=== PATIENT | female | born 1995 | race Caucasian/White ===

== ENCOUNTER 2019-08-10 15:00 | Outpatient (RCR) | payer MEDICAID, SELFPAY | END 2019-08-15 23:59 | LOC: NS 15:00 | PROVIDERS: Family Provider Family Medicine; PCP Family Medicine; Visit Provider Obstetrics & Gynecology | DX: O24.419 Gestational diabetes mellitus in pregnancy, unspecified control (principal) | CPT/HCPCS: 97802; G0108 ==

== ENCOUNTER 2019-09-07 14:00 | Outpatient (RCR) | payer MEDICAID, SELFPAY ==
[2017-06-16 17:13] VITALS: BMI 24.0
== END 2019-09-15 23:59 ==
LOC: DC 14:00
PROVIDERS: Family Provider Family Medicine; PCP Family Medicine; Visit Provider Obstetrics & Gynecology
DX: Z71.3 Dietary counseling and surveillance (principal); O24.419 Gestational diabetes mellitus in pregnancy, unspecified control

== ENCOUNTER 2019-10-17 20:20 | Emergency (ER) | payer MEDICAID, SELFPAY ==
[2019-10-17 20:21] VITALS: BP 129/68; PULSE 119; RESP 18; TEMP 36.8; O2SAT 99; BMI 35.6
--- NOTE | 2019-10-17 20:35 | RAD_ITS ---
STUDY: X-RAY CHEST REASON FOR EXAM: Female, 24 years old. COLD SX SINCE YESTERDAY. 39 WEEKS TECHNIQUE: PA and lateral views of the chest. COMPARISON: Previous study of 11/24/2014 FINDINGS: The lungs are clear and expanded. There is no demonstrated pleural abnormality. Normal size heart. Normal mediastinum and roger. Normal visualized pulmonary arteries. Normal visualized aortic arch and descending thoracic aorta. Normal visualized thoracic spine. Normal visualized ribs, clavicles, and shoulders. There is no demonstrated abnormality of the visualized soft tissue structures of the upper abdomen. RAD/Chest PA and Lateral IMPRESSION: Normal x-ray examination of the chest. Electronically Signed: Trevor Hatch MD at 21:10 EST , Service support ,
--- NOTE | 2019-10-17 20:42 | ED.VIS.GEN ---
History of Present Illness Chief Complaint: Cold Sx Informant: Patient Onset: Weeks Maximum Severity: Mild Narrative: Patient indicates she is 39 weeks , G2, P1 uncomplicated no abdominal pain vaginal bleeding or vaginal discharge, she complains of runny nose and coughing for 3 weeks her [employer] physicians are aware of the above there is no specific remedy they prescribed for her and she presents for evaluation of the coughing and the runny nose, she is eating and drinking well bowel and bladder habits are unremarkable Past Medical History - Allergies and Home Meds Allergies/Adverse Reactions: Allergies No Known Allergies Allergy (Verified 10/17/19 20:32) Primary Care Physician: Cameron Ambriz DO [Primary Care Provider] - Past Medical History: - - Indicates no chronic health conditions no history of HI PE DVT pneumonia or asthma and again is uncomplicated Smoking Status: Current every day smoker Review of Systems General: Denies: Chills, Fever, Sweats Eyes: Denies: Visual changes - bilaterally, Diplopia ENT: Reports: Rhinorrhea. Denies: Sore throat Cardiovascular: Denies: Chest pain, Palpitations Respiratory: Reports: Cough. Denies: Dyspnea, Dyspnea on exertion Gastrointestinal: Denies: Abdominal pain, Nausea, Vomiting, Diarrhea, Melena, Hematochezia Genitourinary: Denies: Dysuria, Hematuria, Frequency Musculoskeletal: Denies: Back pain, Extremity Pain Skin: Denies: Rash, Wounds Neurological: Denies: Headache, Weakness, Numbness Physical Exam Vital Signs/Narrative: Vital Signs Temp Pulse Resp BP Pulse Ox 10/17/19 20:21 98.2 F 119 H 18 129/68 H 99 General: Well nourished, Well developed, No Acute Distress Head: Normocephalic, Atraumatic Eyes: Perrl, EOMI ENT: Moist mucous membranes, No rhinorrhea Neck: Supple, Nontender Cardiovascular: Regular rate, Regular rhythm, No murmurs Respiratory: No distress, CTA bilaterally, Chest nontender Abdomen: Soft, Nontender, Nondistended, Normal bowel sounds, - - Is obviously abdomen soft and nontender Back: Nontender, Normal Inspection Extremities: Nontender, No edema Skin: Normal color, No rash Neurological: Alert, Oriented x3, Cranial nerves II-XII grossly intact, Normal Strength, Normal Sensation Psychological: Normal affect, Normal Mood Diagnostic/Tx/Re-eval - Medical Decision Making In no distress she does have some mild rhinorrhea her lungs are clear the next unremarkable labs unremarkable clinically she looks well she appears well-hydrated well-nourished given all the above chest x-rays obtained DuoNeb inhaler, the chest x-ray is unremarkable explained to her that given the above she will be discharged on Flonase Proventil inhaler and she will follow-up with her outpatient providers Saturday and return for change in symptoms she is comfortable this plan Home stable Final impression harsh cough with rhinorrhea, 39 weeks ED Disposition - Plan for ED Patient: Diagnosis: URI with cough Instructions: BRONCHITIS, No Antibiotic (Adult) Prescriptions: Fluticasone 0.05% [Flonase Nasal [place]] 1 spray NASAL BID #1 bottle Prescription Printed Albuterol Inhaler [Ventolin Hfa] 1 - 2 puff INHALATION Q4H PRN PRN #1 inhaler PRN Reason: Wheezing Prescription Printed Referrals: Cameron Ambriz DO [Primary Care Provider] -
--- NOTE | 2019-10-17 20:46 | DCINST.ED_ITS ---
ED Disposition - Plan for ED Patient: Diagnosis: URI with cough Instructions: BRONCHITIS, No Antibiotic (Adult) Prescriptions: Fluticasone 0.05% [Flonase Nasal [place]] 1 spray NASAL BID #1 bottle Prescription Printed Albuterol Inhaler [Ventolin Hfa] 1 - 2 puff INHALATION Q4H PRN PRN #1 inhaler PRN Reason: Wheezing Prescription Printed Referrals: Cameron Ambriz DO [Primary Care Provider] -
[2019-10-17 20:56] VITALS: PULSE 118; RESP 18
[2019-10-17] MEDS: Ipratropium/Albuterol Sulfate 3 ML AMPUL.NEB INHALATION (20:56)
== END 2019-10-17 21:36 | disposition home or self-care (01) ==
LOC: ED 20:51
PROVIDERS: Emergency Provider Emergency Medicine; PCP Family Medicine
DX: O99.513 Diseases of the respiratory system complicating pregnancy, third trimester (principal); J06.9 Acute upper respiratory infection, unspecified; O99.333 Smoking (tobacco) complicating pregnancy, third trimester; F17.200 Nicotine dependence, unspecified, uncomplicated; Z3A.39 39 weeks gestation of pregnancy
CPT/HCPCS: 71046; 94640; 99282

== ENCOUNTER 2019-10-23 07:08 | Inpatient (IN) | payer MEDICAID, SELFPAY ==
[2019-10-23 07:24] VITALS: BMI 34.9
[2019-10-23] MEDS: Lactated Ringers 1,000 ML 50 ML IV (07:50)
[2019-10-23 08:05] LABS: Bedside Glucose 134 mg/dL (70-110)
[2019-10-23 08:11] LABS: Absolute Lymphocyte Count 1.43 X10^3/uL (0.83-4.51); Absolute Neutrophil Count 6.7 X10^3/uL (2.0-7.7); Basophil# 0.03 X10^3/uL; Basophil% 0.3 % (0-1); Eosinophil# 0.14 X10^3/uL; Eosinophils% 1.5 % (0-5); Hematocrit 38.8 % (37-47); Hemoglobin 12.9 g/dL (12.0-15.0); Lymphocyte # 1.43 X10^3/ul (4.0); Lymphocyte % 15.7 % (19-41); Mean Corp Hgb Conc 33.2 g/dL (32-36); Mean Corpuscular Hgb 30.1 pg (27.0-32.0); Mean Corpuscular Volume 90.4 fL (81-99); Mean Platelet Vol. 10.9 fl (6.2-12.0); Monocyte# 0.71 X10^3/uL; Monocyte% 7.8 % (0-10); NRBC Flagged by Analyzer 0 % (0-5); Neutrophil # 6.73 X10^3/uL (2.7-7.7); Platelet Count 175 K/mm3 (150-450); RBC Distribution Width CV 13.2 % (11.6-14.6); RBC Distribution Width SD 43.8 fl (35.1-43.9); Red Blood Count 4.29 M/mm3 (4.2-5.4); White Blood Count 9.1 K/mm3 (4.4-11.0)
[2019-10-23] MEDS: 0.9% Normal Saline Single 100 ML IV.SOLN. IY (08:33)
[2019-10-23] MEDS: miSOPROStol 25 MCG TABLET VAGINAL (08:34)
[2019-10-23 09:36] LABS: Bedside Glucose 89 mg/dL (70-110)
[2019-10-23 10:21] LABS: Bedside Glucose 71 mg/dL (70-110)
[2019-10-23] MEDS: Oxytocin 30 units/NS 500 ml 30 UNITS/500 ML IV.SOLN IV (13:13)
--- NOTE | 2019-10-23 13:24 | HP.PCM_ITS ---
History Date of Admission: 10/23/19 Final JESS: 10/22/19 Final JESS Source: US <20 weeks Gestational age: 40 Weeks and 1 Days History of this : This is a 24 year-old, 2 para 1 at 40-1/7 weeks gestation presents for induction of labor due to gestational diabetes, diet controlled. Patient reports blood sugars have been well controlled. She denies any gross vaginal bleeding or leaking of fluid. She is had good movement. Allergies No Known Allergies Allergy (Verified 10/23/19 07:24) Home Medications: Home Medications Albuterol Inhaler [Ventolin Hfa] 1 - 2 puff INHALATION Q4H PRN PRN #1 inhaler 10/17/19 Pnv No.95/Ferrous Fum/Folic AC [ Formula] 1 ea PO DAILY 10/17/19 Fluticasone 0.05% [Flonase Nasal [place]] 1 spray NASAL BID 10/23/19 Smoking Status: Light Smoker (<10/day) Alcohol: None Number of Fetus(es): 1 NST - FHR Rate Baby A Baseline: normal Variability:: Moderate Accelerations:: 15 x 15 Decelerations:: None NST Reactive:: Yes FHR Category:: Category I History Past Pregnancies: Past Pregnancies Delivery Date Name GA/ Weeks Outcome Route Wt Infant Sex Labor Length Anesthesia Delivery Location Provider FOB Expected Infant Delivery Method: Spontaneous Vaginal Review of Systems Constitutional: Denies: Anorexia, Chills Eyes: Denies: Blurred vision Cardiovascular: Denies: Chest Pain Respiratory: Denies: Cough, Shortness of Breath Genitourinary: Denies: Dysuria Skin: Denies: Rash Neurological: Denies: Double vision, Slurred speech Physical Exam General: Alert, Cooperative, No apparent distress Cardiovascular: Regular rate Lungs: Normal air movement Abdomen: Soft, Non Tender, Non-Distended, Gravid Extremities:: Other - edema 1+ 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 Last ultrasound showed estimated weight at approximately 8-1/2 pounds. Risk benefits and alternatives to induction been discussed with patient, her questions were answered to her satisfaction she desires to proceed. Consent had been signed in the office. Pelvis is clinically adequate to expect vaginal delivery. Patient had history of chlamydia during the , repeat test was negative. Patient may have an epidural, nitrous oxide or IV pain medicines as needed for pain control.
[2019-10-23 14:05] LABS: Bedside Glucose 76 mg/dL (70-110)
[2019-10-23] MEDS: Lactated Ringers 500 ML 999 ML IV (17:35)
[2019-10-23] MEDS: fentaNYL-bupivacaine (epidural) 100 ML BAG EPIDURAL ×2 (18:27→22:33)
[2019-10-23 18:36] LABS: Bedside Glucose 82 mg/dL (70-110)
[2019-10-23 18:36] LABS: Bedside Glucose 68 mg/dL (70-110)
[2019-10-23 18:36] LABS: Bedside Glucose 84 mg/dL (70-110)
[2019-10-23] MEDS: Lactated Ringers 1,000 ML 200 ML IV (20:41)
[2019-10-23] MEDS: Ondansetron 4 MG/2 ML Vial IV (21:06)
[2019-10-23 22:31] LABS: Bedside Glucose 73 mg/dL (70-110)
[2019-10-24 00:55] LABS: Bedside Glucose 77 mg/dL (70-110)
[2019-10-24] MEDS: Lactated Ringers 1,000 ML 200 ML IV (02:27)
[2019-10-24] MEDS: Oxytocin 30 units/NS 500 ml 30 UNITS/500 ML IV.SOLN 334 UNITS IV (03:15)
--- NOTE | 2019-10-24 03:24 | OP.PCM_ITS ---
Vaginal Delivery Maternal Presentation: Medically Indicated Induction Method of Induction: Pitocin, Guy Bulb, Amniotomy Medical Reason for Induction: - - GDM A1 Amniotic Membrane Rupture Type: Artificial Amniotic Fluid Description: Clear Final JESS: 10/22/19 Final JESS Source: US <20 weeks Gestational age: 40 Weeks and 2 Days Date of Procedure: 10/24/19 Pre-Operative Diagnosis: labor, maternal exhaustion Post-Operative Diagnosis: same Surgery/ Procedure Performed: Vacuum Assisted Vaginal Delivery Type of Anesthesia: Epidural Description of Procedure: Patient was complete for over 3 hours, pushing for 2-1/2. She was exhausted. Position was SADE. Bladder was drained. Pelvis was clinically adequate. Estimated weight was less than 4500 g ultrasound. I discussed with the patient option of trial of outlet vacuum-assisted vaginal delivery. station was at plus 3 out of 5 station. Patient consented. Vacuum was placed and vacuum created to 550 mmHg. I pulled with 1 push with no pop offs to standing rock bony. The vacuum was removed. The patient then delivered on the next push. A vigorous female was delivered SADE over an intact perineum. The remainder the was delivered with maternal pushing and gentle traction only in less than 15 seconds. The Pitocin infusion was initiated for active management of the third stage. The cord was clamped and cut after 1 minute. The infant was attended to by the waiting nursing staff. The placenta was delivered spontaneously and intact. The cervix and vagina were intact. The small vaginal lacerations that were each 1 cm and first-degree were oversewn with 3-0 Vicryl repeat suture. They were hemostatic. Sponge and needle counts were correct. A vaginal sweep was completed by me. Presentation: SADE Placental Delivery Description: Spontaneous Placenta Disposition: [facility] Cord Vessel Description: 3 Vessels Cord Entanglement: None Drain: Guy to straight drain Estimated Blood Loss: 200 Infant A gender: Female (1 minute): 8 (5 minute): 9 Episiotomy Description: None Laceration: 1st degree - vaginal Medications given after delivery: IV Pitocin Complications: None
[2019-10-24 04:06] LABS: Bedside Glucose 74 mg/dL (70-110)
[2019-10-24 04:06] LABS: Bedside Glucose 75 mg/dL (70-110)
[2019-10-24 04:31] LABS: Bedside Glucose 82 mg/dL (70-110)
[2019-10-24 10:00] VITALS: BP 109/57; PULSE 81; RESP 16; TEMP 36.5
[2019-10-24 14:00] VITALS: BP 107/65; PULSE 91; RESP 16; TEMP 36.8
[2019-10-24] MEDS: Naproxen 250 MG Tablet 500 MG PO (14:07)
[2019-10-24 18:00] VITALS: BP 126/58; PULSE 82; RESP 16; TEMP 36.3
[2019-10-24 20:00] VITALS: BP 114/73; PULSE 83; RESP 16; TEMP 36.6
[2019-10-25] VITALS: BP 117/73; PULSE 84; RESP 18; TEMP 36.1
[2019-10-25 04:10] VITALS: BP 123/73; PULSE 76; RESP 18; TEMP 36.1
[2019-10-25 06:16] LABS: Bedside Glucose 121 mg/dL (70-110)
[2019-10-25] MEDS: Naproxen 250 MG Tablet 500 MG PO (07:29)
[2019-10-25 07:30] VITALS: BP 106/67; PULSE 84; RESP 14; TEMP 36.4; O2SAT 96
--- NOTE | 2019-10-25 08:54 | PCM.PN.OB ---
Subjective: Complaining some aching in her back. Average lochia. - Physical Exam Vitals/I&O's: Vital Signs Temp Pulse Resp BP Pulse Ox 97.5 F L 84 14 106/67 96 10/25/19 07:30 10/25/19 07:30 10/25/19 07:30 10/25/19 07:30 10/25/19 07:30 Oxygen Delivery Method Room Air Weight: 92.4 kg Body Mass Index (BMI) 34.9 Intake and Output for Last 24 Hours 10/23/19 10/24/19 10/25/19 23:59 23:59 23:59 Intake Total 2512.97 / 2512.97 1692.93 / 1692.93 Output Total 1600 / 1600 2600 / 2600 Balance 912.97 / 912.97 -907.07 / -907.07 General: Alert, Cooperative, No apparent distress Laboratory Results 10/25/19 06:08: POC Glucose 121 H Current Medications Acetaminophen (Tylenol) 1,000 mg PO Q8H PRN PRN PRN Reason: Pain Score 1-3/10 Bisacodyl (Dulcolax) 10 mg RECTAL UD PRN PRN Reason: If no BM Dibucaine (Dibucaine) 1 applic TOPICAL TID PRN PRN; Protocol PRN Reason: Discomfort Glucagon () 1 mg IM .X1 PRN PRN Reason: Hypoglycemia Hydrocortisone (Hytone) 1 applic TOPICAL TID PRN PRN; Protocol PRN Reason: Discomfort Dextrose (Dextrose 10%-Water) 250 mls @ 999 mls/hr IV X1 PRN; Protocol PRN Reason: HYPOGLYCEMIA Methylergonovine Maleate (Methergine) 0.2 mg IM X1 PRN PRN Reason: Excess bleeding/uterine atony Naproxen (Naprosyn) 500 mg PO Q8H PRN PRN PRN Reason: Pain Score 1-3/10 Last Admin: 10/25/19 07:29 Dose: 500 mg Documented by: Ondansetron HCl (Zofran) 4 mg IV Q4H PRN PRN PRN Reason: Nausea Senna/Docusate Sodium (Senokot-S, Clau-Colace) 1 - 2 tablet PO DAILY PRN PRN PRN Reason: Constipation Simethicone (Mylicon) 80 mg PO PCHS PRN PRN Reason: Indigestion/Stomach pain Sodium Chloride () 5 - 15 ml IV UD PRN PRN Reason: SALINE FLUSH Medical Necessity - Tobacco Use Smoking Status: Light Smoker (<10/day) Assessment/Plan day #1 status post vaginal delivery. is breast-feeding and doing well. Routine discharge instructions and prescriptions.
--- NOTE | 2019-10-25 08:57 | DCINST_ITS ---
Discharge Diet: No Restrictions Discharge Activity: Return to Normal Activity, May not drive while taking narcotic pain medications., May Shower May shower in (days): 0 May resume sexual activity in: 4-6 weeks Additional Activity Instructions:: Nothing in the vagina for 4-6 weeks. You may return to work/school in 6 weeks. Call your doctor if your incision/area has: Continuous Slow Oozing, Sudden Increased Bleeding, Increased Pain/ Swelling, Increased Redness, Foul Smelling Discharge Additional Instructions: If you experience any of the following, contact your healthcare provider. * Bleeding that soaks a pad every hour for 2 hours * Fever 100.4 or higher * Unrelieved incision or abdominal pain * Swelling, redness, discharge or bleeding from your incision or episiotomy site * Your incision begins to separate * Problems urinating (including inability to urinate or burning while urinating). * Visual changes * Severe headache * Flu-like symptoms * Pain or redness in one of both of your breasts * Pain, warmth, tenderness or swelling in your legs, especially the calf area * Frequent nausea and vomiting * Symptoms of depression or anxiety If you experience any of the following, call 911 or go to the nearest Emergency Room. * Chest pain * Problems breathing * Seizure activity * Partial or complete paralysis of a body part, slurred speech, weakness or drooping of the face, or a sudden inability to walk or hold your balance Allergies/Adverse Reactions: Allergies No Known Allergies Allergy (Verified 10/23/19 07:24) Medications to take at Discharge Albuterol Inhaler [Ventolin Hfa] 1 - 2 puff INHALATION Q4H PRN PRN #1 inhaler 10/17/19 Pnv No.95/Ferrous Fum/Folic AC [ Formula Tablet] 1 ea PO DAILY 10/17/19 Fluticasone 0.05% [Flonase Nasal [place]] 1 spray NASAL BID 10/23/19 Acetaminophen [Tylenol Extra Strength] 500 mg PO Q8 PRN #30 tab 10/25/19 Ibuprofen [Motrin] 800 mg PO TID PRN PRN #60 tab 10/25/19 The following prescriptions were given: Ibuprofen [Motrin] 800 mg PO TID PRN PRN #60 tab PRN Reason: Pain Transmission Status: Pending to [facility] Acetaminophen [Tylenol Extra Strength] 500 mg PO Q8 PRN #30 tab PRN Reason: Pain Or Fever Transmission Status: Pending to [facility]30 Please Follow Up With: Silvia Haley MD - [phone] When: Call to make an appointment in our office in 1-2 and 6 weeks or as needed Primary Care Physician: Cameron Ambriz DO [Primary Care Provider] - Test Results: Test results from this visit will be discussed in further detail at your follow- up appointment, if applicable.
[2019-10-25] MEDS: Senna/Docusate Sodium 1 Tablet PO (10:09)
[2019-10-25 12:33] VITALS: BP 118/62; PULSE 88; RESP 16; TEMP 36.6
== END 2019-10-25 13:07 | disposition home or self-care (01) | DRG 560 ==
PROVIDERS: Admitting Provider Obstetrics & Gynecology; PCP Family Medicine; Referring Provider Obstetrics & Gynecology; Visit Provider Obstetrics & Gynecology
DX: O24.420 Gestational diabetes mellitus in childbirth, diet controlled (principal); O75.81 Maternal exhaustion complicating labor and delivery; O71.4 Obstetric high vaginal laceration alone; O99.334 Smoking (tobacco) complicating childbirth; F17.200 Nicotine dependence, unspecified, uncomplicated; Z3A.40 40 weeks gestation of pregnancy; Z37.0 Single live birth
CPT/HCPCS: 59025; 59050; 82962; 85025; 86850; 86900; 86901; 99218; J7120; G0378; J2405

== ENCOUNTER 2021-02-11 00:52 | Emergency (ER) | payer MEDICAID, SELFPAY ==
[2021-02-11 00:53] VITALS: BP 150/84; PULSE 165; RESP 18; TEMP 36.1; O2SAT 98; BMI 34.2
[2021-02-11] MEDS: Adenosine 6 MG/2 ML Syringe IV (00:58)
[2021-02-11] MEDS: Adenosine 6 MG/2 ML Syringe 12 MG IV (01:00)
[2021-02-11 01:07] VITALS: BP 131/81; PULSE 140
--- NOTE | 2021-02-11 01:38 | EKG12_ITS ---
Test Reason : HR Blood Pressure : / mmHG Vent. Rate : 165 BPM Atrial Rate : 165 BPM P-R Int : 100 ms QRS Dur : 084 ms QT Int : 246 ms P-R-T Axes : 052 -59 059 degrees QTc Int : 407 ms Sinus tachycardia with short FL Left anterior fascicular block Abnormal ECG Confirmed by SAMAN CALVIN, ANNEL ([id number]), story editor TALYA MCADAMS ([id number]) on 02/14/2021 1:42:18 PM Referred By: GINETTE Confirmed By:ANNEL DAVISON MD
--- NOTE | 2021-02-11 01:39 | RAD_ITS ---
STUDY: X-RAY CHEST REASON FOR EXAM: Female, 25 years old. sob TECHNIQUE: Single AP portable view of the chest. COMPARISON: 10/17/2019 FINDINGS: The lungs are clear and expanded. There is no demonstrated pleural abnormality. Normal size heart. Normal mediastinum and roger. Normal visualized pulmonary arteries. Normal visualized aortic arch and descending thoracic aorta. Normal visualized thoracic spine. Normal visualized ribs, clavicles, and shoulders. There is no demonstrated abnormality of the visualized soft tissue structures of the upper abdomen. RAD/Chest 1 View (Portable) IMPRESSION: Normal x-ray examination of the chest. Electronically Signed: Jacob Diego DO at 2:04 EDT Tel , Service support ,
[2021-02-11 01:46] LABS: Absolute Lymphocyte Count 2.17 X10^3/uL (0.83-4.51); Absolute Neutrophil Count 6.5 X10^3/uL (2.0-7.7); Basophil# 0.05 X10^3/uL; Basophil% 0.5 % (0-1); Eosinophil# 0.34 X10^3/uL; Eosinophils% 3.3 % (0-5); Hematocrit 41.7 % (37-47); Lymphocyte # 2.17 X10^3/ul (0.83-4.51); Lymphocyte % 21.2 % (19-41); Mean Corp Hgb Conc 33.6 g/dL (32-36); Mean Corpuscular Hgb 30.6 pg (27.0-32.0); Mean Platelet Vol. 11.7 fl (6.2-12.0); Monocyte# 1.19 X10^3/uL; Monocyte% 11.6 % (0-10); NRBC Flagged by Analyzer 0 % (0-5); Neutrophil # 6.49 X10^3/uL (2.7-7.7); Neutrophil % 63.2 % (47-70); Platelet Count 232 K/mm3 (150-450); RBC Distribution Width CV 12.4 % (11.6-14.6); RBC Distribution Width SD 41.1 fl (35.1-43.9); Red Blood Count 4.58 M/mm3 (4.2-5.4); White Blood Count 10.3 K/mm3 (4.4-11.0)
[2021-02-11 01:52] LABS: Internal QC Validated? YES +Cl - CLEAR BKGD; Pregnancy, Serum, hCG Quali. NEGATIVE Negative
[2021-02-11 01:57] LABS: D-Dimer Quantitative (DVT/PE) 0.61 FEU/ug/m (0.27-0.49)
--- NOTE | 2021-02-11 02:02 | EX.ED.DYSGE1 ---
HPI History of Present Illness Chief Complaint: Palpitations Informant: patient Onset/Context/Timing Onset: Yesterday Context: Gradual Onset Timing: Waxes and wanes Current Severity: Moderate Maximum Severity: Moderate Narrative Narrative: Patient presents with what she believes to be an anxiety attack. She states tonight she does cannot relax and feels her heart is racing. She does note multiple stressors recently. She admits to a history of anxiety but never really felt as bad enough to see anyone or take any medication for it. [facility] Medical History (Updated 02/11/21 @ 03:[address] Jossie Oro MD) Anxiety Home Medications PNV cmb#95-ferrous fumarate-FA 1 ea PO DAILY 10/17/19 [History Last Taken 10/23/19 06:00 1 TAB] albuterol sulfate 1 - 2 puff INHALATION Q4H PRN PRN #1 inhaler 10/17/19 [Rx Last Taken 10/23/19 06:00 2 PUFFS] fluticasone propionate 1 spray NASAL BID 10/23/19 [History Last Taken 10/23/19 06:00 1 SPRAY] acetaminophen 500 mg PO Q8 PRN #30 tab 10/25/19 [Rx Last Taken Unknown] ibuprofen 800 mg PO TID PRN PRN #60 tab 10/25/19 [Rx Last Taken Unknown] lorazepam [Ativan] 0.5 mg PO TID PRN #14 tab 02/11/21 [Rx Last Taken Unknown] potassium chloride 40 meq PO DAILY #6 tab 02/11/21 [Rx Last Taken Unknown] Allergy/AdvReac Type Severity Reaction Status Date / Time No Known Allergies Allergy Verified 02/11/21 01:01 Social History Smoking Status: Light Smoker (<10/day) ROS [facility] ED Constitutional Constitutional ED: Denies chills or fever(s) Eyes Eyes: Denies change in vision ENT ENT ED: Reports rhinorrhea and other Details: Head congestion ; Denies sore throat Cardiovascular Cardiovascular: Reports palpitations and racing heartbeat; Denies chest pain Respiratory/Chest Respiratory/Chest: Reports dyspnea; Denies cough Gastrointestinal Gastrointestinal: Denies abdominal pain, diarrhea, nausea or vomiting Genitourinary Genitourinary ED: Denies dysuria Musculoskeletal Musculoskeletal: Denies back pain Integumentary Denies rash Neurologic Neurologic: Denies headache(s) or weakness Psychiatric Psychiatric: Denies anxiety or depression Endocrine Endocrinology: Denies polydipsia or polyuria Allergic/Immunologic Allergic/Immunologic ED: Denies urticaria EXAM Physical Exam Const Vital Signs: 02/11/21 00:53 02/11/21 01:01 02/11/21 01:07 Temperature 97 F L Temperature Source Oral Pulse Rate 165 H 140 H Respiratory Rate 18 Respiratory Effort Normal Non-Labored Blood Pressure 150/84 H 131/81 H Blood Pressure Mean 106 97 Pulse Ox 98 Oxygen Delivery Method Room Air 02/11/21 02:20 Temperature Temperature Source Pulse Rate 117 H Respiratory Rate 16 Respiratory Effort Blood Pressure 128/89 H Blood Pressure Mean 102 Pulse Ox 97 Oxygen Delivery Method Room Air Positive well nourished and well developed General Appearance ED: well developed Eyes PERRL and EOMs intact bilaterally Neck supple Chest Wall inspection of chest normal and palpation of chest normal Resp normal respiratory effort and clear to auscultation bilaterally Cardio Rate: tachycardic GI normal to inspection, nondistended, normoactive bowel sounds Extremity normal to inspection General Extremety ED: Negative for tenderness Neuro oriented x3 and no sensory deficits noted Sensorium / Orientation: alert Motor Exam: strength 5/5 throughout Psych Mood & Affect: anxious Skin no rashes or lesions noted MDM MDM MDM Narrative Medical decision making narrative: Patient had EKG obtained. Lab work sent. Initial EKG was sinus tach at 165. Due to concern for SVT 1 my partners was able to see the patient immediately and did give her 6 and 12 mg of adenosine. There was no change in her rhythm and no pause. When I was able to get into see the patient her heart rate was in the 140s. Lab Data Attestation: I reviewed the patient's lab results. Labs: Laboratory Results - last 24 hr 02/11/21 02/11/21 02/11/21 01:00 01:00 01:00 WBC 10.3 RBC 4.58 Hgb 14.0 Hct 41.7 MCV 91.0 MCH 30.6 MCHC 33.6 RDW Std Deviation 41.1 RDW Coeff of Otf 12.4 Plt Count 232 MPV 11.7 Immature Gran % (Auto) 0.200 Neut % (Auto) 63.2 Lymph % (Auto) 21.2 [place] % (Auto) 11.6 H Eos % (Auto) 3.3 Baso % (Auto) 0.5 Absolute Neuts (auto) 6.5 Absolute Lymphs (auto) 2.17 Nucleated RBC % 0 D-Dimer Quant (PE/DVT) 0.61 H* Sodium 137 Potassium 2.9 L Chloride 105 Carbon Dioxide 23.0 Anion Gap 9 BUN 8 Creatinine 1.09 H Estim Creat Clear Calc 67.54 Est GFR (MDRD) Af Amer 78 Est GFR (MDRD) Non-Af 64 BUN/Creatinine Ratio 7.3 L Glucose 157 H Calcium 9.1 TSH 3.33 Serum , Qual 02/11/21 01:00 WBC RBC Hgb Hct MCV MCH MCHC RDW Std Deviation RDW Coeff of Otf Plt Count MPV Immature Gran % (Auto) Neut % (Auto) Lymph % (Auto) [place] % (Auto) Eos % (Auto) Baso % (Auto) Absolute Neuts (auto) Absolute Lymphs (auto) Nucleated RBC % D-Dimer Quant (PE/DVT) Sodium Potassium Chloride Carbon Dioxide Anion Gap BUN Creatinine Estim Creat Clear Calc Est GFR (MDRD) Af Amer Est GFR (MDRD) Non-Af BUN/Creatinine Ratio Glucose Calcium TSH Serum , Qual NEGATIVE Radiography Chest X-Ray - ED: 1 View, Read by ED Physician, Normal, Heart, Lungs and Mediastinum Diagnostic Testing: Radiology Impression Chest X-Ray 02/11/21 01:39 IMPRESSION: Normal x-ray examination of the chest. Electronically Signed: Jacob Diego DO at 2:04 EDT Tel , Service support , Chest CTA 02/11/21 03:07 IMPRESSION: Normal CTA chest examination, without a demonstrated pulmonary embolism or arterial dissection. Electronically Signed: Jacob Diego DO at 3:32 EDT Tel , Service support , EKG Initial EKG: Attestation: I personally reviewed and interpreted this EKG as follows: Interpretation: Sinus Tachycardia (Sinus tach at 165. No obvious ST change. Narrow complex.) Treatment and Re-Evaluation Comments:: Patient was given IV fluids. She is driving so therefore was not given any anxiety medicine in the emergency room. Blood work is reviewed with her. Her potassium is low at 2.9 and she is given 40 mEq p.o. D-dimer is elevated and she is sent for CTA of the chest which is unremarkable. On final repeat exam patient's heart rate is in the 90s. She does feel improved. She does voice multiple stressors and anxiety recently. She will be given a tab of Ativan to take when she gets home tonight and a prescription will be sent to the pharmacy for her. Discharge Plan Triage Chief Complaint: Palpitations ED Provider: Jossie Oro Dx/Rx/DC Orders Clinical Impression: Anxiety Instructions: ED Anxiety Reaction, ED Palpitations Prescriptions: New lorazepam [Ativan] 0.5 mg tablet 0.5 mg PO TID PRN (Reason: anxiety) Qty: 14 RF: 0 potassium chloride 20 mEq tablet extended release 40 meq PO DAILY Qty: 6 RF: 0 No Action PNV cmb#95-ferrous fumarate-FA 1 EACH tablet 1 ea PO DAILY RF: 0 albuterol sulfate 1 INHALER inhaler 1 - 2 puff inhalation Q4H PRN PRN (Reason: Wheezing) Qty: 1 RF: 0 fluticasone propionate 1 SPRAY spray,suspension 1 spray NASAL BID RF: 0 ibuprofen 800 MG tablet 800 mg PO TID PRN PRN (Reason: Pain) Qty: 60 RF: 1 acetaminophen 500 MG tablet 500 mg PO Q8 PRN (Reason: Pain Or Fever) Qty: 30 RF: 0 Primary Care Provider: Care Physician,No Primary Referrals: Del Self III, MD [STAFF PHYSICIAN] - As soon as possible Care Physician,No Primary [Primary Care Provider] - Disposition Disposition: Home, self care
[2021-02-11] MEDS: 0.9% Normal Saline 1,000 ML 1000 ML IV (02:08)
[2021-02-11 02:18] LABS: Anion Gap 9 (5-15); BUN 8 mg/dL (7-18); BUN/Creat Ratio 7.3 RATIO (10-20); Calcium,Total 9.1 mg/dL (8.5-10.1); Chloride 105 mmol/L (98-107); Creatinine, Serum 1.09 mg/dL (0.55-1.02); EST Glomerular Filtration Rate 64 mL/min (>60); Est Glom Filt Rate - Afr Amer 78 mL/min (>60); Estimated Creatinine Clearance 67.54 ml/min; Glucose 157 mg/dL (74-106); Potassium 2.9 mmol/L (3.5-5.1); Sodium Level 137 mmol/L (136-145); Thyroid Stim Hormone (TSH) 3.33 uIU/mL (0.358-3.74)
[2021-02-11 02:20] VITALS: BP 128/89; PULSE 117; RESP 16; O2SAT 97
--- NOTE | 2021-02-11 03:07 | CT_ITS ---
STUDY: CTA CHEST REASON FOR EXAM: Female, 25 years old. sob, tachycardia RADIATION DOSAGE (If Supplied By Facility): CTDIvol = ( 10.85 ) mGy, DLP = ( 477.62 ) mGycm TECHNIQUE: The examination was performed with the intravenous administration of IV 100mL Isovue-370. Post-processing of the angiographic images was performed, with multiplanar reformation and 3D reconstruction. Individualized dose optimization techniques were used for this CT. COMPARISON: None. FINDINGS: Normal enhancement of the main pulmonary artery and right and left pulmonary arteries. Normal enhancement of the bilateral peripheral pulmonary arteries. There is no demonstrated pulmonary embolism. Normal thoracic aorta and visualized great vessels. There is no demonstrated aortic dissection. Normal heart and pericardium. Normal mediastinum. Normal hilar regions. Calcified mediastinal lymph node Normal visualized trachea and bronchi. The lungs are well expanded. Normal pulmonary parenchyma. Normal pleura. Normal chest wall structures. Normal osseous structures. Normal visualized upper abdomen. CT/CTA Chest W/WO Contrast IMPRESSION: Normal CTA chest examination, without a demonstrated pulmonary embolism or arterial dissection. Electronically Signed: Jacob Diego DO at 3:32 EDT Tel , Service support ,
[2021-02-11] MEDS: Potassium Chloride Oral Tablet 20 MEQ 40 MEQ PO (03:34)
[2021-02-11 03:55] VITALS: BP 124/78; PULSE 64; RESP 14; RESP 16; TEMP 36.3; O2SAT 98
[2021-02-11] MEDS: LORazepam 0.5 MG Tablet PO (03:57)
== END 2021-02-11 04:03 | disposition home or self-care (01) ==
PROVIDERS: Emergency Provider Emergency Medicine
DX: F41.9 Anxiety disorder, unspecified (principal); E87.6 Hypokalemia
CPT/HCPCS: 71045; 71275; 80048; 84443; 84703; 85025; 85379; 93005; 96361; 96374; 96376; 99285; J7030; Q9967; A4216; J0153

== ENCOUNTER 2021-05-09 17:13 | Emergency (ER) | payer MEDICAID, SELFPAY ==
[2021-05-09 17:14] VITALS: BP 125/106; PULSE 116; RESP 18; TEMP 36; O2SAT 98; BMI 30.7
[2021-05-09 18:42] VITALS: BP 138/85; PULSE 86; RESP 16; O2SAT 97
[2021-05-09] MEDS: Mag Hydrox/Al Hydrox/Simeth 30 ML UDC PO (18:48)
--- NOTE | 2021-05-09 19:49 | EX.ED.DYSGE1 ---
HPI History of Present Illness Chief Complaint: Chest Pain Informant: patient Onset/Context/Timing Onset: Weeks Context: Sudden Onset Timing: Intermittent Quality: Pain burning sensation Location: Epigastrium mid chest Current Severity: Mild Maximum Severity: Moderate Worsened by: Nothing specific Relieved by: Nothing specific Associated Symptoms Associated Symptoms: No associated symptoms or radiation Narrative Narrative: Patient is a 26-year-old female who presents with epigastric/anterior midsternal discomfort described as a tight burning sensation. There is no complaint of solid rotation. She denies black or maroon-colored stool. She denies nausea or vomiting. She denies shortness of breath, radiation of the pain. She denies diaphoresis. She denies history of coronary disease. She does have history anxiety. She has not taken her anxiety medicine today. She denies history of VTE. She denies leg pain, swelling discoloration. She denies recent surgery, long distance trip. She has no respiratory symptoms. She has no HEENT symptoms. Prior similar symptoms: No (Patient states this is slightly different than her anxiety chest discomfort) Recent Illness/Hospitalization: No [facility] Medical History Anxiety Home Medications PNV cmb#95-ferrous fumarate-FA 1 ea PO DAILY 10/17/19 [History Last Taken 10/23/19 06:00 1 TAB] albuterol sulfate 1 - 2 puff INHALATION Q4H PRN PRN #1 inhaler 10/17/19 [Rx Last Taken 10/23/19 06:00 2 PUFFS] fluticasone propionate 1 spray NASAL BID 10/23/19 [History Last Taken 10/23/19 06:00 1 SPRAY] acetaminophen 500 mg PO Q8 PRN #30 tab 10/25/19 [Rx Last Taken Unknown] ibuprofen 800 mg PO TID PRN PRN #60 tab 10/25/19 [Rx Last Taken Unknown] lorazepam [Ativan] 0.5 mg PO TID PRN #14 tab 02/11/21 [Rx Last Taken Unknown] potassium chloride 40 meq PO DAILY #6 tab 02/11/21 [Rx Last Taken Unknown] omeprazole 20 mg PO DAILY #15 capsule 05/09/21 [Rx Last Taken Unknown] Allergy/AdvReac Type Severity Reaction Status Date / Time No Known Allergies Allergy Verified 05/09/21 17:14 Social History (Updated 05/09/21 @ 19:[address] Seferino Coker MD) household members: children Smoking Status: Light Smoker (<10/day) alcohol intake: current alcohol intake frequency: other substance use type: does not use ROS ROS ED Constitutional Constitutional ED: Denies chills, fever(s), subjective or sweats Eyes Eyes: Denies blurry vision, change in vision or diplopia ENT ENT ED: Denies ear pain, rhinorrhea or sore throat Cardiovascular Cardiovascular: Reports chest pain; Denies orthopnea, palpitations or racing heartbeat Respiratory/Chest Respiratory/Chest: Denies cough, dyspnea, dyspnea on exertion, orthopnea or sputum Gastrointestinal Gastrointestinal: Denies abdominal pain, constipation, diarrhea, nausea or vomiting Genitourinary Genitourinary ED: Denies dysuria, hematuria or urinary frequency Musculoskeletal Musculoskeletal: Denies arthralgias, myalgias or neck pain Integumentary Denies rash Neurologic Neurologic: Denies paresthesias or weakness Psychiatric Psychiatric: Reports anxiety EXAM Physical Exam Const Vital Signs: 05/09/21 17:14 05/09/21 18:42 Temperature 96.8 F L Temperature Source Temporal Pulse Rate 116 H 86 Respiratory Rate 18 16 Respiratory Effort Normal Respiratory Pattern Normal Blood Pressure 125/106 H 138/85 H Blood Pressure Mean 112 102 Pulse Ox 98 97 Oxygen Delivery Method Room Air Room Air Positive well nourished, well developed and obese General Appearance ED: well developed and NAD Nutritional Appearance: obese HEENT Reports moist mucous membranes HEENT Narrative: Head is atraumatic normocephalic. Ears normal. Nares patent. Posterior pharynx unremarkable. Eyes PERRL and EOMs intact bilaterally General Eye ED: Negative for pale conjunctiva or scleral icterus Neck no lymphadenopathy, supple and no JVD Chest Wall inspection of chest normal and palpation of chest normal Resp normal respiratory effort and clear to auscultation bilaterally Cardio regular rate, regular rhythm, S1 normal heart sound, S2 normal heart sound and no murmurs GI normal to inspection, nondistended, normoactive bowel sounds and non-distended Palpation: soft and tender epigastric Back/Spine no CVA tenderness Extremity normal to inspection General Extremety ED: Negative for edema or tenderness General Extremity: Negative for edema Neuro oriented x3, CN's II-XII intact bilaterally and no sensory deficits noted Sensorium / Orientation: alert Motor Exam: strength 5/5 throughout Psych mental status grossly normal Skin no rashes or lesions noted, no wounds and skin turgor normal MDM MDM MDM Narrative Medical decision making narrative: Patient has reproducible chest pain. She is PERC negative. Patient was treated with GI cocktail. Her epigastric pain has essentially resolved. She has slight mid chest pain. Plan is discharged with prescription for omeprazole and follow-up with her primary care physician. Discharge Plan Triage Chief Complaint: Chest Pain ED Provider: Seferino Coker Dx/Rx/DC Orders Clinical Impression: Acute epigastric pain, Non-cardiac chest pain Instructions: ED Chest Pain, Noncardiac, ED Gastritis (Adult) Prescriptions: New omeprazole [omeprazole] 20 MG capsule 20 mg PO DAILY Qty: 15 RF: 0 No Action PNV cmb#95-ferrous fumarate-FA 1 EACH tablet 1 ea PO DAILY RF: 0 albuterol sulfate 1 INHALER inhaler 1 - 2 puff inhalation Q4H PRN PRN (Reason: Wheezing) Qty: 1 RF: 0 fluticasone propionate 1 SPRAY spray,suspension 1 spray NASAL BID RF: 0 ibuprofen 800 MG tablet 800 mg PO TID PRN PRN (Reason: Pain) Qty: 60 RF: 1 acetaminophen 500 MG tablet 500 mg PO Q8 PRN (Reason: Pain Or Fever) Qty: 30 RF: 0 lorazepam [Ativan] 0.5 mg tablet 0.5 mg PO TID PRN (Reason: anxiety) Qty: 14 RF: 0 potassium chloride 20 mEq tablet extended release 40 meq PO DAILY Qty: 6 RF: 0 Primary Care Provider: Nhan Castellanos NP Referrals: Nhan Castellanos NP, [employer] [Primary Care Provider] - 1 Week if not improving Disposition Disposition: Home, Self Care
[2021-05-09 20:08] VITALS: BP 109/66; PULSE 68; RESP 18; O2SAT 99
== END 2021-05-09 20:08 | disposition home or self-care (01) ==
PROVIDERS: Emergency Provider Emergency Medicine; PCP Nurse Practitioner Family
DX: R07.89 Other chest pain (principal); R10.13 Epigastric pain; E66.9 Obesity, unspecified; F41.9 Anxiety disorder, unspecified; F17.200 Nicotine dependence, unspecified, uncomplicated; Z68.30 Body mass index [BMI] 30.0-30.9, adult; Z79.899 Other long term (current) drug therapy
CPT/HCPCS: 99284

== ENCOUNTER → 2021-05-17 15:55 | Outpatient (CLI) | payer MEDICAID, SELFPAY | PROVIDERS: PCP Nurse Practitioner Family; Visit Provider Physician Assistant | DX: U07.1 COVID-19 (principal) | CPT/HCPCS: 87635; U0005; U0003 ==

== ENCOUNTER → 2021-05-27 | Outpatient (CLI) | payer MEDICAID, SELFPAY | END | disposition home or self-care (01) | PROVIDERS: PCP Nurse Practitioner Family; Referring Provider Nurse Practitioner Family; Visit Provider Nurse Practitioner Family | DX: Z20.822 Contact with and (suspected) exposure to COVID-19 (principal) | CPT/HCPCS: 87635; U0005; U0003 ==

== ENCOUNTER 2024-06-30 19:40 | Emergency (ER) | payer MEDICAID, SELFPAY ==
[2024-06-30 19:41] VITALS: BP 130/108; PULSE 149; RESP 18; TEMP 36.2; O2SAT 96; BMI 37.8
--- NOTE | 2024-06-30 20:11 | ED.RN ---
Addendum entered by Radha Park 06/30/24 20:15: Previous note closed prematurely. Pt. reports it feels like my heart is racing and it feels tight in my lungs, just like I am sick. Original Note: Pt. feels anxious but denies chest pain. Pt. reports it feels like her heart is racing and it
[2024-06-30 20:41] VITALS: BP 107/74; PULSE 129; RESP 18; O2SAT 96
--- NOTE | 2024-06-30 20:50 | RAD_ITS ---
INDICATION: cough EXAMINATION/TECHNIQUE: X-RAY - XR Chest 1 View COMPARISON: 02/11/2021 chest radiograph. Findings: Single frontal view of the chest. LUNG PARENCHYMA: Streaky left lung base airspace disease. PLEURA: No pleural effusion. No pneumothorax. HEART/GREAT VESSELS: Cardiomediastinal silhouette is unremarkable. BONES: Osseous structures are unremarkable for age. RAD/Chest 1 View (Portable) IMPRESSION: Streaky left lung base atelectasis versus other airspace disease, to include developing pneumonia. Recommend follow-up to resolution. Electronically Signed: Enoc Kent MD at 21:18 EDT ,
--- NOTE | 2024-06-30 20:51 | EDS_ITS ---
HPI History of Present Illness Chief Complaint: Palpitations Detail of Chief Complaint: Palpitations and not feeling well Informant: patient Narrative Narrative: Patient presents to the emergency department stating that she started feeling sick yesterday with some bodyaches and some chest. She went to urgent care and they checked her temperature and it was 102. Patient had been chilled all day. They checked her heart rate and it was 160 but she states she was feeling very anxious and she has history of anxiety. They referred her to the emergency department. Patient normally takes BuSpar for her anxiety but has not taken her evening dose. Patient states that she feels like when she had the flu last time. She denies recent travel or surgery. Currently she feels less anxious [facility] Medical History (Updated 06/30/24 @ 23:[address] Tahmina Benz, ) History of cannabis abuse Current every day vapor product user History of methamphetamine use Encounter for screening for COVID-19 URI (upper respiratory infection) Anxiety Home Medications ?Medication ?Instructions ?Recorded ?Last Taken ?Type acetaminophen 500 mg tablet 500 mg PO Q8 PRN Pain Or Fever #30 10/25/19 Unknown Rx tabs ibuprofen 800 mg tablet 800 mg PO TID PRN PRN Pain #60 tabs 10/25/19 Unknown Rx omeprazole 20 mg capsule,delayed 20 mg PO DAILY #15 CAPSULES 05/09/21 Unknown Rx release buspirone 10 mg tablet 10 mg PO TID 06/30/24 Unknown History desogestrel 0.15 mg-ethinyl 1 tab PO DAILY 06/30/24 Unknown History estradiol 0.03 mg tablet (Enskyce) levofloxacin 750 mg tablet 750 mg PO DAILY #6 tabs 06/30/24 Unknown Rx Allergy/AdvReac Type Severity Reaction Status Date / Time No Known Allergies Allergy Verified 06/30/24 19:43 Social History household members: children Smoking Status: Current every day smoker tobacco type: e-cigarettes alcohol intake: current alcohol intake frequency: other substance use type: does not use ROS ROS ED Review of Systems ROS Unobtainable: other Constitutional Constitutional ED: Reports lethargy; Denies chills, fever(s), sweats or weight loss Eyes Eyes: Denies blurry vision, change in vision or diplopia ENT ENT ED: Denies rhinorrhea or sore throat Cardiovascular Cardiovascular: Reports racing heartbeat; Denies chest pain or orthopnea Respiratory/Chest Respiratory/Chest: Reports cough; Denies dyspnea, dyspnea on exertion, orthopnea or sputum Gastrointestinal Gastrointestinal: Denies abdominal pain, diarrhea, nausea or vomiting Genitourinary Genitourinary ED: Denies dysuria, hematuria or urinary frequency Musculoskeletal Musculoskeletal: Reports myalgias; Denies arthralgias, back pain or neck pain Integumentary Denies abscess, Abrasions or rash Neurologic Neurologic: Denies headache(s) or weakness Psychiatric Psychiatric: Denies anxiety, depression or suicidal thoughts Endocrine Endocrinology: Denies polydipsia, polyphagia or polyuria Hematologic/Lymphatic Hematologic/Lymphatic: Denies easy bleeding, easy bruising or lymphadenopathy Allergic/Immunologic Allergic/Immunologic ED: Denies mouth swelling, tongue swelling or urticaria EXAM Physical Exam Const Vital Signs: 06/30/24 19:41 06/30/24 20:08 06/30/24 20:41 Temperature 97.1 F L Temperature Source Temporal Pulse Rate 149 H 129 H Respiratory Rate 18 18 Respiratory Effort Normal Non-Labored Respiratory Pattern Normal Blood Pressure 130/108 H 107/74 Blood Pressure Mean 115 85 Pulse Ox 96 96 Oxygen Delivery Method Room Air Room Air 06/30/24 21:00 06/30/24 22:00 06/30/24 23:00 Temperature Temperature Source Pulse Rate 121 H 118 H 119 H Respiratory Rate 13 16 20 H Respiratory Effort Respiratory Pattern Blood Pressure 120/105 H 97/56 L 122/74 H Blood Pressure Mean 110 69 90 Pulse Ox 96 95 95 Oxygen Delivery Method Room Air Room Air Positive well nourished and well developed General Appearance ED: well developed and NAD HEENT Reports TM's clear and moist mucous membranes normocephalic and atraumatic; Negative for trauma or tenderness Tympanic Membrane ED: Yes TM's clear Eyes PERRL and EOMs intact bilaterally General Eye ED: Negative for pale conjunctiva or scleral icterus Neck no lymphadenopathy, supple and no JVD General: Negative for tenderness Chest Wall inspection of chest normal and palpation of chest normal Chest: Negative for tenderness Resp normal respiratory effort and clear to auscultation bilaterally Effort and Inspection: Negative for respiratory distress or pain with movement Auscultation: Negative for rhonchi, wheezes or diminished lung sounds Cardio regular rhythm, S1 normal heart sound, S2 normal heart sound and no murmurs Rate: tachycardic Peripheral Pulses: pulses 2+ throughout GI normal to inspection, nondistended, normoactive bowel sounds, soft to palpation, non-tender, non-distended and no masses Back/Spine no CVA tenderness and no thoracic nor lumbar tenderness Extremity normal to inspection General Extremety ED: Negative for edema General Extremity: Negative for edema Neuro oriented x3, CN's II-XII intact bilaterally, no sensory deficits noted and gait normal Sensorium / Orientation: awake, alert, oriented to person, oriented to place and oriented to time Motor Exam: strength 5/5 throughout and strength abnormal Psych mental status grossly normal Skin no rashes or lesions noted and no wounds MDM MDM MDM Narrative Medical decision making narrative: Patient presents with racing heart and chills and burning chest. She has had a cough that started yesterday. Seen at urgent care and was feeling anxious and heart rate was in the 160s so referred to the ER for evaluation. Patient has history of anxiety. She denies recent travel or surgery. Patient had heart rate improved into the 130s with as I was interviewing her in the room. On the monitor. Patient had COVID flu and RSV testing that was negative. I did give her a milligram of Ativan. 1 view chest x-ray obtained interpreted by myself as no acute disease process however radiology felt there might be some streaking in the left lung base which could be atelectasis versus airspace disease to include developing pneumonia. We also obtain a D-dimer given the persistent tachycardia and this was elevated and obtain a CTA of the chest to rule out PE. CT was negative for PE or have left lower lobe pneumonia/consolidation. Patient did receive IV Levaquin here. I did order labs as well as blood cultures and lactate. I ambulated patient in department and her pulse ox stays around 95% however her heart rate jumped to 135. Temp now 99 9. I did give her Toradol. Case turned over to evening physician awaiting lab results and if she may benefit from a admission and IV antibiotics. Lab Data Attestation: I reviewed the patient's lab results. Labs: Laboratory Results - last 24 hr 06/30/24 22:34 D-Dimer Quant (PE/DVT) 0.54 H* Radiography Diagnostic Testing: Clinical Impression(s) from Imaging Studies Chest X-Ray 06/30/24 20:50 IMPRESSION: Streaky left lung base atelectasis versus other airspace disease, to include developing pneumonia. Recommend follow-up to resolution. Electronically Signed: Enoc Kent MD at 21:18 EDT , Chest CTA 06/30/24 23:15 IMPRESSION: Dense streaky patchy left lower lobe airspace disease, to include pneumonia. Likely associated mediastinal adenopathy. Recommend follow-up to resolution. Distal pulmonary artery branch vessel evaluation is suboptimal secondary to timing of contrast bolus as well as respiratory motion, however, there is no obvious proximal pulmonary embolus. No acute thoracic aortic abnormality. Electronically Signed: Enoc Kent MD at 23:57 EDT , 1 view chest x-ray obtained interpreted by myself as increased markings left lower lobe concern for pneumonia. Radiology in agreement EKG Initial EKG: Attestation: I personally reviewed and interpreted this EKG as follows: Comments: Sinus tachycardia with ventricular rate of 148 bpm with no acute ST segment changes. Discharge Plan Triage Chief Complaint: Palpitations ED Provider: Tahmina Benz Dx/Rx/DC Orders Clinical Impression: Pneumonia, Anxiety Instructions: ED Anxiety Reaction, ED Pneumonia (Adult) Prescriptions: New levofloxacin 750 mg tablet 750 mg PO DAILY Qty: 6 0RF No Action ibuprofen 800 MG tablet 800 mg PO TID PRN PRN (Reason: Pain) Qty: 60 1RF acetaminophen 500 MG tablet 500 mg PO Q8 PRN (Reason: Pain Or Fever) Qty: 30 0RF omeprazole [omeprazole] 20 MG capsule 20 mg PO DAILY Qty: 15 0RF desogestrel-ethinyl estradiol [Enskyce] 0.15-0.03 mg tablet 1 tab PO DAILY buspirone 10 mg tablet 10 mg PO TID Primary Care Provider: Skylar Denise Referrals: Nhan Castellanos SALES OUTFITTER, [employer] [Non-Staff] - 3-5 Days Print Language: [place] Disposition Disposition: Home, Self Care
[2024-06-30] MEDS: LORazepam 1 MG Tablet PO (20:58)
[2024-06-30 21:00] VITALS: BP 120/105; PULSE 121; RESP 13; O2SAT 96
[2024-06-30 22:00] VITALS: BP 97/56; PULSE 118; RESP 16; O2SAT 95
[2024-06-30] MEDS: levoFLOXacin IV 750 MG/150 ML BAG 100 MG IV (22:28)
[2024-06-30 23:00] VITALS: BP 122/74; PULSE 119; RESP 20; O2SAT 95
[2024-06-30 23:05] LABS: D-Dimer Quantitative (DVT/PE) 0.54 FEU/ug/m (0.27-0.49)
--- NOTE | 2024-06-30 23:15 | CT_ITS ---
INDICATION: dyspnea, elevated d-dimer EXAMINATION: - CTA Chest WO/W Contrast Injection A radiation dose optimization technique was used for this scan. RADIATION DOSAGE (If Supplied By Facility): CTDIvol/DLP = ( 21.62 ) / ( 492.0 ) mGy/mGycm COMPARISON: Chest radiograph same day. Chest CT 02/11/2021. FINDINGS: Contrast enhanced serial CTA axial images through the chest with coronal and sagittal reformatted series. Additional dedicated coronal and sagittal MIP reformatted series provided as well. IV Contrast dosage and agent: 90 cc [id number] IV. MEDIASTINUM: No acute thoracic aortic abnormality. Mediastinal adenopathy measuring up to 18 mm in the short axis in the subcarinal region. Distal pulmonary artery branch vessel evaluation is suboptimal secondary to timing of contrast bolus as well as respiratory motion, however, there are no obvious proximal pulmonary artery filling defects. LUNG PARENCHYMA: Dense streaky patchy left lower lobe airspace disease. PLEURA: No pleural effusion. No pneumothorax. BONES: Osseous structures are unremarkable for age. UPPER ABDOMEN: Unremarkable. CT/CTA Chest W/WO Contrast IMPRESSION: Dense streaky patchy left lower lobe airspace disease, to include pneumonia. Likely associated mediastinal adenopathy. Recommend follow-up to resolution. Distal pulmonary artery branch vessel evaluation is suboptimal secondary to timing of contrast bolus as well as respiratory motion, however, there is no obvious proximal pulmonary embolus. No acute thoracic aortic abnormality. Electronically Signed: Enoc Kent MD at 23:57 EDT ,
[2024-07-01] VITALS: BP 122/75; PULSE 123; RESP 18; O2SAT 97
[2024-07-01 00:21] LABS: Absolute Lymphocyte Count 0.98 X10^3/uL (0.83-4.51); Absolute Neutrophil Count 6.5 X10^3/uL (2.0-7.7); Basophil# 0.05 X10^3/uL; Basophil% 0.6 % (0-1); Eosinophil# 0.07 X10^3/uL; Eosinophils% 0.9 % (0-5); Hematocrit 38.8 % (37-47); Lymphocyte # 0.98 X10^3/ul (0.83-4.51); Mean Corp Hgb Conc 33.5 g/dL (32-36); Mean Corpuscular Hgb 29.6 pg (27.0-32.0); Mean Corpuscular Volume 88.4 fL (81-99); Mean Platelet Vol. 11.2 fl (6.2-12.0); Monocyte# 0.53 X10^3/uL; Monocyte% 6.5 % (0-10); NRBC Flagged by Analyzer 0 % (0-5); Neutrophil # 6.54 X10^3/uL (2.7-7.7); Neutrophil % 79.6 % (47-70); Platelet Count 186 K/mm3 (150-450); RBC Distribution Width CV 12.6 % (11.6-14.6); RBC Distribution Width SD 41.2 fl (35.1-43.9); Red Blood Count 4.39 M/mm3 (4.2-5.4); White Blood Count 8.2 K/mm3 (4.4-11.0)
--- NOTE | 2024-07-01 00:21 | ED.RN ---
Blood cultures were drawn after antibiotics were started due to orders for blood cultures given after the orders for antibiotics were initiated. notified.
[2024-07-01 00:30] LABS: Anion Gap 7 (5-15); BUN 11 mg/dL (7-18); BUN/Creat Ratio 11.7 RATIO (10-20); Calcium,Total 9.3 mg/dL (8.5-10.1); Chloride 105 mmol/L (98-107); Creatinine, Serum 0.94 mg/dL (0.55-1.02); EST Glomerular Filtration Rate 74 mL/min (>60); Est Glom Filt Rate - Afr Amer 89 mL/min (>60); Estimated Creatinine Clearance 100.48 ml/min; Glucose 108 mg/dL (74-106); Potassium 3.6 mmol/L (3.5-5.1); Sodium Level 136 mmol/L (136-145)
[2024-07-01] MEDS: Ketorolac 30 MG/ML Syringe IV (00:32)
[2024-07-01] MEDS: 0.9% Normal Saline (1000mL) 1,000 ML 999 ML IV (00:44)
--- NOTE | 2024-07-01 00:47 | EKG12_ITS ---
Test Reason : ANXIETY/TACHYCARDIA Blood Pressure : / mmHG Vent. Rate : 148 BPM Atrial Rate : 148 BPM P-R Int : 116 ms QRS Dur : 074 ms QT Int : 268 ms P-R-T Axes : 043 -42 018 degrees QTc Int : 420 ms Critical Test Result: High HR Sinus tachycardia Left axis deviation Nonspecific ST abnormality Abnormal ECG Confirmed by Sunday Pichardo ([id number]), newspaper managing editor DEZ BILLINGSLEY ([id number]) on 07/02/2024 6:34:26 AM Referred By: DEVI Confirmed By:Sunday Pichardo
[2024-07-01 01:00] VITALS: BP 128/61; PULSE 115; RESP 18; O2SAT 96
[2024-07-01 01:03] LABS: Lactic Acid 0.9 mmol/L (0.4-1.9)
[2024-07-01 02:00] VITALS: BP 103/67; PULSE 105; RESP 18; O2SAT 98
[2024-07-01 02:14] VITALS: O2SAT 99
[2024-07-01 02:31] VITALS: BP 104/87; PULSE 112; RESP 18; TEMP 37.1; O2SAT 98
== END 2024-07-01 02:32 | disposition home or self-care (01) ==
PROVIDERS: Emergency Provider Emergency Medicine; PCP Nurse Practitioner Family; Visit Provider Emergency Medicine
DX: J18.9 Pneumonia, unspecified organism (principal); F41.9 Anxiety disorder, unspecified; F17.290 Nicotine dependence, other tobacco product, uncomplicated
CPT/HCPCS: 71045; 71275; 80048; 83605; 85025; 85379; 87040; 87631; 93005; 96361; 96365; 96366; 96375; 99283; J7030; Q9967; A4216

== ENCOUNTER 2025-09-05 12:30 | Emergency (ER) | payer MEDICAID, SELFPAY ==
[2025-09-05 12:31] VITALS: BP 134/81; PULSE 95; RESP 16; TEMP 36.7; O2SAT 100
--- NOTE | 2025-09-05 12:45 | EDS_ITS ---
HPI HPI - Female History of Present Illness Chief Complaint: Vag Bld, Preg Narrative Narrative: Patient is a 30-year-old female G4, P3 presenting to the emergency department 5 to 6 weeks with vaginal spotting that started about an hour ago. She states she did not have spotting with her first 3 pregnancies and this is why she was concerned. States since she found out she was she has had some lower abdominal cramping that is still present today. Not worsened. She denies any fever or chills. Denies any nausea or vomiting. Denies any dysuria or hematuria. She has not seen her [employer] yet for this . She has seen [facility] with her first 2 pregnancies and [facility] with her third. Denies any lightheaded or dizziness. She states she is not wearing a pad or tampon given how late the spotting is. She did have sexual intercourse last night and this morning. [facility] Medical History History of cannabis abuse Current every day vapor product user History of methamphetamine use Encounter for screening for COVID-19 URI (upper respiratory infection) Anxiety Home Medications ?Medication ?Instructions ?Recorded ?Last Taken ?Type acetaminophen 500 mg tablet 500 mg PO Q8 PRN Pain Or F ever #30 10/25/19 Unknown Rx tabs ibuprofen 800 mg tablet 800 mg PO TID PRN PRN Pain # 60 tabs 10/25/19 Unknown Rx omeprazole 20 mg capsule,delayed 20 mg PO DAILY #15 CA PSULES 05/09/21 Unknown Rx release buspirone 10 mg tablet 10 mg PO TID 06/30/24 Unknow n History desogestrel 0.15 mg-ethinyl 1 tab PO DAILY 06/30/24 Un known History estradiol 0.03 mg tablet (Enskyce) azithromycin 250 mg tablet See Rx Instructions PO .COM PLEX #6 07/01/24 Unknown Rx (Zithromax Z-Conrado) tabs doxycycline hyclate 100 mg capsule 100 mg PO BID 7 day s #14 caps 07/01/24 Unknown Rx hydrocodone-homatropine 5 mg-1.5 5 ml PO 4X/DAY PRN co ugh 7 days 07/01/24 Unknown Rx mg/5 mL (5 mL) oral solution #140 mL (Hycodan) Allergy/AdvReac Type Severity Reaction Status Date / Time No Known Allergies Allergy Verified 09/05/25 12:31 Social History household members: children Smoking Status: Current every day smoker tobacco type: cigarettes alcohol intake: current alcohol intake frequency: other substance use type: does not use ROS ROS ED ROS Narrative see HPI EXAM Physical Exam Narrative Exam Narrative: Vital signs: Reviewed General: Alert and oriented x 3. No acute distress. Well-appearing, nontoxic. HEENT: Head is normocephalic and atraumatic, sinuses nontender, pupils equal round and reactive. Nares are patent. Oropharynx and throat exams normal. Neck: Supple without lymphadenopathy nontender Cardiovascular: Regular rate and rhythm, no murmurs. No rubs or gallops. Normal S1 and S2 Respiratory: Clear to auscultation bilaterally. No wheezes, rales, rhonchi Abdominal: Soft and nontender to palpation. Normal bowel sounds. No guarding or rebound. Nonsurgical abdomen : Done with admission nurse coordinator RN at bedside. Cervix is closed. There is scant amount of blood in the vaginal vault. There are no clots. There is no lacerations or foreign bodies in the vagina. External genitalia exam is normal. Extremities: No tenderness. No bruising. Normal range of motion. Normal sensation. The rest of the physical exam is unremarkable Const Vital Signs: 09/05/25 12:31 12 12:53 09/05/25 14:22 Temperature 98.0 F 98 F Temperature Source Oral Pulse Rate 95 86 86 Respiratory Rate 16 14 14 Blood Pressure 134/81 H 129/77 H 129/77 H Blood Pressure Mean 98 94 94 Pulse Ox 100 100 100 Oxygen Delivery Method Room Air Room Air MDM MDM MDM Narrative Medical decision making narrative: Patient is a 30-year-old female presenting to the emergency department for vaginal bleeding at 5 to 6 weeks . Patient was seen and examined. Vitals are stable. Patient resting bed comfortably no acute distress. CBC with no leukocytosis and a normal hemoglobin. CMP with no significant abnormalities. Urinalysis with occult blood and RBCs, no evidence of infection. Initially ordered a transvaginal ultrasound, however HCG serum came back negative at less than 1. Not consistent with the patient having a miscarriage starting today. Patient updated on the negative hCG and this is not consistent with her having a miscarriage today or recently over the past few days. She states she has had no vaginal bleeding otherwise. May have had a false positive test. Abdominal reevaluation is unchanged. This is likely the patient's menstrual cycle which was discussed with her. Instructed to follow-up with her microbiology supervisor with any changes. Instructed to take Motrin for pain control. Patient discharged from the Emergency Department. I do not feel that the patient's evaluation reveals any acute reason for admission at this time. I instructed them to either follow-up with their primary care physician or promptly return to the Emergency Department for reevaluation should symptoms worsen or new symptoms develop. I explained what symptoms would indicate the need to return to the emergency department. Shared decision making was used. The patient voiced understanding of the treatment plan and is agreeable with it. Clinical impression Vaginal bleeding History & Record Review Discussion w/independent historian: Patient Lab Data Attestation: I reviewed the patient's lab results. Labs: Laboratory Results - last 24 hr 09/05/25 09/05/25 12:58 13:03 WBC 7.6 RBC 4.41 Hgb 13.5 Hct 41.3 MCV 93.7 MCH 30.6 MCHC 32.7 RDW Std Deviation 47.7 H RDW Coeff of Otf 13.7 Plt Count 253 MPV 10.3 Immature Gran % (Auto) 0.400 Neut % (Auto) 66.9 Lymph % (Auto) 23.3 [place] % (Auto) 5.7 Eos % (Auto) 2.9 Baso % (Auto) 0.8 Absolute Neuts (auto) 5.1 Absolute Lymphs (auto) 1.76 Nucleated RBC % 0 Sodium 139 Potassium 3.7 Chloride 104 Carbon Dioxide 22.4 Anion Gap 12 BUN 10 Creatinine 0.75 Estim Creat Clear Calc 122.88 Est GFR (MDRD) Non-Af 109 BUN/Creatinine Ratio 13.4 Glucose 143 H Calcium 9.5 Total Bilirubin 0.20 AST 15 ALT 15 Alkaline Phosphatase 69 Total Protein 7.0 Albumin 4.4 Globulin 2.6 Albumin/Globulin Ratio 1.7 HCG, Quant < 1 Urine Color Yellow Urine Clarity Clear Urine pH 6.5 Ur Specific Richardson 1.010 Urine Protein 15 H Urine Glucose (UA) Normal Urine Ketones Negative Urine Occult Blood 150 H Urine Nitrite Negative Urine Bilirubin Negative Urine Urobilinogen Normal Ur Leukocyte Esterase Negative Urine RBC 5-10 SEEN Urine WBC 0-5 SEEN Ur Squamous Epith Cells 0 SEEN Urine Bacteria 0 SEEN Urine Mucus 0 SEEN Blood Type O POSITIVE Discharge Plan Triage Chief Complaint: Vag Bld, Preg ED Provider: Alida Posadas Dx/Rx/DC Orders Clinical Impression: Vaginal bleeding Prescriptions: No Action ibuprofen 800 MG tablet 800 mg PO TID PRN PRN (Reason: Pain) Qty: 60 1RF acetaminophen 500 MG tablet 500 mg PO Q8 PRN (Reason: Pain Or Fever) Qty: 30 0RF omeprazole [omeprazole] 20 MG capsule 20 mg PO DAILY Qty: 15 0RF desogestrel-ethinyl estradiol [Enskyce] 0.15-0.03 mg tablet 1 tab PO DAILY buspirone 10 mg tablet 10 mg PO TID azithromycin [Zithromax Z-Conrado] 250 mg tablet See Rx Instructions .ROUTE .COMPLEX Qty: 6 0RF Rx Instructions: For 250 mg dose pack: take 500 mg today (day 1), then 250 mg for 4 days (days 2-5) doxycycline hyclate 100 mg capsule 100 mg PO BID 7 Days Qty: 14 0RF hydrocodone-homatropine [Hycodan] 5-1.5 mg/5 mL (5 mL) syrup 5 ml PO 4X/DAY PRN (Reason: cough) 7 Days Qty: 140 0RF Primary Care Provider: [facility] Physician,Birgit Primary Referrals: Skylar Denise, [facility] [Non-Staff, Family Practice] - As soon as possible Activity Restrictions/Additional Instructions: Your test was negative here. Follow up with your microbiology supervisor as soon as possible. Your evaluation in the Emergency Department did not reveal any acute reason for admission. However, I want to emphasize that you may be early in the course of a disease process or illness even if it is not present. For this reason you should follow-up within 24 hours for reevaluation with either your primary care physician or if necessary back here in the Emergency Department. You should return to the Emergency Department immediately if your symptoms worsen or new symptoms develop. Print Language: Irish Disposition Disposition: Home, Self Care Discharge Date/Time: 09/05/25 14:32
[2025-09-05 12:52] VITALS: BMI 36.7
[2025-09-05 12:53] VITALS: BP 129/77; PULSE 86; RESP 14; O2SAT 100
--- OUTSIDE RECORDS SUMMARY | 2025-09-05 13:02 | XMS RPT_ITS | CCD ---
Author Organization [facility] Care Team Providers Care Music Producer Name Role Phone Marcial Velazquez MD Primary Care Provider KUSHAL REYNOLDS DO Primary Care Physician Marcial Velazquez MD Primary Care Provider SANDEE GEORGE, JESSICA Primary Care Physician YOLANDE PEREZ-NALLELY, EDUAR Cary Attending KUSHAL Vicente DO Primary Care Unavailable AMALIA COMMUNICATIONS PROFESSIONAL-NALLELY, DARION Cary Attending Berenice vaKUSHAL Nazario DO Primary Care Unavailable YOLANDE COMMUNICATIONS PROFESSIONAL-CNShirin, EDUAR Cary Attending KUSHAL Vicente DO Primary Care Unavailable JESSICA SIMONS Primary Care Unavailrobel DEL ANGEL COMMUNICATIONS PROFESSIONAL-CNShirin, EDUAR Cary Admitting Dudley ROJAS MD., DR. ETIENNE ORONA Attending Unavailable AMALIA COMMUNICATIONS PROFESSIONAL-CNM, DARION Cary Attending Berenice vailable YOLANDE BEARDENN-CNShirin, EDUAR Cary Attending KUSHAL Vicente DO Primary Care Unavailable MARCIAL VELAZQUEZ Primary Care Unavailable PROVIDER, UNKNOWN Referring Unavailable Marcial Velazquez MD Primary Care Provider Tahmina Benz Attending Unavailable Skyalr Denise Primary Care Unavailable Skylar Denise APRN.CNP Unavailable MARCIAL VELAZQUEZ Primary Care Unavailable PING BYRD Referring Unavailable MARCIAL VELAZQUEZ Primary Care Unavailable PING BYRD Referring Unavailable Amrit COMMUNICATIONS PROFESSIONALJuan A MIGUEL Unavailable [place]hof COMMUNICATIONS PROFESSIONAL.WINEMAKER, Skylar Unavailable Unavail able [place] COMMUNICATIONS PROFESSIONAL.WINEMAKER, Skylar Anne Unavailable MARCIAL VELAZQUEZ Primary Care Unavailable REFERRED, SELF Referring Unavailable MARIAN HWANG Attending Unavailable KELSEY, JOCELYN Attending Unavailable PRAROSIBEL-COLEEN, JOCELYN Referring Unavailable HAAGEN, PING Attending Unavailable ELDERBROCK, MARCIAL Delgado Primary Care Unavailable HAAGEN, PING Referring Unavailable ELDERBROCK, MARCIAL Danny Primary Care Unavailable ELDERBROCK, MARCIAL Delgado Attending Unavailable ELDERBROCK, MARCIAL Danny Primary Care Unavailable TANNHOF, SKYLAR ANNE Referring Unavailabl e ELDERBROCK, MARCIAL D Primary Care Unavailable NORMAN, SHEILA Attending Unavailable TANNHOF, SKYLAR ANNE Referring Unavailabl e ELDERBROCK, MARCIAL D Primary Care Unavailable HAAGEN, PING Attending Unavailable TANNHOF, SKYLAR ANNE Referring Unavailabl e ELDERBROCK, MARCIAL Danny Primary Care Unavailable ELDERBROCK, MARCIAL Delgado Attending Unavailable SELF Referring Unavailable ELDERBROCK, MARCIAL Danny Primary Care Unavailable NORMAN, SHEILA Attending Unavailable SELF Referring Unavailable ELDERBROCK, MARCIAL Danny Primary Care Unavailable ELDERBROCK, MARCIAL Delgado Attending Unavailable ELDERBROCK, MARCIAL Delgado Primary Care Unavailable AMY SANDS Attending Unavailable ELDERBROCK, MARCIAL Delgado Primary Care Unavailable WICHO Referring Unavailable ELDERBROCK, MARCIAL Delgado Primary Care Unavailable ELDERBROCK, MARCIAL Delgado Primary Care Unavailable CELINE DAVENPORT Attending Unavailable Medications Current Medications Medication Drug Class(es) Dates Sig (Normalized) Sig (Original) acetaminophen 500 mg oral tablet (1 source) Start: 12-10-2022 End: 01-07-2023 Tylenol Extra Strength 500 mg oral tablet Dose : 500 mg = 1 tab(s), Oral, q4h, X 14 day(s), # 30 tab(s), 1 Refill(s), 01/07/23 17:09:00 EDT, Pharmacy: [facility] #[id number], 162.6, cm, 12/07/22 5:52:00 EDT, Height Start Date: 12/10/22 Stop Date: 01/07/23 Status: Ordered amoxicillin 875 mg oral tablet (3 sources) Penicillin-class Antibacterial Start: 05-09-2025 End: 05-16-2025 take 1 tablet by mouth twice daily amoxicillin (AMOXIL) 875 mg tablet Take 1 tablet by mouth two times a day for 7 days. 14 tablet 05/09/2025 05/16/2025 Active Start: 04-06-2024 End: 04-13-2024 take 1 tablet by mouth twice daily amoxicillin (AMOXIL) 875 mg tablet Take 1 tablet by mouth two times a day for 7 days. 14 tablet 0 04/06/2024 04/13/2024 Active Start: 04-04-2022 End: 04-11-2022 take 1 tablet by mouth twice daily amoxicillin (AMOXIL) 875 mg tablet Indications: Other acute nonsuppurative otitis media of right ear, recurrence not specified Take 1 tablet by mouth twice daily for 7 days. 14 tablet 0 04/04/2022 04/11/2022 Active Comment on above: Take 1 tablet by ariane th twice daily for 7 days. betamethasone 0.5 mg/ml / clotrimazole 10 mg/ml topical cream (1 source) Azole Antifungal, Corticosteroid Start: 02-20-20 End: 02-27-20 clotrimazole-betame thasone (LOTRISONE) cream Apply 1 application to affected area two times a day for 7 days. 15 g 02/19/2025 02/26/2025 Active busPIRone hydrochloride 15 mg oral tablet (20 sources) Start: 07-06-20 End: 01-03-20 take 1 tablet by mouth three times daily busPIRone (BUSPAR) 15 mg tablet Indications: Anxiety with depression Take 1 tablet by mouth three times a day. 90 tablet 5 07/06/2024 01/02/2025 Active Start: 11-18-2023 End: 10-31-2024 take 1 tablet by mouth three times daily busPIRone (BUSPAR) 10 mg tablet Indications: Anxiety with depression , Palpitations Take 1 tablet by mouth three times a day. 90 tablet 5 05/04/2024 07/06/2024 Discontinued Start: 10-14-2023 End: 11-18-2023 take 1 tablet by mouth three times daily busPIRone (BUSPAR) 5 mg tablet Indications: Anxiety with depression Take 1 tablet by mouth three times a day. 90 tablet 5 10/14/2023 11/18/2023 Discontinued Comment on above: Take 1 tablet by ariane th three times a day. drospirenone, contraceptive, (SLYND) 4 mg (28) tabet (3 sources) Start: 025 End: 026 drospirenone, contraceptive, (SLYND) 4 mg (28) tabet Indications: Encounter for repeat prescription of oral contraceptives Take 1 tablet by mouth once daily. Take active pills for 24 days and inactive pills for 4 days. 90 tablet 3 03/16/2025 02/15/2026 Active enteric contrast (will be provided with radiology test) (3 sources) Start: End: enteric contrast (will be provided with radiology test) Indications: Left lower quadrant abdominal pain For CT ABD/PEL W IVCON Routine order Administer, As Directed One Time Only, via Oral, Rectal, both Oral and Rectal, Enteric Tube, Stoma or Indwelling Catheter, Enteric Contrast as designated per enteric contrast guidelines 1 Each 08/28/2024 08/29/2024 Active ibuprofen 800 mg oral tablet (1 source) Nonsteroidal Anti-inflammatory Drug Start: 023 End: ibuprofen 800 mg oral tablet Dose : 800 mg = 1 tab(s), Oral, q8h, X 14 day(s), # 42 tab(s), 0 Refill(s), 12/24/22 17:09:00 EDT, Pharmacy: [facility] #[id number], 162.6, cm, 12/07/22 5:52:00 EDT, Height Start Date: 12/10/22 Stop Date: 12/24/22 Status: Ordered iv contrast (will be provided with radiology test) (3 sources) Start: End: iv contrast (will be provided with radiology test) Indications: Left lower quadrant abdominal pain CT ABD/PEL -Inject, intravenously, once for 1 dose.No IV access, insert saline lock prior to the beginning of sedation, infusion, injection of imaging exam. Discontinue saline lock post exam. If Pt. has a central line or IVAD, may access for administration according to line specific nursing protocol. Once exam is complete flush line and de-access according to line specific nursing protocol in the CT contrast administration guidelines link. 1 Each 08/28/2024 08/29/2024 Active oseltamivir 75 mg oral capsule (1 source) Neuraminidase Inhibitor Start: End: take 1 capsule by mouth twice daily oseltamivir (TAMIFLU) 75 mg capsule Take 1 capsule by mouth twice daily for 5 days. 10 capsule 0 08/31/2022 09/05/2022 Active Comment on above: Take 1 capsule by [facility] twice daily for 5 days. oxyCODONE hydrochloride 5 mg oral tablet (1 source) Opioid Agonist Start: End: Roxicodone 5 mg oral tablet ( IMMEDIATE release ) Dose : 5 mg = 1 tab(s), Oral, q6h, X 7 day(s), # 10 tab(s), 0 Refill(s), 12/17/22 17:09:00 EDT, [facility]: [facility][id number], Postoperative pain, 162.6, cm, 12/07/22 5:52:00 EDT, Height, 92 Start Date: 12/10/22 Stop Date: 12/17/22 Status: Ordered phentermine hydrochloride 37.5 mg oral tablet (6 sources) Sympathomimetic Amine Anorectic Start: 025 End: take 39-39.9 tablets by mouth once daily Phentermine HCl (ADIPEX-P) 37.5 mg tablet Indications: Class 2 obesity with body mass index (BMI) of 39.0 to 39.9 in adult, unspecified obesity type, unspecified whether serious comorbidity present Take 1 tablet by mouth once daily for 90 days. 30 tablet 2 01/28/2025 04/28/2025 Active Start: 11-12-2024 End: 12-12-2024 take 39-39.9 tablets by mouth once daily Phentermine HCl (ADIPEX-P) 37.5 mg tablet Indications: Class 2 obesity with body mass index (BMI) of 39.0 to 39.9 in adult, unspecified obesity type, unspecified whether serious comorbidity present Take 1 tablet by mouth once daily for 30 days. 30 tablet 11/12/2024 12/12/2024 Active AD oral tablet (1 source) Start: 12-07-2022 take 1 tablet by mouth once daily AD oral tablet Dose = 1 tab(s), Oral, qDay, # 30 tab(s), 0 Refill(s) Start Date: 12/07/22 Status: Ordered sertraline 50 mg oral tablet (20 sources) Serotonin Reuptake Inhibitor Start: 03-12-2025 End: 09-08-2025 take 1 tablet by mouth once daily sertraline (ZOLOFT) 50 mg tablet Indications: Anxiety with depression Take 1 tablet by mouth once daily. 30 tablet 5 03/12/2025 09/08/2025 Active Start: 07-06-2024 End: 07-03-2025 take 1 tablet by mouth once daily sertraline (ZOLOFT) 25 mg tablet Indications: Anxiety with depression Take 1 tablet by mouth once daily. 30 tablet 5 01/04/2025 03/12/2025 Discontinued Tri-Linyah (3 sources) Start: 01-19-2015 take 1 tablet by mouth once daily Tri-Linyah Dose = 1 tab(s), Oral, qDay, 0 Refill(s) Start Date: 01/19/15 Status: Ordered valACYclovir 1000 mg oral tablet (2 sources) Herpesvirus Nucleoside Analog DNA Polymerase Inhibitor, Herpes Simplex Virus Nucleoside Analog DNA Polymerase Inhibitor, Herpes Zoster Virus Nucleoside Analog DNA Polymerase Inhibitor Start: 03-16-2025 End: 03-21-2025 take 1 tablet by mouth once daily valACYclovir (VALTREX) 1 gram tablet Indications: Recurrent HSV (herpes simplex virus) Take 1 tablet by mouth once daily for 5 days. 5 tablet 2 03/16/2025 03/21/2025 Active Start: 04-01-2023 End: 04-08-2023 take 1 tablet by mouth once daily valACYclovir (VALTREX) 1 gram Indications: Labial lesion Take 1 tablet by mouth once daily for 7 days. 7 tablet 3 04/01/2023 04/08/2023 Active Comment on above: Take 1 tablet by ariane once daily for 7 days. Completed/Discontinued Medications Medication Drug Class(es) Dates Sig (Normalized) Sig (Original) clobetasol propionate 0.5 mg/ml topical cream (5 sources) Corticosteroid Start: 01-04-2025 End: 02-19-2025 clobetasol (TEMOVATE) 0.05 % cream Indications: Vulvar irritation Apply to affected area 2x/day for 2 weeks, then 1x/day for a week, than 2-3x/week for maintenance. 60 g 01/04/2025 02/19/2025 Discontinued (Other) Desogestrel / Ethinyl Estradiol (20 sources) Progestin, Estrogen Start: 05-04-2024 End: 11-12-2024 take 1 tablet by mouth once daily, then take 0.15 tablet by mouth once Desogestrel-Ethiny l Estradiol (APRI) 0.15-0.03 mg per tablet Indications: Breakthrough bleeding on control pills Take 1 tablet by mouth once daily. 84 tablet 1 05/04/2024 11/12/2024 Discontinued Start: 05-04-2024 take 1 tablet by ariane th once daily, then take 0.15 tablet by mouth once Desogestrel-Ethinyl Estradiol (APRI) 0.15-0.03 mg per tablet Indications: Breakthrough bleeding on control pills Take 1 tablet by mouth once daily. 84 tablet 1 05/04/2024 Active Start: 06-27-2023 End: 05-04-2024 take 1 tablet by mouth once daily, then take 0.15 tablet by mouth once Desogestrel-Ethinyl Estradiol (APRI) 0.15-0.03 mg per tablet Indications: Breakthrough bleeding on control pills Take 1 tablet by mouth once daily. 84 tablet 3 06/27/2023 05/04/2024 Discontinued Start: 06-27-2023 take 1 tablet by ariane th once daily, then take 0.15 tablet by mouth once Desogestrel-Ethinyl Estradiol (APRI) 0.15-0.03 mg per tablet Indications: Breakthrough bleeding on control pills Take 1 tablet by mouth once daily. 84 tablet 3 06/27/2023 Active Comment on above: Take 1 tablet by ariane th once daily. 12 hr dextromethorphan hydrobromide 30 mg / guaiFENesin 600 mg extended release oral tablet (5 sources) Uncompetitive O-vergdh-I-aspartate Receptor Antagonist, Sigma-1 Agonist Start: End: take 1 tablet by mouth twice daily dextromethorphan-gua iFENesin (MUCINEX DM) 30-600 mg per tablet Take 1 tablet by mouth two times a day. 20 tablet 0 08/30/2023 02/13/2024 Discontinued (Course of therapy completed) Comment on above: Take 1 tablet by ariane th two times a day. Ethinyl Estradiol / Ferrous fumarate / Norethindrone (18 sources) Estrogen Start: 022 End: 023 take 1 tablet by mouth once daily Norethin Dhiraj-Eth Estrad-FE 1 mg-20 mcg (21)/75 mg (7) per tablet Indications: Encounter for initial prescription of contraceptive pills take 1 tablet by mouth once daily 112 tablet 1 01/25/2022 06/27/2023 Discontinued Start: 01-25-2022 take 1 tablet by ariane th once daily Norethin Dhiraj-Eth Estrad-FE 1 mg-20 mcg (21)/75 mg (7) per tablet Indications: Encounter for initial prescription of contraceptive pills take 1 tablet by mouth once daily 112 tablet 1 01/25/2022 Active Start: 06-06-2021 End: 01-25-2022 take 1 tablet by mouth once daily Norethin Dhiraj-Eth Estrad-FE 1 mg-20 mcg (21)/75 mg (7) per tablet Indications: Encounter for initial prescription of contraceptive pills Take 1 tablet by mouth once daily. 28 tablet 3 06/06/2021 01/25/2022 Discontinued Start: 06-14-2020 End: 06-06-2021 take 1 tablet by mouth once daily, then take 0.05 tablet by mouth once Norethin Dhiraj-Eth Estrad-FE (LOESTRIN FE 1/20) 1 mg-20 mcg (21)/75 mg (7) per tablet Indications: Encounter for initial prescription of contraceptive pills Take 1 tablet by mouth once daily. 1 Package 11 06/14/2020 06/06/2021 Discontinued Comment on above: take 1 tablet by ariane th once daily Take 1 tablet by ariane th once daily. FLUoxetine 10 mg oral capsule (4 sources) Serotonin Reuptake Inhibitor Start: 10-14-19 End: 02-13-20 take 1 capsule by mouth once daily FLUoxetine (PROZAC) 10 mg capsule Indications: Anxiety with depression Take 1 capsule by mouth once daily. 30 capsule 2 10/14/2023 02/13/2024 Discontinued Comment on above: Take 1 capsule by mo ut once daily. fluticasone propionate 0.05 mg/actuat metered dose nasal spray (20 sources) Corticosteroid Start: 01-06-20 End: 11-12-19 take 1 spray(s) nasal route once daily fluticasone (FLONASE ALLERGY RELIEF) 50 mcg/actuation nasal spray Indications: URI, acute Use 1 [place] in each nostril once daily. 9.9 mL 01/06/2024 11/12/2024 Discontinued Start: 10-18-2019 End: 04-01-2023 fluticasone (FLONASE) 50 mcg /actuation nasal spray 10/18/2019 04/01/2023 Discontinued (Other) 12 hr guaiFENesin 600 mg extended release oral tablet (13 sources) Start: 08-08-2021 End: 04-01-2023 take 2 tablets by mouth twice daily guaiFENesin (MUCINEX) 600 mg 12 hr tablet Take 2 tablets by mouth twice daily. 30 tablet 08/08/2021 04/01/2023 Discontinued (Other) Comment on above: Take 2 tablets by [facility] twice daily. hydrOXYzine hydrochloride 25 mg oral tablet (20 sources) Antihistamine Start: 04-10-2021 End: 10-14-2023 take 25-50 mg by mouth every six hours as needed for anxiety and anxiety hydrOXYzine HCl (ATARAX) 25 mg tablet Indications: Acute anxiety Take 1-2 tablets by mouth every 6 hours as needed for anxiety. 45 tablet 2 04/27/2021 10/14/2023 Discontinued Comment on above: Take 1-2 tablets by mouth every 6 hours as needed for anxiety. metroNIDAZOLE 500 mg oral tablet (1 source) Nitroimidazole Antimicrobial Start: 01-05-2025 End: 01-12-2025 take 1 tablet by mouth twice daily metroNIDAZOLE (FLAGYL) 500 mg tablet Take 1 tablet by mouth two times a day for 7 days. 14 tablet 01/05/2025 01/12/2025 24 hr nicotine 0.292 mg/hr transdermal system (20 sources) Cholinergic Nicotinic Agonist Start: 09-22-2021 End: 04-01-2023 apply 1 dose transdermal route every twenty-four hours nicotine (NICODERM) 14 mg/24 hr Indications: Tobacco use disorder Apply 1 Patch as directed every 24 hours. Use for 2 weeks, then proceed to the 7mg patches. No smoking with patch. 14 Patch 09/22/2021 04/01/2023 Discontinued (Other) Start: 09-22-2021 End: 04-01-2023 apply 1 dose transdermal route every twenty-four hours nicotine (NICODERM) 21 mg/24 hr Indications: Tobacco use disorder Apply 1 Patch as directed every 24 hours. Use for 6 weeks, then proceed to the 14 mg patches. No smoking while on patches 42 Patch 09/22/2021 04/01/2023 Discontinued (Other) Start: 09-22-2021 End: 04-01-2023 nicotine (NICODERM) 7 mg/24 hr Indications: Tobacco use disorder Apply 1 Patch as directed every 24 hours. Use for 2 weeks, no smoking while on patches 14 Patch 09/22/2021 04/01/2023 Discontinued (Other) Comment on above: Apply 1 Patch as dir ected every 24 hours. Use for 2 weeks, no smoking while on patches Apply 1 Patch as dir ected every 24 hours. Use for 2 weeks, then proceed to the 7mg patches. No smoking with patch. Apply 1 Patch as dir ected every 24 hours. Use for 6 weeks, then proceed to the 14 mg patches. No smoking while on patches omeprazole 20 mg delayed release oral capsule (20 sources) Proton Pump Inhibitor Start: 02-26-20 End: 01-05-20 25 take 1 capsule by mouth once daily before breakfast omeprazole (PRILOSEC) 20 mg capsule Indications: Right upper quadrant abdominal pain , Gastroenteritis Take 1 capsule by mouth daily before breakfast. 1/2 hr before meal. 30 capsule 5 02/26/2024 01/04/2025 Discontinued Start: 09-22-2021 End: 04-01-2023 take 1 capsule by mouth once daily omeprazole (PRILOSEC) 40 mg capsule Indications: GERD without esophagitis Take 1 capsule by mouth once daily. 30 capsule 2 09/22/2021 04/01/2023 Discontinued (Other) Comment on above: Take 1 capsule by [facility] once daily. vit,melanie 74/iron/folic ( VITAMIN 1+1 ORAL) (11 sources) End: 04-01-2023 vit,melanie 74/iron/folic ( VITAMIN 1+1 ORAL) Take by mouth. 04/01/2023 Discontinued (Other) End: 04-01-2023 vit,melanie 74/iron/fol ic ( VITAMIN 1+1 ORAL) Take by mouth. 0 04/01/2023 Discontinued (Other) vit,melanie 74/iron/folic ( VITAMIN 1+1 ORAL) Take by mouth. 0 Active Comment on above: Take by mouth. Problems Active Problems Problem Classification Problem Date Documented Date Episodic/Chronic Alcohol-related disorders (1 source) Current drinker; Translations: [Alcohol use] 03-12-2025 Chronic Anxiety disorders (20 sources) Anxiety; Translations: [Anxiety disorder, unspecified] Onset: 09-22-2021 09-22-2021 Chronic Cardiac dysrhythmias (5 sources) Palpitations; Translations: [Palpitations] Onset: 07-23-2024 11-15-2023 Episodic distress and abnormal forces of labor (1 source) Secondary uterine inertia; Translations: [Secondary uterine inertia] Onset: 12-08-2022 Episodic Fetopelvic disproportion; obstruction (1 source) Obstructed labor due to malposition; Translations: [Obstructed labor due to incomplete rotation of head, not applicable or unspecified] Onset: 12-08-2022 Episodic Fracture of lower limb (5 sources) Closed fracture of phalanx of foot; Translations: [Other physeal fracture of phalanx of unspecified toe, initial encounter for closed fracture] Episodic Malaise and fatigue (1 source) Fatigue; Translations: [Other fatigue] Episodic Menstrual disorders (3 sources) Break-through bleeding; Translations: [Excessive and frequent menstruation with irregular cycle] Onset: 03-16-2025 06-27-2023 Chronic Noninfectious gastroenteritis (2 sources) Gastroenteritis; Translations: [Noninfective gastroenteritis and colitis, unspecified] 02-13-2024 Episodic Other connective tissue disease (1 source) Pain in left toe(s); Translations: [Pain in toe of left foot] Onset: 01-23-2023 Episodic Other connective tissue disease (1 source) Pain of toe of left foot; Translations: [Pain in left toe(s)] 01-23-2023 Episodic Other connective tissue disease (1 source) Pain in right finger(s); Translations: [Pain in finger of right hand] Onset: 07-20-2025 Episodic Other female genital disorders (1 source) Dyspareunia; Translations: [Other specified dyspareunia] 06-27-2023 Chronic Other female genital disorders (1 source) Pain in female genitalia on intercourse; Translations: [Unspecified dyspareunia] 07-19-2023 Chronic Other female genital disorders (1 source) Lesion of labia; Translations: [Other specified noninflammatory disorders of vulva and perineum] 04-01-2023 Episodic Other female genital disorders (2 sources) Vaginal irritation; Translations: [Other specified noninflammatory disorders of vagina] 06-27-2023 Episodic Other female genital disorders (1 source) Vaginal discharge; Translations: [Other specified noninflammatory disorders of vagina] 06-27-2023 Episodic Other female genital disorders (1 source) Vaginal odor; Translations: [Other specified noninflammatory disorders of vagina] 01-04-2025 Episodic Other female genital disorders (1 source) Vulval irritation; Translations: [Other specified noninflammatory disorders of vulva and perineum] 01-04-2025 Episodic Other injuries and conditions due to external causes (1 source) Injury of toe of left foot; Translations: [Unspecified injury of left foot, initial encounter] Episodic Other lower respiratory disease (2 sources) Chest pain; Translations: [Chest pain on breathing] 06-12-2024 Episodic Other nervous system disorders (1 source) Postoperative pain ; Translations: [Other acute postprocedural pain] Onset: 12-10-2022 Episodic Other nutritional; endocrine; and metabolic disorders (2 sources) Obesity; Translations: [Class 2 obesity with body mass index (BMI) of 39.0 to 39.9 in adult, unspecified obesity type, unspecified whether serious comorbidity present] 11-12-2024 Chronic Other nutritional; endocrine; and metabolic disorders (1 source) Body mass index (BMI) 39.0-39.9, adult; Translations: [Class 2 obesity with body mass index (BMI) of 39.0 to 39.9 in adult, unspecified obesity type, unspecified whether serious comorbidity present] Onset: 01-28-2025 Chronic Other and delivery including normal (1 source) 12-07-2022 Episodic Comment on above: System added from do cumentation. Status documented as Yes on Admission Other upper respiratory disease (1 source) Pain in throat; Translations: [Pain in throat] Episodic Other upper respiratory infections (5 sources) Upper respiratory infection; Translations: [Acute upper respiratory infection, unspecified] Onset: 05-09-2025 08-30-2023 Episodic Otitis media and related conditions (5 sources) Acute secretory otitis media; Translations: [Other acute nonsuppurative otitis media, right ear] Onset: 05-09-2025 Episodic Ovarian cyst (1 source) Cyst of right ovary; Translations: [Unspecified ovarian cyst, right side] 07-22-2023 Episodic Residual codes; unclassified (1 source) Gestation period, 39 weeks; Translations: [39 weeks gestation of ] Onset: 12-07-2022 Episodic Residual codes; unclassified (1 source) History of uterine scar from previous surgery; Translations: [History of uterine scar from previous surgery] Onset: 12-08-2022 Episodic Substance-related disorders (20 sources) History of drug abuse; Translations: [History of drug use] Onset: 03-17-2019 03-17-2019 Chronic Unclassified (1 source) Class 2 obesity with body mass index (BMI) of 39.0 to 39.9 in adult, unspecified obesity type, unspecified whether serious comorbidity present; Translations: [Class 2 obesity with body mass index (BMI) of 39.0 to 39.9 in adult, unspecified obesity type, unspecified whether serious comorbidity present] Onset: 01-28-2025 Past or Other Problems Problem Classification Problem Date Documented Date Episodic/Chronic Abdominal pain (12 sources) Pain in pelvis; Translations: [Pelvic and perineal pain] Onset: 08-28-2024 06-27-2023 Episodic Allergic reactions (2 sources) Inflammatory dermatosis; Translations: [Dermatitis, unspecified] Onset: 02-19-2025 02-19-2025 Episodic Bacterial infection; unspecified site (20 sources) Chlamydial infection; Translations: [Chlamydial infection, unspecified] Onset: 03-20-2019 10-12-2019 Episodic Contraceptive and procreative management (7 sources) Patient encounter status; Translations: [Encounter for initial prescription of contraceptive pills] Onset: 03-16-2025 Episodic Diabetes or abnormal glucose tolerance complicating ; childbirth; or the puerperium (20 sources) Gestational diabetes mellitus, class A>1<; Translations: [Gestational diabetes mellitus in , diet controlled] Onset: 07-30-2019 Resolved: 08-10-2019 08-10-2019 Episodic Immunizations and screening for infectious disease (3 sources) Contact with or exposure to other viral diseases; Translations: [Exposure to COVID-19 virus] Onset: 03-16-2025 Episodic Other complications of (7 sources) Nausea and vomiting; Translations: [Vomiting of , unspecified] Onset: 03-17-2019 Resolved: 08-10-2019 08-10-2019 Episodic Other complications of (20 sources) Vomiting of , unspecified; Translations: [Unspecified vomiting of , unspecified as to episode of care or not applicable] Onset: 03-17-2019 Resolved: 08-10-2019 08-10-2019 Episodic Other female genital disorders (2 sources) Other specified noninflammatory disorders of vagina; Translations: [Vaginal odor] Onset: 01-04-2025 Episodic Other female genital disorders (1 source) Other specified noninflammatory disorders of vulva and perineum; Translations: [Vulvar irritation] Onset: 01-04-2025 Episodic Other screening for suspected conditions (not mental disorders or infectious disease) (2 sources) Cancer cervix screening status; Translations: [Encounter for screening for malignant neoplasm of cervix] Onset: 03-16-2025 03-16-2025 Episodic Pneumonia (except that caused by tuberculosis or sexually transmitted disease) (3 sources) Bacterial pneumonia; Translations: [Unspecified bacterial pneumonia] Onset: 01-04-2025 07-06-2024 Episodic Residual codes; unclassified (2 sources) History of drug abuse; Translations: [Personal history of other specified conditions] Onset: 03-17-2019 03-17-2019 Episodic Residual codes; unclassified (20 sources) Finding of menstrual bleeding; Translations: [Other specified health status] Onset: 03-17-2019 Resolved: 08-10-2019 08-10-2019 Episodic Screening and history of mental health and substance abuse codes (20 sources) Tobacco use and exposure - finding; Translations: [Personal history of nicotine dependence] Onset: 03-17-2019 03-17-2019 Episodic Viral infection (4 sources) Viral disease; Translations: [Viral infection, unspecified] Onset: 03-16-2025 Episodic Results Test Name Value Interpretation Reference Range Howard Mayo 07-20-2025 CNOV Office Visit ([facility]OUCA) JULIA PISANO ([id number]) 1995 F Date Time Provider Department 07/20/25 3:30 PM JOCELYN BOOGIE WORHONDA During your visit today, we recorded the following information about you: Temperature Pulse Respiration Blood pressure 96.8 degrees 96/minute 16/minute 138/90 Weight 96.8 kg Jocelyn Boogie APRN.WINEMAKER 07/20/2025 5:07 PM Signed [facility] Subjective Julia Pisano is a 30 year old female. Patient presents with: Finger Pain: right ring finger, swollen and bruised x last night HPI The patient is a 30-year-old female presenting with right finger pain. Right Finger Pain: - Onset of pain noticed upon waking, with associated bruising. - Uncertain of specific injury or trauma. - Describes sensation as if the nail wants to pop off. - Pain exacerbated by pressure and use of the finger. - Took Tylenol for pain management. 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 Review of Systems Musculoskeletal: (+) finger pain (+) finger swelling Skin: (+) finger bruising, (+) fingernail discomfort Objective BP 138/90 Pulse 96 Temp 36 ?C (96.8 ?F) Resp 16 Wt 96.8 kg (213 lb 6.5 oz) LMP 12/24/2024 (Approximate) SpO2 98% BMI 35.51 kg/m? PAST MEDICAL HISTORY Diagnosis Date - Anxiety state - Chlamydia - Herpes, genital - History of drug use - Ovarian cyst PAST SURGICAL HISTORY Procedure Laterality Date - SECTION HX ALLERGIES Patient has no known allergies. MEDICATIONS - sertraline (ZOLOFT) 50 mg tablet Take 1 tablet by mouth once daily. - drospirenone, contraceptive, (SLYND) 4 mg (28) tabet Take 1 tablet by mouth once daily. Take active pills for 24 days and inactive pills for 4 days. (Patient not taking: Reported on 05/09/2025) FAMILY HISTORY Problem Relation Age of Onset - other (endometriosis) Mother had hysterectomy - other (polyps) Father - No Known Problems Sister - Macular Degen Maternal Grandmother - Kidney Disease Maternal Grandmother - other (celft palate) Maternal Grandfather - Breast Cancer Maternal Grandfather - Diabetes Paternal Grandmother - Parkinson?s Disease Paternal Grandfather - Depression Sister - No Known Problems Daughter SOCIAL HISTORY[1] Physical Exam Vitals and nursing note reviewed. Constitutional: General: She is not in acute distress. Appearance: Normal appearance. She is not ill-appearing. Musculoskeletal: General: Swelling, tenderness and signs of injury present. No deformity. Normal range of motion. Hands: Skin: Capillary Refill: Capillary refill takes less than 2 seconds. Findings: Bruising present. No erythema or rash. Neurological: Mental Status: She is alert. { 1. Pain in finger of right hand (M79.644) 2. Closed nondisplaced fracture of phalanx of right ring finger, unspecified phalanx, initial encounter (T95.945P) - X-ray demonstrated a hairline lucency at the base of the fourth digit distal phalanx; radiologist read result as a non-displaced fourth digit distal phalanx fracture versus artifact. - Applied padded aluminum frog finger splint to right ring finger. - Refer to orthopedics; follow-up in 7-10 days. - Patient was given 5 day supply of Tylenol #3 after discussing pain control options- she states she cannot take ibuprofen and tylenol has not helped. - Follow-up with your PCP in 3-5 days if symptoms have not improved or sooner if symptoms worsen - Discussed red flags and need for immediate medical evaluation if any occur. - Discussed supportive care treatment with fluids, rest and analgesia. 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 Patient/authorized apparel trimmings sales representative agreed to proceed Differential Diagnoses - finger fracture is more likely for the following reason(s): suggested by HANDP and consistent with imaging - finger contusion is less likely for the following reason(s): HANDP not suggestive - subungual hematoma is less likely for the following reason(s): HANDP not suggestive - paronychia is less likely for the following reason(s): HANDP not suggestive Management I performed an independent interpretation of the following:imaging Imaging: My interpretation is hairline fracture line distal phalanx right ring finger Disposition The patient was discharged. The following prescription medication(s) were considered but ultimately not given after discussion with patient/family: antibiotic Reasons for not prescribing include the following: HANDP/workup not suggestive of bacterial process. SPLINT APPLICATION Date/Time: 07/20/2025 5:06 PM Performed by: Jocelyn Boogie APRN.WINEMAKER Authori (more content not included)... Normal [facility] XR DIGIT 3V FRONTAL/LAT/OBL RTon 07-20-2025 XR DIGIT 3V FRONTAL/LAT/OBL RT * * *Final Report* * * DATE OF EXAM: Jul 20 2025 3:54PM WOX [id number] - XR DIGIT 3V FRONTAL/LAT/OBL RT / PROCEDURE REASON: Pain in finger of right hand * * * * Physician Interpretation * * * * EXAMINATION: XR DIGIT 3V FRONTAL/LAT/OBL RT CLINICAL HISTORY: Swelling and bruising. Technique: XR DIGIT 3V FRONTAL/LAT/OBL RT -- RIGHT FOURTH DIGIT with 3 views on 3 images Comparison: None. RESULT: Hairline lucency at the base of fourth digit distal phalanx. No extension into the articular surface. No dislocation. Joint spaces are maintained. Soft tissue swelling of the tip of fourth digit. IMPRESSION: Nondisplaced fourth digit distal phalanx fracture versus artifact. Consider CT correlation as warranted. Freezer Unloader: JOSSUE Transcribe Date/Time: Jul 20 2025 3:56P Dictated by : FRANCESCO HOUSTON DO This examination was interpreted and the report reviewed and electronically signed by: FRANCESCO HOUSTON DO on Jul 20 2025 4:01PM EST [id number] CN Normal [facility] CNOVon 05-09-2025 CNOV Office Visit (WOUCA) JULIA PISANO ([id number]) 1995 F Date Time Provider Department 05/09/25 3:15 PM CELINE DAVENPORT WORHONDA During your visit today, we recorded the following information about you: Temperature Pulse Respiration Blood pressure 98.1 degrees 106/minute 16/minute 120/82 Weight 96.4 kg Celine Davenport PA 05/09/2025 3:13 PM Signed [facility] Subjective Julia Pisano is a 30 year old female. Patient presents with: Ear Pain: right x this am HPI Right Otalgia: - Acute onset right ear pain began this morning. - Describes ear as poppy with associated weird sensation. - Denies left ear pain. URI Symptoms: - Nasal congestion and body aches x2-3 days. - Reports feeling hot and cold yesterday, with excessive sweating at work. - Taking Tylenol and Robitussin for symptom relief. PAST MEDICAL HISTORY Diagnosis Date Anxiety state Chlamydia Herpes, genital History of drug use Ovarian cyst PAST SURGICAL HISTORY Procedure Laterality Date SECTION HX ALLERGIES Patient has no known allergies. MEDICATIONS sertraline (ZOLOFT) 50 mg tablet Take 1 tablet by mouth once daily. amoxicillin (AMOXIL) 875 mg tablet Take 1 tablet by mouth two times a day for 7 days. drospirenone, contraceptive, (SLYND) 4 mg (28) tabet Take 1 tablet by mouth once daily. Take active pills for 24 days and inactive pills for 4 days. (Patient not taking: Reported on 05/09/2025) FAMILY HISTORY Problem Relation Age of Onset other (endometriosis) Mother had hysterectomy other (polyps) Father No Known Problems Sister Macular Degen Maternal Grandmother Kidney Disease Maternal Grandmother other (celft palate) Maternal Grandfather Breast Cancer Maternal Grandfather Diabetes Paternal Grandmother Parkinson?s Disease Paternal Grandfather Depression Sister No Known Problems Daughter SOCIAL HISTORY[1] Review of Systems Constitutional: (+) fever, (+) chills, (+) diaphoresis Ears/Nose/Mouth/Thro at: (+) right ear pain, (+) right ear fullness, (+) nasal congestion Musculoskeletal: (+) myalgia Objective BP 120/82 Pulse 106 Temp 36.7 ?C (98.1 ?F) Resp 16 Wt 96.4 kg (212 lb 8.4 oz) LMP 12/24/2024 (Approximate) SpO2 96% BMI 35.37 kg/m? Physical Exam Vitals and nursing note reviewed. Constitutional: General: She is not in acute distress. Appearance: Normal appearance. She is not toxic-appearing. HENT: Right Ear: Ear canal normal. A middle ear effusion is present. Tympanic membrane is erythematous and bulging. Left Ear: Tympanic membrane and ear canal normal. Nose: Congestion present. Mouth/Throat: Mouth: Mucous membranes are moist. Pharynx: No oropharyngeal exudate or posterior oropharyngeal erythema. Eyes: Conjunctiva/sclera: Conjunctivae normal. Cardiovascular: Rate and Rhythm: Normal rate and regular rhythm. Pulmonary: Effort: Pulmonary effort is normal. Breath sounds: Normal breath sounds. Neurological: Mental Status: She is alert. { 1. Acute otitis media, right (H66.91) 2. URI, acute (J06.9) - Acute right otitis media with erythematous and bulging tympanic membrane on exam; recent onset of ear pain, fever, and URI symptoms. - Start antibiotics- amoxicillin. 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 Procedures [1] Social History Tobacco Use Smoking status: Every Day Current packs/day: 0.50 Average packs/day: 0.5 packs/day for 10.0 years (5.0 ttl pk-yrs) Types: Cigarettes Smokeless tobacco: Never Tobacco comments: Quit 07/2024. Now vaping. Vaping Use Vaping status: Some Days Substances: Nicotine Devices: Disposable Substance Use Topics Alcohol use: Yes Comment: occasionally Drug use: Not Currently Types: Crystal Meth, Marijuana Comment: Last used meth Sep 2018 Allergies As of Date: 05/09/2025 (No Known Allergies) Date Reviewed: 05/09/2025 Reviewed by: Catina Mccain MA - Fully Assessed Reason for Visit: Ear Pain [817] Cmt: right x this am Primary Visit Diagnosis:Acute otitis media, right [H66.91] Other Visit Diagnosis:URI, acute [J06.9] Order(s):amoxicillin (AMOXIL) 875 mg tabletTake 1 tablet by mouth two times a day for 7 days.Disp: 14 tabletRfl: 0 Prescriptions as of 05/09/2025 - amoxicillin (AMOXIL) 875 mg tablet Take 1 tablet by mouth two times a day for 7 days. - drospirenone, contraceptive, (SLYND) 4 mg (28) tabet Take 1 tablet by mouth once daily. Take active pills for 24 days and (more content not included)... Normal [facility] B-HCG SerPl-aCncon 5 HCG.beta subunit Qn m[IU]/mL Normal <5.[address] [facility] Comment on above: Order Comment: Speci men Type: BLOOD SPECIMENOrdering Facility: [facility] Address: [address] [place] [address] Result Comment: Negally tishara Performed By: #### 6 30-4 #### [facility] CLIA [id number] [address] [place] [address] [place] C. trachomatis+N. gonorrhoea e DNA SHERRELL+probe Ql (Unsp spec)on 03-16-2025 C. trachomatis rRNA SHERRELL+probe Ql (Unsp spec) Not detected Normal Not detected [facility] Comment on above: Order Comment: Speci men Type: SWABOrdering Facility: [facility] Address: [address] [place] [address] Performed By: #### 6 30-4 #### [facility] CLIA [id number] [address] [place] [address] [place] N. gonorrhoeae rRNA SHERRELL+probe Ql (Unsp spec) Not detected Normal Not detected [facility] Comment on above: Order Comment: Speci men Type: SWABOrdering Facility: [facility] Address: [address] [place] [address] Performed By: #### 6 30-4 #### [facility] CLIA [id number] [address] [place] [address] [place] [address] [place] CNOVon 03-16-2025 CNOV Office Visit (OBGYWM) JULIA PISANO ([id number]) 1995 F Date Time Provider Department 03/16/25 9:30 AM AMY SANDS OBGYWM During your visit today, we recorded the following information about you: Pulse Blood pressure Weight Height 97/minute 118/88 98.4 kg 1.651 m Amy Sands APRN.WINEMAKER 03/16/2025 5:17 PM Signed Development Technician offered: Patient declines. Dumont is a 29 year old who presents for an annual gynecologic exam with complaints, irregular menses - discuss control options. - Reports irregular periods since starting phentermine (Adipex) for weight loss, prescribed by Dr. Velazquez. - Reports smoking and occasional vaping, using disposable, pre-filled nicotine products. - Prior to this, periods were regular, occurring every 30-40 days. Still get period: Yes LMP: 12/24/2024 Menses: Every 30-40 days lasting 2-7 days variable flow irregular - Has missed 2 menses Bleeding amount bothersome: No Bleeding between periods: No Period symptoms: Acne; Mood change control frequency: Never HPV vaccine: Yes; 1 in series documented - had side effects Last pap smear: 06/29/2021 normal HPV:NA History of abnormal pap: No, all prior PAP smears have been normal Sexually active: Yes Current sexual partner: 1 month Patient concern for STDs: new partner History of STDs: Chlamydia, genital HSV - no outbreaks for over one year - Had HPV infection at age 17-18, with no recurrences of genital warts since. Bothersome pelvic pain: No Last mammogram: never OB History Gravida3 Para3 Term3 Preterm0 AB0 Living3 SAB0 IAB0 Ectopic0 Multiple0 Live Births3 Hard Candy Spinner History LMP: 12/24/2024 (Approximate), Having periods Age at Menarche: 13 Age at First : Age at Menopause: Hard Candy Spinner History Comments: Sexual Activity: Yes; Male Contraception: Pill Menstrual Tracking History Flowsheet Row Appointment from 03/15/2025 in OB/Gynecology Period Cycle (Days) 5 Menstrual Flow Moderate PAST MEDICAL HISTORY Diagnosis Date Anxiety state Herpes, genital History of drug use PAST SURGICAL HISTORY Procedure Laterality Date NONE FAMILY HISTORY Problem Relation Age of Onset other (endometriosis) Mother had hysterectomy other (polyps) Father No Known Problems Sister Macular Degen Maternal Grandmother Kidney Disease Maternal Grandmother other (celft palate) Maternal Grandfather Diabetes Paternal Grandmother Parkinson?s Disease Paternal Grandfather Depression Sister No Known Problems Daughter SOCIAL HISTORY Social History Tobacco Use Smoking status: Former Current packs/day: 0.50 Average packs/day: 0.5 packs/day for 10.0 years (5.0 ttl pk-yrs) Types: Cigarettes Smokeless tobacco: Never Tobacco comments: Quit 07/2024. Now vaping. Vaping Use Vaping status: Some Days Substance Use Topics Alcohol use: Yes Comment: occasionally Drug use: Not Currently Types: Crystal Meth, Marijuana Comment: Last used meth Sep 2018 REVIEW OF SYSTEMS Abdomen: No abdominal pain, nausea, vomiting, diarrhea, or constipation. No bloating, early satiety, indigestion, or increased flatulence. Bladder: No dysuria, gross hematuria, urinary frequency, urinary urgency, or incontinence. Breast: No breast lumps, nipple d/c, overlying skin changes, redness or skin retraction. Allergies and current medication updated:Yes SENSITIVE EXAM: The sensitive examination was discussed with the Patient or Patient's Authorized Financial Administration Officer. As applicable, any other physician, advance practice provider, medical student, or other health professional student that will be observing or involved in the sensitive examination for educational or training purposes was discussed with the Patient or Authorized Financial Administration Officer. The Patient or Authorized Financial Administration Officer has agreed to proceed with the sensitive examination. (Sensitive examination includes inspection and/or palpation of the breasts, pelvis, prostate and anorectal regions). EXAM: BP 130/92 Ht 5' 5 (1.65m) Wt 217 lb (98.4kg) LMP 12/24/2024 BMI 36.11 kg/(m2). Repeat BP 118/88 GENERAL: pleasant, female in no apparent distress HEENT: Normocephalic, atraumatic, mucus membranes moist, and no lesions NECK: Supple, full range of motion, no adenopathy, and thyroid normal DERMATOLOGY: Normal, without lesions, non-icteric, and non-hirsute BREAST: soft, non-tender, symmetric, no dominant mass, normal nipple-areolar complex, no lymphadenopathy, and no nipple discharge CHEST: Normal inspiratory effort ABDOMEN: soft, non-tender, and no masses PELVIC: external genitalia normal, normal Bartholin's glands, urethra, St. Stephens's glands, no vulvar lesions, no cervical lesions, physiologic discharge present, normal appearing perineal body and perianal region BIMANUAL: uterus normal size, shape and consistency, no adnexal masses, and non-t (more content not included)... Normal [facility] HCG QUANTITATIVEon HCG.beta subunit Qn [facility] Comment on above: Negative HCG.beta subunit Qnon 2024 Interpretation and review of laboratory results Normal [facility] HIGH RISK HUMAN PAPILLOMA MITA (HPV), PCR FOR DETECTION AND GENOTYPINGon 03-16-2025 HPV 16 Ag Ql (Unsp spec) Not detected Normal Not detected [facility] Comment on above: Order Comment: Speci men Type: FLUID SPECIMENOrdering Facility: [facility] Address: [address] [place] [address] Performed By: #### 6 30-4 #### [facility] CLIA [id number] [address] [place] [address] [place] HPV 18 Ag Ql (Unsp spec) Not detected Normal Not detected [facility] Comment on above: Order Comment: Speci men Type: FLUID SPECIMENOrdering Facility: [facility] Address: [address] [place] [address] Performed By: #### 6 30-4 #### [facility] CLIA [id number] [address] [place] [address] [place] HPV 31+33+35+39+45+51+52+ 56+58+59+66+68 DNA SHERRELL+probe Ql (Cvx) Not detected Normal Not detected [facility] Comment on above: Order Comment: Speci men Type: FLUID SPECIMENOrdering Facility: [facility] Address: [address] [place] [address] Result Comment: High Risk HPV Other Type includes HPV types 31, 33, 35, 39, 45, 51, 52, 56, 58, 59, 66 and 68. Performed By: #### 6 30-4 #### [facility] CLIA [id number] [address] [place] [address] [place] PAP TESTon 03-16-2025 ADEQUACY Normal [facility] Comment on above: Order Comment: Speci men Type: FLUID SPECIMENOrdering Facility: [facility] Address: [address] [place] [address] Result Comment: Sati sfactory for interpretation. Transformation zone present Performed By: #### L [id number] ####[facility] [id number] [place] [address] [place] CASE REPORT Normal [facility] Comment on above: Order Comment: Speci men Type: FLUID SPECIMENOrdering Facility: [facility] Address: [address] [place] [address] Result Comment: Gyne cologic Cytology Report Case: [id number] Authorizing Provider: Amy Sands APRN.WINEMAKER Collected: 03/16/2025 10:28 AM Ordering Location: OB/Gynecology Received: 03/16/2025 01:07 PM First Screen: Zhorova, Bridget, CT, ASCP Specimen: Pap Test, ThinPrep, Cervix Performed By: #### L [id number] ####[facility] [id number] [place] [id number] [place] CLINICAL HISTORY, CYTOLOGY, SENIOR QA TESTER Routine Exam Normal [facility] Comment on above: Order Comment: Speci men Type: FLUID SPECIMENOrdering Facility: [facility] Address: [address] [place] [address] Performed By: #### L [id number] ####[facility] [id number] [address] [place] [address] [place] FINAL PERFORMING LAB Normal [facility] Comment on above: Order Comment: Speci men Type: FLUID SPECIMENOrdering Facility: [facility] Address: [address] [place] [address] Result Comment: Tech nical component, electrical controls engineer screening performed at: [facility], [address] [place] [address] [place] [address] CLIA: [id number] Diagnostic interpretation performed at: [facility], [address] [place] [address] [place] [address] CLIA# [id number] Physician Practice Manager: Arron Limon MD Performed By: #### L [id number] ####[facility] [id number] [address] [address] [place] INTERPRETATION, CYTOLOGY, SENIOR QA TESTER Normal [facility] Comment on above: Order Comment: Speci men Type: FLUID SPECIMENOrdering Facility: [facility] Address: [address] [place] [address] Result Comment: Nega tive for intraepithelial lesion or malignancy. at 1101 EDT Performed By: #### L [id number] ####[facility] [id number] [address] [place] [address] [place] LMP 12/24/2024 Normal [facility] Comment on above: Order Comment: Speci men Type: FLUID SPECIMENOrdering Facility: [facility] Address: [address] [place] [address] Performed By: #### L [id number] ####[facility] [id number] [address] [place] [address] [place] PAP DISCLAIMER COMMENT The Pap Smear is a screening test for cervical cancer. False negative results occur with all screening tests, emphasizing the need for rescreening at recommended intervals, and clinical correlation. Normal [facility] Comment on above: Order Comment: Speci men Type: FLUID SPECIMENOrdering Facility: [facility] Address: [address] [place] [address] Performed By: #### L [id number] ####[facility] LABIA [id number] [place] [id number] [place] PAP COMMERCIAL BAKING TEACHER COMMENT This specimen has been analyzed by the FDA-approved Carmudi System, which uses digital imaging and an enhanced artificial intelligence image analysis algorithm to identify juarez of interest on the microscopic slide, to assist the antiquer and pathologist in evaluating cells on ThinPrep Pap tests. Following analysis, juarez of interest on the microscopic slide selected by the algorithm are reviewed by a antiquer. If a sample requires hierarchical review, the pathologist will review the same juarez of interest selected by the algorithm prior to final interpretation. Normal [facility] Comment on above: Order Comment: Speci men Type: FLUID SPECIMENOrdering Facility: [facility] Address: [address] [place] [address] Performed By: #### L [id number] ####[facility] LABIA [id number] [place] [id number] [place] UA DIP,URINE HCG (POC)on Beta HCG ( test) Ql (U) Negative Negative [facility] Comment on above: Location:[facility], [address], [place], [address] Electric Sign Assembler (POCT) Internal QC OK [facility] Location:[facility], [address], [place], [address] [facility] POINT OF CARE [facility] CNOVon 02-19-2025 CNOV Office Visit (OBGYWM) JULIA PISANO ([id number]) 1995 F Date Time Provider Department 02/19/25 2:45 PM SHEILA AUSTIN OBGYWM During your visit today, we recorded the following information about you: Blood pressure Weight 122/78 99.3 kg Sheila Austin APRN.WINEMAKER 02/19/2025 3:30 PM Signed [facility] [place] SENIOR QA TESTER Visit Subjective Recording using Oonair software for draft documentation of the visit was discussed with the patient/authorized apparel trimmings sales representative; all questions welcomed and answered. Patient/authorized apparel trimmings sales representative agreed to proceed CHIEF COMPLAINT: The patient is a 29-year-old female presenting for evaluation of a persistent vulvar rash HPI: Vulvar Rash - Reports a persistent vulvar rash that has not improved with the use of clobetasol cream. - Describes the rash on her legs as consisting of lesions that initially appear similar to zits but develop into blisters with white heads; initially thought they were spider bites. - Lesions are painful, bruise easily, and cause discomfort when touched. - Has been using band-aids to prevent friction and reduce pain. - Denies any worsening of the vulvar rash, but notes that it has not improved significantly. - Reports that the rash has not been itchy for the past two days. - Denies any vaginal itching, burning, or discharge. - Has not noticed any dryness in the affected area. - Denies any known allergies that could be contributing to the rash on the legs. HISTORY: OB History Gravida3 Para3 Term3 Preterm0 AB0 Living3 SAB0 IAB0 Ectopic0 Multiple0 Live Births3 Hard Candy Spinner History LMP: 12/24/2024 (Approximate), Having periods Age at Menarche: Age at First : Age at Menopause: Hard Candy Spinner History Comments: Sexual Activity: Yes; Male Contraception: Pill PAST MEDICAL HISTORY Diagnosis Date Anxiety state Herpes, genital History of drug use PAST SURGICAL HISTORY Procedure Laterality Date NONE FAMILY HISTORY Problem Relation Age of Onset other (endometriosis) Mother had hysterectomy other (polyps) Father No Known Problems Sister Macular Degen Maternal Grandmother Kidney Disease Maternal Grandmother other (celft palate) Maternal Grandfather Diabetes Paternal Grandmother Parkinson?s Disease Paternal Grandfather Depression Sister No Known Problems Daughter Social History Tobacco Use Smoking status: Former Current packs/day: 0.50 Average packs/day: 0.5 packs/day for 10.0 years (5.0 ttl pk-yrs) Types: Cigarettes Smokeless tobacco: Never Tobacco comments: Quit 07/2024. Now vaping. Vaping Use Vaping status: Some Days Substance Use Topics Alcohol use: Yes Comment: occasionally Drug use: Not Currently Types: Crystal Meth, Marijuana Comment: Last used meth Sep 2018 Current Outpatient Medications Medication Sig Phentermine HCl (ADIPEX-P) 37.5 mg tablet Take 1 tablet by mouth once daily for 90 days. sertraline (ZOLOFT) 25 mg tablet Take 1 tablet by mouth once daily. clotrimazole-betamet hasone (LOTRISONE) cream Apply 1 application to affected area two times a day for 7 days. No current facility-administere d medications for this visit. ALLERGIES No Known Allergies REVIEW OF SYSTEMS: Genitourinary: (-) vaginal itching, (-) vaginal burning, (-) vaginal discharge Skin: (+) rash, (+) painful skin lesions, (+) pruritic skin lesions Objective SENSITIVE EXAM: The sensitive examination was discussed with the Patient or Patient's Authorized Financial Administration Officer. As applicable, any other physician, advance practice provider, medical student, or other health professional student that will be observing or involved in the sensitive examination for educational or training purposes was discussed with the Patient or Authorized Financial Administration Officer. The Patient or Authorized Financial Administration Officer has agreed to proceed with the sensitive examination. (Sensitive examination includes inspection and/or palpation of the breasts, pelvis, prostate and anorectal regions). PHYSICAL EXAM: BP 122/78 Wt 219 lb (99.3kg) LMP 12/24/2024 GENERAL: Pleasant; in no apparent distress PULMONARY: normal inspiratory effort : - PELVIC: external genitalia with whitish discoloration at the top of the clitoral monson, superficial crack previously noted is no longer present, multiple dark painful vesicular lesions on thigh, normal appearing perineal body and perianal region - Patient consent for exam received NEURO: alert and oriented x3 EXTREMITIES: normal Assessment AND Plan ASSESSMENT AND PLAN: ASSESSMENT/PLAN: 1. Dermatitis - ICD9: 692.9, ICD10: L30.9 - Apply the new prescription cream (contains a mild steroid and an antifungal) to the top of your clitoral monson twice daily for 7 days. - If the rash have not improved after 7 days, call this office to schedule a small biopsy of the area. - Over the weeke (more content not included)... Normal [facility] CNOVon 01-28-2025 CNOV Office Visit (FAMPWS) JULIA PISANO ([id number]) 1995 F Date Time Provider Department 01/28/25 4:40 PM [facility] During your visit today, we recorded the following information about you: Pulse Respiration Blood pressure Weight 92/minute 16/minute 110/84 100.9 kg Marcial Velazquez MD 01/28/2025 4:52 PM Signed Chief Complaint Patient presents with: F/U 3 Month HPI Julia Carpio Gadiel is a 29 year old female who presents here today for medication follow up. Here today for a follow up. Works at the [employer] in [place] [employer]. Obesity: Taking Adipex 37.5 mg daily, reports she's not been on medication for 1.5 months. States that medication does help with food cravings and decreases appetite. When she stopped the medication, she feels she binge eats. When she does eat it's been healthier food options. Weight last visit 228 lbs, today 222 lbs. Pt feels she's gained a few pounds back due to being off medication. Denies getting much exercise, other than work, taking care of kids, and being a busy single parent. Wants to get back into walking since the weather is nice. Would like to stay on medication since this did help her lose weight and decrease appetite. Anxiety - Stable with use of Zoloft 25 mg once daily. Denies this getting worse with using medication. Past medical history, appointments, medications, allergies reviewed. Previous Medical History PAST MEDICAL HISTORY Diagnosis Date Anxiety state Herpes, genital History of drug use Previous Surgical History PAST SURGICAL HISTORY Procedure Laterality Date NONE Family History FAMILY HISTORY Problem Relation Age of Onset other (endometriosis) Mother had hysterectomy other (polyps) Father No Known Problems Sister Macular Degen Maternal Grandmother Kidney Disease Maternal Grandmother other (celft palate) Maternal Grandfather Diabetes Paternal Grandmother Parkinson?s Disease Paternal Grandfather Depression Sister No Known Problems Daughter Patient Allergies ALLERGIES No Known Allergies Current Medications Current Outpatient Medications on File Prior to Visit Medication Sig metroNIDAZOLE (FLAGYL) 500 mg tablet Take 1 tablet by mouth two times a day for 7 days. clobetasol (TEMOVATE) 0.05 % cream Apply to affected area 2x/day for 2 weeks, then 1x/day for a week, than 2-3x/week for maintenance. sertraline (ZOLOFT) 25 mg tablet Take 1 tablet by mouth once daily. No current facility-administere d medications on file prior to visit. Social History Social History Tobacco Use Smoking status: Every Day Current packs/day: 0.50 Average packs/day: 0.5 packs/day for 10.0 years (5.0 ttl pk-yrs) Types: Cigarettes Smokeless tobacco: Never Vaping Use Vaping status: Never Used Substance Use Topics Alcohol use: Yes Comment: occasionally Drug use: Not Currently Types: Crystal Meth, Marijuana Comment: Last used meth Sep 2018 EXAM: BP 110/84 (BP Site: Left Arm, BP Position: Sitting, BP Cuff Size: Large Adult) Pulse 92 Resp 16 Wt 100.9 kg (222 lb 6.4 oz) LMP 12/24/2024 (Approximate) BMI 38.17 kg/m? General Appearance: Well appearing, alert, in no acute distress, well-hydrated, well nourished. and Obese. Lungs: Lungs clear to auscultation. No wheezing, rhonchi, rales.. Heart: RRR without murmur, gallop, or rubs. No ectopy. Health Maintenance List Hepatitis B Vaccine(1 of 3 - 19+ 3-dose series) Never done Cervical Cancer Screening due on 06/29/2024 Covid-19 Vaccine( - 2023- season) due on 11/12/2025 Pneumococcal Vaccine(1 of 2 - PCV) due on 11/12/2025 Depression Screening due on 06/12/2025 DTaP,Tdap,Td Vaccine(3 - Td or Tdap) due on 12/09/2032 Influenza Vaccine Completed Hepatitis C Screening Completed HIV Screening Completed Data reviewed Weight graph ASSESSMENT/PLAN: 1. Class 2 obesity with body mass index (BMI) of 39.0 to 39.9 in adult, unspecified obesity type, unspecified whether serious comorbidity present - ICD9: 278.00, V85.39, ICD10: E66.812, Z68.39 Weight decreasing - Continue with Adipex - Adipex Rx for 3 months for weight check - PHENTERMINE 37.5 MG TABLET 3 mo f/u I agree with the Chief Complaint, ROS, and Past Histories independently gathered by the clinical sales support coordinator and the remaining scribed note accurately describes my personal service to the patient. Medical Decision Making: Problems: Low: Stable chronic illness Risk: Moderate: Drug management Medical Decision Making Level: 3 - Low Marcial Velazquez MD The documentation for this note was completed by Mayelin Storey MA acting as scribe for Marcial Velazquez MD. January 28, 2025 4:40 PM. Mayelin Storey MA Referring Provider: SELF [[id number]] Allergies As of Date: 01/28/2025 (No Known Allergies) Date Reviewed: 01/28/2025 Reviewed by: Mayelin Storey MA - Fully Assessed Reason for Visit (more content not included)... Normal [facility] C. trachomatis+N. gonorrhoea e DNA SHERRELL+probe Ql (Unsp spec)on 01-05-2025 C. trachomatis rRNA SHERRELL+probe Ql (Unsp spec) Not detected Not detected [facility] Interpretation and review of laboratory results Normal [facility] N. gonorrhoeae rRNA SHERRELL+probe Ql (Unsp spec) Not detected Not detected [facility] This FDA-approved assay has been modified to accept rectal swabs self-collected in a healthcare setting. For self-collected rectal swabs, the test was developed and its performance characteristics determined by the [facility]'s [facility] [place] ([facility]). It has not been cleared or approved by the FDA. [facility] is regulated under CLIA as qualified to perform high-complexity testing. This test is used for clinical purposes. It should not be regarded as investigational or for research. [facility] BACTERIAL VAGINOSIS NAATon 0 01-04-2025 Interpretation and review of laboratory results Abnormal [facility] Lactobacillus crispatus+gasseri+martha senii + Gardnerella vaginalis + Atopobium vaginae rRNA SHERRELL+probe Ql (Vag fld) Detected Abnormal Not detected [facility] Lactobacillus crispatus+gasseri+martha senii + Gardnerella vaginalis + Atopobium vaginae rRNA SHERRELL+probe Ql (Vag fld) Detected Abnormal Not detected [facility] Comment on above: Order Comment: Speci men Type: SWABOrdering Facility: [facility] Address: [address] [place] [address] Performed By: #### 6 30-4 #### [facility] CLIA [id number] [address] [place] [address] [place] C. trachomatis+N. gonorrhoea e DNA SHERRELL+probe Ql (Unsp spec)on 01-04-2025 C. trachomatis rRNA SHERRELL+probe Ql (Unsp spec) Not detected Normal Not detected [facility] Comment on above: Order Comment: Speci men Type: SWABOrdering Facility: [facility] Address: [address] [place] [address] Performed By: #### 3 6902-5 ####[facility] LABCLIA [id number] [place] [address] [place] N. gonorrhoeae rRNA SHERRELL+probe Ql (Unsp spec) Not detected Normal Not detected [facility] Comment on above: Order Comment: Speci men Type: SWABOrdering Facility: [facility] Address: [address] [place] [address] Performed By: #### 3 6902-5 ####[facility] LABCLIA [id number] [place] [address] [place] FANG/TRICHOMONAS NAATon 0 01-04-2025 C. glabrata RNA SHERRELL+probe Ql (Vag fld) Not detected Not detected [facility] Fang sp DNA SHERRELL+probe Ql (Vag fld) Not detected Not detected [facility] Comment on above: The Fang species group target includes C. albicans, C. tropicalis, C. parapsilosis, and C. dubliniensis. Interpretation and review of laboratory results Normal [facility] T. vaginalis DNA SHERRELL+probe Ql (Unsp spec) Not detected Not detected [facility] C. glabrata RNA SHERRELL+probe Ql (Vag fld) Not detected Normal Not detected [facility] Comment on above: Order Comment: Speci men Type: SWABOrdering Facility: [facility] Address: [address] [place] [address] Performed By: #### 6 30-4 #### [facility] CLIA [id number] [address] [place] [address] [place] Fang sp DNA SHERRELL+probe Ql (Vag fld) Not detected Normal Not detected [facility] Comment on above: Order Comment: Speci men Type: SWABOrdering Facility: [facility] Address: [address] [place] [address] Result Comment: The Fang species group target includes C. albicans, C. tropicalis, C. parapsilosis, and C. dubliniensis. Performed By: #### 6 30-4 #### [facility] CLIA [id number] [address] [place] [address] [place] T. vaginalis DNA SHERRELL+probe Ql (Unsp spec) Not detected Normal Not detected [facility] Comment on above: Order Comment: Speci men Type: SWABOrdering Facility: [facility] Address: [address] [place] [address] Performed By: #### 6 30-4 #### [facility] CLIA [id number] [address] [place] [address] [place] CNOVon 01-04-2025 CNOV Office Visit (FAMPWS) JULIA PISANO ([id number]) 1995 F Date Time Provider Department 01/04/25 2:40 PM PING BYRD During your visit today, we recorded the following information about you: Pulse Respiration Blood pressure 92/minute 16/minute 132/98 Ping Byrd APRN.WINEMAKER 01/04/2025 2:50 PM Signed Continue taking your Sertraline Keep your scheduled appointment in January with Dr. Velazquez regarding your weight loss medication. Ping Byrd APRN.CNP 01/04/2025 2:58 PM Signed This is a 29 year old female who presents today with: Julia is a 29-year-old female with a history of anxiety, presenting for a refill of sertraline. HISTORY OF PRESENT ILLNESS: Anxiety: - History of anxiety, currently managed with sertraline. - Recently ran out of sertraline; has not taken it for a couple of days. - Reports increased anxiety today due to accompanying her sister to euthanize her dog. - Describes sertraline as beneficial, reducing irritability and mood swings. - Initial side effects included feeling different, similar to quitting smoking, lasting 2 days. - Denies current side effects, including sleep disturbances or appetite changes. - Denies suicidal or homicidal ideation. - Has experienced bad days while on sertraline, but less severe than without medication. Weight Management: - Engaged in weight management, including medication. - Appointment scheduled with Dr. Velazquez in January to discuss weight loss medication. - Reports binge eating due to stress and limited time for exercise as a single mother with young children. PAST MEDICAL HISTORY: PAST MEDICAL HISTORY Diagnosis Date Anxiety state Herpes, genital History of drug use PAST SURGICAL HISTORY Procedure Laterality Date NONE ALLERGIES Patient has no known allergies. MEDICATIONS Current Outpatient Medications Medication Sig clobetasol (TEMOVATE) 0.05 % cream Apply to affected area 2x/day for 2 weeks, then 1x/day for a week, than 2-3x/week for maintenance. sertraline (ZOLOFT) 25 mg tablet Take 1 tablet by mouth once daily. No current facility-administere d medications for this visit. FAMILY HISTORY Problem Relation Age of Onset other (endometriosis) Mother had hysterectomy other (polyps) Father No Known Problems Sister Macular Degen Maternal Grandmother Kidney Disease Maternal Grandmother other (celft palate) Maternal Grandfather Diabetes Paternal Grandmother Parkinson?s Disease Paternal Grandfather Depression Sister No Known Problems Daughter Social History Tobacco Use Smoking status: Every Day Current packs/day: 0.50 Average packs/day: 0.5 packs/day for 10.0 years (5.0 ttl pk-yrs) Types: Cigarettes Smokeless tobacco: Never Vaping Use Vaping status: Never Used Substance Use Topics Alcohol use: Yes Comment: occasionally Drug use: Not Currently Types: Crystal Meth, Marijuana Comment: Last used meth Sep 2018 REVIEW OF SYSTEMS Gastrointestinal: (+) binge eating Psychiatric: (+) anxiety, (-) suicidal ideation, (-) sleep disturbance EXAM: BP 132/98 Pulse 92 Resp 16 LMP 12/24/2024 (Approximate) SpO2 97% PHYSICAL EXAM: General Appearance: Well appearing, alert, in no acute distress, well-hydrated, well nourished.. Skin: Skin color, texture, turgor normal, no suspicious rashes or lesions. Head: Normocephalic, no masses, lesions, tenderness or abnormalities. Eyes: Anicteric sclera. Pupils are equally round and reactive to light. Extraocular movements are intact. . Lungs: Lungs clear to auscultation. No wheezing, rhonchi, rales.. Heart: RRR without murmur, gallop, or rubs. No ectopy. Extremities: No deformities, edema, skin discoloration, clubbing or cyanosis. Good capillary refill. . Neurologic: Gait normal. ASSESSMENT/PLAN 1. Anxiety with depression (F41.8) - Anxiety symptoms are well-managed with sertraline; no significant side effects reported. - Refilled sertraline prescription and sent to [facility]. - happy with current medication regimen. - Follow-up with Dr. Velazquez for weight loss management in January. Discussed treatment plan and patient voices understanding. Patient's questions answered appropriately. Medications and potential side effects were discussed and patient voices understanding. Return to the office as scheduled or as needed for worsening/no improvement. Ping Byrd APRN.WINEMAKER Recording using Oonair software for draft documentation of the visit was discussed with the patient/authorized apparel trimmings sales representative; all questions welcomed and answered. Patient/authorized apparel trimmings sales representative agreed to proceed Referring Provider: SKYLAR DENISE [[id number]] Allergies As of Date: 01/04/2025 (No Known Allergies) Date Reviewed: 01/04/2025 Reviewed by: Faby Breaux LPN - Fully Assessed Reason for Visit: Recheck [92] Cmt: Medic (more content not included)... 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 Juliaadriel Pisano is a 29 year old female who presents for problem visit vaginal rash, odor x6 months. HPI: the irritation has been on/off over the past 6 months. She has tried several OTC products, but nothing really helps. Denies any change in soaps. The area of irritation is above the clitoral monson. OB History Gravida3 Para3 Term3 Preterm0 AB0 Living3 SAB0 IAB0 Ectopic0 Multiple0 Live Births3 Hard Candy Spinner History LMP: 12/24/2024 (Approximate), Having periods Age at Menarche: Age at First : Age at Menopause: Hard Candy Spinner History Comments: Sexual Activity: Yes; Male Contraception: Pill PAST MEDICAL HISTORY Diagnosis Date Anxiety state Herpes, genital History of drug use PAST SURGICAL HISTORY Procedure Laterality Date NONE FAMILY HISTORY Problem Relation Age of Onset other (endometriosis) Mother had hysterectomy other (polyps) Father No Known Problems Sister Macular Degen Maternal Grandmother Kidney Disease Maternal Grandmother other (celft palate) Maternal Grandfather Diabetes Paternal Grandmother Parkinson?s Disease Paternal Grandfather Depression Sister No Known Problems Daughter Social History Tobacco Use Smoking status: Every Day Current packs/day: 0.50 Average packs/day: 0.5 packs/day for 10.0 years (5.0 ttl pk-yrs) Types: Cigarettes Smokeless tobacco: Never Vaping Use Vaping status: Never Used Substance Use Topics Alcohol use: Yes Comment: occasionally Drug use: Not Currently Types: Crystal Meth, Marijuana Comment: Last used meth Sep 2018 Current Outpatient Medications Medication Sig sertraline (ZOLOFT) 25 mg tablet Take 1 tablet by mouth once daily. clobetasol (TEMOVATE) 0.05 % cream Apply to affected area 2x/day for 2 weeks, then 1x/day for a week, than 2-3x/week for maintenance. No current facility-administere d medications for this visit. Allergies As of Date: 01/04/2025 (No Known Allergies) Fully Assessed 01/04/2025 REVIEW OF SYSTEMS Expanded ROS: N/A Allergies and current medication updated:Yes SENSITIVE EXAM: The sensitive examination was discussed with the Patient or Patient's Authorized Financial Administration Officer. As applicable, any other physician, advance practice provider, medical student, or other health professional student that will be observing or involved in the sensitive examination for educational or training purposes was discussed with the Patient or Authorized Financial Administration Officer. The Patient or Authorized Financial Administration Officer has agreed to proceed with the sensitive examination. (Sensitive examination includes inspection and/or palpation of the breasts, pelvis, prostate and anorectal regions). EXAM: BP 118/64 Wt 220 lb (99.8kg) LMP 12/24/2024 GENERAL: pleasant, female in no apparent distress HEENT: Normocephalic, atraumatic, mucus membranes moist, and no lesions CHEST: Normal inspiratory effort Physical Exam Genitourinary: Genitourinary Comments: Superficial fissure and the area surrounding is slightly white in color. ASSESSMENT AND PLAN: Assessment AND Plan Vaginal odor Orders: FANG/TRICHOMONAS NAAT BACTERIAL VAGINOSIS NAAT GONORRHEA/CHLAMYDIA NAAT Vaginal irritation Orders: FANG/TRICHOMONAS NAAT BACTERIAL VAGINOSIS NAAT GONORRHEA/CHLAMYDIA NAAT Vulvar irritation Orders: clobetasol (TEMOVATE) 0.05 % cream; Apply to affected area 2x/day for 2 weeks, then 1x/day for a week, than 2-3x/week for maintenance. Sheila Austin APRN.WINEMAKER Medical Decision Making: Problems: Low: Acute, uncomplicated illness or injury Data: Unique test(s) ordered: 2 Risk: Moderate: Drug management Medical Decision Making Level: 3 - Low Referring Provider: SKYLAR DENISE [[id number]] Allergies As of Date: 01/04/2025 (No Known Allergies) Date Reviewed: 01/04/2025 Reviewed by: Faby Breaux LPN - Fully Assessed Reason for Visit: Problem Visit [Other] Primary Visit Diagnosis:Vaginal odor [N89.8] Other Visit Diagnoses:Vaginal irritation [N89.8] Vulvar irritation [N90.89] Order(s):FANG/TRI CHOMONAS NAAT [SQCVTV] Order #: [id number]. #:[id number] BACTERIAL VAGINOSIS NAAT [SQBVAMP] Order #: [id number]. #:[id number] GONORRHEA/CHLAMYDIA NAAT [SQGCCT] Order #: [id number]. #:[id number] clobetasol (TEMOVATE) 0.05 % creamApply to affected area 2x/day for 2 weeks, then 1x/day for a week, than 2-3x/week for maintenance.Disp: 60 gRfl: 0 Prescriptions as of 01/04/2025 - clobetasol (TEMOVATE) 0.05 % cream Apply to affected area 2x/d (more content not included)... Normal [facility] XR CHEST 2V FRONTAL/LATon XR CHEST 2V FRONTAL/LAT * * *Final Report* * * DATE OF EXAM: Jan 04 2025 8:28AM WOX 5291 - XR CHEST 2V FRONTAL/LAT / PROCEDURE REASON: Bacterial pneumonia * * * * Physician Interpretation * * * * EXAMINATION: CHEST RADIOGRAPH (2 VIEW FRONTAL and LATERAL) CLINICAL HISTORY: Bacterial pneumonia MQ: XC2_6 EXAM DATE/TIME: 01/04/2025 8:28 AM COMPARISON: Chest x-ray on 06/12/2024 RESULT: Lines, tubes, and devices: None. Lungs and pleura: No consolidation. No lung mass. No pleural effusion. No pneumothorax. Cardiomediastinal silhouette: Normal cardiomediastinal silhouette. Bones and soft tissues: Unremarkable. IMPRESSION: No acute radiographic abnormality. Freezer Unloader: JOSSUE Transcribe Date/Time: Jan 04 2025 11:12A Dictated by : STEPHANIE SAM MD This examination was interpreted and the report reviewed and electronically signed by: STEPHANIE SAM MD on Jan 04 2025 11:13AM EST [id number] Normal [facility] XR Chest PA and Lateralon IMPRESSION: No acute radiographic abnormality. Freezer Unloader: JOSSUE Transcribe Date/Time: Jan 04 2025 11:12A Dictated by : STEPHANIE SAM MD This examination was interpreted and the report reviewed and electronically signed by: STEPHANIE SAM MD on Jan 04 2025 11:13AM EST DIVISION OF RADIOLOGY * * *Final Report* * * DATE OF EXAM: Jan 04 2025 8:28AM WOX 5291 - XR CHEST 2V FRONTAL/LAT / PROCEDURE REASON: Bacterial pneumonia * * * * Physician Interpretation * * * * EXAMINATION: CHEST RADIOGRAPH (2 VIEW FRONTAL & LATERAL) CLINICAL HISTORY: Bacterial pneumonia MQ: XC2_6 EXAM DATE/TIME: 01/04/2025 8:28 AM COMPARISON: Chest x-ray on 06/12/2024 RESULT: Lines, tubes, and devices: None. Lungs and pleura: No consolidation. No lung mass. No pleural effusion. No pneumothorax. Cardiomediastinal silhouette: Normal cardiomediastinal silhouette. Bones and soft tissues: Unremarkable. DIVISION OF RADIOLOGY Provider, [facility] - 01/04/2025 * * *Final Report* * * DATE OF EXAM: Jan 04 2025 8:28AM WOX 5291 - XR CHEST 2V FRONTAL/LAT / PROCEDURE REASON: Bacterial pneumonia * * * * Physician Interpretation * * * * EXAMINATION: CHEST RADIOGRAPH (2 VIEW FRONTAL & LATERAL) CLINICAL HISTORY: Bacterial pneumonia MQ: XC2_6 EXAM DATE/TIME: 01/04/2025 8:28 AM COMPARISON: Chest x-ray on 06/12/2024 RESULT: Lines, tubes, and devices: None. Lungs and pleura: No consolidation. No lung mass. No pleural effusion. No pneumothorax. Cardiomediastinal silhouette: Normal cardiomediastinal silhouette. Bones and soft tissues: Unremarkable. IMPRESSION IMPRESSION: No acute radiographic abnormality. Freezer Unloader: JOSSUE Transcribe Date/Time: Jan 04 2025 11:12A Dictated by : STEPHANIE SAM MD This examination was interpreted and the report reviewed and electronically signed by: STEPHANIE SAM MD on Jan 04 2025 11:13AM EST [facility] Radiology Study observation (narrative) [facility] XR Chest PA and LateralOrder ed By: [facility] Provider on 01-04-2025 [facility] CNCOon 12-09-2024 CNCO Letter Text Normal [facility] CNOVon 11-12-2024 CNOV Office Visit (FAMPWS) JULIA PISANO ([id number]) 1995 F Date Time Provider Department 11/12/24 4:20 PM MARCIAL VELAZQUEZ FAMPWS During your visit today, we recorded the following information about you: Pulse Respiration Blood pressure Weight 88/minute 16/minute 120/74 103.5 kg Marcial Velazquez MD 11/12/2024 4:48 PM Signed Chief Complaint Patient presents with: Weight Problem: Weight loss options HPI Julia Pisano is a 29 year old female who presents here today for discussion on weight. Pt would like to discuss weight loss options. Pt states that since she started generic Zoloft she has had a hard time losing weight. 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 Has not been watching diet lately, the Zoloft increased her appetite. She has been on the Zoloft x 6 months now. She knows how to control diet. Has been living with her parents so her lifestyle has been restricted; she is in the process of moving into her own place. She feels she is doing a lot of boredom eating. States that after she eats she will feel hungry again within a half hour. She is not sure that she would want to use Ozempic, states she has heard bad things about it. She feels very insecure about herself due to her weight. Past medical history, appointments, medications, allergies reviewed. Previous Medical History PAST MEDICAL HISTORY Diagnosis Date Anxiety state Herpes, genital History of drug use Previous Surgical History PAST SURGICAL HISTORY Procedure Laterality Date NONE Family History FAMILY HISTORY Problem Relation Age of Onset other (endometriosis) Mother had hysterectomy other (polyps) Father No Known Problems Sister Macular Degen Maternal Grandmother Kidney Disease Maternal Grandmother other (celft palate) Maternal Grandfather Diabetes Paternal Grandmother Parkinson?s Disease Paternal Grandfather Depression Sister No Known Problems Daughter Patient Allergies ALLERGIES No Known Allergies Current Medications Current Outpatient Medications on File Prior to Visit Medication Sig sertraline (ZOLOFT) 25 mg tablet Take 1 tablet by mouth once daily. busPIRone (BUSPAR) 15 mg tablet Take 1 tablet by mouth three times a day. Desogestrel-Ethinyl Estradiol (APRI) 0.15-0.03 mg per tablet Take 1 tablet by mouth once daily. omeprazole (PRILOSEC) 20 mg capsule Take 1 capsule by mouth daily before breakfast. 1/2 hr before meal. fluticasone (FLONASE ALLERGY RELIEF) 50 mcg/actuation nasal spray Use 1 Agra in each nostril once daily. (Patient not taking: Reported on 02/13/2024) No current facility-administere d medications on file prior to visit. Social History Social History Tobacco Use Smoking status: Every Day Current packs/day: 0.50 Average packs/day: 0.5 packs/day for 10.0 years (5.0 ttl pk-yrs) Types: Cigarettes Smokeless tobacco: Never Vaping Use Vaping status: Never Used Substance Use Topics Alcohol use: Yes Comment: occasionally Drug use: Not Currently Types: Crystal Meth, Marijuana Comment: Last used meth Sep 2018 EXAM: BP 120/74 Pulse 88 Resp 16 Wt 103.5 kg (228 lb 2.8 oz) LMP 05/11/2024 BMI 39.17 kg/m? General Appearance: Well appearing, alert, in no acute distress, well-hydrated, well nourished.. Lungs: Lungs clear to auscultation. No wheezing, rhonchi, rales.. Heart: RRR without murmur, gallop, or rubs. No ectopy. Health Maintenance List Hepatitis B Vaccine(1 of 3 - 19+ 3-dose series) Never done Cervical Cancer Screening due on 06/29/2024 Covid-19 Vaccine(1 - 2023- season) due on 11/12/2025 Pneumococcal Vaccine(1 of 2 - PCV) due on 11/12/2025 Depression Screening due on 06/12/2025 DTaP,Tdap,Td Vaccine(3 - Td or Tdap) due on 12/09/2032 Influenza Vaccine Completed Hepatitis C Screening Completed HIV Screening Completed Data reviewed Weight graph ASSESSMENT/PLAN: 1. Class 2 obesity with body mass index (BMI) of 39.0 to 39.9 in adult, unspecified obesity type, unspecified whether serious comorbidity present - ICD9: 278.00, V85.39, ICD10: E66.812, Z68.39 Weight increasing - Behavioral and pharmacological intervention and - Add Phentermine - PHENTERMINE 37.5 MG TABLET MOnitor fo any increaes in anxiety Follow up in 1 month I agree with the Chief Complaint, ROS, and Past Histories independently gathered by the clinical sales support coordinator and the remaining scribed note accurately describes my personal service to the patient. Medical Decision Making: Problems: Low: Stable chronic illness Risk: Moderate: Drug management Medical Decision Making Level: 3 - Low Marcial Velazquez MD The documentation for this note was completed by Jacqui Schneider MA acting as scribe for Rodney (more content not included)... Normal [facility] Enio 08-31-2024 CNPN Telephone (FAMPWS) JULIA PISANO ([id number]) 1995 F Date Time Provider Department 08/31/24 MARCIAL VELAZQUEZ During your visit today, we recorded the following information about you: Marian Jerez RN 08/31/2024 11:41 AM Signed Pt called in asking about urine culture. I let her know, No further workup. Mixed microbiota can be due to urine contamination with skin bacteria at time of collection. I told her she may not have wiped well enough when she did the culture. Pt states she used all three of the wipes. 10,000 -<50,000 CFU/ml Mixed microbiota Abnormal Pt states she isn't having any pain, but her WBCs were 13.65, so Ping Byrd RING SEWER though she had an infection somewhere. Pt states when she has to urinate she has to go then and she can't stop it. She states sometimes she isn't able to hold it until she gets to the bathroom and will have an accident. Pt denies urine smelling or being dark. She states she had a CT and it showed 2 ovarian cysts. Please call and advise. Marcial Velazquez MD 09/01/2024 5:03 PM Signed Since her pain has improved I would recommend just monitoring for now. She may have had some inflammation in her colon that caused the pain and elevated WBC, and has now resolved itself. Her urine test looks OK; does not look like an infection. MD Jaylon Al Rilee, MA 09/01/2024 5:09 PM Signed Call to pt and notified her of Providers message below. Pt understood this and verbalized understanding. Appreciated PCP reviewing and office reaching out. Mayelin Storey MA Allergies As of Date: 08/31/2024 (No Known Allergies) Date Reviewed: 08/28/2024 Reviewed by: Nate Chang LPN - Fully Assessed Reason for Visit: Results [95] Patient Update [1234] Prescriptions as of 09/01/2024 - sertraline (ZOLOFT) 25 mg tablet Take 1 tablet by mouth once daily. - busPIRone (BUSPAR) 15 mg tablet Take 1 tablet by mouth three times a day. - Desogestrel-Ethinyl Estradiol (APRI) 0.15-0.03 mg per tablet Take 1 tablet by mouth once daily. - omeprazole (PRILOSEC) 20 mg capsule Take 1 capsule by mouth daily before breakfast. 1/2 hr before meal. - fluticasone (FLONASE ALLERGY RELIEF) 50 mcg/actuation nasal spray Use 1 Agra in each nostril once daily. Problem List As Of Date 08/31/2024 Noted Resolved History of drug use [F19.91] 03/17/2019 History of tobacco use [Z87.891] 03/17/2019 Date of last menstrual period (LMP) unknown [Z7*03/17/2019 08/10/2019 Nausea/vomiting in [O21.9] 03/17/2019 08/10/2019 Chlamydial infection [A74.9] 03/20/2019 Abnormal glucose complicating [O99.81*07/30/2019 08/10/2019 Gestational diabetes mellitus, class A1 [O24.41*08/10/2019 Acute anxiety [F41.9] 09/22/2021 Encounter Status:Closed by MAYELIN STOREY on 09/01/24 Normal [facility] Bacteria Ur Culton 4 Bacteria identified Cx Nom (U) ORGANISM ID: 1 10,000 -<50,000 CFU/ml Mixed microbiota No further workup. Mixed microbiota can be due to???urine???contami nation with skin bacteria at time of collection or presence of a long-term urinary catheter. If a new culture is needed, please consider re-education of the patient on proper midstream collection technique or straight catheterization for???urine???collec tion. Normal [facility] Comment on above: Performed By: #### 6 30-4 #### [facility] CLIA [id number] [address] [place] [address] [place] C. trachomatis+N. gonorrhoea e DNA SHERRELL+probe Ql (Unsp spec)on 08-28-2024 C. trachomatis rRNA SHERRELL+probe Ql (Unsp spec) Not detected Normal Not detected [facility] Comment on above: Order Comment: Speci men Type: URINE SPECIMENOrdering Facility: [facility] Address: [address] [place] [address] Performed By: #### 6 30-4 #### [facility] CLIA [id number] [address] [place] [address] [place] N. gonorrhoeae rRNA SHERRELL+probe Ql (Unsp spec) Not detected Normal Not detected [facility] Comment on above: Order Comment: Speci men Type: URINE SPECIMENOrdering Facility: [facility] Address: [address] [place] [address] Performed By: #### 6 30-4 #### [facility] CLIA [id number] [address] [place] [address] [id number] [address] [place] CBC W Auto Differential pane l (Bld)on 08-28-2024 Basophils (Bld) [#/Vol] 0.06 10*3/uL [facility] Basophils/100 WBC (Bld) 0.4 % [facility] Differential cell count method Nom (Bld) Auto [facility] Eosinophils (Bld) [#/Vol] 0.24 10*3/uL [facility] Eosinophils/100 WBC (Bld) 1.8 % [facility] Erythrocyte distribution width (RBC) [Ratio] 14.6 % 11.5 - 15.0 % [facility] Hematocrit (Bld) [Volume fraction] 41.6 % 36.0 - 46.0 % [facility] Hemoglobin (Bld) [Mass/Vol] 13.9 g/dL 11.5 - 15.5 g/dL [facility] Immature granulocytes (Bld) [#/Vol] 0.05 10*3/uL [facility] Immature granulocytes/100 WBC (Bld) 0.4 % [facility] Interpretation and review of laboratory results Abnormal [facility] Lymphocytes (Bld) [#/Vol] 1.61 10*3/uL [facility] Lymphocytes/100 WBC (Bld) 11.8 % [facility] MCH (RBC) [Entitic mass] 29.6 pg 26.0 - 34.0 pg [facility] MCHC (RBC) [Mass/Vol] 33.4 g/dL 30.5 - 36.0 g/dL [facility] MCV (RBC) [Entitic vol] 88.5 fL 80.0 - 100.0 fL [facility] Monocytes (Bld) [#/Vol] 0.66 10*3/uL [facility] Monocytes/100 WBC (Bld) 4.8 % [facility] Neutrophils (Bld) [#/Vol] 11.03 10*3/uL High [facility] Neutrophils/100 WBC (Bld) 80.8 % [facility] Nucleated RBC (Bld) [#/Vol] NINF [facility] Nucleated RBC/100 WBC (Bld) [Ratio] 0.0 % /100 WBC [facility] Platelet mean volume (Bld) [Entitic vol] 10.5 fL 9.0 - 12.7 fL [facility] Platelets (Bld) [#/Vol] 255 10*3/uL [facility] RBC (Bld) [#/Vol] 4.70 10*6/uL 3.90 - 5.2 0 m/uL [facility] WBC (Bld) [#/Vol] 13.65 10*3/uL High [facility] Basophils (Bld) [#/Vol] 0.06 10*3/uL Normal <0.11 [facility] Comment on above: Order Comment: Speci men Type: BLOOD SPECIMENOrdering Facility: [facility] Address: [address] [place] [address] Performed By: #### 6 30-4 #### [facility] CLIA [id number] [address] [place] [address] [place] Basophils/100 WBC (Bld) 0.4 % Normal [facility] Comment on above: Order Comment: Speci men Type: BLOOD SPECIMENOrdering Facility: [facility] Address: [address] [place] [address] Performed By: #### 6 30-4 #### [facility] CLIA [id number] [address] [place] [address] [place] Differential cell count method Nom (Bld) Auto Normal [facility] Comment on above: Order Comment: Speci men Type: BLOOD SPECIMENOrdering Facility: [facility] Address: [address] [place] [address] Performed By: #### 6 30-4 #### [facility] CLIA [id number] [address] [place] [address] [place] Eosinophils (Bld) [#/Vol] 0.24 10*3/uL Normal <0.46 [facility] Comment on above: Order Comment: Speci men Type: BLOOD SPECIMENOrdering Facility: [facility] Address: [address] [place] [address] Performed By: #### 6 30-4 #### [facility] CLIA [id number] [address] [place] [address] [place] Eosinophils/100 WBC (Bld) 1.8 % Normal [facility] Comment on above: Order Comment: Speci men Type: BLOOD SPECIMENOrdering Facility: [facility] Address: [address] [place] [address] Performed By: #### 6 30-4 #### [facility] CLIA [id number] [address] [place] [address] [place] Erythrocyte distribution width (RBC) [Ratio] 14.6 % Normal 11.5-15.0 [facility] Comment on above: Order Comment: Speci men Type: BLOOD SPECIMENOrdering Facility: [facility] Address: [address] [place] [address] Performed By: #### 6 30-4 #### [facility] CLIA [id number] [address] [place] [address] [place] Hematocrit (Bld) [Volume fraction] 41.6 % Normal 36.0-46.0 [facility] Comment on above: Order Comment: Speci men Type: BLOOD SPECIMENOrdering Facility: [facility] Address: [address] [place] [address] Performed By: #### 6 30-4 #### [facility] CLIA [id number] [address] [place] [address] [place] Hemoglobin (Bld) [Mass/Vol] 13.9 g/dL Normal 11.5-15.5 [facility] Comment on above: Order Comment: Speci men Type: BLOOD SPECIMENOrdering Facility: [facility] Address: [address] [place] [address] Performed By: #### 6 30-4 #### [facility] CLIA [id number] [address] [place] [address] [place] Immature granulocytes (Bld) [#/Vol] 0.05 10*3/uL Normal <0.10 [facility] Comment on above: Order Comment: Speci men Type: BLOOD SPECIMENOrdering Facility: [facility] Address: [address] [place] [address] Performed By: #### 6 30-4 #### [facility] CLIA [id number] [address] [place] [address] [place] Immature granulocytes/100 WBC (Bld) 0.4 % Normal [facility] Comment on above: Order Comment: Speci men Type: BLOOD SPECIMENOrdering Facility: [facility] Address: [address] [place] [address] Performed By: #### 6 30-4 #### [facility] CLIA [id number] [address] [place] [address] [place] Lymphocytes (Bld) [#/Vol] 1.61 10*3/uL Normal 1.00-4.00 [facility] Comment on above: Order Comment: Speci men Type: BLOOD SPECIMENOrdering Facility: [facility] Address: [address] [place] [address] Performed By: #### 6 30-4 #### [facility] CLIA [id number] [address] [place] [address] [place] Lymphocytes/100 WBC (Bld) 11.8 % Normal [facility] Comment on above: Order Comment: Speci men Type: BLOOD SPECIMENOrdering Facility: [facility] Address: [address] [place] [address] Performed By: #### 6 30-4 #### [facility] CLIA [id number] [address] [place] [address] [place] MCH (RBC) [Entitic mass] 29.6 pg Normal 26.0-34.0 [facility] Comment on above: Order Comment: Speci men Type: BLOOD SPECIMENOrdering Facility: [facility] Address: [address] [place] [address] Performed By: #### 6 30-4 #### [facility] CLIA [id number] [address] [place] [address] [place] MCHC (RBC) [Mass/Vol] 33.4 g/dL Normal 30.5-36.0 [facility] Comment on above: Order Comment: Speci men Type: BLOOD SPECIMENOrdering Facility: [facility] Address: [address] [place] [address] Performed By: #### 6 30-4 #### [facility] CLIA [id number] [address] [place] [address] [place] MCV (RBC) [Entitic vol] 88.5 fL Normal 80.0-100.0 [facility] Comment on above: Order Comment: Speci men Type: BLOOD SPECIMENOrdering Facility: [facility] Address: [address] [place] [address] Performed By: #### 6 30-4 #### [facility] CLIA [id number] [address] [place] [address] [place] Monocytes (Bld) [#/Vol] 0.66 10*3/uL Normal <0.87 [facility] Comment on above: Order Comment: Speci men Type: BLOOD SPECIMENOrdering Facility: [facility] Address: [address] [place] [address] Performed By: #### 6 30-4 #### [facility] CLIA [id number] [address] [place] [address] [place] Monocytes/100 WBC (Bld) 4.8 % Normal [facility] Comment on above: Order Comment: Speci men Type: BLOOD SPECIMENOrdering Facility: [facility] Address: [address] [place] [address] Performed By: #### 6 30-4 #### [facility] CLIA [id number] [address] [place] [address] [place] Neutrophils (Bld) [#/Vol] 11.03 10*3/uL High 1.45-7.50 [facility] Comment on above: Order Comment: Speci men Type: BLOOD SPECIMENOrdering Facility: [facility] Address: [address] [place] [address] Performed By: #### 6 30-4 #### [facility] CLIA [id number] [address] [place] [address] [place] Neutrophils/100 WBC (Bld) 80.8 % Normal [facility] Comment on above: Order Comment: Speci men Type: BLOOD SPECIMENOrdering Facility: [facility] Address: [address] [place] [address] Performed By: #### 6 30-4 #### [facility] CLIA [id number] [address] [place] [address] [place] Nucleated RBC (Bld) [#/Vol] 10*3/uL Normal <0.01 [facility] Comment on above: Order Comment: Speci men Type: BLOOD SPECIMENOrdering Facility: [facility] Address: [address] [place] [address] Performed By: #### 6 30-4 #### [facility] CLIA [id number] [address] [place] [address] [place] Nucleated RBC/100 WBC (Bld) [Ratio] 0.0 /100 WBC Normal [facility] Comment on above: Order Comment: Speci men Type: BLOOD SPECIMENOrdering Facility: [facility] Address: [address] [place] [address] Performed By: #### 6 30-4 #### [facility] CLIA [id number] [address] [place] [address] [place] Platelet mean volume (Bld) [Entitic vol] 10.5 fL Normal 9.0-12.7 [facility] Comment on above: Order Comment: Speci men Type: BLOOD SPECIMENOrdering Facility: [facility] Address: [address] [place] [address] Performed By: #### 6 30-4 #### [facility] CLIA [id number] [address] [place] [address] [place] Platelets (Bld) [#/Vol] 255 10*3/uL Normal 150-400 [facility] Comment on above: Order Comment: Speci men Type: BLOOD SPECIMENOrdering Facility: [facility] Address: [address] [place] [address] Performed By: #### 6 30-4 #### [facility] CLIA [id number] [address] [place] [address] [place] RBC (Bld) [#/Vol] 4.70 10*6/uL Normal 3.90-5.[address] [facility] Comment on above: Order Comment: Speci men Type: BLOOD SPECIMENOrdering Facility: [facility] Address: [address] [place] [address] Performed By: #### 6 30-4 #### [facility] CLIA [id number] [address] [place] [address] [place] WBC (Bld) [#/Vol] 13.65 10*3/uL High 3.70-11.[address] [facility] Comment on above: Order Comment: Speci men Type: BLOOD SPECIMENOrdering Facility: [facility] Address: [address] [place] [address] Performed By: #### 6 30-4 #### [facility] CLIA [id number] [address] [place] [address] [place] CNOVon 08-28-2024 [facility] JULIA PISANO ([id number]) 1995 F Date Time Provider Department 08/28/24 8:40 AM PING BYRD During your visit today, we recorded the following information about you: Pulse Respiration Blood pressure 97/minute 16/minute 114/88 Ping Byrd APRN.[facility] 08/28/2024 9:46 AM Signed This is a 29 year old female who presents today with: Patient presents with: Acute Visit: Abdominal pain that started yesterday in L lower quad HISTORY OF PRESENT ILLNESS: Julia Pisano is a 29 year old female. Patient presents with: Acute Visit: Abdominal pain that started yesterday in L lower quad Pt presents today with complaint of lower abdomen pain left sided. Started w/ left abdominal pain yesterday. Cramping. Got worse last night. Rolled around in bed. Couldn't get comfortable. Refers that stools have been softer. Usually goes daily. Moved bowels several times yesterday. Refers stooling didn't affect the pain as much, except a little better except the pressure is better. Urinating also helps a little bit by relieving some pressure. No hematochezia/melena. No hematuria. No vaginal symptoms. Doesn't think any concerns of STD's -- exclusive relationship. Not opposed to testing. Hx of ovarian cysts. No fever/chills. No n/v. Not taking anything for pain. PAST MEDICAL HISTORY: PAST MEDICAL HISTORY Diagnosis Date Anxiety state Herpes, genital History of drug use PAST SURGICAL HISTORY Procedure Laterality Date NONE ALLERGIES Patient has no known allergies. MEDICATIONS Current Outpatient Medications Medication Sig sertraline (ZOLOFT) 25 mg tablet Take 1 tablet by mouth once daily. busPIRone (BUSPAR) 15 mg tablet Take 1 tablet by mouth three times a day. Desogestrel-Ethinyl Estradiol (APRI) 0.15-0.03 mg per tablet Take 1 tablet by mouth once daily. omeprazole (PRILOSEC) 20 mg capsule Take 1 capsule by mouth daily before breakfast. 1/2 hr before meal. fluticasone (FLONASE ALLERGY RELIEF) 50 mcg/actuation nasal spray Use 1 Agra in each nostril once daily. (Patient not taking: Reported on 02/13/2024) No current facility-administere d medications for this visit. FAMILY HISTORY Problem Relation Age of Onset other (endometriosis) Mother had hysterectomy other (polyps) Father No Known Problems Sister Macular Degen Maternal Grandmother Kidney Disease Maternal Grandmother other (celft palate) Maternal Grandfather Diabetes Paternal Grandmother Parkinson?s Disease Paternal Grandfather Depression Sister No Known Problems Daughter Social History Tobacco Use Smoking status: Every Day Current packs/day: 0.50 Average packs/day: 0.5 packs/day for 10.0 years (5.0 ttl pk-yrs) Types: Cigarettes Smokeless tobacco: Never Vaping Use Vaping status: Never Used Substance Use Topics Alcohol use: Yes Comment: occasionally Drug use: Not Currently Types: Crystal Meth, Marijuana Comment: Last used meth Sep 2018 EXAM: BP 114/88 Pulse 97 Resp 16 LMP 05/11/2024 SpO2 98% PHYSICAL EXAM: General Appearance: Well appearing, alert, in no acute distress, well-hydrated, well nourished.. Skin: Skin color, texture, turgor normal, no suspicious rashes or lesions. Head: Normocephalic, no masses, lesions, tenderness or abnormalities. Eyes: Anicteric sclera. Extraocular movements are intact. . Neck: Supple, no adenopathy; thyroid symmetric, normal size, no bruits. Lungs: Lungs clear to auscultation. No wheezing, rhonchi, rales.. Heart: RRR without murmur, gallop, or rubs. No ectopy. Abdomen: Abdomen soft. Tenderness across the lower abdomen -- worse in the LLQ. Bowel sounds normal. No masses, organomegaly. Mild guarding and rebound. Neg heel tap. Extremities: No deformities, edema, skin discoloration, clubbing or cyanosis. Good capillary refill. . Neurologic: Gait normal. ASSESSMENT/PLAN: 1. Left lower quadrant abdominal pain - ICD9: 789.04, ICD10: R10.32 (primary diagnosis) - Work up with CT Abdomen/Pelvis LLQ pain with change in stool character -- will get CT to r/o diverticulitis. She also has hx of ovarian cysts. Last menses last month. Neg preg test. - CT ABD/PEL W IVCON - IV CONTRAST (RADIOLOGY PROCEDURE) - NOT ON MAR - ENTERIC CONTRAST (RADIOLOGY PROCEDURE) - NOT ON MAR - CREATININE BLD - COMPLETE BLOOD COUNT AND DIFFERENTIAL - COMPREHENSIVE METABOLIC PANEL 2. Generalized abdominal pain - ICD9: 789.07, ICD10: R10.84 - UA DIP, URINE (POC) - UA DIP,URINE HCG (POC) - GONORRHEA/CHLAMYDIA NAAT 3. LLQ pain - ICD9: 789.04, ICD10: R10.32 - GONORRHEA/CHLAMYDIA NAAT Discussed treatment plan and patient voices understanding. Patient's questions answered appropriately. Medications and potential side effects were discussed and patient voices understanding. Return to the office as scheduled or as needed for worsening/ (more content not included)... [facility] (PETR) JULIA PISANO ([id number]) 1995 F Date Time Provider Department 08/28/24 PING BYRD During your visit today, we recorded the following information about you: Ping Byrd APRN.CNP 08/28/2024 3:25 PM Signed Can please let patient know that I received her results. Her bloodwork just showed that her white blood count was up just a little bit. We did sent her urine for culture, to ensure that there is no urinary infection. The urine dip we did here looked normal. Her CT looked good. It did how ovarian cysts. This is likely what is causing her discomfort. She definitely can do some tylenol an ibuprofen to help with pain. If no improvement/worsenin g, she should consider follow-up with [facility] for further evaluation. Ping Byrd APRN.Nate Samuels LPN 08/28/2024 3:37 PM Signed Pt notified. She verbalized understanding. Nate Chang LPN Allergies As of Date: 08/28/2024 (No Known Allergies) Date Reviewed: 08/28/2024 Reviewed by: Nate Chang LPN - Fully Assessed Reason for Visit: Results [95] Prescriptions as of 08/28/2024 - iv contrast (will be provided with radiology test) CT ABD/PEL -Inject, intravenously, once for 1 dose.No IV access, insert saline lock prior to the beginning of sedation, infusion, injection of imaging exam. Discontinue saline lock post exam. If Pt. has a central line or IVAD, may access for administration according to line specific nursing protocol. Once exam is complete flush line and de-access according to line specific nursing protocol in the CT contrast administration guidelines link. - enteric contrast (will be provided with radiology test) For CT ABD/PEL W IVCON Routine order Administer, As Directed One Time Only, via Oral, Rectal, both Oral and Rectal, Enteric Tube, Stoma or Indwelling Catheter, Enteric Contrast as designated per enteric contrast guidelines - sertraline (ZOLOFT) 25 mg tablet Take 1 tablet by mouth once daily. - busPIRone (BUSPAR) 15 mg tablet Take 1 tablet by mouth three times a day. - Desogestrel-Ethinyl Estradiol (APRI) 0.15-0.03 mg per tablet Take 1 tablet by mouth once daily. - omeprazole (PRILOSEC) 20 mg capsule Take 1 capsule by mouth daily before breakfast. 1/2 hr before meal. - fluticasone (FLONASE ALLERGY RELIEF) 50 mcg/actuation nasal spray Use 1 Agra in each nostril once daily. Problem List As Of Date 08/28/2024 Noted Resolved History of drug use [F19.91] 03/17/2019 History of tobacco use [Z87.891] 03/17/2019 Date of last menstrual period (LMP) unknown [Z7*03/17/2019 08/10/2019 Nausea/vomiting in [O21.9] 03/17/2019 08/10/2019 Chlamydial infection [A74.9] 03/20/2019 Abnormal glucose complicating [O99.81*07/30/2019 08/10/2019 Gestational diabetes mellitus, class A1 [O24.41*08/10/2019 Acute anxiety [F41.9] 09/22/2021 Encounter Status:Closed by NATE CHANG on 08/28/24 Normal [facility] CT ABD/PEL W IVCONon 024 CT ABD/PEL W IVCON * * *Final Report* * * DATE OF EXAM: Aug 28 2024 2:04PM [facility] 0530 - CT ABD/PEL W IVCON / PROCEDURE REASON: Left lower quadrant abdominal pain * * * * Physician Interpretation * * * * EXAMINATION: CT ABDOMEN AND PELVIS WITH IV CONTRAST CLINICAL HISTORY: Left lower quadrant pain. TECHNIQUE: CT of the abdomen and pelvis was performed using standard technique, scanning from just above the dome of the diaphragm to the symphysis pubis. MQ: CTAP_3 Contrast: IV: 100 ml of Omnipaque 350 Oral: 420 ml of Omni 240 10-25ml diluted with water CT Radiation dose: Integrated Dose-length product (DLP) for this visit = 1057.85 mGy*cm. CT Dose Reduction Employed: Automated exposure control(AEC) and iterative recon COMPARISON: None. RESULT: Liver: No mass. Fatty liver changes Biliary: No bile duct dilation. Gallbladder are unremarkable Spleen: No mass. No splenomegaly. Pancreas: No mass or duct dilation. No CT evidence of pancreatitis Adrenals: No mass. Kidneys: Symmetrical nephrogram phase. No CT evidence of pyelonephritis or hydronephrosis. No collecting system calculi. GI tract: No dilation or wall thickening. Appendix is normal. No CT evidence of diverticulosis or diverticulitis. Lymph nodes: No abdominal or pelvic lymphadenopathy. Mesentery/Peritoneum : No ascites or mass. Retroperitoneum: No mass. Vasculature: No aneurysm or proximal large vessel thrombosis Pelvis: 2.2 cm left adnexal cyst. 2.37 right adnexal cyst. No abnormal free fluid in the cul-de-sac. Bones/Soft Tissues: No acute osseous abnormality Lower thorax: Clear Localizer images: IMPRESSION: No CT evidence of diverticulosis or diverticulitis. 2.2 cm left adnexal cyst. 2.37 right adnexal cyst. No abnormal free fluid in the cul-de-sac. Leading diagnostic consideration is physiological ovarian cystic changes in this 29-year-old female patient. Freezer Unloader: JOSSUE Transcribe Date/Time: Aug 28 2024 2:38P Dictated by : YVES GEE MD This examination was interpreted and the report reviewed and electronically signed by: YVES GEE MD on Aug 28 2024 2:44PM EST [id number] CN Normal [facility] Comprehensive metabolic 2000 panelOrdered By: No Mccoy on 08-28-2024 Albumin [Mass/Vol] 4.8 g/dL 3.9 - 4.9 g/dL [facility] ALP [Catalytic activity/Vol] 89 U/L 34 - 123 U/L [facility] ALT [Catalytic activity/Vol] 18 U/L 7 - 38 U/L [facility] Anion gap [Moles/Vol] 10 mmol/L 8 - 15 mmol/L [facility] AST [Catalytic activity/Vol] 16 U/L 13 - 35 U/L [facility] Bilirubin [Mass/Vol] 0.8 mg/dL 0.2 - 1.3 mg/dL [facility] Calcium [Mass/Vol] 10.1 mg/dL 8.5 - 10. 2 mg/dL [facility] Chloride [Moles/Vol] 101 mmol/L 98 - 107 mmol/L [facility] CO2 [Moles/Vol] 28 mmol/L 22 - 30 mmol/L [facility] Creatinine [Mass/Vol] 0.84 mg/dL 0.58 - 0.96 mg/dL [facility] GFR/1.73 sq M.predicted among non-blacks MDRD (S/P/Bld) [Vol rate/Area] 96 mL/min/{1.73_m2} - PINF [facility] Comment on above: Estimated Glomerular Filtration Rate (eGFR) is calculated using the 2020 CKD-EPI creatinine equation. This equation utilizes serum creatinine, sex, and age as parameters. The creatinine assay has traceable calibration to isotope dilution-mass spectrometry. Refer to KDIGO guidelines for clinical interpretation. In patients with unstable renal function, e.g. those with acute kidney injury, the eGFR may not accurately reflect actual GFR. Glucose [Mass/Vol] 118 mg/dL High 74 - 99 mg/dL [facility] Comment on above: The [place] Diab[employer] [place] Association (ADA) provides guidance for cutoff values for fasting glucose and random glucose. The ADA defines fasting as no caloric intake for at least 8 hours. Fasting plasma glucose results between 100 to 125 mg/dL indicate increased risk for diabetes (prediabetes). Fasting plasma glucose results greater than or equal to 126 mg/dL meet the criteria for diagnosis of diabetes. In the absence of unequivocal hyperglycemia, results should be confirmed by repeat testing. In a patient with classic symptoms of hyperglycemia or hyperglycemic crisis, random plasma glucose results greater than or equal to 200 mg/dL meet the criteria for diagnosis of diabetes. Reference: Standards of Medical Care in Diabetes 2016, [place] Diabetes Association. Diabetes Care. 2016.39(Suppl 1). Interpretation and review of laboratory results Abnormal [facility] Potassium [Moles/Vol] 4.1 mmol/L 3.7 - 5.1 mmol/L [facility] Protein [Mass/Vol] 7.7 g/dL 6.3 - 8.0 g/dL [facility] Sodium [Moles/Vol] 139 mmol/L 136 - 144 mmol/L [facility] Urea nitrogen [Mass/Vol] 12 mg/dL 7 - 21 mg/dL [facility] Comprehensive metabolic 2000 panelon 08-28-2024 Albumin [Mass/Vol] 4.8 g/dL Normal 3.9-4.9 [facility] Comment on above: Order Comment: Speci men Type: BLOOD SPECIMENOrdering Facility: [facility] Address: [address] [place] [address] Performed By: #### 6 30-4 #### [facility] CLIA [id number] [address] [place] [address] [place] ALP [Catalytic activity/Vol] 89 U/L Normal 34-123 [facility] Comment on above: Order Comment: Speci men Type: BLOOD SPECIMENOrdering Facility: [facility] Address: [address] [place] [address] Performed By: #### 6 30-4 #### [facility] CLIA [id number] [address] [place] [address] [place] ALT [Catalytic activity/Vol] 18 U/L Normal 7-38 [facility] Comment on above: Order Comment: Speci men Type: BLOOD SPECIMENOrdering Facility: [facility] Address: [address] [place] [address] Performed By: #### 6 30-4 #### [facility] CLIA [id number] [address] [place] [address] [place] Anion gap [Moles/Vol] 10 mmol/L Normal 8-15 [facility] Comment on above: Order Comment: Speci men Type: BLOOD SPECIMENOrdering Facility: [facility] Address: [address] [place] [address] Performed By: #### 6 30-4 #### [facility] CLIA [id number] [address] [place] [address] [place] AST [Catalytic activity/Vol] 16 U/L Normal 13-35 [facility] Comment on above: Order Comment: Speci men Type: BLOOD SPECIMENOrdering Facility: [facility] Address: [address] [place] [address] Performed By: #### 6 30-4 #### [facility] CLIA [id number] [address] [place] [address] [place] Bilirubin [Mass/Vol] 0.8 mg/dL Normal 0.2-1.[address] [facility] Comment on above: Order Comment: Speci men Type: BLOOD SPECIMENOrdering Facility: [facility] Address: [address] [place] [address] Performed By: #### 6 30-4 #### [facility] CLIA [id number] [address] [place] [address] [place] Calcium [Mass/Vol] 10.1 mg/dL Normal 8.5-10.2 [facility] Comment on above: Order Comment: Speci men Type: BLOOD SPECIMENOrdering Facility: [facility] Address: [address] [place] [address] Performed By: #### 6 30-4 #### [facility] CLIA [id number] [address] [place] [address] [place] Chloride [Moles/Vol] 101 mmol/L Normal 98-[address] [facility] Comment on above: Order Comment: Speci men Type: BLOOD SPECIMENOrdering Facility: [facility] Address: [address] [place] [address] Performed By: #### 6 30-4 #### [facility] CLIA [id number] [address] [place] [address] [place] CO2 [Moles/Vol] 28 mmol/L Normal 22-30 [facility] Comment on above: Order Comment: Speci men Type: BLOOD SPECIMENOrdering Facility: [facility] Address: [address] [place] [address] Performed By: #### 6 30-4 #### [facility] CLIA [id number] [address] [place] [address] [place] Creatinine [Mass/Vol] 0.84 mg/dL Normal 0.58-0.96 [facility] Comment on above: Order Comment: Speci men Type: BLOOD SPECIMENOrdering Facility: [facility] Address: [address] [place] [address] Performed By: #### 6 30-4 #### [facility] CLIA [id number] [address] [place] [address] [place] Creatinine and Glomerular filtration rate.predicted panel (S/P/Bld) 96 mL/min/1.73m??? Normal >=60 [facility] Comment on above: Order Comment: Speci men Type: BLOOD SPECIMENOrdering Facility: [facility] Address: [address] [place] [address] Result Comment: Colleen mated Glomerular Filtration Rate (eGFR) is calculated using the 2020 CKD-EPI creatinine equation. This equation utilizes serum creatinine, sex, and age as parameters. The creatinine assay has traceable calibration to isotope dilution-mass spectrometry. Refer to KDIGO guidelines for clinical interpretation. In patients with unstable renal function, e.g. those with acute kidney injury, the eGFR may not accurately reflect actual GFR. Performed By: #### 6 30-4 #### [facility] CLIA [id number] [address] [place] [address] [place] Glucose [Mass/Vol] 118 mg/dL High 74-99 [facility] Comment on above: Order Comment: Speci men Type: BLOOD SPECIMENOrdering Facility: [facility] Address: [address] [place] [address] Result Comment: The [place] Diabetes Association (ADA) provides guidance for cutoff values for fasting glucose and random glucose. The ADA defines fasting as no caloric intake for at least 8 hours. Fasting plasma glucose results between 100 to 125 mg/dL indicate increased risk for diabetes (prediabetes). Fasting plasma glucose results greater than or equal to 126 mg/dL meet the criteria for diagnosis of diabetes. In the absence of unequivocal hyperglycemia, results should be confirmed by repeat testing. In a patient with classic symptoms of hyperglycemia or hyperglycemic crisis, random plasma glucose results greater than or equal to 200 mg/dL meet the criteria for diagnosis of diabetes. Reference: Standards of Medical Care in Diabetes 2016, [place] Diabetes Association. Diabetes Care. 2016.39(Suppl 1). Performed By: #### 6 30-4 #### [facility] CLIA [id number] [address] [place] [address] [place] Potassium [Moles/Vol] 4.1 mmol/L Normal 3.7-5.1 [facility] Comment on above: Order Comment: Speci men Type: BLOOD SPECIMENOrdering Facility: [facility] Address: [address] [place] [address] Performed By: #### 6 30-4 #### [facility] CLIA [id number] [address] [place] [address] [place] Protein [Mass/Vol] 7.7 g/dL Normal 6.3-8.0 [facility] Comment on above: Order Comment: Speci men Type: BLOOD SPECIMENOrdering Facility: [facility] Address: [address] [place] [address] Performed By: #### 6 30-4 #### [facility] CLIA [id number] [address] [place] [address] [place] Sodium [Moles/Vol] 139 mmol/L Normal 136-144 [facility] Comment on above: Order Comment: Speci men Type: BLOOD SPECIMENOrdering Facility: [facility] Address: [address] [place] [address] Performed By: #### 6 30-4 #### [facility] CLIA [id number] [address] [place] [address] [place] Urea nitrogen [Mass/Vol] 12 mg/dL Normal 7-21 [facility] Comment on above: Order Comment: Speci men Type: BLOOD SPECIMENOrdering Facility: [facility] Address: [address] [place] [address] Performed By: #### 6 30-4 #### [facility] CLIA [id number] [address] [place] [address] [place] UA DIP, URINE (POC)on 2023 BILIRUBIN UA (POCT) Negative Negative [facility] CLARITY UA (POCT) Clear [facility] COLOR UA (POCT) Yellow [facility] GLUCOSE UA (POCT) Negative Negative mg/dL [facility] Hemoglobin Ql (U) Negative Negative [facility] KETONE UA (POCT) Negative Negative mg/dL [facility] LEUKOCYTES UA (POCT) Negative Negative [facility] NITRITE UA (POCT) Negative Negative [facility] PH UA (POCT) 5.5 4.5 - 8.0 [facility] Protein Ql (U) Negative Negative mg/dL [facility] SPECIFIC GRAVITY UA (POCT) 1.020 1.005 - 1.030 [facility] UROBILINOGEN UA (POCT) 0.2 Normal E.U./dL [facility] Location:[address], [place], [place], [address] [place] [address] POINT OF CARE [facility] UA DIP,URINE HCG (POC)on Beta HCG ( test) Ql (U) Negative Negative [facility] Comment on above: Location:[facility], [address] [facility], [place], [address] [employer] (POCT) Internal QC OK [facility] Location:[facility], [address] [facility], [place], [address] [facility] POINT OF CARE [facility] Culture, Blood (WB)on 2023 CUB Blood cultures x2, from two different sites No growth in 5 days. Normal [facility] Comment on above: Performed By: #### M 200.1000 #### [facility] [address] [facility] [place], [address] 12 Lead EKGon 07-01-2024 12 Lead EKG [facility] [address] [place] [address] 12 Lead EKG 06/30/241946 MR#: [id number] Acct: [id number] Name: JULIA PISANO Rep #: [id number] : 1995 29 From: Sunday Pichardo MD Attending Dr: Status: DEP ER Ordering Dr: Tahmina Benz DO Date: 07/01/24 Location: ED Sex: F C Admitted: Test Reason : ANXIETY/TACHYCARDIA Blood Pressure : / mmHG Vent. Rate : 148 BPM Atrial Rate : 148 BPM P-R Int : 116 ms QRS Dur : 074 ms QT Int : 268 ms P-R-T Axes : 043 -42 018 degrees QTc Int : 420 ms Critical Test Result: High HR Sinus tachycardia Left axis deviation Nonspecific ST abnormality Abnormal ECG Confirmed by Sunday Pichardo ([id number]), acquisition editor DEZ BILLINGSLEY ([id number]) on 07/02/2024 6:34:26 AM Referred By: RU Confirmed By:Sunday Pichardo 07/02/24 0634 Date Sunday Pichardo MD CC: ROSSANA-Oumar Denise; Dr. Tahmina Benz DO Signed Normal [facility] Basic Metabolic Profile (BMP )on 07-01-2024 BUN/CRE 11.7 RATIO Normal 10-20 [facility] Comment on above: Performed By: #### L 100.0100, L503.6005, L500.2500 #### [facility] [address] [place], [address] CA,Total 9.3 mg/dL Normal 8.5-10.1 [facility] Comment on above: Performed By: #### L 100.0100, L503.6005, L500.2500 #### [facility] [address] [place], [address] Chloride [Moles/Vol] 105 mmol/L Normal 98-107 [facility] Comment on above: Performed By: #### L 100.0100, L503.6005, L500.2500 #### [facility] [address] [place], [address] CO2 [Moles/Vol] 24.0 mmol/L Normal 21.0-32.0 [facility] Comment on above: Performed By: #### L 100.0100, L503.6005, L500.2500 #### [facility] [address] [place], [address] Creatinine [Mass/Vol] 0.94 mg/dL Normal 0.55-1.02 [facility] Comment on above: Result Comment: The validity of the calculated GFR GFRAA in patients over 70 years has not been determined. Clinical correlation is essential. Performed By: #### L 100.0100, L503.6005, L500.2500 #### [facility] [address] [place], [address] ECRCL 100.48 ml/min Normal [facility] Comment on above: Performed By: #### L 100.0100, L503.6005, L500.2500 #### [facility] [address] [place], [address] EST GFR - AA 89 mL/min Normal >60 [facility] Comment on above: Result Comment: Afri can [place] GFR Calc Performed By: #### L 100.0100, L503.6005, L500.2500 #### [facility] [address] [place], [address] GAP 7 Normal 5-15 [facility] Comment on above: Performed By: #### L 100.0100, L503.6005, L500.2500 #### [facility] [address] [place], [address] GFR/1.73 sq M.predicted among non-blacks MDRD (S/P/Bld) [Vol rate/Area] 74 mL/min/{1.73_m2} Normal >60 [facility] Comment on above: Result Comment: Non- GFR Calc Performed By: #### L 100.0100, L503.6005, L500.2500 #### [facility] [address] [place], [address] Glucose [Mass/Vol] 108 mg/dL High 74-106 [facility] Comment on above: Result Comment: Fast ing Glucose result from 100 to 125 mg/dL suggests IMPAIRED HOMEOSTASIS per A.D.A. criteria. Performed By: #### L 100.0100, L503.6005, L500.2500 #### [facility] [address] [place], [address] Potassium [Moles/Vol] 3.6 mmol/L Normal 3.5-5.1 [facility] Comment on above: Performed By: #### L 100.0100, L503.6005, L500.2500 #### [facility] [address] [place], [address] Sodium [Moles/Vol] 136 mmol/L Normal 136-145 [facility] Comment on above: Performed By: #### L 100.0100, L503.6005, L500.2500 #### [facility] [address] [place], [address] Urea nitrogen [Mass/Vol] 11 mg/dL Normal 7-18 [facility] Comment on above: Performed By: #### L 100.0100, L503.6005, L500.2500 #### [facility] [address] [place], [address] CBC W/Diff, Automatedon 06-16 Absolute Lymph 0.98 X10 3/uL Normal 0.83-4.51 [facility] Comment on above: Performed By: #### L 100.0100, L503.6005, L500.2500 #### [facility] [address] [place], [address] Absolute Neut 6.5 X10 3/uL Normal 2.0-7.7 [facility] Comment on above: Performed By: #### L 100.0100, L503.6005, L500.2500 #### [facility] [address] [place], [address] Basophils/100 WBC (Bld) 0.6 % Normal 0-1 [facility] Comment on above: Performed By: #### L 100.0100, L503.6005, L500.2500 #### [facility] [address] [place], [address] Eosinophils/100 WBC (Bld) 0.9 % Normal 0-5 [facility] Comment on above: Performed By: #### L 100.0100, L503.6005, L500.2500 #### [facility] [address] [place], [address] Erythrocyte distribution width (RBC) [Ratio] 12.6 % Normal 11.6-14.6 [facility] Comment on above: Performed By: #### L 100.0100, L503.6005, L500.2500 #### [facility] [address] [place], [address] Hematocrit (Bld) [Volume fraction] 38.8 % Normal 37-47 [facility] Comment on above: Performed By: #### L 100.0100, L503.6005, L500.2500 #### [facility] [address] [place], [address] Hemoglobin (Bld) [Mass/Vol] 13.0 g/dL Normal 12.0-15.0 [facility] Comment on above: Performed By: #### L 100.0100, L503.6005, L500.2500 #### [facility] [address] [place], [address] IG% 0.400 Normal 0.0-0.9 [facility] Comment on above: Result Comment: IG% - Immature Granulocytes (promyelocytes, myelocytes and metamyelocytes) > 1% indicates that a LEFT SHIFT is Present. Performed By: #### L 100.0100, L503.6005, L500.2500 #### [facility] [address] [place], [address] Lymphocytes/100 WBC (Bld) 12.0 % Low 19-41 [facility] Comment on above: Performed By: #### L 100.0100, L503.6005, L500.2500 #### [facility] [address] [place], [address] MCH (RBC) [Entitic mass] 29.6 pg Normal 27.0-32.0 [facility] Comment on above: Performed By: #### L 100.0100, L503.6005, L500.2500 #### [facility] [address] [place], [address] MCHC (RBC) [Mass/Vol] 33.5 g/dL Normal 32-36 [facility] Comment on above: Performed By: #### L 100.0100, L503.6005, L500.2500 #### [facility] [address] [place], [address] MCV (RBC) [Entitic vol] 88.4 fL Normal 81-99 [facility] Comment on above: Performed By: #### L 100.0100, L503.6005, L500.2500 #### [facility] [address] [place], [address] Monocytes/100 WBC (Bld) 6.5 % Normal 0-10 [facility] Comment on above: Performed By: #### L 100.0100, L503.6005, L500.2500 #### [facility] [address] [place], [address] Neutrophils/100 WBC (Bld) 79.6 % High 47-70 [facility] Comment on above: Performed By: #### L 100.0100, L503.6005, L500.2500 #### [facility] [address] [place], [address] Nucleated RBC (Bld) [#/Vol] 0 10*3/uL Normal 0-5 [facility] Comment on above: Performed By: #### L 100.0100, L503.6005, L500.2500 #### [facility] [address] [place], [address] Platelet mean volume (Bld) [Entitic vol] 11.2 fL Normal 6.2-12.0 [facility] Comment on above: Performed By: #### L 100.0100, L503.6005, L500.2500 #### [facility] [address] [place], [address] Platelets (Bld) [#/Vol] 186 10*3/uL Normal 150-450 [facility] Comment on above: Performed By: #### L 100.0100, L503.6005, L500.2500 #### [facility] [address] [place], [address] RBC (Bld) [#/Vol] 4.39 10*6/uL Normal 4.2-5.[address] [facility] Comment on above: Performed By: #### L 100.0100, L503.6005, L500.2500 #### [facility] [address] [place], [address] RDW SD 41.2 fl Normal 35.1-43.9 [facility] Comment on above: Performed By: #### L 100.0100, L503.6005, L500.2500 #### [facility] [address] [place], [address] WBC (Bld) [#/Vol] 8.2 10*3/uL Normal 4.4-11.0 [facility] Comment on above: Performed By: #### L 100.0100, L503.6005, L500.2500 #### [facility] [address] [place], [address] Lactic Acidon 07-01-2024 Lactate [Moles/Vol] 0.9 mmol/L Normal 0.4-1.[address] [facility] Comment on above: Order Comment: Y Performed By: #### L 100.0100, L503.6005, L500.2500 #### [facility] [address], [address] CTA Chest W/WO Contraston CTA Chest W/WO Contrast [facility] Services [address] [address] CTA Chest W/WO Contrast MR#: [id number] Acct: [id number] Name: JULIA PISANO Rep #: [id number] : 1995 F 29 From: Enoc Kent MD PCP: INDER Robles Status: REG ER Study: CTA Chest W/WO Contrast Date of Exam: 06/30/24 Exam# [id number] Ordering Dr: Tahmina Benz DO [id number] INDICATION: dyspnea, elevated d-dimer EXAMINATION: - CTA Chest WO/W Contrast Injection A radiation dose optimization technique was used for this scan. RADIATION DOSAGE (If Supplied By Facility): CTDIvol/DLP = ( 21.62 ) / ( 492.0 ) mGy/mGycm COMPARISON: Chest radiograph same day. Chest CT 02/11/2021. ____ FINDINGS: Contrast enhanced serial CTA axial images through the chest with coronal and sagittal reformatted series. Additional dedicated coronal and sagittal MIP reformatted series provided as well. IV Contrast dosage and agent: 90 cc [id number] IV. MEDIASTINUM: No acute thoracic aortic abnormality. Mediastinal adenopathy measuring up to 18 mm in the short axis in the subcarinal region. Distal pulmonary artery branch vessel evaluation is suboptimal secondary to timing of contrast bolus as well as respiratory motion, however, there are no obvious proximal pulmonary artery filling defects. LUNG PARENCHYMA: Dense streaky patchy left lower lobe airspace disease. PLEURA: No pleural effusion. No pneumothorax. BONES: Osseous structures are unremarkable for age. UPPER ABDOMEN: Unremarkable. CT/CTA Chest W/WO Contrast IMPRESSION: Dense streaky patchy left lower lobe airspace disease, to include pneumonia. Likely associated mediastinal adenopathy. Recommend follow-up to resolution. Distal pulmonary artery branch vessel evaluation is suboptimal secondary to timing of contrast bolus as well as respiratory motion, however, there is no obvious proximal pulmonary embolus. No acute thoracic aortic abnormality. Electronically Signed: Enoc Kent MD at 23:57 EDT , CC: INDER Denise; Dr. Tahmina Benz DO Freezer Unloader: Signed Normal [facility] Chest 1 View (Portable)on Chest 1 View (Portable) [facility] Services [address] [place] [address] Chest 1 View (Portable) MR#: [id number] Acct: [id number] Name: JULIA PISANO Rep #: [id number] : 1995 F 29 From: Enoc Kent MD PCP: INDER Robles Status: REG ER Study: Chest 1 View (Portable) Date of Exam: 06/30/24 Exam# [id number] Ordering Dr: Tahmina Benz DO [id number] INDICATION: cough EXAMINATION/TECHNIQU E: X-RAY - XR Chest 1 View COMPARISON: 02/11/2021 chest radiograph. Findings: Single frontal view of the chest. LUNG PARENCHYMA: Streaky left lung base airspace disease. PLEURA: No pleural effusion. No pneumothorax. HEART/GREAT VESSELS: Cardiomediastinal silhouette is unremarkable. BONES: Osseous structures are unremarkable for age. RAD/Chest 1 View (Portable) IMPRESSION: Streaky left lung base atelectasis versus other airspace disease, to include developing pneumonia. Recommend follow-up to resolution. Electronically Signed: Enoc Kent MD at 21:18 EDT , CC: INDER Denise; Dr. Tahmina Benz DO Freezer Unloader: Signed Normal [facility] D-Dimer Quantitative (DVT/PE )on 06-30-2024 D-DIMER QUANT 0.54 FEU/ug/m Invalid Interpretation Code 0.27-0.49 [facility] Comment on above: Result Comment: D-Di je ELEVATED (>0.49): Additional studies and clinical assessments are indicated to conclude diagnosis of: Deep Vein Thrombosis (DVT) or Pulmonary Embolism (PE) CRITICAL VALUE CALLED TO LSPARR 06/30/24 2305 Marian Tafoya. RESULTS READ BACK BY SAME. Performed By: #### L 300.8000 #### [facility] [address] [place], [address] Emergency Department Summary on 06-30-2024 Emergency Department Summary [facility] Medical Records Department [address] [place] [address] Emergency Department Summary 06/30/24 MR#: [id number] Acct: [id number] Name: JULIA PISANO Rep #: [id number] : 1995 29 From: Tahmina Benz DO PCP: INDER Robles Status:DEP ER Location: ED ADDENDUM by Sameer Villanueva DO on 07/01/24 at 0402 The patient was signed out to me while awaiting laboratory results and response to treatment. The patient's labs revealed no leukocytosis or left shift or lactic acidosis. She had no signs of acute blood loss anemia or acute kidney injury or severe electrolyte abnormality. After receiving 1 L of fluid the patient's heart rate improved to approximately 100. She remained between 97 and 100% on pulse ox on room air. She was ambulated after receiving fluid and her heart rate increased to approximately 110 but she did not become hypoxic or feel unstable. Therefore at this time patient is not hypoxic she is not in respiratory distress she does not have acute blood loss anemia or signs of septicemia. Therefore I do not feel there is need for admission based on her pneumonia and should be given antibiotics and is otherwise safe for discharge and can follow-up as an outpatient 07/01/24 0401 Cosigner Signature (if applicable): cc: RING SEWER-C Skylar Denise * Signed HPI History of Present Illness Chief Complaint: Palpitations Detail of Chief Complaint: Palpitations and not feeling well Informant: patient Narrative Narrative: Patient presents to the emergency department stating that she started feeling sick yesterday with some bodyaches and some chest. She went to urgent care and they checked her temperature and it was 102. Patient had been chilled all day. They checked her heart rate and it was 160 but she states she was feeling very anxious and she has history of anxiety. They referred her to the emergency department. Patient normally takes BuSpar for her anxiety but has not taken her evening dose. Patient states that she feels like when she had the flu last time. She denies recent travel or surgery. Currently she feels less anxious [facility] Medical History (Updated 06/30/24 @ 23:[address] Tahmina Benz, DO) History of cannabis abuse Current every day vapor product user History of methamphetamine use Encounter for screening for COVID-19 URI (upper respiratory infection) Anxiety Home Medications ???Medication ???Instructions ???Recorded ???Last Taken ???Type acetaminophen 500 mg tablet 500 mg PO Q8 PRN Pain Or Fever #30 10/25/19 Unknown Rx tabs ibuprofen 800 mg tablet 800 mg PO TID PRN PRN Pain #60 tabs 10/25/19 Unknown Rx omeprazole 20 mg capsule,delayed 20 mg PO DAILY #15 CAPSULES 05/09/21 Unknown Rx release buspirone 10 mg tablet 10 mg PO TID 06/30/24 Unknown History desogestrel 0.15 mg-ethinyl 1 tab PO DAILY 06/30/24 Unknown History estradiol 0.03 mg tablet (Enskyce) levofloxacin 750 mg tablet 750 mg PO DAILY #6 tabs 06/30/24 Unknown Rx Allergy/AdvReac Type Severity Reaction Status Date / Time No Known Allergies Allergy Verified 06/30/24 19:43 Social History household members: children Smoking Status: Current every day smoker tobacco type: e-cigarettes alcohol intake: current alcohol intake frequency: other substance use type: does not use ROS ROS ED Review of Systems ROS Unobtainable: other Constitutional Constitutional ED: Reports lethargy; Denies chills, fever(s), sweats or weight loss Eyes Eyes: Denies blurry vision, change in vision or diplopia ENT ENT ED: Denies rhinorrhea or sore throat Cardiovascular Cardiovascular: Reports racing heartbeat; Denies chest pain or orthopnea Respiratory/Chest Respiratory/Chest: Reports cough; Denies dyspnea, dyspnea on exertion, orthopnea or sputum Gastrointestinal Gastrointestinal: Denies abdominal pain, diarrhea, nausea or vomiting Genitourinary Genitourinary ED: Denies dysuria, hematuria or urinary frequency Musculoskeletal Musculoskeletal: Reports myalgias; Denies arthralgias, back pain or neck pain Integumentary Denies abscess, Abrasions or rash Neurologic Neurologic: Denies headache(s) or weakness Psychiatric Psychiatric: Denies anxiety, depression or suicidal thoughts Endocrine Endocrinology: Denies polydipsia, polyphagia or polyuria Hematologic/Lymphati c Hematologic/Lymphati c: Denies easy bleeding, easy bruising or lymphadenopathy Allergic/Immunologic Allergic/Immunologic ED: Denies mouth swelling, tongue swelling or urticaria EXAM Physical Exam Const Vital Signs: 06/30/24 19:41 06/30/24 20:08 06/30/24 20:41 Temperature 97.1 F L Temperature Source Temporal Pulse Rate 149 H 129 H Respiratory Rate 18 18 Respiratory Effort Normal Non-Labored R (more content not included)... Normal [facility] M100.678on 06-30-2024 M100.678 Pending SARS-CoV-2 (COVID 19) Negative INFLUENZA A Negative INFLUENZA B Negative RSV PCR Negative Normal [facility] Comment on above: Performed By: #### M 100.678 #### [facility] [place], [place], [id number] CBC W Auto Differential pane l (Bld)on 06-12-2024 Basophils (Bld) [#/Vol] 0.04 10*3/uL [facility] Basophils/100 WBC (Bld) 0.6 % [facility] Differential cell count method Nom (Bld) Auto [facility] Eosinophils (Bld) [#/Vol] 0.23 10*3/uL [facility] Eosinophils/100 WBC (Bld) 3.3 % [facility] Erythrocyte distribution width (RBC) [Ratio] 13.1 % 11.5 - 15.0 % [facility] Hematocrit (Bld) [Volume fraction] 40.6 % 36.0 - 46.0 % [facility] Hemoglobin (Bld) [Mass/Vol] 13.7 g/dL 11.5 - 15.5 g/dL [facility] Immature granulocytes (Bld) [#/Vol] [facility] Immature granulocytes/100 WBC (Bld) 0.3 % [facility] Lymphocytes (Bld) [#/Vol] 1.91 10*3/uL [facility] Lymphocytes/100 WBC (Bld) 27.7 % [facility] MCH (RBC) [Entitic mass] 29.8 pg 26.0 - 34.0 pg [facility] MCHC (RBC) [Mass/Vol] 33.7 g/dL 30.5 - 36.0 g/dL [facility] MCV (RBC) [Entitic vol] 88.5 fL 80.0 - 100.0 fL [facility] Monocytes (Bld) [#/Vol] 0.42 10*3/uL NINF [facility] Monocytes/100 WBC (Bld) 6.1 % [facility] Neutrophils (Bld) [#/Vol] 4.28 10*3/uL [facility] Neutrophils/100 WBC (Bld) 62.0 % [facility] Nucleated RBC (Bld) [#/Vol] NINF [facility] Nucleated RBC/100 WBC (Bld) [Ratio] 0.0 % /100 WBC [facility] Platelet mean volume (Bld) [Entitic vol] 10.6 fL 9.0 - 12.7 fL [facility] Platelets (Bld) [#/Vol] 250 10*3/uL [facility] RBC (Bld) [#/Vol] 4.59 10*6/uL 3.90 - 5.2 0 m/uL [facility] WBC (Bld) [#/Vol] 6.90 10*3/uL [facility] Comprehensive metabolic 2000 panelOrdered By: Yeimy Zaragoza on 06-12-2024 Albumin [Mass/Vol] 4.4 g/dL 3.9 - 4.9 g/dL [facility] ALP [Catalytic activity/Vol] 58 U/L 34 - 123 U/L [facility] ALT [Catalytic activity/Vol] 11 U/L 7 - 38 U/L [facility] Anion gap [Moles/Vol] 12 mmol/L 8 - 15 mmol/L [facility] AST [Catalytic activity/Vol] 10 U/L Low 13 - 35 U/L [facility] Bilirubin [Mass/Vol] 0.3 mg/dL 0.2 - 1.3 mg/dL [facility] Calcium [Mass/Vol] 9.6 mg/dL 8.5 - 10. 2 mg/dL [facility] Chloride [Moles/Vol] 104 mmol/L 98 - 107 mmol/L [facility] CO2 [Moles/Vol] 24 mmol/L 22 - 30 mmol/L [facility] Creatinine [Mass/Vol] 0.90 mg/dL 0.58 - 0.96 mg/dL [facility] GFR/1.73 sq M.predicted among non-blacks MDRD (S/P/Bld) [Vol rate/Area] 88 mL/min/{1.73_m2} - PINF [facility] Comment on above: Estimated Glomerular Filtration Rate (eGFR) is calculated using the 2020 CKD-EPI creatinine equation. This equation utilizes serum creatinine, sex, and age as parameters. The creatinine assay has traceable calibration to isotope dilution-mass spectrometry. Refer to KDIGO guidelines for clinical interpretation. In patients with unstable renal function, e.g. those with acute kidney injury, the eGFR may not accurately reflect actual GFR. Glucose [Mass/Vol] 116 mg/dL High 74 - 99 mg/dL [facility] Comment on above: The [place] Diabete s Association (ADA) provides guidance for cutoff values for fasting glucose and random glucose. The ADA defines fasting as no caloric intake for at least 8 hours. Fasting plasma glucose results between 100 to 125 mg/dL indicate increased risk for diabetes (prediabetes). Fasting plasma glucose results greater than or equal to 126 mg/dL meet the criteria for diagnosis of diabetes. In the absence of unequivocal hyperglycemia, results should be confirmed by repeat testing. In a patient with classic symptoms of hyperglycemia or hyperglycemic crisis, random plasma glucose results greater than or equal to 200 mg/dL meet the criteria for diagnosis of diabetes. Reference: Standards of Medical Care in Diabetes 2016, [place] Diabetes Association. Diabetes Care. 2016.39(Suppl 1). Interpretation and review of laboratory results Abnormal [facility] Potassium [Moles/Vol] 4.0 mmol/L 3.7 - 5.1 mmol/L [facility] Protein [Mass/Vol] 7.2 g/dL 6.3 - 8.0 g/dL [facility] Sodium [Moles/Vol] 140 mmol/L 136 - 144 mmol/L [facility] Urea nitrogen [Mass/Vol] 14 mg/dL 7 - 21 mg/dL [facility] D-DIMERon 06-12-2024 Fibrin D-dimer FEU (PPP) [Mass/Vol] 340 NINF [facility] Fibrin D-dimer FEU (PPP) [Ma ss/Vol]on 06-12-2024 Interpretation and review of laboratory results Normal [facility] 500 ng/mL FEU is the D Dimer cutoff to exclude DVT (deep vein thrombosis) and PE (pulmonary embolism) in patients with a low pre test probability. Supplemental Comment: In patients over 50 years with a low pre test probability for DVT and/or PE, an age adjusted D dimer cutoff can be calculated as [age x 10] ng/mL FEU. For example, a patient of 88 years would have an age adjusted D dimer cutoff of 880 ng/mL FEU. For patients with a suspected DVT, a D dimer level below 500 ng/mL FEU has a negative predictive value of >98.9%, a sensitivity of >96.9% and a specificity of >35.7%. For patients with a suspected PE, a D dimer level below 500 ng/mL FEU has a negative predictive value of >98.5%, and a sensitivity of >96.5% and a specificity of >38.8%. Reference: Igor M, et al. DELANO 2014 311:1117 and Van Jane N, et al. Farnaz Int Med 2016 165:253. [facility] XR Chest PA and Lateralon IMPRESSION: No acute radiographic abnormality. Freezer Unloader: JOSSUE Transcribe Date/Time: Jun 12 2024 11:18A Dictated by : STEPHANIE SAM MD This examination was interpreted and the report reviewed and electronically signed by: STEPHANIE SAM MD on Jun 12 2024 11:18AM [facility] DIVISION OF RADIOLOGY * * *Final Report* * * DATE OF EXAM: Jun 12 2024 11:11AM WOX 5291 - XR CHEST 2V FRONTAL/LAT / PROCEDURE REASON: Chest pain varying with breathing * * * * Physician Interpretation * * * * EXAMINATION: CHEST RADIOGRAPH (2 VIEW FRONTAL & LATERAL) CLINICAL HISTORY: Chest pain varying with breathing MQ: [id number] EXAM DATE/TIME: 06/12/2024 11:11 AM COMPARISON: Chest x-ray on 04/13/2021 RESULT: Lines, tubes, and devices: None. Lungs and pleura: No consolidation. No lung mass. No pleural effusion. No pneumothorax. Cardiomediastinal silhouette: Normal cardiomediastinal silhouette. Bones and soft tissues: Unremarkable. DIVISION OF RADIOLOGY Provider, [facility] [place] - 06/12/2024 * * *Final Report* * * DATE OF EXAM: Jun 12 2024 11:11AM WOX 5291 - XR CHEST 2V FRONTAL/LAT / PROCEDURE REASON: Chest pain varying with breathing * * * * Physician Interpretation * * * * EXAMINATION: CHEST RADIOGRAPH (2 VIEW FRONTAL & LATERAL) CLINICAL HISTORY: Chest pain varying with breathing MQ: [id number] EXAM DATE/TIME: 06/12/2024 11:11 AM COMPARISON: Chest x-ray on 04/13/2021 RESULT: Lines, tubes, and devices: None. Lungs and pleura: No consolidation. No lung mass. No pleural effusion. No pneumothorax. Cardiomediastinal silhouette: Normal cardiomediastinal silhouette. Bones and soft tissues: Unremarkable. IMPRESSION IMPRESSION: No acute radiographic abnormality. Freezer Unloader: JOSSUE Transcribe Date/Time: Jun 12 2024 11:18A Dictated by : STEPHANIE SAM MD This examination was interpreted and the report reviewed and electronically signed by: STEPHANIE SAM MD on Jun 12 2024 11:18AM EST [facility] Radiology Study observation (narrative) [facility] XR Chest PA and LateralOrder ed By: [facility] Provider on 06-12-2024 [facility] No Panel Informationon 02-23 IMPRESSION: Contracted gallbladder. Otherwise, no acute sonographic abnormalities seen. Freezer Unloader: [facility] Transcribe Date/Time: Feb 24 2024 4:38P Dictated by : STEPHANIE SAM MD This examination was interpreted and the report reviewed and electronically signed by: STEPHANIE SAM MD on Feb 24 2024 4:40PM EST DIVISION OF RADIOLOGY No Panel InformationOrdered By: [facility] Provider on 02-24-2024 [facility] US ABD SPLEEN - NBon 024 * * *Final Report* * * DATE OF EXAM: Feb 24 2024 3:51PM [facility] 1232 - US ABD SPLEEN -NB / PROCEDURE REASON: Right upper quadrant abdominal pain * * * * Physician Interpretation * * * * EXAM TITLE: US ABD RIGHT UPPER QUADRANT, US ABD SPLEEN -NB HISTORY: Right upper quadrant abdominal pain. TECHNIQUE: Sonography of the right upper quadrant and spleen was performed. Images were obtained and stored in a permanent archive. MQ: URUQ_1 COMPARISON: None. RESULT: Pancreas: Normal sonographic appearance in the visualized portions. Portions obscured: tail Liver: Echotexture: Normal, homogeneous. Echogenicity: Normal Surface contour: Smooth Lesions: None. Biliary: No intrahepatic biliary duct dilation. CBD: 3 mm in diameter. Gallbladder: Contracted -Contents: No cholelithiasis -Wall: 3 mm in thickness -Other: No pericholecystic fluid. Kidneys: The bilateral kidneys are normal in size with no hydronephrosis visualized. Spleen: No splenomegaly or mass lesion identified. The spleen measures 10.8 x 5.3 x 9.7 cm. DIVISION OF RADIOLOGY Provider, [facility] [place] - 02/24/2024 * * *Final Report* * * DATE OF EXAM: Feb 24 2024 3:51PM [facility] 1232 - US ABD SPLEEN -NB / PROCEDURE REASON: Right upper quadrant abdominal pain * * * * Physician Interpretation * * * * EXAM TITLE: US ABD RIGHT UPPER QUADRANT, US ABD SPLEEN -NB HISTORY: Right upper quadrant abdominal pain. TECHNIQUE: Sonography of the right upper quadrant and spleen was performed. Images were obtained and stored in a permanent archive. MQ: URUQ_1 COMPARISON: None. RESULT: Pancreas: Normal sonographic appearance in the visualized portions. Portions obscured: tail Liver: Echotexture: Normal, homogeneous. Echogenicity: Normal Surface contour: Smooth Lesions: None. Biliary: No intrahepatic biliary duct dilation. CBD: 3 mm in diameter. Gallbladder: Contracted -Contents: No cholelithiasis -Wall: 3 mm in thickness -Other: No pericholecystic fluid. Kidneys: The bilateral kidneys are normal in size with no hydronephrosis visualized. Spleen: No splenomegaly or mass lesion identified. The spleen measures 10.8 x 5.3 x 9.7 cm. IMPRESSION IMPRESSION: Contracted gallbladder. Otherwise, no acute sonographic abnormalities seen. Freezer Unloader: PSCB Transcribe Date/Time: Feb 24 2024 4:38P Dictated by : STEPHANIE SAM MD This examination was interpreted and the report reviewed and electronically signed by: STEPHANIE SAM MD on Feb 24 2024 4:40PM EST [facility] Radiology Study observation (narrative) [facility] US Abdomen RUQon 02-24-2024 * * *Final Report* * * DATE OF EXAM: Feb 24 2024 3:51PM [facility] 1032 - US ABD RIGHT UPPER QUADRANT / PROCEDURE REASON: Right upper quadrant abdominal pain * * * * Physician Interpretation * * * * EXAM TITLE: US ABD RIGHT UPPER QUADRANT, US ABD SPLEEN -NB HISTORY: Right upper quadrant abdominal pain. TECHNIQUE: Sonography of the right upper quadrant and spleen was performed. Images were obtained and stored in a permanent archive. MQ: URUQ_1 COMPARISON: None. RESULT: Pancreas: Normal sonographic appearance in the visualized portions. Portions obscured: tail Liver: Echotexture: Normal, homogeneous. Echogenicity: Normal Surface contour: Smooth Lesions: None. Biliary: No intrahepatic biliary duct dilation. CBD: 3 mm in diameter. Gallbladder: Contracted -Contents: No cholelithiasis -Wall: 3 mm in thickness -Other: No pericholecystic fluid. Kidneys: The bilateral kidneys are normal in size with no hydronephrosis visualized. Spleen: No splenomegaly or mass lesion identified. The spleen measures 10.8 x 5.3 x 9.7 cm. DIVISION OF RADIOLOGY Provider, [facility] - 02/24/2024 * * *Final Report* * * DATE OF EXAM: Feb 24 2024 3:51PM U 1032 - US ABD RIGHT UPPER QUADRANT / PROCEDURE REASON: Right upper quadrant abdominal pain * * * * Physician Interpretation * * * * EXAM TITLE: US ABD RIGHT UPPER QUADRANT, US ABD SPLEEN -NB HISTORY: Right upper quadrant abdominal pain. TECHNIQUE: Sonography of the right upper quadrant and spleen was performed. Images were obtained and stored in a permanent archive. MQ: URUQ_1 COMPARISON: None. RESULT: Pancreas: Normal sonographic appearance in the visualized portions. Portions obscured: tail Liver: Echotexture: Normal, homogeneous. Echogenicity: Normal Surface contour: Smooth Lesions: None. Biliary: No intrahepatic biliary duct dilation. CBD: 3 mm in diameter. Gallbladder: Contracted -Contents: No cholelithiasis -Wall: 3 mm in thickness -Other: No pericholecystic fluid. Kidneys: The bilateral kidneys are normal in size with no hydronephrosis visualized. Spleen: No splenomegaly or mass lesion identified. The spleen measures 10.8 x 5.3 x 9.7 cm. IMPRESSION IMPRESSION: Contracted gallbladder. Otherwise, no acute sonographic abnormalities seen. Freezer Unloader: JOSSUE Transcribe Date/Time: Feb 24 2024 4:38P Dictated by : STEPHANIE SAM MD This examination was interpreted and the report reviewed and electronically signed by: STEPHANIE SAM MD on Feb 24 2024 4:40PM EST [facility] Radiology Study observation (narrative) [facility] AMYLASEon 02-14-2024 Amylase [Catalytic activity/Vol] 49 U/L 30 - 104 U/L [facility] Comprehensive metabolic 2000 panelon 02-14-2024 Albumin [Mass/Vol] 4.3 g/dL 3.9 - 4.9 g/dL [facility] ALP [Catalytic activity/Vol] 58 U/L 34 - 123 U/L [facility] ALT [Catalytic activity/Vol] 12 U/L 7 - 38 U/L [facility] Anion gap [Moles/Vol] 14 mmol/L 9 - 18 mmol/L [facility] AST [Catalytic activity/Vol] 16 U/L 13 - 35 U/L [facility] Bilirubin [Mass/Vol] 0.5 mg/dL 0.2 - 1.3 mg/dL [facility] Calcium [Mass/Vol] 9.1 mg/dL 8.5 - 10. 2 mg/dL [facility] Chloride [Moles/Vol] 101 mmol/L 97 - 105 mmol/L [facility] CO2 [Moles/Vol] 24 mmol/L 22 - 30 mmol/L [facility] Creatinine [Mass/Vol] 0.93 mg/dL 0.58 - 0.96 mg/dL [facility] GFR/1.73 sq M.predicted among non-blacks MDRD (S/P/Bld) [Vol rate/Area] 86 mL/min/{1.73_m2} - PINF [facility] Comment on above: Estimated Glomerular Filtration Rate (eGFR) is calculated using the 2020 CKD-EPI creatinine equation. This equation utilizes serum creatinine, sex, and age as parameters. The creatinine assay has traceable calibration to isotope dilution-mass spectrometry. Refer to KDIGO guidelines for clinical interpretation. In patients with unstable renal function, e.g. those with acute kidney injury, the eGFR may not accurately reflect actual GFR. Glucose [Mass/Vol] 115 mg/dL High 74 - 99 mg/dL [facility] Comment on above: The [place] Diab[employer] s Association (ADA) provides guidance for cutoff values for fasting glucose and random glucose. The ADA defines fasting as no caloric intake for at least 8 hours. Fasting plasma glucose results between 100 to 125 mg/dL indicate increased risk for diabetes (prediabetes). Fasting plasma glucose results greater than or equal to 126 mg/dL meet the criteria for diagnosis of diabetes. In the absence of unequivocal hyperglycemia, results should be confirmed by repeat testing. In a patient with classic symptoms of hyperglycemia or hyperglycemic crisis, random plasma glucose results greater than or equal to 200 mg/dL meet the criteria for diagnosis of diabetes. Reference: Standards of Medical Care in Diabetes 2016, [place] Diabetes Association. Diabetes Care. 2016.39(Suppl 1). Interpretation and review of laboratory results Abnormal [facility] Potassium [Moles/Vol] 3.6 mmol/L Low 3.7 - 5.1 mmol/L [facility] Protein [Mass/Vol] 7.1 g/dL 6.3 - 8.0 g/dL [facility] Sodium [Moles/Vol] 139 mmol/L 136 - 144 mmol/L [facility] Urea nitrogen [Mass/Vol] 12 mg/dL 7 - 21 mg/dL [facility] LIPASEon 02-14-2024 Lipase [Catalytic activity/Vol] 19 U/L 16 - 61 U/L [facility] No Panel Informationon 02-13 Interpretation and review of laboratory results Normal [facility] CBC W Auto Differential pane l (Bld)on 02-13-2024 Basophils (Bld) [#/Vol] [facility] Basophils/100 WBC (Bld) 0.3 % [facility] Differential cell count method Nom (Bld) Auto [facility] Eosinophils (Bld) [#/Vol] 0.12 10*3/uL [facility] Eosinophils/100 WBC (Bld) 1.8 % [facility] Erythrocyte distribution width (RBC) [Ratio] 13.6 % 11.5 - 15.0 % [facility] Hematocrit (Bld) [Volume fraction] 45.1 % 36.0 - 46.0 % [facility] Hemoglobin (Bld) [Mass/Vol] 14.4 g/dL 11.5 - 15.5 g/dL [facility] Immature granulocytes (Bld) [#/Vol] [facility] Immature granulocytes/100 WBC (Bld) 0.3 % [facility] Lymphocytes (Bld) [#/Vol] 1.28 10*3/uL [facility] Lymphocytes/100 WBC (Bld) 19.3 % [facility] MCH (RBC) [Entitic mass] 29.1 pg 26.0 - 34.0 pg [facility] MCHC (RBC) [Mass/Vol] 31.9 g/dL 30.5 - 36.0 g/dL [facility] MCV (RBC) [Entitic vol] 91.1 fL 80.0 - 100.0 fL [facility] Monocytes (Bld) [#/Vol] 0.33 10*3/uL NINF [facility] Monocytes/100 WBC (Bld) 5.0 % [facility] Neutrophils (Bld) [#/Vol] 4.86 10*3/uL [facility] Neutrophils/100 WBC (Bld) 73.3 % [facility] Nucleated RBC (Bld) [#/Vol] NINF [facility] Nucleated RBC/100 WBC (Bld) [Ratio] 0.0 % /100 WBC [facility] Platelet mean volume (Bld) [Entitic vol] 11.2 fL 9.0 - 12.7 fL [facility] Platelets (Bld) [#/Vol] 215 10*3/uL [facility] RBC (Bld) [#/Vol] 4.95 10*6/uL 3.90 - 5.2 0 m/uL [facility] WBC (Bld) [#/Vol] 6.63 10*3/uL [facility] COVID & INFLUENZA A/B & RSV NAAT, ROUTINEon 08-31-2023 FLUAV RNA SHERRELL+probe Ql (Unsp spec) Not detected Not Detected [facility] FLUBV RNA SHERRELL+probe Ql (Unsp spec) Not detected Not Detected [facility] RSV A RNA SHERRELL+probe Ql (Unsp spec) Not detected Not Detected [facility] SARS-CoV-2 (COVID-19) RNA SHERRELL+probe Ql (Resp) Not detected See comment [facility] No Panel Informationon 07-19 [facility] BACTERIAL VAGINOSIS NAATon 1 Lactobacillus crispatus+gasseri+martha senii + Gardnerella vaginalis + Atopobium vaginae rRNA SHERRELL+probe Ql (Vag fld) Negative Negative for bacterial vaginosis [facility] C. trachomatis+N. gonorrhoea e DNA SHERRELL+probe Ql (Unsp spec)on 06-28-2023 C. trachomatis rRNA SHERRELL+probe Ql (Unsp spec) Negative Negative for Chlamydia trachomatis by amplificaton [facility] N. gonorrhoeae rRNA SHERRELL+probe Ql (Unsp spec) Negative Negative for Neisseria gonorrhoeae by amplification [facility] FANG/TRICHOMONAS NAATon 1 C. glabrata RNA SHERRELL+probe Ql (Vag fld) Negative Negative for Fang glabrata [facility] Fang sp DNA SHERRELL+probe Ql (Vag fld) Negative Negative for Fang species [facility] T. vaginalis DNA SHERRELL+probe Ql (Unsp spec) Negative Negative for Trichomonas vaginalis by amplification [facility] CBC W Auto Differential pane l (Bld)on 03-06-2023 Basophils (Bld) [#/Vol] 0.05 10*3/uL <0.11 k/uL [facility] Basophils/100 WBC (Bld) 0.7 % [facility] Differential cell count method Nom (Bld) Auto [facility] Eosinophils (Bld) [#/Vol] 0.25 10*3/uL <0.46 k/uL [facility] Eosinophils/100 WBC (Bld) 3.6 % [facility] Erythrocyte distribution width (RBC) [Ratio] 15.8 % High 11.5 - 15.0 % [facility] Hematocrit (Bld) [Volume fraction] 40.7 % 36.0 - 46.0 % [facility] Hemoglobin (Bld) [Mass/Vol] 13.0 g/dL 11.5 - 15.5 g/dL [facility] Immature granulocytes (Bld) [#/Vol] <0.10 k/uL [facility] Immature granulocytes/100 WBC (Bld) 0.3 % [facility] Lymphocytes (Bld) [#/Vol] 1.63 10*3/uL 1.00 - 4.00 k/uL [facility] Lymphocytes/100 WBC (Bld) 23.8 % [facility] MCH (RBC) [Entitic mass] 28.8 pg 26.0 - 34.0 pg [facility] MCHC (RBC) [Mass/Vol] 31.9 g/dL 30.5 - 36.0 g/dL [facility] MCV (RBC) [Entitic vol] 90.0 fL 80.0 - 100.0 fL [facility] Monocytes (Bld) [#/Vol] 0.34 10*3/uL <0.87 k/uL [facility] Monocytes/100 WBC (Bld) 5.0 % [facility] Neutrophils (Bld) [#/Vol] 4.56 10*3/uL 1.45 - 7.50 k/uL [facility] Neutrophils/100 WBC (Bld) 66.6 % [facility] Nucleated RBC (Bld) [#/Vol] <0.01 k/uL [facility] Nucleated RBC/100 WBC (Bld) [Ratio] 0.0 /100 WBC [facility] Platelet mean volume (Bld) [Entitic vol] 11.4 fL 9.0 - 12.7 fL [facility] Platelets (Bld) [#/Vol] 222 10*3/uL 150 - 400 k/uL [facility] RBC (Bld) [#/Vol] 4.52 10*6/uL 3.90 - 5.2 0 m/uL [facility] WBC (Bld) [#/Vol] 6.85 10*3/uL 3.70 - 11. 00 k/uL [facility] XR Toes - left 3 Viewson IMPRESSION: Stable 5th proximal phalanx fracture Freezer Unloader: JOSSUE Transcribe Date/Time: Jan 24 2023 7:16A Dictated by : NANCY SLADE MD This examination was interpreted and the report reviewed and electronically signed by: NANCY SLADE MD on Jan 24 2023 7:18AM [facility] * * *Final Report* * * DATE OF EXAM: Jan 23 2023 1:42PM SYLVAIN 5268 - XR TOE 3V AP/LAT/OBL LT / PROCEDURE REASON: M79.675-Pain in toe of left foot * * * * Physician Interpretation * * * * PROCEDURE: Left 5th toe INDICATION: Pain in toe of left foot .LEFT LITTLE TOE PAIN-FOLLOW UP TECHNIQUE: XR TOE 3V AP/LAT/OBL LT COMPARISON: 01/10/2023 FINDINGS: Stable, minimally displaced oblique fracture of the proximal phalanx. No articular extension. No bridging callus appreciated. Joint spaces are maintained. Adjacent soft tissue swelling persists. [facility] Provider, [facility] [place] - 01/24/2023 * * *Final Report* * * DATE OF EXAM: Jan 23 2023 1:42PM SYL[facility] 5268 - XR TOE 3V AP/LAT/OBL LT / PROCEDURE REASON: M79.675-Pain in toe of left foot * * * * Physician Interpretation * * * * PROCEDURE: Left 5th toe INDICATION: Pain in toe of left foot .LEFT LITTLE TOE PAIN-FOLLOW UP TECHNIQUE: XR TOE 3V AP/LAT/OBL LT COMPARISON: 01/10/2023 FINDINGS: Stable, minimally displaced oblique fracture of the proximal phalanx. No articular extension. No bridging callus appreciated. Joint spaces are maintained. Adjacent soft tissue swelling persists. IMPRESSION IMPRESSION: Stable 5th proximal phalanx fracture Freezer Unloader: [email or web address] Transcribe Date/Time: Jan 24 2023 7:16A Dictated by : NANCY SLADE MD This examination was interpreted and the report reviewed and electronically signed by: NANCY SLADE MD on Jan 24 2023 7:18AM EST [facility] XR Toes - left 3 ViewsOrdere d By: [facility] Provider on 01-24-2023 [facility] XR TOE 3V AP/LAT/OBL LTon XR TOE 3V AP/LAT/OBL LT * * *Final Report* * * DATE OF EXAM: Jan 23 2023 1:42PM [facility] 5268 - XR TOE 3V AP/LAT/OBL LT / PROCEDURE REASON: M79.675-Pain in toe of left foot * * * * Physician Interpretation * * * * PROCEDURE: Left 5th toe INDICATION: Pain in toe of left foot .LEFT LITTLE TOE PAIN-FOLLOW UP TECHNIQUE: XR TOE 3V AP/LAT/OBL LT COMPARISON: 01/10/2023 FINDINGS: Stable, minimally displaced oblique fracture of the proximal phalanx. No articular extension. No bridging callus appreciated. Joint spaces are maintained. Adjacent soft tissue swelling persists. IMPRESSION: Stable 5th proximal phalanx fracture Freezer Unloader: [employer] Transcribe Date/Time: Jan 24 2023 7:16A Dictated by : NANCY SLADE MD This examination was interpreted and the report reviewed and electronically signed by: NANCY SLADE MD on Jan 24 2023 7:18AM EST [id number] CN [facility] XR Toes - left 3 Viewson Radiology Study observation (narrative) [facility] XR TOE AP/LAT/OBL LEFTon [facility] XR Toes - left 3 Viewson IMPRESSION: Fracture proximal phalanx of the fifth toe. Freezer Unloader: JOSSUE Transcribe Date/Time: Jan 10 2023 2:08P Dictated by : STUART VINES MD This examination was interpreted and the report reviewed and electronically signed by: STUART VINES MD on Jan 10 2023 2:11PM EST DIVISION OF RADIOLOGY * * *Final Report* * * DATE OF EXAM: Jan 10 2023 2:01PM WOX 5268 - XR TOE 3V AP/LAT/OBL LT / PROCEDURE REASON: Toe injury, left, initial encounter * * * * Physician Interpretation * * * * EXAMINATION: XR TOE 3V AP/LAT/OBL LT CLINICAL HISTORY: stubbed her left 5ht toe an hour ago Toe injury, left, initial encounter Technique: XR TOE 3V AP/LAT/OBL LT -- LEFT 5TH TOE with 3 views on 4 images Comparison: RESULT: There is obliquely oriented fracture involving the proximal phalanx of the fifth toe. The distal fracture fragment is minimally displaced medially. This does not appear to extend to the joint surfaces. No other fractures are identified. No evidence of dislocation. Soft tissue swelling is noted. DIVISION OF RADIOLOGY Provider, [facility] [place] - 01/10/2023 * * *Final Report* * * DATE OF EXAM: Jan 10 2023 2:01PM WOX 5268 - XR TOE 3V AP/LAT/OBL LT / PROCEDURE REASON: Toe injury, left, initial encounter * * * * Physician Interpretation * * * * EXAMINATION: XR TOE 3V AP/LAT/OBL LT CLINICAL HISTORY: stubbed her left 5ht toe an hour ago Toe injury, left, initial encounter Technique: XR TOE 3V AP/LAT/OBL LT -- LEFT 5TH TOE with 3 views on 4 images Comparison: RESULT: There is obliquely oriented fracture involving the proximal phalanx of the fifth toe. The distal fracture fragment is minimally displaced medially. This does not appear to extend to the joint surfaces. No other fractures are identified. No evidence of dislocation. Soft tissue swelling is noted. IMPRESSION IMPRESSION: Fracture proximal phalanx of the fifth toe. Freezer Unloader: JOSSUE Transcribe Date/Time: Jan 10 2023 2:08P Dictated by : STUART VINES MD This examination was interpreted and the report reviewed and electronically signed by: STUART VINES MD on Jan 10 2023 2:11PM EST [facility] Radiology Study observation (narrative) [facility] XR Toes - left 3 ViewsOrdere d By: [facility] Provider on 01-10-2023 [facility] Final Surgical Pathology Rep don 12-11-2022 Final Surgical Pathology Report . Pathology Reports Accession: Collected Date/Time: Received Date/Time: Pathologist: [id number] 12/08/2022 22:43 EDT 12/10/2022 07:46 EDT BOUBACAR RAMOS MD Final Surgical Pathology Report DIAGNOSIS: PLACENTA, DELIVERY (881 G): - UMBILICAL CORD: TRIVASCULAR - MEMBRANES: NO EVIDENCE OF CHORIOAMNIONITIS - PLACENTAL PARENCHYMA: THIRD TRIMESTER VILLOUS MATURATION; NO EVIDENCE OF VILLITIS OR VILLOUS EDEMA Comment: A small retroplacental hematoma, concerning for placental abruption, is present. Clinical correlation recommended. COMMENT: [facility] - [id number] CLINICAL INFORMATION: Procedure: SECTION Preoperative diagnosis: Postoperative diagnosis: SPECIMEN: A PLACENTA GROSS DESCRIPTION: A. Received in formalin, labeled with the patients name, Case #[id number], and placenta is a gomez placenta weighing 881 g and measuring 18 x 18 x 2.9 cm. The 3 vessel umbilical cord inserts 6.5 cm to the nearest placental margin, measures 30 cm long, and 1 cm diameter. Extraplacental membranes are spence-purple, opaque and inserting at the placental margin. The surface is purple-blue with arborizing vasculature. The maternal surface is red-brown with multiple areas of disc disruption and focal white specks. On cut section the disc is red-brown, soft and spongy with no areas of hemorrhage or lesion. Financial Administration Officer sections in 3 cassettes. Dictated by KUSHAL GALARZA MICROSCOPIC DESCRIPTION: The microscopic examination is performed, except in the case of Gross Only. Electronically Signed by Pathology Report verified by [facility] BOUBACAR RAMOS Sign out Date: 12/11/2022 13:36 Performing Lab: [facility], [address] [place] [address] Pathology Dept Normal [facility] ([place]) .Auto Diffon 12-09-2022 Basophil, Absolute 0.0 10 3/mcL Normal 0.0-0.2 [facility] ([place]) Comment on above: Performed By: #### C YOLANDA JAVIER, ADIFF #### [address] [address] Basophils/100 WBC (Bld) 0.1 % Normal 0.0-2.5 [facility] ([place]) Comment on above: Performed By: #### C YOLANDA JAVIER, ADIFF #### [address] [address] Eosinophil, Absolute 0.0 10 3/mcL Normal 0.0-0.4 [facility] ([place]) Comment on above: Performed By: #### YOLANDA HOLGUIN, ADIFF #### [address] [address] Eosinophils/100 WBC (Bld) 0.0 % Normal 0.0-7.0 [facility] ([place]) Comment on above: Performed By: #### C YOLANDA JAVIER, ADIFF #### [address] [address] Lymphocyte, Absolute 1.0 10 3/mcL Normal 0.8-3.9 [facility] ([place]) Comment on above: Performed By: #### C YAYA ANEU, ADIFF #### [address] [address] Lymphocytes/100 WBC (Bld) 6.1 % Low 10.0-50.0 [facility] ([place]) Comment on above: Performed By: #### C YAYA ANEU, ADIFF #### [address] [address] Monocyte, Absolute 0.7 10 3/mcL Normal 0.2-1.0 [facility] ([place]) Comment on above: Performed By: #### C BC, ANEU, ADIFF #### [address] [address] Monocytes/100 WBC (Bld) 4.7 % Normal 1.7-13.0 [facility] ([place]) Comment on above: Performed By: #### C BCYOLANDA, ADIFF #### [address] [address] Neutrophils/100 WBC (Bld) 89.1 % High 37.0-80.0 [facility] ([place]) Comment on above: Performed By: #### C BCYOLANDA, ADIFF #### [address] [address] .NEUABSon 12-09-2022 Neutrophil, Absolute 14.0 10 3/mcL High 2.9-6.2 A [facility] ([place]) Comment on above: Performed By: #### T OXSC #### [place] [address] CBCon 12-09-2022 Erythrocyte distribution width (RBC) [Ratio] 14.2 % Normal 11.5-14.5 [facility] ([place]) Comment on above: Performed By: #### C YOLANDA JAVIER ADIFF #### [address] [address] Hematocrit (Bld) [Volume fraction] 30.9 % Low 37.0-47.0 [facility] ([place]) Comment on above: Performed By: #### C BCYOLANDA, ADIFF #### [facility] [address] [address] Hgb 10.4 G/dL Low 12.0-16.0 [facility] ([place]) Comment on above: Performed By: #### C YOLANDA JAVIER, ADIFF #### [facility] [address] [address] MCH (RBC) [Entitic mass] 29.5 pg Normal 27.0-31.2 [facility] ([place]) Comment on above: Performed By: #### C BCYOLANDA, ADIFF #### [facility] [address] [address] MCHC 33.7 G/dL Normal 33.0-37.0 [facility] ([place]) Comment on above: Performed By: #### C YOLANDA JAVIER, ADIFF #### [facility] [place] [address] [place], [place] [address] MCV (RBC) [Entitic vol] 87.4 fL Normal 80.0-94.0 [facility] ([place]) Comment on above: Performed By: #### C YOLANDA JAVIER, ADIFF #### [facility] [address] [address] Platelet 149 10 3/mcL Normal 130-400 [facility] ([place]) Comment on above: Performed By: #### C YOLANDA JAVIER, ADIFF #### [facility] [address] [address] Platelet mean volume (Bld) [Entitic vol] 9.8 fL Normal 7.4-10.4 [facility] ([place]) Comment on above: Performed By: #### C YOLANDA JAVIER, ADIFF #### [facility] [address] [address] RBC 3.54 10 6/mcL Low 4.20-5.40 [facility] ([place]) Comment on above: Performed By: #### C YOLANDA JAVIER, ADIFF #### [facility] [address] [address] WBC 15.7 10 3/mcL High 4.6-10.8 [facility] ([place]) Comment on above: Performed By: #### C YOLANDA JAVIER, ADIFF #### [facility] [address] [address] LABORATORYOrdered By: Julissa Jackson on 12-09-2022 Basophil, Absolute 0.0 103/mcL Invalid Interpretation Code 0.0 - 0.2 10^3/mcL AO Workflow SS Basophils/100 WBC (Bld) 0.1 % Invalid Interpretation Code 0.0 - 2.5 % AO Workflow SS Eosinophil, Absolute 0.0 103/mcL Invalid Interpretation Code 0.0 - 0.4 10^3/mcL AO Workflow SS Eosinophils/100 WBC (Bld) 0.0 % Invalid Interpretation Code 0.0 - 7.0 % AO Workflow SS Erythrocyte distribution width (RBC) [Ratio] 14.2 % Invalid Interpretation Code 11.5 - 14.5 % AO Workflow SS Hematocrit (Bld) [Volume fraction] 30.9 % Invalid Interpretation Code 37.0 - 47.0 % AO Workflow SS Hemoglobin (Bld) [Mass/Vol] 10.4 G/dL Invalid Interpretation Code 12.0 - 16.0 G/dL AO Workflow SS Lymphocyte, Absolute 1.0 103/mcL Invalid Interpretation Code 0.8 - 3.9 10^3/mcL AO Workflow SS Lymphocytes/100 WBC (Bld) 6.1 % Invalid Interpretation Code 10.0 - 50.0 % AO Workflow SS MCH (RBC) [Entitic mass] 29.5 pg Invalid Interpretation Code 27.0 - 31.2 pg AO Workflow SS MCHC 33.7 G/dL Invalid Interpretation Code 33.0 - 37.0 G/dL AO Workflow SS MCV (RBC) [Entitic vol] 87.4 fL Invalid Interpretation Code 80.0 - 94.0 fL AO Workflow SS Monocyte, Absolute 0.7 103/mcL Invalid Interpretation Code 0.2 - 1.0 10^3/mcL AO Workflow SS Monocytes/100 WBC (Bld) 4.7 % Invalid Interpretation Code 1.7 - 13.0 % AO Workflow SS Neutrophil, Absolute 14.0 103/mcL Invalid Interpretation Code 2.9 - 6.2 10^3/mcL AO Workflow SS Neutrophils/100 WBC (Bld) 89.1 % Invalid Interpretation Code 37.0 - 80.0 % AO Workflow SS Platelet mean volume (Bld) [Entitic vol] 9.8 fL Invalid Interpretation Code 7.4 - 10.4 fL AO Workflow SS Platelets (Bld) [#/Vol] 149 103/mcL Invalid Interpretation Code 130 - 400 10^3/mcL AO Workflow SS RBC (Bld) [#/Vol] 3.54 106/mcL Invalid Interpretation Code 4.20 - 5.40 10^6/mcL AO Workflow SS WBC (Bld) [#/Vol] 15.7 103/mcL Invalid Interpretation Code 4.6 - 10.8 10^3/mcL AO Workflow SS RPRon 12-08-2022 Reagin Ab RPR Ql (S) Non-Reactive Normal Non-Reactive [facility] ([place]) Comment on above: Result Comment: The RPR test is a non-treponemal assay useful as an aid in the diagnosis of primary and secondary syphilis. It converts to positive generally within 2 weeks after the appearance of a lesion. This test is also useful for monitoring response to antibiotic therapy. A positive RPR screening test will be followed by the FTA ABS test. False positive RPR tests may occur in 1) patients with underlying autoimmune disorders, 2) elderly patients, 3) , and 4) other conditions with abnormal serum globulins. Performed By: #### A WALLY, ABOG, ADIFF, CBC, ANSG #### [place] [address] #### RPR #### [address] [address] .Auto Diffon 12-07-2022 Basophil, Absolute 0.0 10 3/mcL Normal 0.0-0.2 [facility] ([place]) Comment on above: Performed By: #### A WALLY, ABOG, ADIFF, CBC, ANSG #### [place] [address] #### RPR #### [address] [address] Basophils/100 WBC (Bld) 0.3 % Normal 0.0-2.5 [facility] ([place]) Comment on above: Performed By: #### A WALLY, ABOG, ADIFF, CBC, ANSG #### [place] [address] #### RPR #### [address] [address] Eosinophil, Absolute 0.2 10 3/mcL Normal 0.0-0.4 [facility] ([place]) Comment on above: Performed By: #### A WALLY, ABOG, ADIFF, CBC, ANSG #### [place] [address] #### RPR #### [address] [address] Eosinophils/100 WBC (Bld) 1.7 % Normal 0.0-7.0 [facility] ([place]) Comment on above: Performed By: #### A WALLY, ABOG, ADIFF, CBC, ANSG #### [address] [address] #### RPR #### [address] [address] Lymphocyte, Absolute 1.6 10 3/mcL Normal 0.8-3.9 [facility] ([place]) Comment on above: Performed By: #### A WALLY, ABOG, ADIFF, CBC, ANSG #### [address] [address] #### RPR #### [address] [address] Lymphocytes/100 WBC (Bld) 16.6 % Normal 10.0-50.0 [facility] ([place]) Comment on above: Performed By: #### A WALLY, ABOG, ADIFF, CBC, ANSG #### [address] [address] #### RPR #### [address] [address] Monocyte, Absolute 0.6 10 3/mcL Normal 0.2-1.0 [facility] ([place]) Comment on above: Performed By: #### A WALLY, ABOG, ADIFF, CBC, ANSG #### [address] [address] #### RPR #### [address] [address] Monocytes/100 WBC (Bld) 6.2 % Normal 1.7-13.0 [facility] ([place]) Comment on above: Performed By: #### A WALLY, ABOG, ADIFF, CBC, ANSG #### [address] [address] #### RPR #### [address] [address] Neutrophils/100 WBC (Bld) 75.2 % Normal 37.0-80.0 [facility] ([place]) Comment on above: Performed By: #### A WALLY, ABOG, ADIFF, CBC, ANSG #### [place] [address] #### RPR #### [address] [address] .NEUABSon 12-07-2022 Neutrophil, Absolute 7.3 10 3/mcL High 2.9-6.2 [facility] ([place]) Comment on above: Performed By: #### A WALLY, ABOG, ADIFF, CBC, ANSG #### [place] [address] #### RPR #### [place] [address] CBCon 12-07-2022 Erythrocyte distribution width (RBC) [Ratio] 14.1 % Normal 11.5-14.5 [facility] ([place]) Comment on above: Performed By: #### A WALLY, ABOG, ADIFF, CBC, ANSG #### [place] [address] #### RPR #### [place] [address] Hematocrit (Bld) [Volume fraction] 35.8 % Low 37.0-47.0 [facility] ([place]) Comment on above: Performed By: #### A WALLY, ABOG, ADIFF, CBC, ANSG #### [place] [address] #### RPR #### [place] [address] Hgb 12.2 G/dL Normal 12.0-16.0 [facility] ([place]) Comment on above: Performed By: #### A WALLY, ABOG, ADIFF, CBC, ANSG #### [place] [address] #### RPR #### [place] [address] MCH (RBC) [Entitic mass] 29.5 pg Normal 27.0-31.2 [facility] ([place]) Comment on above: Performed By: #### A WALLY, ABOG, ADIFF, CBC, ANSG #### [place] [address] #### RPR #### [address] [address] MCHC 33.9 G/dL Normal 33.0-37.0 [facility] ([place]) Comment on above: Performed By: #### A WALLY, ABOG, ADIFF, CBC, ANSG #### [place] [address] #### RPR #### [place] [address] MCV (RBC) [Entitic vol] 87.1 fL Normal 80.0-94.0 [facility] ([place]) Comment on above: Performed By: #### A WALLY, ABOG, ADIFF, CBC, ANSG #### [place] [address] #### RPR #### [place] [address] Platelet 174 10 3/mcL Normal 130-400 [facility] ([place]) Comment on above: Performed By: #### A WALLY, ABOG, ADIFF, CBC, ANSG #### [place] [address] #### RPR #### [place] [address] Platelet mean volume (Bld) [Entitic vol] 9.6 fL Normal 7.4-10.4 [facility] ([place]) Comment on above: Performed By: #### A WALLY, ABOG, ADIFF, CBC, ANSG #### [place] [address] #### RPR #### [place] [address] RBC 4.12 10 6/mcL Low 4.20-5.40 [facility] ([place]) Comment on above: Performed By: #### A WALLY, ABOG, ADIFF, CBC, ANSG #### [address] [address] #### RPR #### [address] [address] WBC 9.7 10 3/mcL Normal 4.6-10.8 [facility] ([place]) Comment on above: Performed By: #### A WALLY, ABOG, ADIFF, CBC, ANSG #### [address] [address] #### RPR #### [address] [address] Gel ABOon 12-07-2022 ABO/Rh Interp Positive Invalid Interpretation Code [facility] ([place]) Comment on above: Performed By: #### A WALLY, ABOG, ADIFF, CBC, ANSG #### [address] [address] #### RPR #### [place] [address] Gel ABSon 12-07-2022 Antibody Screen Gel Negative Normal [facility] ([place]) Comment on above: Performed By: #### A WALLY, ABOG, ADIFF, CBC, ANSG #### [address] [address] #### RPR #### [address] [address] LABORATORYOrdered By: Nazia Miller on 12-07-2022 Amphetamines Screen Ql (U) Negative (12/07/22 7:43 AM) Invalid Interpretation Code AO Manual Urine SS Barbiturates Screen Ql (U) Negative (12/07/22 7:43 AM) Invalid Interpretation Code AO Manual Urine SS Benzodiazepines Ql (U) Negative (12/07/22 7:43 AM) Invalid Interpretation Code AO Manual Urine SS Benzoylecgonine Screen Ql (U) Negative (12/07/22 7:43 AM) Invalid Interpretation Code AO Manual Urine SS Cannabinoids tested Screen Nom (U) Negative (12/07/22 7:43 AM) Invalid Interpretation Code AO Manual Urine SS Methadone Screen Ql (U) Negative (12/07/22 7:43 AM) Invalid Interpretation Code AO Manual Urine SS Opiates Screen Ql (U) Negative (12/07/22 7:43 AM) Invalid Interpretation Code AO Manual Urine SS Phencyclidine Ql (U) Negative (12/07/22 7:43 AM) Invalid Interpretation Code AO Manual Urine SS Tricyclic antidepressants Screen Ql (U) Negative (12/07/22 7:43 AM) Invalid Interpretation Code AO Manual Urine SS ABO/Rh Interp Positive Invalid Interpretation Code AO BB SS Antibody Screen Gel Negative ABSC (12/07/22 6:16 AM) Invalid Interpretation Code AO BB SS Basophil, Absolute 0.0 103/mcL Invalid Interpretation Code 0.0 - 0.2 10^3/mcL AO Workflow SS Basophils/100 WBC (Bld) 0.3 % Invalid Interpretation Code 0.0 - 2.5 % AO Workflow SS Eosinophil, Absolute 0.2 103/mcL Invalid Interpretation Code 0.0 - 0.4 10^3/mcL AO Workflow SS Eosinophils/100 WBC (Bld) 1.7 % Invalid Interpretation Code 0.0 - 7.0 % AO Workflow SS Erythrocyte distribution width (RBC) [Ratio] 14.1 % Invalid Interpretation Code 11.5 - 14.5 % AO Workflow SS Hematocrit (Bld) [Volume fraction] 35.8 % Invalid Interpretation Code 37.0 - 47.0 % AO Workflow SS Hemoglobin (Bld) [Mass/Vol] 12.2 G/dL Invalid Interpretation Code 12.0 - 16.0 G/dL AO Workflow SS Lymphocyte, Absolute 1.6 103/mcL Invalid Interpretation Code 0.8 - 3.9 10^3/mcL AO Workflow SS Lymphocytes/100 WBC (Bld) 16.6 % Invalid Interpretation Code 10.0 - 50.0 % AO Workflow SS MCH (RBC) [Entitic mass] 29.5 pg Invalid Interpretation Code 27.0 - 31.2 pg AO Workflow SS MCHC 33.9 G/dL Invalid Interpretation Code 33.0 - 37.0 G/dL AO Workflow SS MCV (RBC) [Entitic vol] 87.1 fL Invalid Interpretation Code 80.0 - 94.0 fL AO Workflow SS Monocyte, Absolute 0.6 103/mcL Invalid Interpretation Code 0.2 - 1.0 10^3/mcL AO Workflow SS Monocytes/100 WBC (Bld) 6.2 % Invalid Interpretation Code 1.7 - 13.0 % AO Workflow SS Neutrophil, Absolute 7.3 103/mcL Invalid Interpretation Code 2.9 - 6.2 10^3/mcL AO Workflow SS Neutrophils/100 WBC (Bld) 75.2 % Invalid Interpretation Code 37.0 - 80.0 % AO Workflow SS Platelet mean volume (Bld) [Entitic vol] 9.6 fL Invalid Interpretation Code 7.4 - 10.4 fL AO Workflow SS Platelets (Bld) [#/Vol] 174 103/mcL Invalid Interpretation Code 130 - 400 10^3/mcL AO Workflow SS RBC (Bld) [#/Vol] 4.12 106/mcL Invalid Interpretation Code 4.20 - 5.40 10^6/mcL AO Workflow SS WBC (Bld) [#/Vol] 9.7 103/mcL Invalid Interpretation Code 4.6 - 10.8 10^3/mcL AO Workflow SS LABORATORYOrdered By: Veena ibarra on 12-07-2022 Reagin Ab RPR Ql (S) Non-Reactive (12/07/22 6:16 AM) Invalid Interpretation Code Non-Reactive [facility] Man Viro/Sero SS LABORATORYOrdered By: Fatuma Ramirez on 12-07-2022 ABO and Rh group Nom (Bld) O positive (12/07/22 5:52 AM) [facility] Work Phone: Group B Strep Date Performed [id number] [facility] Work Phone: Group B Strep, External Negative (12/07/22 5:52 AM) [facility] Work Phone: Hepatitis B Date Performed [id number] [facility] Work Phone: Hepatitis B, External Negative (12/07/22 5:52 AM) [facility] Work Phone: HIV Antibodies, External Negative (12/07/22 5:52 AM) [facility] Work Phone: RPR, External Nonreactive (12/07/22 5:52 AM) [facility] Work Phone: Rubella, External Immune (12/07/22 5:52 AM) [facility] Work Phone: TOXSCon 12-07-2022 U Ampheta (AO) Negative [facility] ([place]) Comment on above: Performed By: #### T OXSC #### [facility] [address] [address] U Beth (AO) Negative [facility] ([place]) Comment on above: Performed By: #### T OXSC #### [facility] [address] [address] U Gerber (AO) Negative [facility] ([place]) Comment on above: Performed By: #### T OXSC #### [address] [address] U Cannab (AO) Negative [facility] ([place]) Comment on above: Performed By: #### T OXSC #### [address] [address] U Cocaine (AO) Negative [facility] ([place]) Comment on above: Performed By: #### T OXSC #### [address] [address] U Methadone (AO) Negative [facility] ([place]) Comment on above: Performed By: #### T OXSC #### [facility] [address] [address] U PCP (AO) Negative [facility] ([place]) Comment on above: Performed By: #### T OXSC #### [address] [address] U TCA (AO) Negative [facility] ([place]) Comment on above: Performed By: #### T OXSC #### [address] [address] Urine Opiates (AO) Negative [facility] ([place]) Comment on above: Performed By: #### T OXSC #### [facility] [address] [address] STREP A MOLECULAR (POC)on Procedural Control Valid [facility] Strep A (POCT) Negative Negative [facility] XR Ribs - left Views and [facility]aya st PAon 04-13-2021 IMPRESSION: Negative ribs. Freezer Unloader: JOSSUE Transcribe Date/Time: Apr 13 2021 6:00P Dictated by : STAN RIOS MD This examination was interpreted and the report reviewed and electronically signed by: STAN RIOS MD on Apr 13 2021 6:01PM [facility] DIVISION OF RADIOLOGY * * *Final Report* * * DATE OF EXAM: Apr 13 2021 5:50PM WOX [id number] - XR RIB/CHST 3V AP RIB/OBL/CHST L / PROCEDURE REASON: Rib pain on left side * * * * Physician Interpretation * * * * EXAMINATION: XR RIB/CHST 3V AP RIB/OBL/CHST L HISTORY: pt states pain for 3 days lower anterior left side. No inj. BB placed over area of pain. TECHNIQUE: XR RIB/CHST 3V AP RIB/OBL/CHST L Laterality: LEFT Number of different views (projections): 3 M: XB_1 COMPARISON: There are no prior relevant examinations available for comparison within the [facility]. RESULT: Frontal radiograph of the chest and dedicated views of the left ribs show no evidence of pneumothorax, hemothorax or pulmonary contusion. The visualized bony structures are intact without apparent displaced or nondisplaced rib fracture. DIVISION OF RADIOLOGY Provider, [facility] [place] - 04/13/2021 * * *Final Report* * * DATE OF EXAM: Apr 13 2021 5:50PM WOX [id number] - XR RIB/CHST 3V AP RIB/OBL/CHST L / PROCEDURE REASON: Rib pain on left side * * * * Physician Interpretation * * * * EXAMINATION: XR RIB/CHST 3V AP RIB/OBL/CHST L HISTORY: pt states pain for 3 days lower anterior left side. No inj. BB placed over area of pain. TECHNIQUE: XR RIB/CHST 3V AP RIB/OBL/CHST L Laterality: LEFT Number of different views (projections): 3 M: XB_1 COMPARISON: There are no prior relevant examinations available for comparison within the [facility]. RESULT: Frontal radiograph of the chest and dedicated views of the left ribs show no evidence of pneumothorax, hemothorax or pulmonary contusion. The visualized bony structures are intact without apparent displaced or nondisplaced rib fracture. IMPRESSION IMPRESSION: Negative ribs. Freezer Unloader: PSCB Transcribe Date/Time: Apr 13 2021 6:00P Dictated by : STAN RIOS MD This examination was interpreted and the report reviewed and electronically signed by: STAN RIOS MD on Apr 13 2021 6:01PM EST [facility] Radiology Study observation (narrative) [facility] XR Ribs - left Views and [facility]aya st PAOrdered By: Ccf Provider on 04-13-2021 [facility] Vital Signs Date Time Vital Sign Value Performing Clinician Facility 05-09-2025 15:04-0400 Body mass index (BMI) [Ratio] 35.37 kg/m2 Krislyn Aberegg PA Work Phone: [facility] 05-09-2025 15:04-0400 Body temperature 98.1 [degF] Krislyn Aberegg PA Work Phone: [facility] 05-09-2025 15:04-0400 Body weight 96.4 kg Krislyn Aberegg PA Work Phone: [facility] 05-09-2025 15:04-0400 Diastolic blood pressure 82 mm[Hg] Krislyn Aberegg PA Work Phone: [facility] 05-09-2025 15:04-0400 Heart rate 106 /min Krislyn Aberegg PA Work Phone: [facility] 05-09-2025 15:04-0400 Respiratory rate 16 /min Krislyn Aberegg PA Work Phone: [facility] 05-09-2025 15:04-0400 SaO2% (BldA) [Mass fraction] 96 % Krislyn Aberegg PA Work Phone: [facility] 05-09-2025 15:04-0400 Systolic blood pressure 120 mm[Hg] Krislyn Aberegg PA Work Phone: [facility] 03-16-2025 17:09-0400 Diastolic blood pressure 88 mm[Hg] Amy Sands APRN.WINEMAKER Work Phone: [facility] 03-16-2025 17:09-0400 Heart rate 97 /min Amy Sands APRN.WINEMAKER Work Phone: [facility] 03-16-2025 17:09-0400 Systolic blood pressure 118 mm[Hg] Amy Sands APRN.WINEMAKER Work Phone: [facility] 03-16-2025 09:29-0400 Body height 165.1 cm Amy Sands APRN.WINEMAKER Work Phone: [facility] 03-16-2025 09:29-0400 Body mass index (BMI) [Ratio] 36.11 kg/m2 Amy Sands COMMUNICATIONS PROFESSIONAL.WINEMAKER Work Phone: [facility] 03-16-2025 09:29-0400 Body weight 98.43 kg Amy Sands APRN.WINEMAKER Work Phone: [facility] 02-19-2025 14:51-0400 Body mass index (BMI) [Ratio] 37.59 kg/m2 Sheila Leiter COMMUNICATIONS PROFESSIONAL.WINEMAKER Work Phone: [facility] 02-19-2025 14:51-0400 Body weight 99.34 kg Sheila Norman COMMUNICATIONS PROFESSIONAL.WINEMAKER Work Phone: [facility] 02-19-2025 14:51-0400 Diastolic blood pressure 78 mm[Hg] Sheila Norman COMMUNICATIONS PROFESSIONAL.WINEMAKER Work Phone: [facility] 02-19-2025 14:51-0400 Systolic blood pressure 122 mm[Hg] Sheila Leiter COMMUNICATIONS PROFESSIONAL.WINEMAKER Work Phone: [facility] 01-28-2025 16:36-0400 Body mass index (BMI) [Ratio] 38.17 kg/m2 Marcial Velazquez MD Work Phone: [facility] 01-28-2025 16:36-0400 Body weight 100.88 kg Marcial Velazquez MD Work Phone: [facility] 01-28-2025 16:36-0400 Diastolic blood pressure 84 mm[Hg] Marcial Velazquez MD Work Phone: [facility] 01-28-2025 16:36-0400 Heart rate 92 /min Marcial Velazquez MD Work Phone: [facility] 01-28-2025 16:36-0400 Respiratory rate 16 /min Marcial Velazquez MD Work Phone: [facility] 01-28-2025 16:36-0400 Systolic blood pressure 110 mm[Hg] Marcial Velazquez MD Work Phone: [facility] 01-04-2025 14:29-0400 Diastolic blood pressure 98 mm[Hg] Ping Haagen COMMUNICATIONS PROFESSIONAL.WINEMAKER Work Phone: [facility] 01-04-2025 14:29-0400 Heart rate 92 /min Ping Haagen COMMUNICATIONS PROFESSIONAL.WINEMAKER Work Phone: [facility] 01-04-2025 14:29-0400 Respiratory rate 16 /min Ping Haagen COMMUNICATIONS PROFESSIONAL.WINEMAKER Work Phone: [facility] 01-04-2025 14:29-0400 SaO2% (BldA) [Mass fraction] 97 % Ping Haagen COMMUNICATIONS PROFESSIONAL.WINEMAKER Work Phone: [facility] 01-04-2025 14:29-0400 Systolic blood pressure 132 mm[Hg] Ping Haagen COMMUNICATIONS PROFESSIONAL.WINEMAKER Work Phone: [facility] 01-04-2025 12:46-0400 Body mass index (BMI) [Ratio] 37.76 kg/m2 Sheila Leiter COMMUNICATIONS PROFESSIONAL.WINEMAKER Work Phone: [facility] 01-04-2025 12:46-0400 Body weight 99.79 kg Sheila Norman COMMUNICATIONS PROFESSIONAL.WINEMAKER Work Phone: [facility] 01-04-2025 12:46-0400 Diastolic blood pressure 64 mm[Hg] Sheila Norman COMMUNICATIONS PROFESSIONAL.WINEMAKER Work Phone: [facility] 01-04-2025 12:46-0400 Systolic blood pressure 118 mm[Hg] Sheila Austin COMMUNICATIONS PROFESSIONAL.WINEMAKER Work Phone: [facility] 11-12-2024 16:22-0500 Body mass index (BMI) [Ratio] 39.17 kg/m2 Marcial Velazquez MD Work Phone: [facility] 11-12-2024 16:22-0500 Body weight 103.5 kg Marcial Velazquez MD Work Phone: [facility] 11-12-2024 16:22-0500 Diastolic blood pressure 74 mm[Hg] Marcial Velazquez MD Work Phone: [facility] 11-12-2024 16:22-0500 Heart rate 88 /min Marcial Velazquez MD Work Phone: [facility] 11-12-2024 16:22-0500 Respiratory rate 16 /min Marcial Velazquez MD Work Phone: [facility] 11-12-2024 16:22-0500 Systolic blood pressure 120 mm[Hg] Marcial Velazquez MD Work Phone: [facility] 08-28-2024 08:43-0500 Diastolic blood pressure 88 mm[Hg] Ping Byrd COMMUNICATIONS PROFESSIONAL.WINEMAKER Work Phone: [facility] 08-28-2024 08:43-0500 Heart rate 97 /min Ping Haagen COMMUNICATIONS PROFESSIONAL.WINEMAKER Work Phone: [facility] 08-28-2024 08:43-0500 Respiratory rate 16 /min Ping Haagen COMMUNICATIONS PROFESSIONAL.WINEMAKER Work Phone: [facility] 08-28-2024 08:43-0500 SaO2% (BldA) [Mass fraction] 98 % Ping Haagen COMMUNICATIONS PROFESSIONAL.WINEMAKER Work Phone: [facility] 08-28-2024 08:43-0500 Systolic blood pressure 114 mm[Hg] Ping Haagen COMMUNICATIONS PROFESSIONAL.WINEMAKER Work Phone: [facility] 06-30-2024 19:24-0400 Body mass index (BMI) [Ratio] 38.71 kg/m2 Mohsen Moomaw COMMUNICATIONS PROFESSIONAL.WINEMAKER Work Phone: [facility] 06-30-2024 19:24-0400 Body temperature 102 [degF] Mohsen Moomaw COMMUNICATIONS PROFESSIONAL.WINEMAKER Work Phone: [facility] 06-30-2024 19:24-0400 Body weight 102.3 kg Mohsen Moomaw COMMUNICATIONS PROFESSIONAL.WINEMAKER Work Phone: [facility] 06-30-2024 19:24-0400 Diastolic blood pressure 80 mm[Hg] Mohsne Moomaw COMMUNICATIONS PROFESSIONAL.WINEMAKER Work Phone: [facility] 06-30-2024 19:24-0400 Heart rate 162 /min Mohsen Moomaw COMMUNICATIONS PROFESSIONAL.WINEMAKER Work Phone: [facility] 06-30-2024 19:24-0400 Respiratory rate 20 /min Mohsen Moomaw COMMUNICATIONS PROFESSIONAL.WINEMAKER Work Phone: [facility] 06-30-2024 19:24-0400 SaO2% (BldA) [Mass fraction] 96 % Mohsen Moomaw COMMUNICATIONS PROFESSIONAL.WINEMAKER Work Phone: [facility] 06-30-2024 19:24-0400 Systolic blood pressure 124 mm[Hg] Mohsen Moomaw COMMUNICATIONS PROFESSIONAL.WINEMAKER Work Phone: [facility] 06-12-2024 10:15-0400 Body mass index (BMI) [Ratio] 38.11 kg/m2 Skylar Tannhof COMMUNICATIONS PROFESSIONAL.WINEMAKER Work Phone: [facility] 06-12-2024 10:15-0400 Body weight 100.7 kg Skylar Tannhof COMMUNICATIONS PROFESSIONAL.WINEMAKER Work Phone: [facility] 06-12-2024 10:15-0400 Diastolic blood pressure 68 mm[Hg] Skylar Tannhof COMMUNICATIONS PROFESSIONAL.WINEMAKER Work Phone: [facility] 06-12-2024 10:15-0400 Heart rate 88 /min Skylar Tannhof COMMUNICATIONS PROFESSIONAL.WINEMAKER Work Phone: [facility] 06-12-2024 10:15-0400 Respiratory rate 16 /min Skylar Mathewhof COMMUNICATIONS PROFESSIONAL.WINEMAKER Work Phone: [facility] 06-12-2024 10:15-0400 SaO2% (BldA) [Mass fraction] 98 % Skylarfelipe Mathewhof COMMUNICATIONS PROFESSIONAL.WINEMAKER Work Phone: [facility] 06-12-2024 10:15-0400 Systolic blood pressure 95 mm[Hg] Skylar Mathewhof COMMUNICATIONS PROFESSIONAL.WINEMAKER Work Phone: [facility] 04-06-2024 09:10-0400 Body mass index (BMI) [Ratio] 36.14 kg/m2 Krislyn Aberegg PA Work Phone: [facility] 04-06-2024 09:10-0400 Body temperature 98.8 [degF] Krislyn Aberegg PA Work Phone: [facility] 04-06-2024 09:10-0400 Body weight 95.5 kg Krislyn Aberegg PA Work Phone: [facility] 04-06-2024 09:10-0400 Diastolic blood pressure 80 mm[Hg] Krislyn Aberegg PA Work Phone: [facility] 04-06-2024 09:10-0400 Heart rate 107 /min Krislyn Aberegg PA Work Phone: [facility] 04-06-2024 09:10-0400 Respiratory rate 21 /min Krislyn Aberegg PA Work Phone: [facility] 04-06-2024 09:10-0400 SaO2% (BldA) [Mass fraction] 97 % Krislyn Aberegg PA Work Phone: [facility] 04-06-2024 09:10-0400 Systolic blood pressure 110 mm[Hg] Krislyn Aberegg PA Work Phone: [facility] 02-13-2024 13:13-0400 Body mass index (BMI) [Ratio] 34.67 kg/m2 Skylar Tannhof COMMUNICATIONS PROFESSIONAL.WINEMAKER Work Phone: [facility] 02-13-2024 13:13-0400 Body weight 91.63 kg Skylar Tannhof COMMUNICATIONS PROFESSIONAL.WINEMAKER Work Phone: [facility] 02-13-2024 13:13-0400 Diastolic blood pressure 70 mm[Hg] Skylar Tannhof COMMUNICATIONS PROFESSIONAL.WINEMAKER Work Phone: [facility] 02-13-2024 13:13-0400 Heart rate 100 /min Skylar Tannhof COMMUNICATIONS PROFESSIONAL.WINEMAKER Work Phone: [facility] 02-13-2024 13:13-0400 Respiratory rate 16 /min Skylar Tannhof COMMUNICATIONS PROFESSIONAL.WINEMAKER Work Phone: [facility] 02-13-2024 13:13-0400 SaO2% (BldA) [Mass fraction] 98 % Skylar Tannhof COMMUNICATIONS PROFESSIONAL.WINEMAKER Work Phone: [facility] 02-13-2024 13:13-0400 Systolic blood pressure 96 mm[Hg] Skylar Tannhof COMMUNICATIONS PROFESSIONAL.WINEMAKER Work Phone: [facility] 01-06-2024 10:21-0400 Body mass index (BMI) [Ratio] 35.08 kg/m2 Mohsen Moomaw COMMUNICATIONS PROFESSIONAL.WINEMAKER Work Phone: [facility] 01-06-2024 10:21-0400 Body temperature 98.2 [degF] Mohsen Moomaw COMMUNICATIONS PROFESSIONAL.WINEMAKER Work Phone: [facility] 01-06-2024 10:21-0400 Body weight 92.7 kg Mohsen Moomaw COMMUNICATIONS PROFESSIONAL.WINEMAKER Work Phone: [facility] 01-06-2024 10:21-0400 Diastolic blood pressure 80 mm[Hg] Mohsen Moomaw COMMUNICATIONS PROFESSIONAL.WINEMAKER Work Phone: [facility] 01-06-2024 10:21-0400 Heart rate 88 /min Mohsen Moomaw COMMUNICATIONS PROFESSIONAL.WINEMAKER Work Phone: [facility] 01-06-2024 10:21-0400 Respiratory rate 16 /min Mohsen Moomaw COMMUNICATIONS PROFESSIONAL.WINEMAKER Work Phone: [facility] 01-06-2024 10:21-0400 SaO2% (BldA) [Mass fraction] 98 % Mohsen Moomaw COMMUNICATIONS PROFESSIONAL.WINEMAKER Work Phone: [facility] 01-06-2024 10:21-0400 Systolic blood pressure 128 mm[Hg] Mohsen Moomaw COMMUNICATIONS PROFESSIONAL.WINEMAKER Work Phone: [facility] 11-18-2023 12:11-0500 Body weight 91.63 kg Skylar Tannhof COMMUNICATIONS PROFESSIONAL.WINEMAKER Work Phone: [facility] 11-18-2023 12:11-0500 Diastolic blood pressure 70 mm[Hg] Skylar Tannhof COMMUNICATIONS PROFESSIONAL.WINEMAKER Work Phone: [facility] 11-18-2023 12:11-0500 Heart rate 96 /min Skylar Tannhof COMMUNICATIONS PROFESSIONAL.WINEMAKER Work Phone: [facility] 11-18-2023 12:11-0500 Respiratory rate 16 /min Skylar Tannhof COMMUNICATIONS PROFESSIONAL.WINEMAKER Work Phone: [facility] 11-18-2023 12:11-0500 SaO2% (BldA) [Mass fraction] 97 % Skylar Tannhof COMMUNICATIONS PROFESSIONAL.WINEMAKER Work Phone: [facility] 11-18-2023 12:11-0500 Systolic blood pressure 110 mm[Hg] Skylar Tannhof COMMUNICATIONS PROFESSIONAL.WINEMAKER Work Phone: [facility] 08-30-2023 14:36-0500 Body temperature 97.59 [degF] Zayra Sarah Beth COMMUNICATIONS PROFESSIONAL.WINEMAKER Work Phone: [facility] 08-30-2023 14:36-0500 Body weight 97.89 kg Zayra Sarah Beth COMMUNICATIONS PROFESSIONAL.WINEMAKER Work Phone: [facility] 08-30-2023 14:36-0500 Diastolic blood pressure 84 mm[Hg] Zayra Sarah Beth COMMUNICATIONS PROFESSIONAL.WINEMAKER Work Phone: [facility] 08-30-2023 14:36-0500 Heart rate 96 /min Zayra Burleson COMMUNICATIONS PROFESSIONAL.WINEMAKER Work Phone: [facility] 08-30-2023 14:36-0500 Respiratory rate 18 /min Zayra Burleson COMMUNICATIONS PROFESSIONAL.WINEMAKER Work Phone: [facility] 08-30-2023 14:36-0500 SaO2% (BldA) [Mass fraction] 97 % Zayra Hendricksonk COMMUNICATIONS PROFESSIONAL.WINEMAKER Work Phone: [facility] 08-30-2023 14:36-0500 Systolic blood pressure 124 mm[Hg] Zayra Burleson COMMUNICATIONS PROFESSIONAL.WINEMAKER Work Phone: [facility] 06-27-2023 11:26-0400 Body weight 92.08 kg Amy Sands COMMUNICATIONS PROFESSIONAL.WINEMAKER Work Phone: [facility] 06-27-2023 11:26-0400 Diastolic blood pressure 68 mm[Hg] Amy Mandelie COMMUNICATIONS PROFESSIONAL.WINEMAKER Work Phone: [facility] 06-27-2023 11:26-0400 Systolic blood pressure 106 mm[Hg] Amy Mandelie COMMUNICATIONS PROFESSIONAL.WINEMAKER Work Phone: [facility] 04-01-2023 13:51-0400 Body weight 85.73 kg Sheila Norman COMMUNICATIONS PROFESSIONAL.WINEMAKER Work Phone: [facility] 04-01-2023 13:51-0400 Diastolic blood pressure 70 mm[Hg] Sheila Leiter COMMUNICATIONS PROFESSIONAL.WINEMAKER Work Phone: [facility] 04-01-2023 13:51-0400 Systolic blood pressure 112 mm[Hg] Sheila Norman COMMUNICATIONS PROFESSIONAL.WINEMAKER Work Phone: [facility] 03-06-2023 09:00-0400 Body weight 84.37 kg Skylar Denise COMMUNICATIONS PROFESSIONAL.WINEMAKER Work Phone: [facility] 03-06-2023 09:00-0400 Diastolic blood pressure 66 mm[Hg] Skylar Mathewhof COMMUNICATIONS PROFESSIONAL.WINEMAKER Work Phone: [facility] 03-06-2023 09:00-0400 Heart rate 72 /min Skylar Mathewhof COMMUNICATIONS PROFESSIONAL.WINEMAKER Work Phone: [facility] 03-06-2023 09:00-0400 Respiratory rate 16 /min Skylar Mathewhof COMMUNICATIONS PROFESSIONAL.WINEMAKER Work Phone: [facility] 03-06-2023 09:00-0400 SaO2% (BldA) [Mass fraction] 96 % Skylar Mathewhof COMMUNICATIONS PROFESSIONAL.WINEMAKER Work Phone: [facility] 03-06-2023 09:00-0400 Systolic blood pressure 90 mm[Hg] Skylar Mathewhof COMMUNICATIONS PROFESSIONAL.WINEMAKER Work Phone: [facility] 01-10-2023 13:37-0400 Body temperature 98.01 [degF] Tom Maharaj COMMUNICATIONS PROFESSIONAL.WINEMAKER Work Phone: [facility] 01-10-2023 13:37-0400 Body weight 82.1 kg Tom Maharaj COMMUNICATIONS PROFESSIONAL.WINEMAKER Work Phone: [facility] 01-10-2023 13:37-0400 Diastolic blood pressure 66 mm[Hg] Tom Nicko COMMUNICATIONS PROFESSIONAL.WINEMAKER Work Phone: [facility] 01-10-2023 13:37-0400 Heart rate 103 /min Tom Nicko COMMUNICATIONS PROFESSIONAL.WINEMAKER Work Phone: [facility] 01-10-2023 13:37-0400 Respiratory rate 18 /min Tom Nicko COMMUNICATIONS PROFESSIONAL.WINEMAKER Work Phone: [facility] 01-10-2023 13:37-0400 SaO2% (BldA) [Mass fraction] 98 % Tom Nicko COMMUNICATIONS PROFESSIONAL.WINEMAKER Work Phone: [facility] 01-10-2023 13:37-0400 Systolic blood pressure 104 mm[Hg] Tom Nicko COMMUNICATIONS PROFESSIONAL.WINEMAKER Work Phone: [facility] 12-10-2022 15:22-0400 Body temperature 99.14 [degF] EDUAR DEL ANGEL COMMUNICATIONS PROFESSIONAL-CNM [facility] 12-10-2022 15:22-0400 Diastolic Blood Pressure Non-Invasive 70 1 EDUAR DEL ANGEL COMMUNICATIONS PROFESSIONAL-CNM [facility] 12-10-2022 15:22-0400 Heart rate 65 /min EDUAR DEL ANGEL COMMUNICATIONS PROFESSIONAL-CNM [facility] 12-10-2022 15:22-0400 Respiratory rate 16 /min EDUAR DEL ANGEL COMMUNICATIONS PROFESSIONAL-CNM [facility] 12-10-2022 15:22-0400 Systolic Blood Pressure Non-Invasive 103 1 EDUAR DEL ANGEL COMMUNICATIONS PROFESSIONAL-CNM [facility] 12-10-2022 08:13-0400 Body temperature 98.24 [degF] EDUAR DEL ANGEL COMMUNICATIONS PROFESSIONAL-CNM [facility] 12-10-2022 08:13-0400 Diastolic Blood Pressure Non-Invasive 51 1 EDUAR DEL ANGEL COMMUNICATIONS PROFESSIONAL-CNM [facility] 12-10-2022 08:13-0400 Heart rate 70 /min EDUAR DEL ANGEL COMMUNICATIONS PROFESSIONAL-CNM [facility] 12-10-2022 08:13-0400 Respiratory rate 16 /min EDUAR DEL ANGEL COMMUNICATIONS PROFESSIONAL-CNM [facility] 12-10-2022 08:13-0400 Systolic Blood Pressure Non-Invasive 99 1 EDUAR DEL ANGEL COMMUNICATIONS PROFESSIONAL-CNM [facility] 12-09-2022 22:15-0400 Body temperature 98.06 [degF] EDUAR DEL ANGEL COMMUNICATIONS PROFESSIONAL-CNM [facility] 12-09-2022 22:15-0400 Diastolic Blood Pressure Non-Invasive 50 1 EDUAR DEL ANGEL COMMUNICATIONS PROFESSIONAL-CNM [facility] 12-09-2022 22:15-0400 Heart rate 72 /min EDUAR DEL ANGEL COMMUNICATIONS PROFESSIONAL-CNM [facility] 12-09-2022 22:15-0400 Respiratory rate 18 /min EDUAR DEL ANGEL COMMUNICATIONS PROFESSIONAL-CNM [facility] 12-09-2022 22:15-0400 Systolic Blood Pressure Non-Invasive 94 1 EDUAR DEL ANGEL COMMUNICATIONS PROFESSIONAL-CNM [facility] 12-09-2022 18:00-0400 Body temperature 96.98 [degF] EDUAR DEL ANGEL COMMUNICATIONS PROFESSIONAL-CNM [facility] 12-09-2022 15:55-0400 Blood Pressure Cuff Size EDUARFREDERICK DEL ANGEL COMMUNICATIONS PROFESSIONAL-CNM [facility] 12-09-2022 15:55-0400 Blood Pressure Location EDUAR DEL ANGEL COMMUNICATIONS PROFESSIONAL-CNM [facility] 12-09-2022 15:55-0400 Blood Pressure Method EDUAR DEL ANGEL COMMUNICATIONS PROFESSIONAL-CNM [facility] 12-09-2022 15:55-0400 Body temperature 97.34 [degF] EDUAR DEL ANGEL COMMUNICATIONS PROFESSIONAL-CNM [facility] 12-08-2022 22:55-0400 Respiratory Rate - Anes 0 br/min EDUAR DEL ANGEL COMMUNICATIONS PROFESSIONAL-CNM [facility] 12-08-2022 22:50-0400 Respiratory Rate - Anes 0 br/min EDUAR DEL ANGEL COMMUNICATIONS PROFESSIONAL-CNM [facility] 12-08-2022 22:45-0400 Body temperature 96.8 [degF] EDUAR DEL ANGEL COMMUNICATIONS PROFESSIONAL-CNM [facility] 12-08-2022 22:45-0400 Respiratory Rate - Anes 0 br/min EDUAR DEL ANGEL COMMUNICATIONS PROFESSIONAL-CNM [facility] 12-08-2022 22:30-0400 Body temperature 96.8 [degF] EDUAR DEL ANGEL COMMUNICATIONS PROFESSIONAL-CNM [facility] 12-08-2022 08:00-0400 Body temperature 98.42 [degF] EDUAR DEL ANGEL COMMUNICATIONS PROFESSIONAL-CNM [facility] 12-07-2022 05:52-0400 Body height 162.6 cm EDUAR DEL ANGEL COMMUNICATIONS PROFESSIONAL-CNM [facility] 12-07-2022 05:52-0400 Body weight 92 kg EDUAR DEL ANGEL COMMUNICATIONS PROFESSIONAL-CNM [facility] 12-07-2022 05:52-0400 Body weight 34.8 kg/m2 EDUARFREDERICK DEL ANGEL COMMUNICATIONS PROFESSIONAL-CNM [facility] 09-14-2022 19:30-0500 Body temperature 98.8 [degF] Levi Meyers COMMUNICATIONS PROFESSIONAL.WINEMAKER Work Phone: [facility] 09-14-2022 19:30-0500 Body weight 96.07 kg Levi Meyers COMMUNICATIONS PROFESSIONAL.WINEMAKER Work Phone: [facility] 09-14-2022 19:30-0500 Diastolic blood pressure 78 mm[Hg] Levi Meyers COMMUNICATIONS PROFESSIONAL.WINEMAKER Work Phone: [facility] 09-14-2022 19:30-0500 Heart rate 108 /min Levi Pendlebury COMMUNICATIONS PROFESSIONAL.WINEMAKER Work Phone: [facility] 09-14-2022 19:30-0500 Respiratory rate 18 /min Levi Pendlebury COMMUNICATIONS PROFESSIONAL.WINEMAKER Work Phone: [facility] 09-14-2022 19:30-0500 SaO2% (BldA) [Mass fraction] 98 % Levi Pendlebury COMMUNICATIONS PROFESSIONAL.WINEMAKER Work Phone: [facility] 09-14-2022 19:30-0500 Systolic blood pressure 122 mm[Hg] Levi Pendlebury COMMUNICATIONS PROFESSIONAL.WINEMAKER Work Phone: [facility] 08-30-2022 17:08-0500 Body temperature 100.2 [degF] Levi Pendlebury COMMUNICATIONS PROFESSIONAL.WINEMAKER Work Phone: [facility] 08-30-2022 17:08-0500 Body weight 94.53 kg Levi Pendlebury COMMUNICATIONS PROFESSIONAL.WINEMAKER Work Phone: [facility] 08-30-2022 17:08-0500 Diastolic blood pressure 76 mm[Hg] Levi Pendlebury COMMUNICATIONS PROFESSIONAL.WINEMAKER Work Phone: [facility] 08-30-2022 17:08-0500 Heart rate 133 /min Levi Pendlebury COMMUNICATIONS PROFESSIONAL.WINEMAKER Work Phone: [facility] 08-30-2022 17:08-0500 Respiratory rate 18 /min Levi Pendlebury COMMUNICATIONS PROFESSIONAL.WINEMAKER Work Phone: [facility] 08-30-2022 17:08-0500 SaO2% (BldA) [Mass fraction] 98 % Levi Pendlebury COMMUNICATIONS PROFESSIONAL.WINEMAKER Work Phone: [facility] 08-30-2022 17:08-0500 Systolic blood pressure 128 mm[Hg] Levi Pendlebury COMMUNICATIONS PROFESSIONAL.WINEMAKER Work Phone: [facility] 04-04-2022 11:53-0400 Body temperature 100 [degF] Jocelyn Boogie COMMUNICATIONS PROFESSIONAL.WINEMAKER Work Phone: [facility] 04-04-2022 11:53-0400 Body weight 88 kg Jocelyn Boogie COMMUNICATIONS PROFESSIONAL.WINEMAKER Work Phone: [facility] 04-04-2022 11:53-0400 Diastolic blood pressure 72 mm[Hg] Jocelyn Deeler-Coleen COMMUNICATIONS PROFESSIONAL.WINEMAKER Work Phone: [facility] 04-04-2022 11:53-0400 Heart rate 119 /min Jocelyn Og-Coleen COMMUNICATIONS PROFESSIONAL.WINEMAKER Work Phone: [facility] 04-04-2022 11:53-0400 Respiratory rate 21 /min Jocelyn Og-Coleen COMMUNICATIONS PROFESSIONAL.WINEMAKER Work Phone: [facility] 04-04-2022 11:53-0400 SaO2% (BldA) [Mass fraction] 99 % Jocelyn Og-Coleen COMMUNICATIONS PROFESSIONAL.WINEMAKER Work Phone: [facility] 04-04-2022 11:53-0400 Systolic blood pressure 118 mm[Hg] Jocelyn Og-Coleen COMMUNICATIONS PROFESSIONAL.WINEMAKER Work Phone: [facility] Encounters Encounter Date Encounter Type Care Provider Facility Start: 07-20-2025 End: 07-20-2025 ambulatory JOCELYN BOOGIE Facility:[facility] Start: 06-14-2025 End: 06-14-2025 ambulatory [facility] Start: 05-09-2025 End: 05-09-2025 Patient encounter procedure Celine LEO Work Phone: [facility] [place] Comment on above: Acute otitis media, right (Primary Dx); URI, acute Start: 05-09-2025 End: 05-09-2025 ambulatory [facility] Facility:[facility] Start: 03-16-2025 End: 05-16-2025 Follow-up encounter Amy Sands APRN.WINEMAKER Work Phone: OB/Gynecology Start: 03-16-2025 End: 03-16-2025 ambulatory AMY SANDS Facility:[facility] Start: 03-16-2025 End: 03-16-2025 Patient encounter procedure Amy Sands APRN.WINEMAKER Work Phone: OB/Gynecology Comment on above: Encounter for gyneco logical examination with abnormal finding (Primary Dx); Irregular menses; Encounter for repeat prescription of oral contraceptives; Recurrent HSV (herpes simplex virus); Screen for STD (sexually transmitted disease); Screening for cervical cancer; Encounter for screening for human papillomavirus (HPV) Start: 03-16-2025 End: 03-16-2025 Patient encounter status Amy Sands APRN.WINEMAKER Work Phone: [facility] Work Phone: Start: 03-16-2025 End: 03-16-2025 ambulatory AMY SANDS Facility:[facility] Start: 03-16-2025 Encounter for gynecological examination (general) (routine) with abnormal findings AMY SANDS [facility] Start: 03-12-2025 End: 03-12-2025 Telemedicine consultation with patient Marcial Velazquez MD Work Phone: [facility] [place] Start: 03-12-2025 End: 03-12-2025 ambulatory Marcial Velazquez MD Work Phone: Family [facility] [place] Comment on above: Anxiety with depress ion (Primary Dx); Alcohol use Start: 03-09-2025 End: 03-12-2025 ambulatory Ping Byrd APRN.WINEMAKER Work Phone: Family [facility] [place] Comment on above: Drinking habits. Start: 02-19-2025 End: 02-19-2025 Patient encounter procedure Sheila Austin APRN.WINEMAKER Work Phone: OB/Gynecology Comment on above: Dermatitis Start: 02-19-2025 End: 02-19-2025 ambulatory SHEILA AUSTIN Facility:[facility] Start: 01-28-2025 End: 01-28-2025 Office outpatient visit 15 minutes Marcial Velazquez MD Work Phone: Family [facility] [place] Comment on above: Class 2 obesity with body mass index (BMI) of 39.0 to 39.9 in adult, unspecified obesity type, unspecified whether serious comorbidity present Start: 01-28-2025 End: 01-28-2025 ambulatory MARCIAL VELAZQUEZ Facility:[facility] Start: 01-05-2025 End: 03-07-2025 Follow-up encounter Sheila Austin APRN.WINEMAKER Work Phone: OB/Gynecology Comment on above: Results Start: 01-04-2025 End: 01-04-2025 Office outpatient visit 15 minutes Ping Byrd APRN.WINEMAKER Work Phone: [facility] [place] Comment on above: Anxiety with depress ion Start: 01-04-2025 End: 01-04-2025 ambulatory PING BYRD Facility:[facility] Start: 01-04-2025 End: 01-04-2025 Follow-up encounter Juan A Marcus APRN.WINEMAKER Work Phone: [facility] [place] Comment on above: Results Start: 01-04-2025 End: 01-04-2025 Patient encounter procedure Sheila Austin APRN.WINEMAKER Work Phone: OB/Gynecology Comment on above: Vaginal odor (Primar y Dx); Vaginal irritation; Vulvar irritation Start: 01-04-2025 End: 01-04-2025 ambulatory SHEILA AUSTIN Facility:[facility] Start: 01-04-2025 ambulatory SKYLAR Zarate cility:[facility] Start: 01-04-2025 End: 01-04-2025 Subsequent hospital visit by physician Lenka [facility] [place] Work Phone: Radiology Comment on above: Bacterial pneumonia [J15.9] Start: 11-12-2024 End: 11-12-2024 Patient encounter procedure Marcial Velazquez MD Work Phone: [facility] [place] Comment on above: Class 2 obesity with body mass index (BMI) of 39.0 to 39.9 in adult, unspecified obesity type, unspecified whether serious comorbidity present (Primary Dx) Start: 11-12-2024 End: 11-12-2024 ambulatory Skylar Denise APRN.WINEMAKER Work Phone: [facility] [place] Comment on above: Weight loss Start: 08-31-2024 End: 09-01-2024 Telephone encounter Marcial Velazquez MD Work Phone: [facility] [place] Comment on above: Results; Patient Upd ate Start: 08-28-2024 End: 08-28-2024 Telephone encounter Ping Byrd APRN.WINEMAKER Work Phone: [facility] [place] Comment on above: Results Start: 08-28-2024 ambulatory MARCIAL VELAZQUEZ Facil ity:[facility] Start: 08-28-2024 End: 08-28-2024 Subsequent hospital visit by physician [facility] Comment on above: Left lower quadrant pain [R10.32] Start: 08-28-2024 End: 08-28-2024 ambulatory [facility] Facility:[facility] Start: 08-28-2024 End: 08-28-2024 Office outpatient visit 25 minutes Ping Byrd APRN.WINEMAKER Work Phone: [facility] [place] Comment on above: Left lower quadrant abdominal pain (Primary Dx); Generalized abdominal pain; LLQ pain Start: 08-28-2024 End: 08-28-2024 ambulatory PING BLANCA Facility:[facility] Start: 07-07-2024 End: 07-07-2024 ambulatory Skylar Denise APRN.WINEMAKER Work Phone: [facility] [place] Comment on above: Buspirone and Zoloft interaction Start: 07-06-2024 End: 07-06-2024 ambulatory Skylar Denise APRN.WINEMAKER Work Phone: [facility] [place] Comment on above: Anxiety with depress ion (Primary Dx); Bacterial pneumonia Start: 07-06-2024 End: 07-06-2024 Telemedicine consultation with patient Skylarfelipe Mathewefren STERNWINEMAKER [facility] Start: 06-30-2024 End: 07-01-2024 Emergency department patient visit Tahmina Benz Facility:[facility] Start: 06-30-2024 End: 06-30-2024 Patient encounter procedure Mohsen Noble APRN.WINEMAKER Work Phone: [facility] Comment on above: Tachycardia (Primary Dx) Start: 06-17-2024 End: 07-03-2024 Telephone encounter Skylar Denise APRN.CNP Work Phone: [facility] [place] Start: 06-12-2024 End: 06-12-2024 Telephone encounter Skylar Denise APRN.CNP Work Phone: [facility] [place] Comment on above: Results (Labs/ Chest Xray ) Start: 06-12-2024 End: 06-12-2024 Subsequent hospital visit by physician Lenka [facility] [place] Work Phone: Radiology Comment on above: Chest pain varying w ith breathing [R07.1] Start: 06-12-2024 End: 06-12-2024 Patient encounter procedure Skylar Denise APRN.CNP Work Phone: [facility] [place] Comment on above: Chest pain varying w ith breathing (Primary Dx); Screening for depression Start: 06-01-2024 End: 06-01-2024 Refill Juan A Amrit DUNNE Work Phone: [facility] [place] Comment on above: Refill Request Start: 05-04-2024 End: 05-04-2024 Refill Skylar Denise APRN.WINEMAKER Work Phone: [facility] [place] Comment on above: Refill Request Start: 04-06-2024 End: 04-06-2024 Patient encounter procedure Celine LEO Work Phone: [facility] Comment on above: Acute otitis media, right (Primary Dx); URI, acute Start: 02-26-2024 Telephone encounter Skylar izaguirre APRN.CNP Work Phone: [facility] [place] Comment on above: Results (RUQ US ) Start: 02-24-2024 End: 02-24-2024 Subsequent hospital visit by physician [facility] Work Phone: Radiology Comment on above: Right upper quadrant abdominal pain [R10.11] Start: 02-14-2024 Telephone encounter Skylar izaguirre APRN.CNP Work Phone: [facility] [place] Comment on above: Results (Labs ) Start: 02-13-2024 End: 02-13-2024 Patient encounter procedure Skylar Denise APRN.WINEMAKER Work Phone: [facility] [place] Comment on above: Gastroenteritis (Marlys damir Dx); Right upper quadrant abdominal pain Start: 01-07-2024 ambulatory Skylar Denise APRN.WINEMAKER Work Phone: [facility] [place] Comment on above: Meds. Start: 01-06-2024 End: 01-06-2024 Patient encounter procedure Mohsen Noble COMMUNICATIONS PROFESSIONAL.WINEMAKER Work Phone: [facility] Comment on above: URI, acute (Primary Dx) Start: 11-18-2023 End: 11-18-2023 Patient encounter procedure Skylar Denise APRN.WINEMAKER Work Phone: [facility] Comment on above: Anxiety with depress ion (Primary Dx); Palpitations Start: 08-30-2023 End: 08-30-2023 Patient encounter procedure Zayra Burleson APRN.WINEMAKER Work Phone: [facility] Comment on above: URI with cough and c ongestion (Primary Dx) Start: 07-22-2023 Telephone encounter Skylar izaguirre APRN.WINEMAKER Work Phone: [facility] Comment on above: Results (Urine/US); Orders Start: 07-19-2023 End: 07-19-2023 Subsequent hospital visit by physician [facility] Work Phone: Radiology Comment on above: Pain in female genit dimas on intercourse [N94.10] Start: 06-27-2023 End: 06-27-2023 Patient encounter procedure Amy Sands COMMUNICATIONS PROFESSIONAL.WINEMAKER Work Phone: OB/Gynecology Comment on above: Pelvic cramping (Marlys damir Dx); Other specified dyspareunia; Vaginal irritation; Vaginal discharge; Breakthrough bleeding on control pills; Screening for STD (sexually transmitted disease) Start: 05-23-2023 End: 05-23-2023 Patient encounter procedure Randa Mckinney DO Work Phone: Orthopaedics Comment on above: Closed nondisplaced fracture of proximal phalanx of lesser toe of left foot, initial encounter (Primary Dx) Start: 05-14-2023 Orders Only Randa Mckinney DO Work Phone: Orthopaedics Comment on above: Closed nondisplaced fracture of proximal phalanx of lesser toe of left foot, initial encounter (Primary Dx) Start: 04-01-2023 End: 04-01-2023 Patient encounter procedure Sheila Austin COMMUNICATIONS PROFESSIONAL.WINEMAKER Work Phone: OB/Gynecology Comment on above: Labial lesion Start: 03-08-2023 Telephone encounter Skylar izaguirre COMMUNICATIONS PROFESSIONAL.WINEMAKER Work Phone: [facility] [place] Comment on above: Results (Labs ) Start: 03-06-2023 End: 03-06-2023 Patient encounter procedure Skylar Denise APRN.WINEMAKER Work Phone: [facility] [place] Comment on above: History of gestation al diabetes (Primary Dx); Fatigue, unspecified type Start: 02-19-2023 Orders Only Randa Mckinney DO Work Phone: Orthopaedics Comment on above: Closed nondisplaced fracture of proximal phalanx of lesser toe of left foot, initial encounter (Primary Dx) Start: 01-23-2023 ambulatory MARCIAL VELAZQUEZ [facility] Start: 01-23-2023 End: 01-23-2023 Patient encounter procedure Randa Mckinney DO Work Phone: Orthopaedics Comment on above: Closed nondisplaced fracture of proximal phalanx of lesser toe of left foot, initial encounter (Primary Dx) Start: 01-23-2023 End: 01-23-2023 Subsequent hospital visit by physician [facility] Work Phone: Radiology Comment on above: Pain in toe of left foot [M79.675] Start: 01-10-2023 End: 01-10-2023 Subsequent hospital visit by physician Lenka [facility] [place] Work Phone: Radiology Comment on above: Toe injury, left, in itial encounter [R80.177P] Start: 01-10-2023 End: 01-10-2023 Patient encounter procedure Tom Maharaj APRN.WINEMAKER Work Phone: [facility] Comment on above: Other physeal fractu re of phalanx of unspecified toe, initial encounter for closed fracture (Primary Dx); Toe injury, left, initial encounter Start: 12-07-2022 End: 12-10-2022 Evaluation and management of inpatient JESSICA IGNACIO COMMUNICATIONS PROFESSIONAL-DNP Facility:[facility] Start: 12-07-2022 End: 12-10-2022 Evaluation and management of inpatient EDUAR L YOLANDE COMMUNICATIONS PROFESSIONAL-CNM [facility] Start: 11-27-2022 End: 11-28-2022 ambulatory DARION RAMOS COMMUNICATIONS PROFESSIONAL-CNM Facility:[facility] Start: 11-27-2022 End: 11-27-2022 Patient encounter procedure DARION RAMOS COMMUNICATIONS PROFESSIONAL-CNM [facility] Start: 09-17-2022 End: 09-18-2022 ambulatory EDUAR DEL ANGEL COMMUNICATIONS PROFESSIONAL-CNM Facility:B Start: 09-14-2022 End: 09-14-2022 Office outpatient visit 15 minutes Levi Meyers APRN.WINEMAKER Work Phone: [facility] Comment on above: Throat pain (Primary Dx); Eustachian tube dysfunction, bilateral Start: 08-31-2022 Telephone encounter Levi nieto APRN.WINEMAKER Work Phone: [facility] Comment on above: Results; Patient Que stion Start: 08-30-2022 End: 08-30-2022 Office outpatient visit 15 minutes Levi Meyers APRN.WINEMAKER Work Phone: [facility] Comment on above: Viral illness (Prima ry Dx) Start: 08-24-2022 End: 08-25-2022 ambulatory DARION RAMOS COMMUNICATIONS PROFESSIONAL-CNM Facility:B Start: 08-24-2022 End: 08-24-2022 Patient encounter procedure DARION RAMOS COMMUNICATIONS PROFESSIONAL-CNM [facility] Start: 07-27-2022 End: 07-28-2022 ambulatory EDUAR DEL ANGEL COMMUNICATIONS PROFESSIONAL-CNM Facility:B Start: 05-03-2022 End: 05-04-2022 ambulatory EDUAR DEL ANGEL COMMUNICATIONS PROFESSIONAL-CNM Facility:B Start: 05-03-2022 End: 05-03-2022 Patient encounter procedure EDUAR DEL ANGEL COMMUNICATIONS PROFESSIONAL-CNM [facility] Start: 04-04-2022 End: 04-04-2022 Patient encounter procedure Jocelyn Boogie COMMUNICATIONS PROFESSIONAL.WINEMAKER Work Phone: [facility] Comment on above: Exposure to COVID-19 virus (Primary Dx); Viral illness; Other acute nonsuppurative otitis media of right ear, recurrence not specified Start: 01-25-2022 Refill Fiona Delgado Work Phone: OB/Gynecology Comment on above: Refill Request Start: 04-13-2021 End: 04-13-2021 Subsequent hospital visit by physician Xr [facility] [place] Work Phone: Radiology Comment on above: Rib pain on left apollo e [R07.81] Procedures Date Procedure Procedure Detail Performing Clinician Start: 03-16-2025 UA DIP,URINE HCG (POC) Amy Sands APRN.WINEMAKER Work Phone: Start: 01-04-2025 BACTERIAL VAGINOSIS NAAT Sheila Austin COMMUNICATIONS PROFESSIONAL.WINEMAKER Work Phone: Start: 01-04-2025 Iadna chlamydia trachomatis amplified probe tq Sheila Austin COMMUNICATIONS PROFESSIONAL.WINEMAKER Work Phone: Start: 01-04-2025 Radiologic exam ches t 2 views Skylar Denise COMMUNICATIONS PROFESSIONAL.WINEMAKER Start: 08-28-2024 UA DIP,URINE HCG (POC) Ping Byrd COMMUNICATIONS PROFESSIONAL.WINEMAKER Work Phone: Start: 08-28-2024 Urnls dip stick/tabl et rgnt auto w/o microscopy Ping Byrd COMMUNICATIONS PROFESSIONAL.WINEMAKER Work Phone: Start: 06-12-2024 Radiologic exam ches t 2 views Skylar Denise COMMUNICATIONS PROFESSIONAL.WINEMAKER Work Phone: Start: 06-12-2024 Adult depression scr eening assessment Skylar Denise COMMUNICATIONS PROFESSIONAL.WINEMAKER Work Phone: Start: 02-24-2024 Us abdominal real ti me w/image limited Skylar Mathewgiacomo COMMUNICATIONS PROFESSIONAL.WINEMAKER Work Phone: Start: 08-30-2023 COVID & INFLUENZA A/ B & RSV NAAT, ROUTINE Zayra Burleson COMMUNICATIONS PROFESSIONAL.WINEMAKER Work Phone: Start: 07-19-2023 Us pelvic nonobstetr ic image dcmtn limited/f/u [facility] COMMUNICATIONS PROFESSIONAL.WINEMAKER Work Phone: Start: 06-27-2023 BACTERIAL VAGINOSIS NAAT Amy Sands COMMUNICATIONS PROFESSIONAL.WINEMAKER Work Phone: Start: 06-27-2023 Iadna chlamydia trachomatis amplified probe tq Amy Sands COMMUNICATIONS PROFESSIONAL.[facility] Work Phone: Start: 01-23-2023 Radex toe minimum 2 views Alesha Pereira PA-C Work Phone: Start: 01-10-2023 Radex toe minimum 2 views Tom Maharaj COMMUNICATIONS PROFESSIONAL.WINEMAKER Work Phone: Start: 09-14-2022 STREP A MOLECULAR (POC) Stevenson Rodriguez MD Work Phone: Start: 04-13-2021 Radex ribs uni w/posteroant ch minimum 3 views Yayo Verduzco COMMUNICATIONS PROFESSIONAL.WINEMAKER Work Phone: Start: 03-30-2021 Adult depression scr eening assessment Fiona Salgado MD Work Phone: Start: 09-16-2020 Structure of wisdom tooth (body structure) EDUAR DEL ANGEL COMMUNICATIONS PROFESSIONAL-CNM None (qualifier value) SEJAL DEL ANGEL COMMUNICATIONS PROFESSIONAL-CNM Plan of Treatment Date Care Activity Detail Author Start: 12-09-2032 Urine microalbumin profile DTaP,Tdap,Td Vaccine (3 - Td or Tdap) [facility] Start: 03-16-2030 Screening for malign ant neoplasm of cervix Cervical Cancer Screening [facility] Start: 07-27-2029 Urine microalbumin profile [facility] Start: 04-22-2026 End: 04-22-2026 Patient encounter procedure 04/22/2026 11:30 AM EDT Office Visit OB/Gynecology [address] [place] [address] Sheila Austin APRN.WINEMAKER [address] [place] [address] Annual OB/Gynecology Comment on above: Annual Start: 03-21-2026 End: 03-21-2026 Patient encounter procedure 03/21/2026 10:15 AM EDT Office Visit OB/Gynecology [address] [place] [address] Stephanie Hale APRN.WINEMAKER [address] [place] [address] Annual OB/Gynecology Comment on above: Annual Start: 11-12-2025 Covid-19 Vaccine ( season) Covid-19 Vaccine ( season) [facility] Comment on above: Postponed from 05/17 (Declined at this time) Start: 11-12-2025 Pneumococcal vaccination Pneumococcal Vaccine (1 of 2 - PCV) [facility] Comment on above: Postponed from 04/20 (Declined at this time) Start: 06-12-2025 Depression Screening Depression Scre ening [facility] Start: 05-17-2025 Influenza vaccination Influenza Vacc ine (#1) [facility] Start: 05-03-2025 End: 05-03-2025 Patient encounter procedure 05/03/2025 3:00 PM EDT Office Visit Family Medicine [place] [address] [facility] [place] [address] Marcial Velazquez MD [address] [facility] [place] [address] 3 mo f/u [facility] [place] Comment on above: 3 mo f/u Start: 04-19-2025 End: 04-19-2025 Patient encounter procedure 04/19/2025 7:00 AM EDT Office Visit OB/Gynecology [address] [place] [address] Sheila Austin APRN.WINEMAKER [address] [place] [address] annual/discuss BC OB/Gynecology Comment on above: annual/discuss BC Start: 03-12-2025 End: 03-12-2025 ambulatory 03/12/2025 3:00 PM EDT [facility] [place] [address] [facility] [place] [address] Marcial Velazquez MD [address] [facility] [place] [address] Drinking has became a problem [facility] Comment on above: Drinking has became a problem Start: 01-28-2025 End: 01-28-2025 Patient encounter procedure 01/28/2025 4:40 PM EDT Office Visit [facility] [place] [address] [facility] [place] [address] Marcial Velazquez MD [address] [facility] [place] [address] Follow up from the phentermine [facility] Comment on above: Follow up from the p hentermine Start: 12-09-2024 End: 12-09-2024 Patient encounter procedure 12/09/2024 4:40 PM EDT Office Visit Family Medicine [place] [address] [facility] [place] [address] Skylar Denise, COMMUNICATIONS PROFESSIONAL.WINEMAKER [address] [facility] [place] [address] 1 month follow up weight [facility] [place] Comment on above: 1 month follow up we ight Start: 11-12-2024 End: 11-12-2024 Patient encounter procedure 11/12/2024 4:20 PM EST Office Visit [facility] Medicine [place] [address] [facility] [place] [address] Marcial Velazquez MD [address] [facility] [place] [address] discuss weight [facility] [place] Comment on above: discuss weight Start: 08-28-2024 End: 11-27-2024 CREATININE BLD CREATININE BLD Lab Routine Left lower quadrant abdominal pain Expected: 08/28/2024, Expires: 11/27/2024 [facility] Comment on above: Expected: 08/28/2024 , Expires: 11/27/2024 Start: 08-06-2024 End: 08-06-2024 Patient encounter procedure 08/06/2024 3:20 PM EST Appointment Radiology [address] [place] [address] Radiology Start: 08-06-2024 End: 08-05-2025 XR Chest PA and Lateral XR CHEST 2V FRONTAL/LAT Radiology Routine Bacterial pneumonia Expected: 08/06/2024, Expires: 08/05/2025 [facility] Work Phone: Comment on above: Expected: 08/06/2024 , Expires: 08/05/2025 Start: 07-06-2024 End: 07-06-2024 Follow-up encounter 07/06/2024 8:20 AM EDT [facility] [place] [address] [place] [address] Skylar Denise APRN.WINEMAKER [address] [place] [address] Anxiety meds. Follow up for pneumonia [facility] [place] Comment on above: Anxiety meds. Follow up for pneumonia Start: 06-29-2024 PAP TESTING PAP TESTING [facility] Start: 06-29-2024 Screening for malign ant neoplasm of cervix [facility] Start: 06-17-2024 End: 06-17-2024 Patient encounter procedure 06/17/2024 3:20 PM EDT Office Visit Family Medicine [place] [address] [place] [address] Skylar Denise APRN.WINEMAKER [address] [place] [address] follow up Back pain [facility] [place] Comment on above: follow up Back pain Start: 05-17-2024 Covid-19 Vaccine ( season) Covid-19 Vaccine () [facility] Start: 05-17-2024 Covid-19 Vaccine () Covid-19 Vaccine () [facility] Start: 05-17-2024 Influenza vaccination Influenza Vacc ine (#1) [facility] Start: 02-24-2024 End: 02-24-2024 Patient encounter procedure 02/24/2024 3:15 PM EDT Appointment Radiology [address] [place] [address] Right upper quadrant abdominal pain [R10.11] Radiology Comment on above: Right upper quadrant abdominal pain [R10.11] Start: 09-16-2023 Behavioral Health Screening Behavioral Health Screening [facility] Start: 09-16-2023 Depression Assessment Depression Ass essment [facility] Start: 05-17-2023 Covid-19 Vaccine () Covid-19 Vaccine () [facility] Start: 05-17-2023 Influenza vaccination C [facility] Start: 03-06-2023 End: 05-06-2023 Comprehensive metabolic 2000 panel - Serum or Plasma [facility] Work Phone: Comment on above: Expected: 03/06/2023 , Expires: 05/06/2023 Start: 03-06-2023 End: 05-06-2023 Hemoglobin A1c in Blood [facility] Work Phone: Comment on above: Expected: 03/06/2023 , Expires: 05/06/2023 Start: 03-06-2023 End: 05-06-2023 Iron and Iron binding capacity panel - Serum or Plasma [facility] Work Phone: Comment on above: Expected: 03/06/2023 , Expires: 05/06/2023 Start: 03-06-2023 End: 05-06-2023 Thyrotropin [Units/volume] in Serum or Plasma [facility] Work Phone: Comment on above: Expected: 03/06/2023 , Expires: 05/06/2023 Start: 09-16-2022 DEPRESSION ASSESSMENT DEPRESSION ASS [facility] Start: 08-30-2022 End: 09-13-2022 Influenza virus A and B RNA and SARS-CoV-2 (COVID-19) N gene panel - Respiratory specimen by SHERRELL with probe detection COVID WITH FLUA+B, ROUTINE Microbiology Routine Viral illness Expected: 08/30/2022, Expires: 09/13/2022 [facility] Work Phone: Comment on above: Expected: 08/30/2022 , Expires: 09/13/2022 Start: 05-17-2022 Influenza vaccination C [facility] Start: 04-04-2022 End: 04-18-2022 Influenza virus A and B RNA and SARS-CoV-2 (COVID-19) N gene panel - Respiratory specimen by SHERRELL with probe detection COVID WITH FLUA+B, ROUTINE Microbiology Routine Exposure to COVID-19 virus Viral illness Expected: 04/04/2022, Expires: 04/18/2022 [facility] Work Phone: Comment on above: Expected: 04/04/2022 , Expires: 04/18/2022 Start: 03-30-2022 Adult depression screening assessment DEPRESSION SCREENING [facility] Start: 09-16-2021 DEPRESSION ASSESSMENT DEPRESSION ASS ESSMENT [facility] Start: 07-27-2021 HPV VACCINE (2 - 3-d ose SCDM series) HPV VACCINE (2 - 3-dose SCDM series) [facility] Start: 2013 Hepatitis B Vaccine (1 of 3 - 19+ 3-dose series) Hepatitis B Vaccine (1 of 3 - 19+ 3-dose series) [facility] Start: 2013 ONE PNEUMOVAX PRIOR TO AGE 65 ONE PNEUMOVAX PRIOR TO AGE 65 [facility] Start: 2013 Pneumococcal vaccination Pneumococcal Vaccine (1 of 2 - PCV) [facility] Start: 2012 Depression Screening Depression Scre ening [facility] Start: 2000 PNEUMOCOCCAL (1 - PCV) PNEUMOCOCCAL (1 - PCV) [facility] Start: 2000 Pneumococcal vaccination [facility] Start: 1999 COVID-19 VACCINE (#1) COVID-19 VACCI NE (#1) [facility] Start: 1994 COVID-19 VACCINE (#1) COVID-19 VACCI NE (#1) [facility] Start: 1994 HEPATITIS B (1 of 3 - 3-dose series) HEPATITIS B (1 of 3 - 3-dose series) [facility] Start: 1994 Hepatitis B Vaccine (1 of 3 - 3-dose series) Hepatitis B Vaccine (1 of 3 - 3-dose series) [facility] Bacteria identified in Urine by Culture URINE CULTURE Microbiology Routine Left lower quadrant abdominal pain 08/28/2024 9:28 AM [facility] Chlamydia trachomatis+Neisseria gonorrhoeae DNA [Presence] in Unspecified specimen by SHERRELL with probe detection GONORRHEA/CHLAMYDIA NAAT Lab Routine Generalized abdominal pain LLQ pain 08/28/2024 9:27 AM EST [facility] Chlamydia trachomatis+Neisseria gonorrhoeae DNA [Presence] in Unspecified specimen by SHERRELL with probe detection GONORRHEA/CHLAMYDIA NAAT Lab Routine Screen for STD (sexually transmitted disease) 03/16/2025 10:28 AM EDT [facility] End: 09-27-2025 CT Abdomen and Pelvis W contrast IV CT ABD/PEL W IVCON Radiology STAT Left lower quadrant abdominal pain 1 Occurrences starting 08/28/2024 until 09/27/2025 [facility] Work Phone: Comment on above: 1 Occurrences starti ng 08/28/2024 until 09/27/2025 CT Abdomen and Pelvi s W contrast IV CT ABD/PEL W IVCON Radiology STAT Left lower quadrant abdominal pain 08/28/2024 2:04 PM EST [facility] PAP TEST PAP TEST Lab Ramy cornejo Encounter for gynecological examination with abnormal finding Screening for cervical cancer Encounter for screening for human papillomavirus (HPV) 03/16/2025 10:28 AM EDT [facility] Work Phone: End: 03-14-2025 US Abdomen RUQ US ABD RIGHT UPPER QUADRANT Radiology Routine Right upper quadrant abdominal pain 1 Occurrences starting 02/13/2024 until 03/14/2025 [facility] Work Phone: Comment on above: 1 Occurrences starti ng 02/13/2024 until 03/14/2025 End: 08-20-2024 Us pelvic nonobstetric image dcmtn limited/f/u US FEMALE PELVIS TRANSABD LTD Radiology Routine Ovarian cyst, right 1 Occurrences starting 07/22/2023 until 08/20/2024 [facility] Work Phone: Comment on above: 1 Occurrences starti ng 07/22/2023 until 08/20/2024 End: 08-20-2024 Us transvaginal US FEMALE PELVIS TRANSVAG Radiology Routine Ovarian cyst, right 1 Occurrences starting 07/22/2023 until 08/20/2024 [facility] Work Phone: Comment on above: 1 Occurrences starti ng 07/22/2023 until 08/20/2024 End: 03-20-2024 XR TOE AP/LAT/OBL LEFT XR TOE AP/LAT/OBL LEFT Radiology Routine Closed nondisplaced fracture of proximal phalanx of lesser toe of left foot, initial encounter 1 Occurrences starting 02/19/2023 until 03/20/2024 [facility] Work Phone: Comment on above: 1 Occurrences starti ng 02/19/2023 until 03/20/2024 End: 06-12-2024 XR TOE AP/LAT/OBL LEFT XR TOE AP/LAT/OBL LEFT Radiology Routine Closed nondisplaced fracture of proximal phalanx of lesser toe of left foot, initial encounter 1 Occurrences starting 05/14/2023 until 06/12/2024 [facility] Work Phone: Comment on above: 1 Occurrences starti ng 05/14/2023 until 06/12/2024 [facility] Immunizations Immunization Date Immunization Notes Care Provider Elliot nuñez 06-16-2024 influenza, seasonal, injectable, preservative free Mohsen Noble COMMUNICATIONS PROFESSIONAL.WINEMAKER Work Phone: [facility] 06-16-2024 influenza virus vacc ine, unspecified formulation Amy Sands COMMUNICATIONS PROFESSIONAL.WINEMAKER Work Phone: [facility] 06-10-2023 influenza virus vacc ine, unspecified formulation Celine Davenport PA Work Phone: [facility] 12-09-2022 tetanus toxoid, redu mariaelena diphtheria toxoid, and acellular pertussis vaccine, adsorbed EDUAR DEL ANGEL COMMUNICATIONS PROFESSIONAL-CNM [facility] 06-04-2022 influenza, seasonal, injectable Levi Luigi COMMUNICATIONS PROFESSIONAL.WINEMAKER Work Phone: [facility] 06-04-2022 influenza virus vacc ine, unspecified formulation Randa Mckinney DO Work Phone: [facility] 06-29-2021 Human Papillomavirus 9-valent vaccine Fiona Salgado MD Work Phone: [facility] 07-26-2020 influenza, seasonal, injectable Fiona Salgado MD Work Phone: [facility] 07-27-2019 tetanus toxoid, redu mariaelena diphtheria toxoid, and acellular pertussis vaccine, adsorbed Fiona Salgado MD Work Phone: [facility] 06-01-2019 influenza, injectabl e, quadrivalent, contains preservative Fiona Salgado MD Work Phone: [facility] Work Phone: Payers Date Payer Category Payer Self-pay 2022 Unknown [id number] 2022 Unknown [id number] 2022 Unknown [id number] 2021 Medicaid [employer] [id number] 2021-[facility] [phone] [place] [id number] Medicaid [id number] 2021 Medicaid [id number] 1994 Unknown [id number] 1994 Unknown [id number] 1994 Unknown [id number] 1994 Unknown [id number] 1994 Unknown [id number] 1994 Unknown [id number] 1994 Unknown [id number] Unknown [id number] Social History Date Type Detail Facility Start: 11-25-2015 End: 03-16-2025 Tobacco smoking status MSIS Smokes tobacco daily [facility] History of tobacco use Cigarette Smoker C [facility] Start: 11-25-2015 End: 10-16-2024 Cigarettes smoked current (pack per day) - Reported 0.5 [facility] Start: 11-25-2015 End: 03-16-2025 Tobacco use and exposure Smokeless tobacco non-user [facility] Start: 09-22-2021 End: 03-16-2025 Alcohol intake Current drinker of alcohol (finding) [facility] Start: 03-30-2021 History SDOH Alcohol Std Drinks 1 [facility] Start: 03-30-2021 History SDOH Alcohol Binge 2 [facility] Start: 06-14-2020 History SDOH Alcohol Comment occasionally [facility] Start: 03-30-2021 History SDOH Social Connections Phone 5 [facility] Start: 03-30-2021 History SDOH Social Connections Get Together 3 [facility] Start: 03-30-2021 History SDOH Social Connections Living 8 [facility] Start: 03-30-2021 History SDOH Physical Activity DPW 4 [facility] Start: 03-30-2021 Education 14 [facility] Start: 1994 Sex Assigned At Female [facility] Sex Assigned At Sex [facility] Start: 12-07-2022 Tobacco smoking status Heavy tobacco smoker (finding) [facility] Start: 04-01-2023 End: 10-16-2024 Tobacco use panel [facility] Start: 11-25-2015 National Score (1-100), lower number is lower risk 69 [facility] Start: 02-27-2021 Gender identity Identifies as female gender (finding) [facility] Start: 02-27-2021 Sexual orientation Heterosexual (finding) [facility] Do you belong to any clubs or organizations such as sabianism groups, [employer], [employer] or athletic groups, or school groups? No [facility] Are you now , , , , never or living with a partner? Living with partner [facility] How many standard dr inks containing alcohol do you have on a typical day? 1 or 2 [facility] How often do you hav e 6 or more drinks on 1 occasion? Less than monthly [facility] How hard is it for y ou to pay for the very basics like food, housing, medical care, and heating Not very hard [facility] Do you feel stress - tense, restless, nervous, or anxious, or unable to sleep at night because your mind is troubled all the time - these days [OSQ] To some extent [facility] (I/We) worried felisa er (my/our) food would run out before (I/we) got money to buy more. Never true [facility] Are you now , , , , never or living with a partner? Refused [facility] How often to you hav e a drink containing alcohol? Monthly or less [facility] How many standard dr inks containing alcohol do you have on a typical day? 3 or 4 [facility] Start: 03-14-2021 End: 04-13-2021 Exposure to SARS-CoV-2 (event) Unable to assess [facility] Are you now , , , , never or living with a partner? Never [facility] How often to you hav e a drink containing alcohol? 2-4 times a month [facility] How often do you hav e 6 or more drinks on 1 occasion? Never [facility] Start: 01-28-2025 Tobacco smoking status NHIS Ex-smoker [facility] History of tobacco use Current smoker [facility] Start: 01-28-2025 Tobacco Comment Quit 07/2024. Now vaping. [facility] Functional Status Date Assessment Result Facility 12-10-2022 Functional Status Rooming in [facility] 12-10-2022 Functional Status [facility] 12-10-2022 Functional Status [facility] 12-09-2022 Functional Status [facility] 12-09-2022 Functional Status Lunch Percent 100 [facility] 12-09-2022 Functional Status Ambulation in Room [facility] 12-09-2022 Functional Status [facility] 12-09-2022 Functional Status [facility] 12-08-2022 Functional Status Initiated [facility] 12-08-2022 Functional Status [facility] 12-08-2022 Functional Status [facility] 12-07-2022 Functional Status Home independently [facility] Mental Status Date Assessment Result Facility 12-09-2022 Mental Status [facility] 12-09-2022 Mental Status Oriented x 4 [facility] 12-08-2022 Mental Status [facility] Clinical Notes 07-30-2019 to 07-20-2025 Celine Davenport, FELIPA - 05/09/2025 3:13 PM EDTPatient InstructionsAmy Sands APRN.WINEMAKER - 03/16/2025 9:24 AM Marcial Wang MD - 03/12/2025 3:00 PM EDTPatient Instructions Note Date & Type Note Facility 07-20-2025 Note HNO ID: [id number] Author: JOCELYN BOOGIE APRN.WINEMAKER Service: ? Author Type: Nurse Practitioner Type: Progress Notes Filed: 07/20/2025 17:07 Note Text: [facility] [place] Subjective Julia Pisano is a 30 year old female. Patient presents with: Finger Pain: right ring finger, swollen and bruised x last night HPI The patient is a 30-year-old female presenting with right finger pain. Right Finger Pain: - Onset of pain noticed upon waking, with associated bruising. - Uncertain of specific injury or trauma. - Describes sensation as if the nail wants to pop off. - Pain exacerbated by pressure and use of the finger. - Took Tylenol for pain management. 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 Review of Systems Musculoskeletal: (+) finger pain (+) finger swelling Skin: (+) finger bruising, (+) fingernail discomfort Objective BP 138/90 Pulse 96 Temp 36 ?C (96.8 ?F) Resp 16 Wt 96.8 kg (213 lb 6.5 oz) LMP 12/24/2024 (Approximate) SpO2 98% BMI 35.51 kg/m? PAST MEDICAL HISTORY Diagnosis Date - Anxiety state - Chlamydia - Herpes, genital - History of drug use - Ovarian cyst PAST SURGICAL HISTORY Procedure Laterality Date - SECTION HX ALLERGIES Patient has no known allergies. MEDICATIONS - sertraline (ZOLOFT) 50 mg tablet Take 1 tablet by mouth once daily. - drospirenone, contraceptive, (SLYND) 4 mg (28) tabet Take 1 tablet by mouth once daily. Take active pills for 24 days and inactive pills for 4 days. (Patient not taking: Reported on 05/09/2025) FAMILY HISTORY Problem Relation Age of Onset - other (endometriosis) Mother had hysterectomy - other (polyps) Father - No Known Problems Sister - Macular Degen Maternal Grandmother - Kidney Disease Maternal Grandmother - other (celft palate) Maternal Grandfather - Breast Cancer Maternal Grandfather - Diabetes Paternal Grandmother - Parkinson?s Disease Paternal Grandfather - Depression Sister - No Known Problems Daughter SOCIAL HISTORY[1] Physical Exam Vitals and nursing note reviewed. Constitutional: General: She is not in acute distress. Appearance: Normal appearance. She is not ill-appearing. Musculoskeletal: General: Swelling, tenderness and signs of injury present. No deformity. Normal range of motion. Hands: Skin: Capillary Refill: Capillary refill takes less than 2 seconds. Findings: Bruising present. No erythema or rash. Neurological: Mental Status: She is alert. { 1. Pain in finger of right hand (M79.644) 2. Closed nondisplaced fracture of phalanx of right ring finger, unspecified phalanx, initial encounter (L65.548Y) - X-ray demonstrated a hairline lucency at the base of the fourth digit distal phalanx; radiologist read result as a non-displaced fourth digit distal phalanx fracture versus artifact. - Applied padded aluminum frog finger splint to right ring finger. - Refer to orthopedics; follow-up in 7-10 days. - Patient was given 5 day supply of Tylenol #3 after discussing pain control options- she states she cannot take ibuprofen and tylenol has not helped. - Follow-up with your PCP in 3-5 days if symptoms have not improved or sooner if symptoms worsen - Discussed red flags and need for immediate medical evaluation if any occur. - Discussed supportive care treatment with fluids, rest and analgesia. 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 Patient/authorized apparel trimmings sales representative agreed to proceed Differential Diagnoses - finger fracture is more likely for the following reason(s): suggested by HANDP and consistent with imaging - finger contusion is less likely for the following reason(s): HANDP not suggestive - subungual hematoma is less likely for the following reason(s): HANDP not suggestive - paronychia is less likely for the following reason(s): HANDP not suggestive Management I performed an independent interpretation of the following:imaging Imaging: My interpretation is hairline fracture line distal phalanx right ring finger Disposition The patient was discharged. The following prescription medication(s) were considered but ultimately not given after discussion with patient/family: antibiotic Reasons for not prescribing include the following: HANDP/workup not suggestive of bacterial process. SPLINT APPLICATION Date/Time: 07/20/2025 5:06 PM Performed by: Jocelyn Boogie APRN.WINEMAKER Authorized by: Jocelyn Boogie APRN.WINEMAKER Procedure details: Location: Right ring finger Splint Type: Finger Post-procedure: The splinted body part was neurovascularly unchanged following the procedure Tolerance: Patient tolerated the procedure well with no immediate complications Co (more content not included)... [facility] 07-20-2025 Note HNO ID: [id number] Author: NICOLASA MCELROY RT(R) Service: ? Author Type: Technologist Type: Progress Notes Filed: 07/20/2025 15:54 Note Text: Radiology Service Progress Note PATIENT NAME: Julia Pisano DATE OF SERVICE: July 20, 2025 TIME: 3:47 PM PATIENT IDENTITY VERIFICATION COMPLETED USING TWO (2) IDENTIFIERS: Name and Date of confirmed by patient verbally. FALL SCREENING: Has the patient had 2 falls in the last year or 1 fall with injury or currently using an Ambulatory Assistive Device (Walker, Cane, Wheelchair, Crutches, etc.)? No PATIENT GENDER DATA: Assigned female at . status: : No status: NO. PATIENT RELEVANT IMPLANT DATA REVIEWED: Yes PATIENT PRESENTS WITH AN IMPLANTABLE OR ATTACHED PARKS WORKER: No RADIOLOGY DEPARTMENT: General X-ray: Exam(s) Completed: Upper Extremity X-Ray(s): Fingers/Thumb, right PERIPHERAL IV DATA: Not applicable SIGNED BY: RT Flynn(R) July 20, 2025 3:47 PM [facility] 05-09-2025 History of Presen t illness Narrative [facility] Subjective Julia Pisano is a 30 year old female. Patient presents with: Ear Pain: right x this am HPI Right Otalgia: - Acute onset right ear pain began this morning. - Describes ear as poppy with associated weird sensation. - Denies left ear pain. URI Symptoms: - Nasal congestion and body aches x2-3 days. - Reports feeling hot and cold yesterday, with excessive sweating at work. - Taking Tylenol and Robitussin for symptom relief. PAST MEDICAL HISTORY Diagnosis Date Anxiety state Chlamydia Herpes, genital History of drug use Ovarian cyst PAST SURGICAL HISTORY Procedure Laterality Date SECTION HX ALLERGIES Patient has no known allergies. MEDICATIONS sertraline (ZOLOFT) 50 mg tablet Take 1 tablet by mouth once daily. amoxicillin (AMOXIL) 875 mg tablet Take 1 tablet by mouth two times a day for 7 days. drospirenone, contraceptive, (SLYND) 4 mg (28) tabet Take 1 tablet by mouth once daily. Take active pills for 24 days and inactive pills for 4 days. (Patient not taking: Reported on 05/09/2025) FAMILY HISTORY Problem Relation Age of Onset other (endometriosis) Mother had hysterectomy other (polyps) Father No Known Problems Sister Macular Degen Maternal Grandmother Kidney Disease Maternal Grandmother other (celft palate) Maternal Grandfather Breast Cancer Maternal Grandfather Diabetes Paternal Grandmother Parkinson s Disease Paternal Grandfather Depression Sister No Known Problems Daughter SOCIAL HISTORY[1] Review of Systems Constitutional: (+) fever, (+) chills, (+) diaphoresis Ears/Nose/Mouth/Throat: (+) right ear pain, (+) right ear fullness, (+) nasal congestion Musculoskeletal: (+) myalgia Objective BP 120/82 Pulse 106 Temp 36.7 C (98.1 F) Resp 16 Wt 96.4 kg (212 lb 8.4 oz) LMP 12/24/2024 (Approximate) SpO2 96% BMI 35.37 kg/m Physical Exam Vitals and nursing note reviewed. Constitutional: General: She is not in acute distress. Appearance: Normal appearance. She is not toxic-appearing. HENT: Right Ear: Ear canal normal. A middle ear effusion is present. Tympanic membrane is erythematous and bulging. Left Ear: Tympanic membrane and ear canal normal. Nose: Congestion present. Mouth/Throat: Mouth: Mucous membranes are moist. Pharynx: No oropharyngeal exudate or posterior oropharyngeal erythema. Eyes: Conjunctiva/sclera: Conjunctivae normal. Cardiovascular: Rate and Rhythm: Normal rate and regular rhythm. Pulmonary: Effort: Pulmonary effort is normal. Breath sounds: Normal breath sounds. Neurological: Mental Status: She is alert. { 1. Acute otitis media, right (H66.91) 2. URI, acute (J06.9) - Acute right otitis media with erythematous and bulging tympanic membrane on exam; recent onset of ear pain, fever, and URI symptoms. - Start antibiotics- amoxicillin. 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 Patient/authorized apparel trimmings sales representative agreed to proceed Differential Diagnoses - URI is more likely for the following reason(s): suggested by H&P - Otitis media is more likely for the following reason(s): suggested by H&P Disposition The patient was discharged. Procedures [1] Social History Tobacco Use Smoking status: Every Day Current packs/day: 0.50 Average packs/day: 0.5 packs/day for 10.0 years (5.0 ttl pk-yrs) Types: Cigarettes Smokeless tobacco: Never Tobacco comments: Quit 07/2024. Now vaping. Vaping Use Vaping status: Some Days Substances: Nicotine Devices: Disposable Substance Use Topics Alcohol use: Yes Comment: occasionally Drug use: Not Currently Types: Crystal Meth, Marijuana Comment: Last used meth Sep 2018 documented in this encounter [facility] 05-09-2025 Note HNO ID: [id number] Author: CELINE DAVENPORT PA Service: ? Author Type: Physician Supervisor Scrap Preparation Type: Progress Notes Filed: 05/09/2025 15:13 Note Text: [facility] Awa Julia Pisano is a 30 year old female. Patient presents with: Ear Pain: right x this am HPI Right Otalgia: - Acute onset right ear pain began this morning. - Describes ear as poppy with associated weird sensation. - Denies left ear pain. URI Symptoms: - Nasal congestion and body aches x2-3 days. - Reports feeling hot and cold yesterday, with excessive sweating at work. - Taking Tylenol and Robitussin for symptom relief. PAST MEDICAL HISTORY Diagnosis Date Anxiety state Chlamydia Herpes, genital History of drug use Ovarian cyst PAST SURGICAL HISTORY Procedure Laterality Date SECTION HX ALLERGIES Patient has no known allergies. MEDICATIONS sertraline (ZOLOFT) 50 mg tablet Take 1 tablet by mouth once daily. amoxicillin (AMOXIL) 875 mg tablet Take 1 tablet by mouth two times a day for 7 days. drospirenone, contraceptive, (SLYND) 4 mg (28) tabet Take 1 tablet by mouth once daily. Take active pills for 24 days and inactive pills for 4 days. (Patient not taking: Reported on 05/09/2025) FAMILY HISTORY Problem Relation Age of Onset other (endometriosis) Mother had hysterectomy other (polyps) Father No Known Problems Sister Macular Degen Maternal Grandmother Kidney Disease Maternal Grandmother other (celft palate) Maternal Grandfather Breast Cancer Maternal Grandfather Diabetes Paternal Grandmother Parkinson?s Disease Paternal Grandfather Depression Sister No Known Problems Daughter SOCIAL HISTORY[1] Review of Systems Constitutional: (+) fever, (+) chills, (+) diaphoresis Ears/Nose/Mouth/Throat: (+) right ear pain, (+) right ear fullness, (+) nasal congestion Musculoskeletal: (+) myalgia Objective BP 120/82 Pulse 106 Temp 36.7 ?C (98.1 ?F) Resp 16 Wt 96.4 kg (212 lb 8.4 oz) LMP 12/24/2024 (Approximate) SpO2 96% BMI 35.37 kg/m? Physical Exam Vitals and nursing note reviewed. Constitutional: General: She is not in acute distress. Appearance: Normal appearance. She is not toxic-appearing. HENT: Right Ear: Ear canal normal. A middle ear effusion is present. Tympanic membrane is erythematous and bulging. Left Ear: Tympanic membrane and ear canal normal. Nose: Congestion present. Mouth/Throat: Mouth: Mucous membranes are moist. Pharynx: No oropharyngeal exudate or posterior oropharyngeal erythema. Eyes: Conjunctiva/sclera: Conjunctivae normal. Cardiovascular: Rate and Rhythm: Normal rate and regular rhythm. Pulmonary: Effort: Pulmonary effort is normal. Breath sounds: Normal breath sounds. Neurological: Mental Status: She is alert. { 1. Acute otitis media, right (H66.91) 2. URI, acute (J06.9) - Acute right otitis media with erythematous and bulging tympanic membrane on exam; recent onset of ear pain, fever, and URI symptoms. - Start antibiotics- amoxicillin. 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 Procedures [1] Social History Tobacco Use Smoking status: Every Day Current packs/day: 0.50 Average packs/day: 0.5 packs/day for 10.0 years (5.0 ttl pk-yrs) Types: Cigarettes Smokeless tobacco: Never Tobacco comments: Quit 07/2024. Now vaping. Vaping Use Vaping status: Some Days Substances: Nicotine Devices: Disposable Substance Use Topics Alcohol use: Yes Comment: occasionally Drug use: Not Currently Types: Crystal Meth, Marijuana Comment: Last used meth Sep 2018 [facility] 03-16-2025 Instructions Amy Sands APRN.WINEMAKER - 03/16/2025 9:26 AM EDT - Start Slynd (progesterone-only control pill) as prescribedYou may begin taking it as soon as your test is confirmed negative. - Complete a blood test today by going downstairs to the lab (no appointment needed); if negative, start Slynd right away. - Fill the Valtrex prescription (5 tablets, one daily for 5 days with refills) at [facility] and keep it on hand for future herpes outbreaks; avoid sexual activity if you feel any tingling or burning that could signal an outbreak. - A swab for gonorrhea and chlamydia was collected today--check [facility] tomorrow for your results. - A Pap test with HPV co-testing was performed today--expect results in [facility] in 1-2 weeks. - Plan to continue yearly well-woman exams. If your Pap and HPV tests stay normal, repeat Pap/HPV testing every 5 years. - Use condoms consistently to lower your risk of STDs and HPV. - Obtain an automatic home blood pressure cuff (for example, [employer]ron brand) and monitor your blood pressure regularly: rest quietly with feet flat for 5 minutes before each reading, keep the cuff at heart level, and avoid talking or crossing your legs during measurement. documented in this encounter [facility] 03-16-2025 Note HNO ID: [id number] Author: AMY SANSD APRN.AMAURI Service: ? Author Type: Nurse Practitioner Type: Progress Notes Filed: 03/16/2025 17:17 Note Text: Development Technician offered: Patient declines. Julia is a 29 year old who presents for an annual gynecologic exam with complaints, irregular menses - discuss control options. - Reports irregular periods since starting phentermine (Adipex) for weight loss, prescribed by Dr. Velazquez. - Reports smoking and occasional vaping, using disposable, pre-filled nicotine products. - Prior to this, periods were regular, occurring every 30-40 days. Still get period: Yes LMP: 12/24/2024 Menses: Every 30-40 days lasting 2-7 days variable flow irregular - Has missed 2 menses Bleeding amount bothersome: No Bleeding between periods: No Period symptoms: Acne; Mood change control frequency: Never HPV vaccine: Yes; 1 in series documented - had side effects Last pap smear: 06/29/2021 normal HPV:NA History of abnormal pap: No, all prior PAP smears have been normal Sexually active: Yes Current sexual partner: 1 month Patient concern for STDs: new partner History of STDs: Chlamydia, genital HSV - no outbreaks for over one year - Had HPV infection at age 17-18, with no recurrences of genital warts since. Bothersome pelvic pain: No Last mammogram: never OB History Gravida3 Para3 Term3 Preterm0 AB0 Living3 SAB0 IAB0 Ectopic0 Multiple0 Live Births3 Hard Candy Spinner History LMP: 12/24/2024 (Approximate), Having periods Age at Menarche: 13 Age at First : Age at Menopause: Hard Candy Spinner History Comments: Sexual Activity: Yes; Male Contraception: Pill Menstrual Tracking History Flowsheet Row Appointment from 03/15/2025 in OB/Gynecology Period Cycle (Days) 5 Menstrual Flow Moderate PAST MEDICAL HISTORY Diagnosis Date Anxiety state Herpes, genital History of drug use PAST SURGICAL HISTORY Procedure Laterality Date NONE FAMILY HISTORY Problem Relation Age of Onset other (endometriosis) Mother had hysterectomy other (polyps) Father No Known Problems Sister Macular Degen Maternal Grandmother Kidney Disease Maternal Grandmother other (celft palate) Maternal Grandfather Diabetes Paternal Grandmother Parkinson?s Disease Paternal Grandfather Depression Sister No Known Problems Daughter SOCIAL HISTORY Social History Tobacco Use Smoking status: Former Current packs/day: 0.50 Average packs/day: 0.5 packs/day for 10.0 years (5.0 ttl pk-yrs) Types: Cigarettes Smokeless tobacco: Never Tobacco comments: Quit 07/2024. Now vaping. Vaping Use Vaping status: Some Days Substance Use Topics Alcohol use: Yes Comment: occasionally Drug use: Not Currently Types: Crystal Meth, Marijuana Comment: Last used meth Sep 2018 REVIEW OF SYSTEMS Abdomen: No abdominal pain, nausea, vomiting, diarrhea, or constipation. No bloating, early satiety, indigestion, or increased flatulence. Bladder: No dysuria, gross hematuria, urinary frequency, urinary urgency, or incontinence. Breast: No breast lumps, nipple d/c, overlying skin changes, redness or skin retraction. Allergies and current medication updated:Yes SENSITIVE EXAM: The sensitive examination was discussed with the Patient or Patient's Authorized Financial Administration Officer. As applicable, any other physician, advance practice provider, medical student, or other health professional student that will be observing or involved in the sensitive examination for educational or training purposes was discussed with the Patient or Authorized Financial Administration Officer. The Patient or Authorized Financial Administration Officer has agreed to proceed with the sensitive examination. (Sensitive examination includes inspection and/or palpation of the breasts, pelvis, prostate and anorectal regions). EXAM: BP 130/92 Ht 5' 5 (1.65m) Wt 217 lb (98.4kg) LMP 12/24/2024 BMI 36.11 kg/(m2). Repeat BP 118/88 GENERAL: pleasant, female in no apparent distress HEENT: Normocephalic, atraumatic, mucus membranes moist, and no lesions NECK: Supple, full range of motion, no adenopathy, and thyroid normal DERMATOLOGY: Normal, without lesions, non-icteric, and non-hirsute BREAST: soft, non-tender, symmetric, no dominant mass, normal nipple-areolar complex, no lymphadenopathy, and no nipple discharge CHEST: Normal inspiratory effort ABDOMEN: soft, non-tender, and no masses PELVIC: external genitalia normal, normal Bartholin's glands, urethra, St. Stephens's glands, no vulvar lesions, no cervical lesions, physiologic discharge present, normal appearing perineal body and perianal region BIMANUAL: uterus normal size, shape and consistency, no adnexal masses, and non-tender RECTOVAGINAL: deferred. NEURO: alert and oriented x3,exam grossly non-focal EXTREMITIES: normal ASSESSMENT/PLAN: 1) Health maintenance: Pap done with HPV. - Encouraged smoking/nicotine vaping cessation - Discussed patient's histo (more content not included)... [facility] 03-16-2025 History of Presen t illness Narrative Development Technician offered: Patient declines. Julia is a 29 year old who presents for an annual gynecologic exam with complaints, irregular menses - discuss control options. - Reports irregular periods since starting phentermine (Adipex) for weight loss, prescribed by Dr. Velazquez. - Reports smoking and occasional vaping, using disposable,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 Patient or Authorized Financial Administration Officer has agreed to proceed with the sensitive examination. (Sensitive examination includes inspection and/or palpation of the breasts, pelvis, prostate and anorectal regions). PHYSICAL EXAM: BP 122/78 Wt 219 lb (99.3kg) LMP 12/24/2024 GENERAL: Pleasant; in no apparent distress PULMONARY: normal inspiratory effort : - PELVIC: external genitalia with whitish discoloration at the top of the clitoral monson, superficial crack previously noted is no longer present, multiple dark painful vesicular lesions on thigh, normal appearing perineal body and perianal region - Patient consent for exam received NEURO: alert and oriented x3 EXTREMITIES: normal Assessment & Plan ASSESSMENT AND PLAN: ASSESSMENT/PLAN: 1. Dermatitis - ICD9: 692.9, ICD10: L30.9 - Apply the new prescription cream (contains a mild steroid and an antifungal) to the top of your clitoral monson twice daily for 7 days. - If the rash have not improved after 7 days, call this office to schedule a small biopsy of the area. - Over the weekend, try applying an tcyg-vsf-uvyyzca Benadryl (diphenhydramine) cream or take one Benadryl tablet at night to see if it helps your new itchy blisters. - If the Benadryl cream or tablets do not ease your symptoms, schedule an appointment with your primary care provider for further evaluation. Sheila Austin APRN.CNP Medical Decision Making: Problems: Low: Stable chronic illness Risk: Moderate: Drug management Medical Decision Making Level: 3 - Low documented in this encounter [facility] 01-28-2025 History of Presen t illness Narrative Chief Complaint Patient presents with: F/U 3 Month HPI Julia Pisano is a 29 year old female who presents here today for medication follow up. Here today for a follow up. 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 Obesity: Taking Adipex 37.5 mg daily, reports she's not been on medication for 1.5 months. States that medication does help with food cravings and decreases appetite. When she stopped the medication, she feels she binge eats. When she does eat it's been healthier food options. Weight last visit 228 lbs, today 222 lbs. Pt feels she's gained a few pounds back due to being off medication. Denies getting much exercise, other than work, taking care of kids, and being a busy single parent. Wants to get back into walking since the weather is nice. Would like to stay on medication since this did help her lose weight and decrease appetite. Anxiety - Stable with use of Zoloft 25 mg once daily. Denies this getting worse with using medication. Past medical history, appointments, medications, allergies reviewed. Previous Medical History PAST MEDICAL HISTORY Diagnosis Date Anxiety state Herpes, genital History of drug use Previous Surgical History PAST SURGICAL HISTORY Procedure Laterality Date NONE Family History FAMILY HISTORY Problem Relation Age of Onset other (endometriosis) Mother had hysterectomy other (polyps) Father No Known Problems Sister Macular Degen Maternal Grandmother Kidney Disease Maternal Grandmother other (celft palate) Maternal Grandfather Diabetes Paternal Grandmother Parkinson s Disease Paternal Grandfather Depression Sister No Known Problems Daughter Patient Allergies ALLERGIES No Known Allergies Current Medications Current Outpatient Medications on File Prior to Visit Medication Sig metroNIDAZOLE (FLAGYL) 500 mg tablet Take 1 tablet by mouth two times a day for 7 days. clobetasol (TEMOVATE) 0.05 % cream Apply to affected area 2x/day for 2 weeks, then 1x/day for a week, than 2-3x/week for maintenance. sertraline (ZOLOFT) 25 mg tablet Take 1 tablet by mouth once daily. No current facility-administered medications on file prior to visit. Social History Social History Tobacco Use Smoking status: Every Day Current packs/day: 0.50 Average packs/day: 0.5 packs/day for 10.0 years (5.0 ttl pk-yrs) Types: Cigarettes Smokeless tobacco: Never Vaping Use Vaping status: Never Used Substance Use Topics Alcohol use: Yes Comment: occasionally Drug use: Not Currently Types: Crystal Meth, Marijuana Comment: Last used meth Sep 2018 EXAM: BP 110/84 (BP Site: Left Arm, BP Position: Sitting, BP Cuff Size: Large Adult) Pulse 92 Resp 16 Wt 100.9 kg (222 lb 6.4 oz) LMP 12/24/2024 (Approximate) BMI 38.17 kg/m General Appearance: Well appearing, alert, in no acute distress, well-hydrated, well nourished. and Obese. Lungs: Lungs clear to auscultation. No wheezing, rhonchi, rales.. Heart: RRR without murmur, gallop, or rubs. No ectopy. Health Maintenance List Hepatitis B Vaccine(1 of 3 - 19+ 3-dose series) Never done Cervical Cancer Screening due on 06/29/2024 Covid-19 Vaccine(1 - 2023- season) due on 11/12/2025 Pneumococcal Vaccine(1 of 2 - PCV) due on 11/12/2025 Depression Screening due on 06/12/2025 DTaP,Tdap,Td Vaccine(3 - Td or Tdap) due on 12/09/2032 Influenza Vaccine Completed Hepatitis C Screening Completed HIV Screening Completed Data reviewed Weight graph ASSESSMENT/PLAN: 1. Class 2 obesity with body mass index (BMI) of 39.0 to 39.9 in adult, unspecified obesity type, unspecified whether serious comorbidity present - ICD9: 278.00, V85.39, ICD10: E66.812, Z68.39 Weight decreasing - Continue with Adipex - Adipex Rx for 3 months for weight check - PHENTERMINE 37.5 MG TABLET 3 mo f/u I agree with the Chief Complaint, ROS, and Past Histories independently gathered by the clinical sales support coordinator and the remaining scribed note accurately describes my personal service to the patient. Medical Decision Making: Problems: Low: Stable chronic illness Risk: Moderate: Drug management Medical Decision Making Level: 3 - Low Marcial Velazquez MD The documentation for this note was completed by Mayelin Storey MA acting as scribe for Marcial Velazquez MD. January 28, 2025 4:40 PM. Mayelin Storey MA documented in this encounter [facility] 01-28-2025 Note HNO ID: [id number] Author: MARCIAL VELAZQUEZ MD Service: ? Author Type: Physician Type: Progress Notes Filed: 01/28/2025 16:52 Note Text: Chief Complaint Patient presents with: F/U 3 Month HPI Julia Pisano is a 29 year old female who presents here today for medication follow up. Here today for a follow up. 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 Obesity: Taking Adipex 37.5 mg daily, reports she's not been on medication for 1.5 months. States that medication does help with food cravings and decreases appetite. When she stopped the medication, she feels she binge eats. When she does eat it's been healthier food options. Weight last visit 228 lbs, today 222 lbs. Pt feels she's gained a few pounds back due to being off medication. Denies getting much exercise, other than work, taking care of kids, and being a busy single parent. Wants to get back into walking since the weather is nice. Would like to stay on medication since this did help her lose weight and decrease appetite. Anxiety - Stable with use of Zoloft 25 mg once daily. Denies this getting worse with using medication. Past medical history, appointments, medications, allergies reviewed. Previous Medical History PAST MEDICAL HISTORY Diagnosis Date Anxiety state Herpes, genital History of drug use Previous Surgical History PAST SURGICAL HISTORY Procedure Laterality Date NONE Family History FAMILY HISTORY Problem Relation Age of Onset other (endometriosis) Mother had hysterectomy other (polyps) Father No Known Problems Sister Macular Degen Maternal Grandmother Kidney Disease Maternal Grandmother other (celft palate) Maternal Grandfather Diabetes Paternal Grandmother Parkinson?s Disease Paternal Grandfather Depression Sister No Known Problems Daughter Patient Allergies ALLERGIES No Known Allergies Current Medications Current Outpatient Medications on File Prior to Visit Medication Sig metroNIDAZOLE (FLAGYL) 500 mg tablet Take 1 tablet by mouth two times a day for 7 days. clobetasol (TEMOVATE) 0.05 % cream Apply to affected area 2x/day for 2 weeks, then 1x/day for a week, than 2-3x/week for maintenance. sertraline (ZOLOFT) 25 mg tablet Take 1 tablet by mouth once daily. No current facility-administered medications on file prior to visit. Social History Social History Tobacco Use Smoking status: Every Day Current packs/day: 0.50 Average packs/day: 0.5 packs/day for 10.0 years (5.0 ttl pk-yrs) Types: Cigarettes Smokeless tobacco: Never Vaping Use Vaping status: Never Used Substance Use Topics Alcohol use: Yes Comment: occasionally Drug use: Not Currently Types: Crystal Meth, Marijuana Comment: Last used meth Sep 2018 EXAM: BP 110/84 (BP Site: Left Arm, BP Position: Sitting, BP Cuff Size: Large Adult) Pulse 92 Resp 16 Wt 100.9 kg (222 lb 6.4 oz) LMP 12/24/2024 (Approximate) BMI 38.17 kg/m? General Appearance: Well appearing, alert, in no acute distress, well-hydrated, well nourished. and Obese. Lungs: Lungs clear to auscultation. No wheezing, rhonchi, rales.. Heart: RRR without murmur, gallop, or rubs. No ectopy. Health Maintenance List Hepatitis B Vaccine(1 of 3 - 19+ 3-dose series) Never done Cervical Cancer Screening due on 06/29/2024 Covid-19 Vaccine( - season) due on 11/12/2025 Pneumococcal Vaccine(1 of 2 - PCV) due on 11/12/2025 Depression Screening due on 06/12/2025 DTaP,Tdap,Td Vaccine(3 - Td or Tdap) due on 12/09/2032 Influenza Vaccine Completed Hepatitis C Screening Completed HIV Screening Completed Data reviewed Weight graph ASSESSMENT/PLAN: 1. Class 2 obesity with body mass index (BMI) of 39.0 to 39.9 in adult, unspecified obesity type, unspecified whether serious comorbidity present - ICD9: 278.00, V85.39, ICD10: E66.812, Z68.39 Weight decreasing - Continue with Adipex - Adipex Rx for 3 months for weight check - PHENTERMINE 37.5 MG TABLET 3 mo f/u I agree with the Chief Complaint, ROS, and Past Histories independently gathered by the clinical sales support coordinator and the remaining scribed note accurately describes my personal service to the patient. Medical Decision Making: Problems: Low: Stable chronic illness Risk: Moderate: Drug management Medical Decision Making Level: 3 - Low Marcial Velazquez MD The documentation for this note was completed by Mayelin Storey MA acting as scribe for Marcial Velazquez MD. January 28, 2025 4:40 PM. Mayelin Storey MA [facility] 01-05-2025 Telephone encounter Note BV positive. To treat with Flagyl 500mg PO BID for 7 days. 1) No alcohol during treatment and for 24 hours after last dose. 2) No intercourse during treatment. 3) Probiotic by mouth once daily for 30 days or as needed. Sheila Austin APRN.WINEMAKER [facility] 01-05-2025 Miscellaneous Notes BV positive. To treat with Flagyl 500mg PO BID for 7 days. 1) No alcohol during treatment and for 24 hours after last dose. 2) No intercourse during treatment. 3) Probiotic by mouth once daily for 30 days or as needed. Sheila Austin APRN.AMAURI documented in this encounter [facility] 01-04-2025 Note HNO ID: [id number] Author: PING BYRD APRN.AMAURI Service: ? Author Type: Nurse Practitioner Type: Progress Notes Filed: 01/04/2025 14:58 Note Text: This is a 29 year old female who presents today with: Julia is a 29-year-old female with a history of anxiety, presenting for a refill of sertraline. HISTORY OF PRESENT ILLNESS: Anxiety: - History of anxiety, currently managed with sertraline. - Recently ran out of sertraline; has not taken it for a couple of days. - Reports increased anxiety today due to accompanying her sister to euthanize her dog. - Describes sertraline as beneficial, reducing irritability and mood swings. - Initial side effects included feeling different, similar to quitting smoking, lasting 2 days. - Denies current side effects, including sleep disturbances or appetite changes. - Denies suicidal or homicidal ideation. - Has experienced bad days while on sertraline, but less severe than without medication. Weight Management: - Engaged in weight management, including medication. - Appointment scheduled with Dr. Velazquez in January to discuss weight loss medication. - Reports binge eating due to stress and limited time for exercise as a single mother with young children. PAST MEDICAL HISTORY: PAST MEDICAL HISTORY Diagnosis Date Anxiety state Herpes, genital History of drug use PAST SURGICAL HISTORY Procedure Laterality Date NONE ALLERGIES Patient has no known allergies. MEDICATIONS Current Outpatient Medications Medication Sig clobetasol (TEMOVATE) 0.05 % cream Apply to affected area 2x/day for 2 weeks, then 1x/day for a week, than 2-3x/week for maintenance. sertraline (ZOLOFT) 25 mg tablet Take 1 tablet by mouth once daily. No current facility-administered medications for this visit. FAMILY HISTORY Problem Relation Age of Onset other (endometriosis) Mother had hysterectomy other (polyps) Father No Known Problems Sister Macular Degen Maternal Grandmother Kidney Disease Maternal Grandmother other (celft palate) Maternal Grandfather Diabetes Paternal Grandmother Parkinson?s Disease Paternal Grandfather Depression Sister No Known Problems Daughter Social History Tobacco Use Smoking status: Every Day Current packs/day: 0.50 Average packs/day: 0.5 packs/day for 10.0 years (5.0 ttl pk-yrs) Types: Cigarettes Smokeless tobacco: Never Vaping Use Vaping status: Never Used Substance Use Topics Alcohol use: Yes Comment: occasionally Drug use: Not Currently Types: Crystal Meth, Marijuana Comment: Last used meth Sep 2018 REVIEW OF SYSTEMS Gastrointestinal: (+) binge eating Psychiatric: (+) anxiety, (-) suicidal ideation, (-) sleep disturbance EXAM: BP 132/98 Pulse 92 Resp 16 LMP 12/24/2024 (Approximate) SpO2 97% PHYSICAL EXAM: General Appearance: Well appearing, alert, in no acute distress, well-hydrated, well nourished.. Skin: Skin color, texture, turgor normal, no suspicious rashes or lesions. Head: Normocephalic, no masses, lesions, tenderness or abnormalities. Eyes: Anicteric sclera. Pupils are equally round and reactive to light. Extraocular movements are intact. . Lungs: Lungs clear to auscultation. No wheezing, rhonchi, rales.. Heart: RRR without murmur, gallop, or rubs. No ectopy. Extremities: No deformities, edema, skin discoloration, clubbing or cyanosis. Good capillary refill. . Neurologic: Gait normal. ASSESSMENT/PLAN 1. Anxiety with depression (F41.8) - Anxiety symptoms are well-managed with sertraline; no significant side effects reported. - Refilled sertraline prescription and sent to [facility]. - happy with current medication regimen. - Follow-up with Dr. Velazquez for weight loss management in January. Discussed treatment plan and patient voices understanding. Patient's questions answered appropriately. Medications and potential side effects were discussed and patient voices understanding. Return to the office as scheduled or as needed for worsening/no improvement. Ping Byrd APRN.WINEMAKER Recording using [employer] software for draft documentation of the visit was discussed with the patient/authorized apparel trimmings sales representative; all questions welcomed and answered. Patient/authorized apparel trimmings sales representative agreed to proceed [facility] 01-04-2025 History of Presen t illness Narrative This is a 29 year old female who presents today with: Julia is a 29-year-old female with a history of anxiety, presenting for a refill of sertraline. HISTORY OF PRESENT ILLNESS: Anxiety: - History of anxiety, currently managed with sertraline. - Recently ran out of sertraline; has not taken it for a couple of days. - Reports increased anxiety today due to accompanying her sister to euthanize her dog. - Describes sertraline as beneficial, reducing irritability and mood swings. - Initial side effects included feeling different, similar to quitting smoking, lasting 2 days. - Denies current side effects, including sleep disturbances or appetite changes. - Denies suicidal or homicidal ideation. - Has experienced bad days while on sertraline, but less severe than without medication. Weight Management: - Engaged in weight management, including medication. - Appointment scheduled with Dr. Velazquez in January to discuss weight loss medication. - Reports binge eating due to stress and limited time for exercise as a single mother with young children. PAST MEDICAL HISTORY: PAST MEDICAL HISTORY Diagnosis Date Anxiety state Herpes, genital History of drug use PAST SURGICAL HISTORY Procedure Laterality Date NONE ALLERGIES Patient has no known allergies. MEDICATIONS Current Outpatient Medications Medication Sig clobetasol (TEMOVATE) 0.05 % cream Apply to affected area 2x/day for 2 weeks, then 1x/day for a week, than 2-3x/week for maintenance. sertraline (ZOLOFT) 25 mg tablet Take 1 tablet by mouth once daily. No current facility-administered medications for this visit. FAMILY HISTORY Problem Relation Age of Onset other (endometriosis) Mother had hysterectomy other (polyps) Father No Known Problems Sister Macular Degen Maternal Grandmother Kidney Disease Maternal Grandmother other (celft palate) Maternal Grandfather Diabetes Paternal Grandmother Parkinson s Disease Paternal Grandfather Depression Sister No Known Problems Daughter Social History Tobacco Use Smoking status: Every Day Current packs/day: 0.50 Average packs/day: 0.5 packs/day for 10.0 years (5.0 ttl pk-yrs) Types: Cigarettes Smokeless tobacco: Never Vaping Use Vaping status: Never Used Substance Use Topics Alcohol use: Yes Comment: occasionally Drug use: Not Currently Types: Crystal Meth, Marijuana Comment: Last used meth Sep 2018 REVIEW OF SYSTEMS Gastrointestinal: (+) binge eating Psychiatric: (+) anxiety, (-) suicidal ideation, (-) sleep disturbance EXAM: BP 132/98 Pulse 92 Resp 16 LMP 12/24/2024 (Approximate) SpO2 97% PHYSICAL EXAM: General Appearance: Well appearing, alert, in no acute distress, well-hydrated, well nourished.. Skin: Skin color, texture, turgor normal, no suspicious rashes or lesions. Head: Normocephalic, no masses, lesions, tenderness or abnormalities. Eyes: Anicteric sclera. Pupils are equally round and reactive to light. Extraocular movements are intact. . Lungs: Lungs clear to auscultation. No wheezing, rhonchi, rales.. Heart: RRR without murmur, gallop, or rubs. No ectopy. Extremities: No deformities, edema, skin discoloration, clubbing or cyanosis. Good capillary refill. . Neurologic: Gait normal. ASSESSMENT/PLAN 1. Anxiety with depression (F41.8) - Anxiety symptoms are well-managed with sertraline; no significant side effects reported. - Refilled sertraline prescription and sent to [facility]. - happy with current medication regimen. - Follow-up with Dr. Velazquez for weight loss management in January. Discussed treatment plan and patient voices understanding. Patient's questions answered appropriately. Medications and potential side effects were discussed and patient voices understanding. Return to the office as scheduled or as needed for worsening/no improvement. Ping Byrd APRN.WINEMAKER Recording using [employer] software for draft documentation of the visit was discussed with the patient/authorized apparel trimmings sales representative; all questions welcomed and answered. Patient/authorized apparel trimmings sales representative agreed to proceed documented in this encounter [facility] 01-04-2025 Instructions Ping Byrd APRN.CNP - 01/04/2025 2:50 PM EDT Continue taking your Sertraline Keep your scheduled appointment in January with Dr. Velazquez regarding your weight loss medication. documented in this encounter [facility] 01-04-2025 Note HNO ID: [id number] Author: SHEILA AUSTIN APRN.AMAURI Service: ? 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 Julia Pisano is a 29 year old female who presents for problem visit vaginal rash, odor x6 months. HPI: the irritation has been on/off over the past 6 months. She has tried several OTC products, but nothing really helps. Denies any change in soaps. The area of irritation is above the clitoral monson. OB History Gravida3 Para3 Term3 Preterm0 AB0 Living3 SAB0 IAB0 Ectopic0 Multiple0 Live Births3 Hard Candy Spinner History LMP: 12/24/2024 (Approximate), Having periods Age at Menarche: Age at First : Age at Menopause: Hard Candy Spinner History Comments: Sexual Activity: Yes; Male Contraception: Pill PAST MEDICAL HISTORY Diagnosis Date Anxiety state Herpes, genital History of drug use PAST SURGICAL HISTORY Procedure Laterality Date NONE FAMILY HISTORY Problem Relation Age of Onset other (endometriosis) Mother had hysterectomy other (polyps) Father No Known Problems Sister Macular Degen Maternal Grandmother Kidney Disease Maternal Grandmother other (celft palate) Maternal Grandfather Diabetes Paternal Grandmother Parkinson?s Disease Paternal Grandfather Depression Sister No Known Problems Daughter Social History Tobacco Use Smoking status: Every Day Current packs/day: 0.50 Average packs/day: 0.5 packs/day for 10.0 years (5.0 ttl pk-yrs) Types: Cigarettes Smokeless tobacco: Never Vaping Use Vaping status: Never Used Substance Use Topics Alcohol use: Yes Comment: occasionally Drug use: Not Currently Types: Crystal Meth, Marijuana Comment: Last used meth Sep 2018 Current Outpatient Medications Medication Sig sertraline (ZOLOFT) 25 mg tablet Take 1 tablet by mouth once daily. clobetasol (TEMOVATE) 0.05 % cream Apply to affected area 2x/day for 2 weeks, then 1x/day for a week, than 2-3x/week for maintenance. No current facility-administered medications for this visit. Allergies As of Date: 01/04/2025 (No Known Allergies) Fully Assessed 01/04/2025 REVIEW OF SYSTEMS Expanded ROS: N/A Allergies and current medication updated:Yes SENSITIVE EXAM: The sensitive examination was discussed with the Patient or Patient's Authorized Financial Administration Officer. As applicable, any other physician, advance practice provider, medical student, or other health professional student that will be observing or involved in the sensitive examination for educational or training purposes was discussed with the Patient or Authorized Financial Administration Officer. The Patient or Authorized Financial Administration Officer has agreed to proceed with the sensitive examination. (Sensitive examination includes inspection and/or palpation of the breasts, pelvis, prostate and anorectal regions). EXAM: BP 118/64 Wt 220 lb (99.8kg) LMP 12/24/2024 GENERAL: pleasant, female in no apparent distress HEENT: Normocephalic, atraumatic, mucus membranes moist, and no lesions CHEST: Normal inspiratory effort Physical Exam Genitourinary: Genitourinary Comments: Superficial fissure and the area surrounding is slightly white in color. ASSESSMENT AND PLAN: Assessment AND Plan Vaginal odor Orders: FANG/TRICHOMONAS NAAT BACTERIAL VAGINOSIS NAAT GONORRHEA/CHLAMYDIA NAAT Vaginal irritation Orders: FANG/TRICHOMONAS NAAT BACTERIAL VAGINOSIS NAAT GONORRHEA/CHLAMYDIA NAAT Vulvar irritation Orders: clobetasol (TEMOVATE) 0.05 % cream; Apply to affected area 2x/day for 2 weeks, then 1x/day for a week, than 2-3x/week for maintenance. Sheila Austin, CHRIS.WINEMAKER Medical Decision Making: Problems: Low: Acute, uncomplicated illness or injury Data: Unique test(s) ordered: 2 Risk: Moderate: Drug management Medical Decision Making Level: 3 - Low [facility] 01-04-2025 History of Presen t illness Narrative Images from the original note were not included. 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 Julia Pisano is a 29 year old female who presents for problem visit vaginal rash, odor x6 months. HPI: the irritation has been on/off over the past 6 months. She has tried several OTC products, but nothing really helps. Denies any change in soaps. The area of irritation is above the clitoral monson. OB History Gravida3 Para3 Term3 Preterm0 AB0 Living3 SAB0 IAB0 Ectopic0 Multiple0 Live Births3 Hard Candy Spinner History LMP: 12/24/2024 (Approximate), Having periods Age at Menarche: Age at First : Age at Menopause: Hard Candy Spinner History Comments: Sexual Activity: Yes; Male Contraception: Pill PAST MEDICAL HISTORY Diagnosis Date Anxiety state Herpes, genital History of drug use PAST SURGICAL HISTORY Procedure Laterality Date NONE FAMILY HISTORY Problem Relation Age of Onset other (endometriosis) Mother had hysterectomy other (polyps) Father No Known Problems Sister Macular Degen Maternal Grandmother Kidney Disease Maternal Grandmother other (celft palate) Maternal Grandfather Diabetes Paternal Grandmother Parkinson s Disease Paternal Grandfather Depression Sister No Known Problems Daughter Social History Tobacco Use Smoking status: Every Day Current packs/day: 0.50 Average packs/day: 0.5 packs/day for 10.0 years (5.0 ttl pk-yrs) Types: Cigarettes Smokeless tobacco: Never Vaping Use Vaping status: Never Used Substance Use Topics Alcohol use: Yes Comment: occasionally Drug use: Not Currently Types: Crystal Meth, Marijuana Comment: Last used meth Sep 2018 Current Outpatient Medications Medication Sig sertraline (ZOLOFT) 25 mg tablet Take 1 tablet by mouth once daily. clobetasol (TEMOVATE) 0.05 % cream Apply to affected area 2x/day for 2 weeks, then 1x/day for a week, than 2-3x/week for maintenance. No current facility-administered medications for this visit. Allergies As of Date: 01/04/2025 (No Known Allergies) Fully Assessed 01/04/2025 REVIEW OF SYSTEMS Expanded ROS: N/A Allergies and current medication updated:Yes SENSITIVE EXAM: The sensitive examination was discussed with the Patient or Patient's Authorized Financial Administration Officer. As applicable, any other physician, advance practice provider, medical student, or other health professional student that will be observing or involved in the sensitive examination for educational or training purposes was discussed with the Patient or Authorized Financial Administration Officer. The Patient or Authorized Financial Administration Officer has agreed to proceed with the sensitive examination. (Sensitive examination includes inspection and/or palpation of the breasts, pelvis, prostate and anorectal regions). EXAM: BP 118/64 Wt 220 lb (99.8kg) LMP 12/24/2024 GENERAL: pleasant, female in no apparent distress HEENT: Normocephalic, atraumatic, mucus membranes moist, and no lesions CHEST: Normal inspiratory effort Physical Exam Genitourinary: Genitourinary Comments: Superficial fissure and the area surrounding is slightly white in color. ASSESSMENT AND PLAN: Assessment & Plan Vaginal odor Orders: FANG/TRICHOMONAS NAAT BACTERIAL VAGINOSIS NAAT GONORRHEA/CHLAMYDIA NAAT Vaginal irritation Orders: FANG/TRICHOMONAS NAAT BACTERIAL VAGINOSIS NAAT GONORRHEA/CHLAMYDIA NAAT Vulvar irritation Orders: clobetasol (TEMOVATE) 0.05 % cream; Apply to affected area 2x/day for 2 weeks, then 1x/day for a week, than 2-3x/week for maintenance. Sheila Austin APRN.CNP Medical Decision Making: Problems: Low: Acute, uncomplicated illness or injury Data: Unique test(s) ordered: 2 Risk: Moderate: Drug management Medical Decision Making Level: 3 - Low documented in this encounter [facility] 01-04-2025 Telephone encounter Note Patient notified. Verbalized understanding. [facility] 01-04-2025 Miscellaneous Notes Patient notified. Verbalized understanding. Please let the patient know that her chest xray was normal. No evidence of pneumonia. Nothing further needed. Juan A Marcus APRN.CNP documented in this encounter [facility] 01-04-2025 Telephone encounter Note Please let the patient know that her chest xray was normal. No evidence of pneumonia. Nothing further needed. Juan A Marcus APRN.CNP [facility] Work Phone: 01-04-2025 History of Presen t illness Narrative Radiology Service Progress Note PATIENT NAME: Julia Pisano DATE OF SERVICE: January 04, 2025 TIME: 8:22 AM PATIENT IDENTITY VERIFICATION COMPLETED USING TWO (2) IDENTIFIERS: Name and Date of confirmed by patient verbally. FALL SCREENING: Has the patient had 2 falls in the last year or 1 fall with injury or currently using an Ambulatory Assistive Device (Walker, Cane, Wheelchair, Crutches, etc.)? No PATIENT GENDER DATA: Assigned female at . status: : No status: NO. PATIENT RELEVANT IMPLANT DATA REVIEWED: Yes PATIENT PRESENTS WITH AN IMPLANTABLE OR ATTACHED PARKS WORKER: No RADIOLOGY DEPARTMENT: General X-ray: Exam(s) Completed: Chest X-Ray PERIPHERAL IV DATA: Not applicable SIGNED BY: RT Krystle(R) January 04, 2025 8:22 AM documented in this encounter [facility] 01-04-2025 Note HNO ID: [id number] Author: JOSI ACOSTA RT(Joey) Service: ? Author Type: Lead Vulcanizing Operator Type: Progress Notes Filed: 01/04/2025 08:28 Note Text: Radiology Service Progress Note PATIENT NAME: Julia Pisano DATE OF SERVICE: January 04, 2025 TIME: 8:22 AM PATIENT IDENTITY VERIFICATION COMPLETED USING TWO (2) IDENTIFIERS: Name and Date of confirmed by patient verbally. FALL SCREENING: Has the patient had 2 falls in the last year or 1 fall with injury or currently using an Ambulatory Assistive Device (Walker, Cane, Wheelchair, Crutches, etc.)? No PATIENT GENDER DATA: Assigned female at . status: : No status: NO. PATIENT RELEVANT IMPLANT DATA REVIEWED: Yes PATIENT PRESENTS WITH AN IMPLANTABLE OR ATTACHED PARKS WORKER: No RADIOLOGY DEPARTMENT: General X-ray: Exam(s) Completed: Chest X-Ray PERIPHERAL IV DATA: Not applicable SIGNED BY: RT Krystle(R) January 04, 2025 8:22 AM [facility] Rehabilitation 11-12-2024 History of Presen t illness Narrative Chief Complaint Patient presents with: Weight Problem: Weight loss options HPI Julia Pisano is a 29 year old female who presents here today for discussion on weight. Pt would like to discuss weight loss options. Pt states that since she started generic Zoloft she has had a hard time losing weight. 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 Has not been watching diet lately, the Zoloft increased her appetite. She has been on the Zoloft x 6 months now. She knows how to control diet. Has been living with her parents so her lifestyle has been restricted; she is in the process of moving into her own place. She feels she is doing a lot of boredom eating. States that after she eats she will feel hungry again within a half hour. She is not sure that she would want to use Ozempic, states she has heard bad things about it. She feels very insecure about herself due to her weight. Past medical history, appointments, medications, allergies reviewed. Previous Medical History PAST MEDICAL HISTORY Diagnosis Date Anxiety state Herpes, genital History of drug use Previous Surgical History PAST SURGICAL HISTORY Procedure Laterality Date NONE Family History FAMILY HISTORY Problem Relation Age of Onset other (endometriosis) Mother had hysterectomy other (polyps) Father No Known Problems Sister Macular Degen Maternal Grandmother Kidney Disease Maternal Grandmother other (celft palate) Maternal Grandfather Diabetes Paternal Grandmother Parkinson s Disease Paternal Grandfather Depression Sister No Known Problems Daughter Patient Allergies ALLERGIES No Known Allergies Current Medications Current Outpatient Medications on File Prior to Visit Medication Sig sertraline (ZOLOFT) 25 mg tablet Take 1 tablet by mouth once daily. busPIRone (BUSPAR) 15 mg tablet Take 1 tablet by mouth three times a day. Desogestrel-Ethinyl Estradiol (APRI) 0.15-0.03 mg per tablet Take 1 tablet by mouth once daily. omeprazole (PRILOSEC) 20 mg capsule Take 1 capsule by mouth daily before breakfast. 1/2 hr before meal. fluticasone (FLONASE ALLERGY RELIEF) 50 mcg/actuation nasal spray Use 1 Agra in each nostril once daily. (Patient not taking: Reported on 02/13/2024) No current facility-administered medications on file prior to visit. Social History Social History Tobacco Use Smoking status: Every Day Current packs/day: 0.50 Average packs/day: 0.5 packs/day for 10.0 years (5.0 ttl pk-yrs) Types: Cigarettes Smokeless tobacco: Never Vaping Use Vaping status: Never Used Substance Use Topics Alcohol use: Yes Comment: occasionally Drug use: Not Currently Types: Crystal Meth, Marijuana Comment: Last used meth Sep 2018 EXAM: BP 120/74 Pulse 88 Resp 16 Wt 103.5 kg (228 lb 2.8 oz) LMP 05/11/2024 BMI 39.17 kg/m General Appearance: Well appearing, alert, in no acute distress, well-hydrated, well nourished.. Lungs: Lungs clear to auscultation. No wheezing, rhonchi, rales.. Heart: RRR without murmur, gallop, or rubs. No ectopy. Health Maintenance List Hepatitis B Vaccine(1 of 3 - 19+ 3-dose series) Never done Cervical Cancer Screening due on 06/29/2024 Covid-19 Vaccine(1 - 2023- season) due on 11/12/2025 Pneumococcal Vaccine(1 of 2 - PCV) due on 11/12/2025 Depression Screening due on 06/12/2025 DTaP,Tdap,Td Vaccine(3 - Td or Tdap) due on 12/09/2032 Influenza Vaccine Completed Hepatitis C Screening Completed HIV Screening Completed Data reviewed Weight graph ASSESSMENT/PLAN: 1. Class 2 obesity with body mass index (BMI) of 39.0 to 39.9 in adult, unspecified obesity type, unspecified whether serious comorbidity present - ICD9: 278.00, V85.39, ICD10: E66.812, Z68.39 Weight increasing - Behavioral and pharmacological intervention and - Add Phentermine - PHENTERMINE 37.5 MG TABLET MOnitor fo any increaes in anxiety Follow up in 1 month I agree with the Chief Complaint, ROS, and Past Histories independently gathered by the clinical sales support coordinator and the remaining scribed note accurately describes my personal service to the patient. Medical Decision Making: Problems: Low: Stable chronic illness Risk: Moderate: Drug management Medical Decision Making Level: 3 - John Velazquez MD The documentation for this note was completed by Jacqui Schneider MA acting as scribe for Marcial Velazquez MD. November 12, 2024 4:28 PM. Jacqui Schneider MA documented in this encounter [facility] 11-12-2024 Note HNO ID: [id number] Author: MARCIAL VELAZQUEZ MD Service: ? Author Type: Physician Type: Progress Notes Filed: 11/12/2024 16:48 Note Text: Chief Complaint Patient presents with: Weight Problem: Weight loss options HPI Julia Pisano is a 29 year old female who presents here today for discussion on weight. Pt would like to discuss weight loss options. Pt states that since she started generic Zoloft she has had a hard time losing weight. 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 Has not been watching diet lately, the Zoloft increased her appetite. She has been on the Zoloft x 6 months now. She knows how to control diet. Has been living with her parents so her lifestyle has been restricted; she is in the process of moving into her own place. She feels she is doing a lot of boredom eating. States that after she eats she will feel hungry again within a half hour. She is not sure that she would want to use Ozempic, states she has heard bad things about it. She feels very insecure about herself due to her weight. Past medical history, appointments, medications, allergies reviewed. Previous Medical History PAST MEDICAL HISTORY Diagnosis Date Anxiety state Herpes, genital History of drug use Previous Surgical History PAST SURGICAL HISTORY Procedure Laterality Date NONE Family History FAMILY HISTORY Problem Relation Age of Onset other (endometriosis) Mother had hysterectomy other (polyps) Father No Known Problems Sister Macular Degen Maternal Grandmother Kidney Disease Maternal Grandmother other (celft palate) Maternal Grandfather Diabetes Paternal Grandmother Parkinson?s Disease Paternal Grandfather Depression Sister No Known Problems Daughter Patient Allergies ALLERGIES No Known Allergies Current Medications Current Outpatient Medications on File Prior to Visit Medication Sig sertraline (ZOLOFT) 25 mg tablet Take 1 tablet by mouth once daily. busPIRone (BUSPAR) 15 mg tablet Take 1 tablet by mouth three times a day. Desogestrel-Ethinyl Estradiol (APRI) 0.15-0.03 mg per tablet Take 1 tablet by mouth once daily. omeprazole (PRILOSEC) 20 mg capsule Take 1 capsule by mouth daily before breakfast. 1/2 hr before meal. fluticasone (FLONASE ALLERGY RELIEF) 50 mcg/actuation nasal spray Use 1 Agra in each nostril once daily. (Patient not taking: Reported on 02/13/2024) No current facility-administered medications on file prior to visit. Social History Social History Tobacco Use Smoking status: Every Day Current packs/day: 0.50 Average packs/day: 0.5 packs/day for 10.0 years (5.0 ttl pk-yrs) Types: Cigarettes Smokeless tobacco: Never Vaping Use Vaping status: Never Used Substance Use Topics Alcohol use: Yes Comment: occasionally Drug use: Not Currently Types: Crystal Meth, Marijuana Comment: Last used meth Sep 2018 EXAM: BP 120/74 Pulse 88 Resp 16 Wt 103.5 kg (228 lb 2.8 oz) LMP 05/11/2024 BMI 39.17 kg/m? General Appearance: Well appearing, alert, in no acute distress, well-hydrated, well nourished.. Lungs: Lungs clear to auscultation. No wheezing, rhonchi, rales.. Heart: RRR without murmur, gallop, or rubs. No ectopy. Health Maintenance List Hepatitis B Vaccine(1 of 3 - 19+ 3-dose series) Never done Cervical Cancer Screening due on 06/29/2024 Covid-19 Vaccine( - 2023- season) due on 11/12/2025 Pneumococcal Vaccine(1 of 2 - PCV) due on 11/12/2025 Depression Screening due on 06/12/2025 DTaP,Tdap,Td Vaccine(3 - Td or Tdap) due on 12/09/2032 Influenza Vaccine Completed Hepatitis C Screening Completed HIV Screening Completed Data reviewed Weight graph ASSESSMENT/PLAN: 1. Class 2 obesity with body mass index (BMI) of 39.0 to 39.9 in adult, unspecified obesity type, unspecified whether serious comorbidity present - ICD9: 278.00, V85.39, ICD10: E66.812, Z68.39 Weight increasing - Behavioral and pharmacological intervention and - Add Phentermine - PHENTERMINE 37.5 MG TABLET MOnitor fo any increaes in anxiety Follow up in 1 month I agree with the Chief Complaint, ROS, and Past Histories independently gathered by the clinical sales support coordinator and the remaining scribed note accurately describes my personal service to the patient. Medical Decision Making: Problems: Low: Stable chronic illness Risk: Moderate: Drug management Medical Decision Making Level: 3 - Low Marcial Velazquez MD The documentation for this note was completed by Jacqui Schneider MA acting as scribe for Marcial Velazquez MD. November 12, 2024 4:28 PM. Jacqui Schneider MA [facility] 11-12-2024 Telephone encounter Note Pt accepted 4:[address] Velazquez today. Jacqui Schneider MA [facility] 11-12-2024 Miscellaneous Notes Pt accepted 4:[address] Velazquez today. Jacqui Schneider MA Offered appt today at 4:20 Pm with PCP to discuss weight loss. Awaiting pt reply. Jacqui Schneider MA documented in this encounter [facility] 11-12-2024 Telephone encounter Note Offered appt today at 4:20 Pm with PCP to discuss weight loss. Awaiting pt reply. Jacqui Schneider MA [facility] 09-01-2024 Telephone encounter Note Call to pt and notified her of Providers message below. Pt understood this and verbalized understanding. Appreciated PCP reviewing and office reaching out. Mayelin Storey MA [facility] 09-01-2024 Miscellaneous Notes Call to pt and notified her of Providers message below. Pt understood this and verbalized understanding. Appreciated PCP reviewing and office reaching out. Mayelin Storey MA Since her pain has improved I would recommend just monitoring for now. She may have had some inflammation in her colon that caused the pain and elevated WBC, and has now resolved itself. Her urine test looks OK; does not look like an infection. Marcial Velazquez MD Pt called in asking about urine culture. I let her know, No further workup. Mixed microbiota can be due to urine contamination with skin bacteria at time of collection. I told her she may not have wiped well enough when she did the culture. Pt states she used all three of the wipes. 10,000 -<50,000 CFU/ml Mixed microbiota Abnormal Pt states she isn't having any pain, but her WBCs were 13.65, so Ping Byrd RING SEWER though she had an infection somewhere. Pt states when she has to urinate she has to go then and she can't stop it. She states sometimes she isn't able to hold it until she gets to the bathroom and will have an accident. Pt denies urine smelling or being dark. She states she had a CT and it showed 2 ovarian cysts. Please call and advise. documented in this encounter [facility] 09-01-2024 Telephone encounter Note Since her pain has improved I would recommend just monitoring for now. She may have had some inflammation in her colon that caused the pain and elevated WBC, and has now resolved itself. Her urine test looks OK; does not look like an infection. Marcial Velazquez MD [facility] Work Phone: 08-31-2024 Telephone encounter Note Pt called in asking about urine culture. I let her know, No further workup. Mixed microbiota can be due to urine contamination with skin bacteria at time of collection. I told her she may not have wiped well enough when she did the culture. Pt states she used all three of the wipes. 10,000 -<50,000 CFU/ml Mixed microbiota Abnormal Pt states she isn't having any pain, but her WBCs were 13.65, so Ping Bryd RING SEWER though she had an infection somewhere. Pt states when she has to urinate she has to go then and she can't stop it. She states sometimes she isn't able to hold it until she gets to the bathroom and will have an accident. Pt denies urine smelling or being dark. She states she had a CT and it showed 2 ovarian cysts. Please call and advise. [facility] 08-28-2024 Telephone encounter Note Pt notified. She verbalized understanding. Nate Chang LPN [facility] 08-28-2024 Miscellaneous Notes Pt notified. She verbalized understanding. Nate Chang LPN Can please let patient know that I received her results. Her bloodwork just showed that her white blood count was up just a little bit. We did sent her urine for culture, to ensure that there is no urinary infection. The urine dip we did here looked normal. Her CT looked good. It did how ovarian cysts. This is likely what is causing her discomfort. She definitely can do some tylenol an ibuprofen to help with pain. If no improvement/worsening, she should consider follow-up with SENIOR [facility]A TESTER for further evaluation. Ping Byrd APRN.CNP documented in this encounter [facility] 08-28-2024 Telephone encounter Note Can please let patient know that I received her results. Her bloodwork just showed that her white blood count was up just a little bit. We did sent her urine for culture, to ensure that there is no urinary infection. The urine dip we did here looked normal. Her CT looked good. It did how ovarian cysts. This is likely what is causing her discomfort. She definitely can do some tylenol an ibuprofen to help with pain. If no improvement/worsening, she should consider follow-up with SENIOR [facility]A TESTER for further evaluation. Ping Byrd APRN.CNP [facility] 08-28-2024 Note HNO ID: [id number] Author: DUANE DIANE CT Service: Radiology Author Type: Technologist Type: Progress Notes Filed: 08/28/2024 14:05 Note Text: Radiology Service Progress Note DATE OF SERVICE: August 28, 2024 TIME: 1:48 PM PATIENT IDENTITY VERIFICATION COMPLETED USING TWO (2) STANDARD IDENTIFIERS: Name and Date of confirmed by patient verbally. FALL SCREENING: Has the patient had 2 falls in the last year or 1 fall with injury or currently using an Ambulatory Assistive Device (Walker, Cane, Wheelchair, Crutches, etc.)? No PATIENT GENDER DATA: Female. status: : No status: NO. PATIENT RELEVANT IMPLANT DATA REVIEWED: Not Applicable PATIENT PRESENTS WITH AN IMPLANTABLE OR ATTACHED PARKS WORKER: No ALLERGIES: Reviewed and unchanged CONTRAST ALLERGY: NO. EXAM: CT -CONTRAST INDUCED NEPHROPATHY RISK FACTORS: Not applicable CREATININE: Creatinine Date Value Ref Range Status 08/28/2024 0.84 0.58 - 0.96 mg/dL Final 06/12/2024 0.90 0.58 - 0.96 mg/dL Final 02/13/2024 0.93 0.58 - 0.96 mg/dL Final Estimated Glomerular Filtration Rate Date Value Ref Range Status 08/28/2024 96 >=60 mL/min/1.73m? Final Comment: Estimated Glomerular Filtration Rate (eGFR) is calculated using the 2020 CKD-EPI creatinine equation. This equation utilizes serum creatinine, sex, and age as parameters. The creatinine assay has traceable calibration to isotope dilution-mass spectrometry. Refer to KDIGO guidelines for clinical interpretation. In patients with unstable renal function, e.g. those with acute kidney injury, the eGFR may not accurately reflect actual GFR. eGFR- Date Value Ref Range Status 02/27/2021 >60 Final P.O.C.T. RESULTS: N/A August 28, 2024 TREATMENT: N/A PERIPHERAL IV DATA: Ambulatory: A peripheral IV was started in the Right upper extremity antecubital site with a Angio cath: 22 gauge. RADIOLOGY DEPARTMENT: CT; Exam(s) Completed: Abdomen/Pelvis SIGNATURE: DUKE Espinal PATIENT NAME: Julia Pisano DATE: August 28, 2024 TIME: 1:48 PM [facility] 08-28-2024 Instructions Ping Byrd APRN.CNP - 08/28/2024 9:28 AM EST Get the CT scan today. Get labs. If any worsening pain or new symptoms (fever/chills, vomiting, etc) to the ER. documented in this encounter [facility] 08-28-2024 Note HNO ID: [id number] Author: PING BYRD APRN.CNP Service: ? Author Type: Nurse Practitioner Type: Progress Notes Filed: 08/28/2024 09:46 Note Text: This is a 29 year old female who presents today with: Patient presents with: Acute Visit: Abdominal pain that started yesterday in L lower quad HISTORY OF PRESENT ILLNESS: Julia Pisano is a 29 year old female. Patient presents with: Acute Visit: Abdominal pain that started yesterday in L lower quad Pt presents today with complaint of lower abdomen pain left sided. Started w/ left abdominal pain yesterday. Cramping. Got worse last night. Rolled around in bed. Couldn't get comfortable. Refers that stools have been softer. Usually goes daily. Moved bowels several times yesterday. Refers stooling didn't affect the pain as much, except a little better except the pressure is better. Urinating also helps a little bit by relieving some pressure. No hematochezia/melena. No hematuria. No vaginal symptoms. Doesn't think any concerns of STD's -- exclusive relationship. Not opposed to testing. Hx of ovarian cysts. No fever/chills. No n/v. Not taking anything for pain. PAST MEDICAL HISTORY: PAST MEDICAL HISTORY Diagnosis Date Anxiety state Herpes, genital History of drug use PAST SURGICAL HISTORY Procedure Laterality Date NONE ALLERGIES Patient has no known allergies. MEDICATIONS Current Outpatient Medications Medication Sig sertraline (ZOLOFT) 25 mg tablet Take 1 tablet by mouth once daily. busPIRone (BUSPAR) 15 mg tablet Take 1 tablet by mouth three times a day. Desogestrel-Ethinyl Estradiol (APRI) 0.15-0.03 mg per tablet Take 1 tablet by mouth once daily. omeprazole (PRILOSEC) 20 mg capsule Take 1 capsule by mouth daily before breakfast. 1/2 hr before meal. fluticasone (FLONASE ALLERGY RELIEF) 50 mcg/actuation nasal spray Use 1 Agra in each nostril once daily. (Patient not taking: Reported on 02/13/2024) No current facility-administered medications for this visit. FAMILY HISTORY Problem Relation Age of Onset other (endometriosis) Mother had hysterectomy other (polyps) Father No Known Problems Sister Macular Degen Maternal Grandmother Kidney Disease Maternal Grandmother other (celft palate) Maternal Grandfather Diabetes Paternal Grandmother Parkinson?s Disease Paternal Grandfather Depression Sister No Known Problems Daughter Social History Tobacco Use Smoking status: Every Day Current packs/day: 0.50 Average packs/day: 0.5 packs/day for 10.0 years (5.0 ttl pk-yrs) Types: Cigarettes Smokeless tobacco: Never Vaping Use Vaping status: Never Used Substance Use Topics Alcohol use: Yes Comment: occasionally Drug use: Not Currently Types: Crystal Meth, Marijuana Comment: Last used meth Sep 2018 EXAM: BP 114/88 Pulse 97 Resp 16 LMP 05/11/2024 SpO2 98% PHYSICAL EXAM: General Appearance: Well appearing, alert, in no acute distress, well-hydrated, well nourished.. Skin: Skin color, texture, turgor normal, no suspicious rashes or lesions. Head: Normocephalic, no masses, lesions, tenderness or abnormalities. Eyes: Anicteric sclera. Extraocular movements are intact. . Neck: Supple, no adenopathy; thyroid symmetric, normal size, no bruits. Lungs: Lungs clear to auscultation. No wheezing, rhonchi, rales.. Heart: RRR without murmur, gallop, or rubs. No ectopy. Abdomen: Abdomen soft. Tenderness across the lower abdomen -- worse in the LLQ. Bowel sounds normal. No masses, organomegaly. Mild guarding and rebound. Neg heel tap. Extremities: No deformities, edema, skin discoloration, clubbing or cyanosis. Good capillary refill. . Neurologic: Gait normal. ASSESSMENT/PLAN: 1. Left lower quadrant abdominal pain - ICD9: 789.04, ICD10: R10.32 (primary diagnosis) - Work up with CT Abdomen/Pelvis LLQ pain with change in stool character -- will get CT to r/o diverticulitis. She also has hx of ovarian cysts. Last menses last month. Neg preg test. - CT ABD/PEL W IVCON - IV CONTRAST (RADIOLOGY PROCEDURE) - NOT ON MAR - ENTERIC CONTRAST (RADIOLOGY PROCEDURE) - NOT ON MAR - CREATININE BLD - COMPLETE BLOOD COUNT AND DIFFERENTIAL - COMPREHENSIVE METABOLIC PANEL 2. Generalized abdominal pain - ICD9: 789.07, ICD10: R10.84 - UA DIP, URINE (POC) - UA DIP,URINE HCG (POC) - GONORRHEA/CHLAMYDIA NAAT 3. LLQ pain - ICD9: 789.04, ICD10: R10.32 - GONORRHEA/CHLAMYDIA NAAT Discussed treatment plan and patient voices understanding. Patient's questions answered appropriately. Medications and potential side effects were discussed and patient voices understanding. Return to the office as scheduled or as needed for worsening/no improvement. Ping Byrd APRN.[facility] 08-28-2024 History of Presen t illness Narrative This is a 29 year old female who presents today with: Patient presents with: Acute Visit: Abdominal pain that started yesterday in L lower quad HISTORY OF PRESENT ILLNESS: Julia Pisano is a 29 year old female. Patient presents with: Acute Visit: Abdominal pain that started yesterday in L lower quad Pt presents today with complaint of lower abdomen pain left sided. Started w/ left abdominal pain yesterday. Cramping. Got worse last night. Rolled around in bed. Couldn't get comfortable. Refers that stools have been softer. Usually goes daily. Moved bowels several times yesterday. Refers stooling didn't affect the pain as much, except a little better except the pressure is better. Urinating also helps a little bit by relieving some pressure. No hematochezia/melena. No hematuria. No vaginal symptoms. Doesn't think any concerns of STD's -- exclusive relationship. Not opposed to testing. Hx of ovarian cysts. No fever/chills. No n/v. Not taking anything for pain. PAST MEDICAL HISTORY: PAST MEDICAL HISTORY Diagnosis Date Anxiety state Herpes, genital History of drug use PAST SURGICAL HISTORY Procedure Laterality Date NONE ALLERGIES Patient has no known allergies. MEDICATIONS Current Outpatient Medications Medication Sig sertraline (ZOLOFT) 25 mg tablet Take 1 tablet by mouth once daily. busPIRone (BUSPAR) 15 mg tablet Take 1 tablet by mouth three times a day. Desogestrel-Ethinyl Estradiol (APRI) 0.15-0.03 mg per tablet Take 1 tablet by mouth once daily. omeprazole (PRILOSEC) 20 mg capsule Take 1 capsule by mouth daily before breakfast. 1/2 hr before meal. fluticasone (FLONASE ALLERGY RELIEF) 50 mcg/actuation nasal spray Use 1 Agra in each nostril once daily. (Patient not taking: Reported on 02/13/2024) No current facility-administered medications for this visit. FAMILY HISTORY Problem Relation Age of Onset other (endometriosis) Mother had hysterectomy other (polyps) Father No Known Problems Sister Macular Degen Maternal Grandmother Kidney Disease Maternal Grandmother other (celft palate) Maternal Grandfather Diabetes Paternal Grandmother Parkinson s Disease Paternal Grandfather Depression Sister No Known Problems Daughter Social History Tobacco Use Smoking status: Every Day Current packs/day: 0.50 Average packs/day: 0.5 packs/day for 10.0 years (5.0 ttl pk-yrs) Types: Cigarettes Smokeless tobacco: Never Vaping Use Vaping status: Never Used Substance Use Topics Alcohol use: Yes Comment: occasionally Drug use: Not Currently Types: Crystal Meth, Marijuana Comment: Last used meth Sep 2018 EXAM: BP 114/88 Pulse 97 Resp 16 LMP 05/11/2024 SpO2 98% PHYSICAL EXAM: General Appearance: Well appearing, alert, in no acute distress, well-hydrated, well nourished.. Skin: Skin color, texture, turgor normal, no suspicious rashes or lesions. Head: Normocephalic, no masses, lesions, tenderness or abnormalities. Eyes: Anicteric sclera. Extraocular movements are intact. . Neck: Supple, no adenopathy; thyroid symmetric, normal size, no bruits. Lungs: Lungs clear to auscultation. No wheezing, rhonchi, rales.. Heart: RRR without murmur, gallop, or rubs. No ectopy. Abdomen: Abdomen soft. Tenderness across the lower abdomen -- worse in the LLQ. Bowel sounds normal. No masses, organomegaly. Mild guarding and rebound. Neg heel tap. Extremities: No deformities, edema, skin discoloration, clubbing or cyanosis. Good capillary refill. . Neurologic: Gait normal. ASSESSMENT/PLAN: 1. Left lower quadrant abdominal pain - ICD9: 789.04, ICD10: R10.32 (primary diagnosis) - Work up with CT Abdomen/Pelvis LLQ pain with change in stool character -- will get CT to r/o diverticulitis. She also has hx of ovarian cysts. Last menses last month. Neg preg test. - CT ABD/PEL W IVCON - IV CONTRAST (RADIOLOGY PROCEDURE) - NOT ON MAR - ENTERIC CONTRAST (RADIOLOGY PROCEDURE) - NOT ON MAR - CREATININE BLD - COMPLETE BLOOD COUNT AND DIFFERENTIAL - COMPREHENSIVE METABOLIC PANEL 2. Generalized abdominal pain - ICD9: 789.07, ICD10: R10.84 - UA DIP, URINE (POC) - UA DIP,URINE HCG (POC) - GONORRHEA/CHLAMYDIA NAAT 3. LLQ pain - ICD9: 789.04, ICD10: R10.32 - GONORRHEA/CHLAMYDIA NAAT Discussed treatment plan and patient voices understanding. Patient's questions answered appropriately. Medications and potential side effects were discussed and patient voices understanding. Return to the office as scheduled or as needed for worsening/no improvement. Ping Byrd APRN.CNP documented in this encounter [facility] 07-07-2024 Telephone encounter Note Please review pt message. Any side effects that pt should be made aware of with taking both medications together. Made pt aware that Provider would not Rx meds together that would be concerning. Also made pt aware that she doesn't have to use Buspar TID if concerned. Mayelin Storey MA [facility] 07-07-2024 Miscellaneous Notes Please review pt message. Any side effects that pt should be made aware of with taking both medications together. Made pt aware that Provider would not Rx meds together that would be concerning. Also made pt aware that she doesn't have to use Buspar TID if concerned. Mayelin Storey MA documented in this encounter [facility] 07-06-2024 Instructions Skylar Denise APRN.CNP - 07/06/2024 9:11 AM EDT Start Zoloft 25 mg daily. Increase BuSpar 15 mg 3 times daily. Recommend establishing care with counselor. Get repeat chest x-ray in 1 month. Follow-up in 1 month or sooner as needed. documented in this encounter [facility] 07-06-2024 History of Presen t illness Narrative Chief Complaint Patient presents with: Anxiety: Pneumonia follow up This Team Access Model encounter involved medical decision making outside of a scheduled office visit. Patient was offered a virtual/telemedicine appointment in lieu of an office visit due to recommendations to reduce patient exposure to COVID-19. VIdeo was used for evaluation of this patient. Patient agrees to the visit: Yes Patient Location: [place] I have communicated my name and active licensure. The patient's identity and physical location were verified at the time of this visit. 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 HPI Julia Pisano is a 29 year old female who is contacted today for a virtual visit This is an established patient of Dr. Marcial Velazquez MD Reports: Anxiety: Taking BuSpar 10 mg 3 times daily. Increased stress and anxiety. Having panic attacks one weekly. No SI/HI. No difficulty sleeping. Pneumonia: Was seen in [facility] on 06/30/2024 for chest pain, was having tachycardia in the 160s, referred to the ER. CTA chest revealed a dense streaky patch of left lower lobe to include pneumonia. Treated with IV Levaquin and discharged on Levaquin. EKG showed sinus tachycardia. Negative COVID/flu/RSV. Was having on panic attacks. Feeling well. No SOB, fever, or chills. Past medical history, appointments, medications, allergies reviewed 07/06/2024 Previous Medical History PAST MEDICAL HISTORY Diagnosis Date Anxiety state Herpes, genital History of drug use Previous Surgical History PAST SURGICAL HISTORY Procedure Laterality Date NONE Family History FAMILY HISTORY Problem Relation Age of Onset other (endometriosis) Mother had hysterectomy other (polyps) Father No Known Problems Sister Macular Degen Maternal Grandmother Kidney Disease Maternal Grandmother other (celft palate) Maternal Grandfather Diabetes Paternal Grandmother Parkinson s Disease Paternal Grandfather Depression Sister No Known Problems Daughter Patient Allergies ALLERGIES No Known Allergies Current Medications Current Outpatient Medications on File Prior to Visit Medication Sig Desogestrel-Ethinyl Estradiol (APRI) 0.15-0.03 mg per tablet Take 1 tablet by mouth once daily. busPIRone (BUSPAR) 10 mg tablet Take 1 tablet by mouth three times a day. omeprazole (PRILOSEC) 20 mg capsule Take 1 capsule by mouth daily before breakfast. 1/2 hr before meal. fluticasone (FLONASE ALLERGY RELIEF) 50 mcg/actuation nasal spray Use 1 Agra in each nostril once daily. (Patient not taking: Reported on 02/13/2024) No current facility-administered medications on file prior to visit. Social History Social History Tobacco Use Smoking status: Every Day Current packs/day: 0.50 Average packs/day: 0.5 packs/day for 10.0 years (5.0 ttl pk-yrs) Types: Cigarettes Smokeless tobacco: Never Vaping Use Vaping status: Never Used Substance Use Topics Alcohol use: Yes Comment: occasionally Drug use: Not Currently Types: Crystal Meth, Marijuana Comment: Last used meth Sep 2018 Review of Symptoms GENERAL: No malaise or fatigue. No fevers. HEENT: Negative for headaches No eye discharge or redness No earaches No sore throat Nose POS/NEG for congestion and nasal discharge NECK: Negative for pain or swelling. No lumps RESPIRATORY: No wheezing, SOB, Difficulty breathing. No cough CARDIOVASCULAR: Negative for chest pain GI: No nausea, vomiting, or diarrhea MUSCULOSKELETAL: Negative for bodyaches SKIN: Negative for rash or itching Neuro: No lightheadedness or dizziness Mood: + anxiety/Panic EXAM: LMP 05/11/2024 Limited exam as visit was completed over the virtual platform. Virtual visit completed using video, limited exam completed. Patient sounds or appears ill: No General Appearance: Well appearing, alert, in no acute distress, well-hydrated, well nourished. Skin: Skin color normal Head: Normocephalic. No facial swelling or redness. EENT: Eyes nonreddened. No discharge. External ears nonreddened and no swelling. Neck: No mass or lesions. No swelling. FROM Patient is not able to speak in complete sentences: N/A Patient has labored breathing: No. Patient is audibly coughing: No Psych: Attitude - cooperative, easily engaged in conversation Affect - Euthymic, normal mood Mental status: Alert. Speech is clear and fluent with good repetition, comprehension Appearance - Normal hygiene and grooming appropriate Coordination: No abnormal or extraneous movements. Gait/Stance: Posture is normal. Health Maintenance List Pneumococcal Vaccine(1 of 2 - PCV) Never done Hepatitis B Vaccine(1 of 3 - 19+ 3-dose series) Never done HPV Vaccine(2 - 3-dose SCDM series) due on 07/27/2021 Covid-19 Vaccine(2023- season) Never done Cervical Cancer Screening due on 06/29/2024 Depression Screening due on 06/12/2025 DTaP,Tdap,Td Vaccine(3 - Td or Tdap) due on 12/09/2032 Influenza Vaccine Completed Hepatitis C Screening Completed HIV Screening Completed Data reviewed Last 5 Encounter BP Readings: Date: BP: 06/30/2024 124/80 06/12/2024 95/68 04/06/2024 110/80 02/13/2024 96/70 01/06/2024 128/80 BMI Readings from Last 5 Encounters: 06/30/24 : 38.71 kg/m 06/12/24 : 38.11 kg/m 04/06/24 : 36.14 kg/m 02/13/24 : 34.67 kg/m 01/06/24 : 35.08 kg/m Last 5 Encounter Wt Readings: Date: Wt: 06/30/2024 102.3 kg (225 lb 8.5 oz) 06/12/2024 100.7 kg (222 lb 0.1 oz) 04/06/2024 95.5 kg (210 lb 8.6 oz) 02/13/2024 91.6 kg (202 lb) 01/06/2024 92.7 kg (204 lb 5.9 oz) Medication and allergy list reviewed, reconciled and updated 07/06/2024 ASSESSMENT/PLAN: 1. Anxiety with depression - ICD9: 300.4, ICD10: F41.8 (primary diagnosis) - Start Zoloft 25 mg daily - Increase Buspar 15 mg TID - Recommend establishing care with counselor - SERTRALINE 25 MG TABLET - BUSPIRONE 15 MG TABLET 2. Bacterial pneumonia - ICD9: 482.9, ICD10: J15.9 - Get repeat chest xray in 1 month - Continue supportive care at home. - XR CHEST 2V FRONTAL/LAT Follow-up in 1 month or sooner as needed. Discussed treatment plan and patient voices understanding. Patient's questions answered appropriately. Medications and potential side effects were discussed and patient voices understanding. Skylar Denise APRN.WINEMAKER Total appointment time on virtual with patient = 30 minutes This note was partially generated using [employer] voice recognition system. Note was reviewed for accuracy. There may be minor misspellings or grammar miscues with [employer] voice recognition. documented in this encounter [facility] 06-30-2024 History of Presen t illness Narrative This note was created using [employer]. Subjective Julia Pisano is a 29 year old female. HPI Pt complains of chest, body aches, chest pain and high heart rate for the last day. She thinks her high heart rate has been for the last hour. She states that she does not have chest pain per se however her chest just feels uncomfortable and she can tell that her heart is racing. Review of Systems Constitutional: Negative for fever. Cardiovascular: Positive for chest pain and palpitations. Objective BP 124/80 Pulse (!) 162 Temp (!) 38.9 C (102 F) Resp 20 Wt 102.3 kg (225 lb 8.5 oz) LMP 05/11/2024 SpO2 96% BMI 38.71 kg/m Physical Exam Vitals and nursing note reviewed. Constitutional: General: She is not in acute distress. Appearance: Normal appearance. She is not ill-appearing. HENT: Head: Normocephalic. Mouth/Throat: Mouth: Mucous membranes are moist. Eyes: Conjunctiva/sclera: Conjunctivae normal. Cardiovascular: Rate and Rhythm: Regular rhythm. Tachycardia present. Pulmonary: Effort: Pulmonary effort is normal. Breath sounds: Normal breath sounds. Musculoskeletal: General: Normal range of motion. Cervical back: Normal range of motion. Skin: General: Skin is warm and dry. Neurological: General: No focal deficit present. Mental Status: She is alert. Psychiatric: Mood and Affect: Mood normal. Behavior: Behavior normal. Assessment and Plan ASSESSMENT/PLAN: 1. Tachycardia - ICD9: 785.0, ICD10: R00.0 Patient had benign physical exam other than a heart rate in the 160s. I explained the patient that with a heart rate at that level I felt that she should be evaluated at an emergency department or they could ensure that there were no other acute pathologies causing her symptoms. Patient will self transport with her boyfriend to [facility]. She was offered a squad which she declined. She was in no acute distress at time of discharge. Mohsen Noble APRN.WINEMAKER documented in this encounter [facility] 06-17-2024 Telephone encounter Note TC to pt. LM to call office, ask for triage nurse to get reschedule for another day. Due to a Family emergency for provider. Robyn Burns LPN [facility] 06-17-2024 Miscellaneous Notes TC to pt. LM to call office, ask for triage nurse to get reschedule for another day. Due to a Family emergency for provider. Robyn Burns LPN documented in this encounter [facility] 06-12-2024 Telephone encounter Note Patient calls and notified of results and providers instructions. Patient verbalizes understanding. Mallory Edwards RN [facility] 06-12-2024 Miscellaneous Notes Patient calls and notified of results and providers instructions. Patient verbalizes understanding. Mallory Edwards RN Left message to return call Can you please call the patient and let her know that I reviewed her x-ray and lab results. Chest x-ray was normal. Labs were normal as well. D-dimer was not elevated. I would like her to continue to monitor symptoms. Please let me know if she has any additional questions. Skylar Denise APRN.AMAURI documented in this encounter [facility] 06-12-2024 Telephone encounter Note Left message to return call [facility] 06-12-2024 Telephone encounter Note Can you please call the patient and let her know that I reviewed her x-ray and lab results. Chest x-ray was normal. Labs were normal as well. D-dimer was not elevated. I would like her to continue to monitor symptoms. Please let me know if she has any additional questions. Skylar Denise APRN.WINEMAKER [facility] 06-12-2024 History of Presen t illness Narrative Radiology Service Progress Note PATIENT NAME: Julia Pisano DATE OF SERVICE: June 12, 2024 TIME: 11:04 AM PATIENT IDENTITY VERIFICATION COMPLETED USING TWO (2) IDENTIFIERS: Name and Date of confirmed by patient verbally. FALL SCREENING: Has the patient had 2 falls in the last year or 1 fall with injury or currently using an Ambulatory Assistive Device (Walker, Cane, Wheelchair, Crutches, etc.)? No PATIENT GENDER DATA: Female. status: : No status: NO. PATIENT RELEVANT IMPLANT DATA REVIEWED: Not Applicable PATIENT PRESENTS WITH AN IMPLANTABLE OR ATTACHED PARKS WORKER: No RADIOLOGY DEPARTMENT: General X-ray: Exam(s) Completed: Chest X-Ray PERIPHERAL IV DATA: Not applicable SIGNED BY: RT Byron(R) June 12, 2024 11:04 AM documented in this encounter [facility] 06-12-2024 Instructions Skylar Denise APRN.CNP - 06/12/2024 10:56 AM EDT Get labs and chest xray completed Red flag symptoms go to ER Follow up pending test results documented in this encounter [facility] 06-12-2024 History of Presen t illness Narrative This is a 29 year old female who presents today with: Patient presents with: Acute Visit: Back pain HISTORY OF PRESENT ILLNESS: Julia Pisano is a 29 year old female. Patient presents with: Acute Visit: Back pain Here in the office for back pain. Started about 3 weeks ago. No injury to the area. Refers that it is mid back/ left side, hurts with deep breaths. Burning pain. Tried tylenol without much benefit. No SOB or difficulty breathing. Taking OCP, vaping daily. PAST MEDICAL HISTORY: PAST MEDICAL HISTORY Diagnosis Date Anxiety state Herpes, genital History of drug use PAST SURGICAL HISTORY Procedure Laterality Date NONE ALLERGIES Patient has no known allergies. MEDICATIONS Current Outpatient Medications Medication Sig Desogestrel-Ethinyl Estradiol (APRI) 0.15-0.03 mg per tablet Take 1 tablet by mouth once daily. busPIRone (BUSPAR) 10 mg tablet Take 1 tablet by mouth three times a day. omeprazole (PRILOSEC) 20 mg capsule Take 1 capsule by mouth daily before breakfast. 1/2 hr before meal. fluticasone (FLONASE ALLERGY RELIEF) 50 mcg/actuation nasal spray Use 1 Agra in each nostril once daily. (Patient not taking: Reported on 02/13/2024) No current facility-administered medications for this visit. FAMILY HISTORY Problem Relation Age of Onset other (endometriosis) Mother had hysterectomy other (polyps) Father No Known Problems Sister Macular Degen Maternal Grandmother Kidney Disease Maternal Grandmother other (celft palate) Maternal Grandfather Diabetes Paternal Grandmother Parkinson s Disease Paternal Grandfather Depression Sister No Known Problems Daughter Social History Tobacco Use Smoking status: Every Day Current packs/day: 0.50 Average packs/day: 0.5 packs/day for 10.0 years (5.0 ttl pk-yrs) Types: Cigarettes Smokeless tobacco: Never Vaping Use Vaping status: Never Used Substance Use Topics Alcohol use: Yes Comment: occasionally Drug use: Not Currently Types: Crystal Meth, Marijuana Comment: Last used meth Sep 2018 REVIEW OF SYSTEMS GENERAL: No weight loss, malaise or fevers/chills HEENT: Negative for frequent or significant headaches, No changes in hearing or vision. NECK: Negative for lumps, goiter, pain and significant neck swelling RESPIRATORY: Negative for cough, hemoptysis, wheezing, dyspnea or shortness of breath CARDIOVASCULAR: Negative for chest pain, leg swelling, orthopnea, or palpitations GI: No nausea, vomiting, or diarrhea/constipation. No hematochezia/melena. No heartburn or reflux symptoms. : No history of dysuria, frequency or incontinence MUSCULOSKELETAL: Negative for joint pain or swelling. + Back Pain SKIN: Negative for lesions, rash, and itching ENDOCRINE: Negative for cold or heat intolerance, polyuria, polydipsia and goiter NEURO: No history of headaches, syncope, paralysis, seizures or tremors MOOD: Negative for depression, anxiety, or suicidal ideation. EXAM: BP 95/68 Pulse 88 Resp 16 Wt 100.7 kg (222 lb 0.1 oz) LMP 05/11/2024 SpO2 98% BMI 38.11 kg/m PHYSICAL EXAM: General Appearance: Well appearing, alert, in no acute distress, well-hydrated, well nourished.. Skin: Skin color, texture, turgor normal, no suspicious rashes or lesions. Head: Normocephalic, no masses, lesions, tenderness or abnormalities. Eyes: Anicteric sclera. Pupils are equally round and reactive to light. Extraocular movements are intact. . Lungs: Lungs clear to auscultation. No wheezing, rhonchi, rales.. Heart: RRR without murmur, gallop, or rubs. No ectopy. Extremities: No deformities, edema, skin discoloration, clubbing or cyanosis. Good capillary refill. . Musculoskeletal: No joint swelling, deformity, or tenderness. Peripheral Pulses: Normal, Capillary refill <2secs, strong peripheral pulses, Pulses palpable. Neurologic: Gait normal. Reflexes normal and symmetric. Sensation grossly intact.. ASSESSMENT/PLAN: 1. Chest pain varying with breathing - ICD9: 786.50, ICD10: R07.1 (primary diagnosis) - Symptoms more than likely musculoskeletal in nature. However due to use of OCPs and tobacco use, will order further workup. - Get labs and Xray completed - Red flag symptoms given to patient, she verbalizes understanding when to seek care. - COMPLETE BLOOD COUNT AND DIFFERENTIAL - D-DIMER - COMPREHENSIVE METABOLIC PANEL - XR CHEST 2V FRONTAL/LAT 2. Screening for depression - ICD9: V79.0, ICD10: Z13.31 - DEPRESSION SCREENING Follow-up pending test results or sooner as needed. Discussed treatment plan and patient voices understanding. Patient's questions answered appropriately. Medications and potential side effects were discussed and patient voices understanding. Skylar Denise APRN.CNP This note was partially generated using [employer] voice recognition system. Note was reviewed for accuracy. There may be minor misspellings or grammar miscues with [employer] voice recognition. documented in this encounter [facility] 06-01-2024 Telephone encounter Note Buspar refilled 05/04/24 with 5 additional refills to [facility]. Pt notified via [employer]. Jacqui Schneider MA [facility] 06-01-2024 Miscellaneous Notes Buspar refilled 05/04/24 with 5 additional refills to [facility]. Pt notified via [employer]. Jacqui Schneider MA documented in this encounter [facility] 05-04-2024 Telephone encounter Note The following approved medication requests have been transmitted electronically. Requested Prescriptions Pending Prescriptions Disp Refills busPIRone (BUSPAR) 10 mg tablet 90 tablet 5 Sig: Take 1 tablet by mouth three times a day. Juan A Marcus APRN.CNP [facility] 05-04-2024 Miscellaneous Notes The following approved medication requests have been transmitted electronically. Requested Prescriptions Pending Prescriptions Disp Refills busPIRone (BUSPAR) 10 mg tablet 90 tablet 5 Sig: Take 1 tablet by mouth three times a day. Juan A Mracus APRN.AMAURI Prescription Refill Information The patient has been identified by name and date of : Yes Caregiver verified no other encounters exist for this prescription request: Yes Caregiver confirmed with patient/requestor that no other refills are due, in the near future, with this provider at this time: Yes The last office visit in the department: 02/13/24 Does the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 Normocephalic and atraumatic. Right Ear: Tympanic membrane, ear canal and external ear normal. Left Ear: Tympanic membrane, ear canal and external ear normal. Nose: Mucosal edema, congestion and rhinorrhea present. Right Sinus: No maxillary sinus tenderness or frontal sinus tenderness. Left Sinus: No maxillary sinus tenderness or frontal sinus tenderness. Mouth/Throat: Pharynx: Uvula midline. No oropharyngeal exudate or posterior oropharyngeal erythema. Cardiovascular: Rate and Rhythm: Normal rate and regular rhythm. Heart sounds: Normal heart sounds. Pulmonary: Effort: Pulmonary effort is normal. Breath sounds: Normal breath sounds. Lymphadenopathy: Head: Right side of head: No submental, submandibular or tonsillar adenopathy. Left side of head: No submental, submandibular or tonsillar adenopathy. Cervical: No cervical adenopathy. Skin: General: Skin is warm and dry. Neurological: Mental Status: She is alert. Psychiatric: Mood and Affect: Affect normal. ASSESSMENT/PLAN: 1. URI with cough and congestion - ICD9: 465.9, ICD10: J06.9 - Discussed viral etiology and rationale for treatment. - Symptomatic treatment with prn analgesia - Supportive care with fluids and rest - The patient may also use warm salt water gargles, throat lozenges and/or OTC throat spray as needed Testing ordered Comfort measures discussed - see patient instructions. When to seek higher level of care Notified in 12-24 hours with results, available on [employer]. - COVID & INFLUENZA A/B & RSV NAAT, ROUTINE Diagnosis and treatment plan were discussed and questions were answered to the patient's satisfaction. Pt acknowledged understanding of concepts and follow up plan. Specific signs and symptoms that would indicate the need for higher level of care were discussed in detail warranting prompt ER evaluation. Zayra Burleson APRN.AMAURI documented in this encounter [facility] 07-22-2023 Miscellaneous Notes Patient notified and verbalized understanding. Warm transfer to [facility] to schedule. Gaby Brennan MA Can you please call the patient and let her know that her urine culture came back negative for any bacterial growth. I reviewed her ultrasound results, ultrasound showed a right hemorrhagic ovarian cyst. This should resolve on its own. I would like to get a repeat ultrasound in 6 weeks. Order is in. Please let me know if she has any questions. Thank you. Skylar Denise APRN.AMAURI documented in this encounter [facility] 07-19-2023 History of Presen t illness Narrative Radiology Service Progress Note PATIENT NAME: Julia Pisano DATE OF SERVICE: July 19, 2023 TIME: 2:24 PM PATIENT IDENTITY VERIFICATION COMPLETED USING TWO (2) IDENTIFIERS: Name and Date of confirmed by patient verbally. FALL SCREENING: Has the patient had 2 falls in the last year or 1 fall with injury or currently using an Ambulatory Assistive Device (Walker, Cane, Wheelchair, Crutches, etc.)? No PATIENT GENDER DATA: Female. status: : No status: NO. PATIENT RELEVANT IMPLANT DATA REVIEWED: Not Applicable RADIOLOGY DEPARTMENT: Ultrasound PERIPHERAL IV DATA: Not applicable SIGNED BY: Rosario Arboleda RDMS RVT July 19, 2023 2:24 PM documented in this encounter [facility] 06-27-2023 History of Presen t illness Narrative Julia Pisano is a 28 year old female who presents for problem visit cramping and pain with SI for 2 weeks. HPI: Menstrual cramping-type pain and pain with intercourse x 2 weeks. Feels pain and swelling to vaginal carlos and feels like penis is hitting a wall. Lubricant did not help the bruised feeling. No change in discharge. Mild and intermittent vulvar itching. Odd odor. No recent antibiotic.History of genital herpes. Last outbreak 1-2 months ago treated with episodic anti-viral. Sexually active with one partner, unprotected. 6 months . Resumed NOHEMY 4 months ago. Is having a menses during placebo pills and during second week of pills. OB History T3 L3 SAB0 IAB0 Ectopic0 Multiple0 Live Births3 Hard Candy Spinner History LMP: 05/30/2023 (Within Days), Having periods Age at Menarche: Age at First : Age at Menopause: Hard Candy Spinner History Comments: Sexual Activity: Yes; Male Contraception: Pill PAST MEDICAL HISTORY Diagnosis Date Anxiety state Herpes, genital History of drug use PAST SURGICAL HISTORY Procedure Laterality Date NONE FAMILY HISTORY Problem Relation Age of Onset other (endometriosis) Mother had hysterectomy other (polyps) Father No Known Problems Sister Macular Degen Maternal Grandmother Kidney Disease Maternal Grandmother other (celft palate) Maternal Grandfather Diabetes Paternal Grandmother Parkinson s Disease Paternal Grandfather Depression Sister No Known Problems Daughter Social History Tobacco Use Smoking status: Every Day Packs/day: 0.50 Years: 10.00 Additional pack years: 0.00 Total pack years: 5.00 Types: Cigarettes Smokeless tobacco: Never Vaping Use Vaping Use: Never used Substance Use Topics Alcohol use: Yes Comment: occasionally Drug use: Not Currently Types: Crystal Meth, Marijuana Comment: Last used meth Sep 2018 Current Outpatient Medications Medication Sig hydrOXYzine HCl (ATARAX) 25 mg tablet Take 1-2 tablets by mouth every 6 hours as needed for anxiety. Norethin Dhiraj-Eth Estrad-FE 1 mg-20 mcg (21)/75 mg (7) per tablet take 1 tablet by mouth once daily No current facility-administered medications for this visit. Allergies As of Date: 06/27/2023 (No Known Allergies) Fully Assessed 06/27/2023 REVIEW OF SYSTEMS Abdomen: No bloating, early satiety, indigestion, or increased flatulence. No abdominal pain, nausea, vomiting, diarrhea, or constipation. Bladder: No dysuria, gross hematuria, urinary frequency, urinary urgency, or incontinence. Allergies and current medication updated:Yes EXAM: BP 106/68 Wt 203 lb (92.1kg) LMP 05/30/2023 GENERAL: pleasant, female in no apparent distress CHEST: Normal inspiratory effort ABDOMEN: soft, non-tender, and no masses PELVIC: external genitalia normal, normal Bartholin's glands, urethra, [place]. Stephens's glands, no vulvar lesions, no cervical lesions, good vaginal support, small amount off-white discharge present, normal appearing perineal body and perianal region BIMANUAL: uterus normal size, shape and consistency, no adnexal masses, non-tender, and no cervical motion tenderness NEURO: alert and oriented x3,exam grossly non-focal ASSESSMENT/PLAN: 1. Pelvic cramping - ICD9: 625.9, ICD10: R10.2 (primary diagnosis) - BACTERIAL VAGINOSIS NAAT - FANG/TRICHOMONAS NAAT - GONORRHEA/CHLAMYDIA NAAT 2. Other specified dyspareunia - ICD9: 625.0, ICD10: N94.19 - BACTERIAL VAGINOSIS NAAT - FANG/TRICHOMONAS NAAT - GONORRHEA/CHLAMYDIA NAAT 3. Vaginal irritation - ICD9: 623.9, ICD10: N89.8 - BACTERIAL VAGINOSIS NAAT - FANG/TRICHOMONAS NAAT - GONORRHEA/CHLAMYDIA NAAT 4. Vaginal discharge - ICD9: 623.5, ICD10: N89.8 - BACTERIAL VAGINOSIS NAAT - FANG/TRICHOMONAS NAAT - GONORRHEA/CHLAMYDIA NAAT 5. Breakthrough bleeding on control pills - ICD9: 626.6, ICD10: N92.1 - Will change to Apri from [employer] - DESOGESTREL 0.15 MG-ETHINYL ESTRADIOL 0.03 MG TABLET 6. Screening for STD (sexually transmitted disease) - ICD9: V74.5, ICD10: Z11.3 - BACTERIAL VAGINOSIS NAAT - FANG/TRICHOMONAS NAAT - GONORRHEA/CHLAMYDIA NAAT - Discussed condom use for safe sex. Will notify of results. Follow- up as needed. Medical Decision Making: Problems: Low: Acute, uncomplicated illness or injury Moderate: 1+ chronic illnesses with change Data: Unique test(s) ordered: 3+ Medical Decision Making Level: 4 - Moderate Amy Sands APRN.WINEMAKER documented in this encounter [facility] 05-23-2023 History of Presen t illness Narrative Follow Up Visit Chief Complaint Julia Pisano is a 28 year old female who presents today for follow up office visit. Patient presents with: Left 5th Toe - Follow Up, Fracture History of Present Illness PAIN EVALUATION No data found in the last 1 encounters. HPI: Julia Pisano is a 28 year old female for a follow up visit 19 weeks post fracture of L 5th toe. Denies pain. Has new XR completed today to review. Is there any overall improvement in your condition? Yes Any new injury, since being seen last: No REVIEW OF SYMPTOMS: Patient did not have, and does not currently have, any weight loss, malaise, fever, chills, headache, chest pain, chest pressure, palpitations, cough, shortness of breath, orthopnea, paroxsymal nocturnal dyspnea, nausea, vomiting, diarrhea, constipation, melena, hematochezia, urinary difficulties, prolonged bleeding, easily bruising, heat or cold intolerance, new onset joint pain or swelling, new onset extremity weakness or numbness, new onset auditory or visual disturbances, lightheadedness, dizziness, partial loss of consciousness or full loss of consciousness. Current Outpatient Medications Medication Sig Norethin Dhiraj-Eth Estrad-FE 1 mg-20 mcg (21)/75 mg (7) per tablet take 1 tablet by mouth once daily hydrOXYzine HCl (ATARAX) 25 mg tablet Take 1-2 tablets by mouth every 6 hours as needed for anxiety. No current facility-administered medications for this visit. Physical Exam Vitals: [facility] 03/30/2023 Psych: Pleasant, good affect and mood General Appearance: Well appearing, alert, in no acute distress, well-hydrated, well nourished.. Skin: Skin color, texture, turgor normal, no suspicious rashes or lesions. Peripheral Pulses: Normal. Neurologic: Gait normal. Reflexes normal and symmetric. Sensation grossly intact.. Lymph Nodes: No cervical lymphadenopathy, No supraclavicular lymphadenopathy, No axillary lymphadenopathy., and No inguinal lymphadenopathy.. Respiratory: No recent pulmonary infection, hemoptysis, chronic cough, or shortness of breath at rest Rheumatologic: Joint deformities: Left fifth toe frx Right Ankle Exam Right ankle exam is normal. Tenderness The patient is experiencing no tenderness. Range of Motion The patient has normal right ankle ROM. Dorsiflexion: normal Plantar flexion: normal Eversion: normal Inversion: normal Muscle Strength Dorsiflexion: 5/5 Plantar flexion: 5/5 Anterior tibial: 5/5 Posterior tibial: 5/5 Gastrocsoleus: 5/5 Peroneal muscle: 5/5 Tests Anterior drawer: negative Varus tilt: negative Other Erythema: absent Sensation: normal Pulse: present Left Ankle Exam Left ankle exam is normal. Tenderness The patient is experiencing no tenderness. Range of Motion The patient has normal left ankle ROM. Dorsiflexion: normal Plantar flexion: normal Eversion: normal Inversion: normal Muscle Strength Dorsiflexion: 5/5 Plantar flexion: 5/5 Anterior tibial: 5/5 Posterior tibial: 5/5 Gastrocsoleus: 5/5 Peroneal muscle: 5/5 Tests Anterior drawer: negative Varus tilt: negative Other Erythema: absent Sensation: normal Pulse: present Assessment and Plan Last XR Foot - Impression Only No resulted procedures found. Radiographs: I have independently reviewed films and my findings are the same. and I have reviewed the images with the patient and family. Impression IMPRESSION: Healed fracture in the proximal phalanx. Impression: Encounter Diagnosis ICD-10-CM 1. Closed nondisplaced fracture of proximal phalanx of lesser toe of left foot, initial encounter S92.515A Today, in detail, through a thorough evaluation, we discussed possible etiologies of pain and our plans for further diagnostic and therapeutic interventions. We discussed strategies for decreasing pain and improving strength, stability and motion. Patient's questions were answered in detailed. Patient verbalizes understanding and agrees with the treatment plan as discussed. No issues, back to all activities Follow up as needed Patient aware and in agreement of plan. All questions answered. Randa GomezP.H. documented in this encounter [facility] 04-01-2023 History of Presen t illness Narrative Julia Pisano is a 27 year old female who presents for problem visit herpes outbreak for 2 days. HPI: Patient stated she started with a herpes outbreak 2 days ago. She is complaining of pain and burning along with swollen lymph nodes in the groin area. Her last outbreak was approximately a year and a half ago. She is needing a refill on her valacyclovir. OB History T2 L2 SAB0 IAB0 Ectopic0 Multiple0 Live Births2 Hard Candy Spinner History LMP: 03/04/2023 (Exact Date), Having periods Age at Menarche: Age at First : Age at Menopause: Hard Candy Spinner History Comments: Sexual Activity: Yes; Male Contraception: Pill PAST MEDICAL HISTORY Diagnosis Date Anxiety state History of drug use PAST SURGICAL HISTORY Procedure Laterality Date NONE FAMILY HISTORY Problem Relation Age of Onset other (endometriosis) Mother had hysterectomy other (polyps) Father No Known Problems Sister Macular Degen Maternal Grandmother Kidney Disease Maternal Grandmother other (celft palate) Maternal Grandfather Diabetes Paternal Grandmother Parkinson s Disease Paternal Grandfather Depression Sister No Known Problems Daughter Social History Tobacco Use Smoking status: Every Day Packs/day: 0.50 Years: 10.00 Total pack years: 5.00 Types: Cigarettes Smokeless tobacco: Never Vaping Use Vaping Use: Never used Substance Use Topics Alcohol use: Yes Comment: occasionally Drug use: Not Currently Types: Crystal Meth, Marijuana Comment: Last used meth Sep 2018 Current Outpatient Medications Medication Sig Norethin Dhiraj-Eth Estrad-FE 1 mg-20 mcg (21)/75 mg (7) per tablet take 1 tablet by mouth once daily hydrOXYzine HCl (ATARAX) 25 mg tablet Take 1-2 tablets by mouth every 6 hours as needed for anxiety. vit,melanie 74/iron/folic ( VITAMIN 1+1 ORAL) Take by mouth. (Patient not taking: Reported on 01/10/2023) omeprazole (PRILOSEC) 40 mg capsule Take 1 capsule by mouth once daily. (Patient not taking: Reported on 04/01/2023) nicotine (NICODERM) 7 mg/24 hr Apply 1 Patch as directed every 24 hours. Use for 2 weeks, no smoking while on patches (Patient not taking: Reported on 04/04/2022) nicotine (NICODERM) 14 mg/24 hr Apply 1 Patch as directed every 24 hours. Use for 2 weeks, then proceed to the 7mg patches. No smoking with patch. (Patient not taking: Reported on 04/04/2022) nicotine (NICODERM) 21 mg/24 hr Apply 1 Patch as directed every 24 hours. Use for 6 weeks, then proceed to the 14 mg patches. No smoking while on patches (Patient not taking: Reported on 04/04/2022) guaiFENesin (MUCINEX) 600 mg 12 hr tablet Take 2 tablets by mouth twice daily. (Patient not taking: Reported on 04/04/2022) fluticasone (FLONASE) 50 mcg/actuation nasal spray (Patient not taking: Reported on 03/16/2021) No current facility-administered medications for this visit. Allergies As of Date: 04/01/2023 (No Known Allergies) Fully Assessed 04/01/2023 REVIEW OF SYSTEMS Abdomen: No bloating, early satiety, indigestion, or increased flatulence. No abdominal pain, nausea, vomiting, diarrhea, or constipation. Bladder: No dysuria, gross hematuria, urinary frequency, urinary urgency, or incontinence. Expanded ROS: N/A Allergies and current medication updated:Yes EXAM: LMP 03/04/2023 GENERAL: pleasant, female in no apparent distress HEENT: Normocephalic, atraumatic, mucus membranes moist, and no lesions CHEST: Normal inspiratory effort NEURO: alert and oriented x3,exam grossly non-focal EXTREMITIES: normal ASSESSMENT/PLAN: 1. Labial lesion - ICD9: 624.8, ICD10: N90.89 - VALACYCLOVIR 1 GRAM TABLET - follow up as needed. Sheila Austin APRN.CNP Medical Decision Making: Problems: Low: Acute, uncomplicated illness or injury Risk: Low: Low risk from testing/treatment Moderate: Drug management Medical Decision Making Level: 3 - Low documented in this encounter [facility] 03-08-2023 Miscellaneous Notes Pt notified of results via [employer]. Jacqui Schneider Ma Can you please call the patient and let her know that I reviewed her lab results. Labs were all relatively normal. No signs of diabetes at this time. Iron and thyroid testing was normal. I do not see any causes for her dizziness and fatigue. I would recommend that she stay well-hydrated. Eat well-balanced meals. With her history of gestational diabetes I would be mindful of any processed or higher carbohydrate foods. Please let me know if she has any questions. Thank you. Skylar Denise APRN.AMAURI documented in this encounter [facility] 03-06-2023 Instructions Skylar Denise APRN.CNP - 03/06/2023 9:13 AM EDT Get labs completed today Track fasting sugars at home. Work on eating low carb diet, decrease processed foods in the diet. Stay hydrated. Follow up pending test results. documented in this encounter [facility] 03-06-2023 History of Presen t illness Narrative This is a 27 year old female who presents today with: Patient presents with: Acute Visit: Concerns for diabetes HISTORY OF PRESENT ILLNESS: Julia Pisano is a 27 year old female. Patient presents with: Acute Visit: Concerns for diabetes Concerns for diabetes. History of gestational diabetes in the past. Delivered in November. Refers that she has checked a couple fasting sugars at home, 120's. Had an episode of dizziness at work last week, no LOC. Some increased fatigue. No increased thirst, urination, no vision changes, or foot lesions. PAST MEDICAL HISTORY: PAST MEDICAL HISTORY Diagnosis Date Anxiety state History of drug use PAST SURGICAL HISTORY Procedure Laterality Date NONE ALLERGIES Patient has no known allergies. MEDICATIONS Current Outpatient Medications Medication Sig vit,melanie 74/iron/folic ( VITAMIN 1+1 ORAL) Take by mouth. (Patient not taking: Reported on 01/10/2023) Norethin Dhiraj-Eth Estrad-FE 1 mg-20 mcg (21)/75 mg (7) per tablet take 1 tablet by mouth once daily (Patient not taking: Reported on 08/30/2022) omeprazole (PRILOSEC) 40 mg capsule Take 1 capsule by mouth once daily. nicotine (NICODERM) 7 mg/24 hr Apply 1 Patch as directed every 24 hours. Use for 2 weeks, no smoking while on patches (Patient not taking: Reported on 04/04/2022 ) nicotine (NICODERM) 14 mg/24 hr Apply 1 Patch as directed every 24 hours. Use for 2 weeks, then proceed to the 7mg patches. No smoking with patch. (Patient not taking: Reported on 04/04/2022 ) nicotine (NICODERM) 21 mg/24 hr Apply 1 Patch as directed every 24 hours. Use for 6 weeks, then proceed to the 14 mg patches. No smoking while on patches (Patient not taking: Reported on 04/04/2022 ) guaiFENesin (MUCINEX) 600 mg 12 hr tablet Take 2 tablets by mouth twice daily. (Patient not taking: Reported on 04/04/2022 ) hydrOXYzine HCl (ATARAX) 25 mg tablet Take 1-2 tablets by mouth every 6 hours as needed for anxiety. (Patient not taking: Reported on 08/30/2022) fluticasone (FLONASE) 50 mcg/actuation nasal spray (Patient not taking: Reported on 03/16/2021 ) No current facility-administered medications for this visit. FAMILY HISTORY Problem Relation Age of Onset other (endometriosis) Mother had hysterectomy other (polyps) Father No Known Problems Sister Macular Degen Maternal Grandmother Kidney Disease Maternal Grandmother other (celft palate) Maternal Grandfather Diabetes Paternal Grandmother Parkinson s Disease Paternal Grandfather Depression Sister No Known Problems Daughter Social History Tobacco Use Smoking status: Every Day Packs/day: 0.50 Years: 10.00 Pack years: 5.00 Types: Cigarettes Smokeless tobacco: Never Vaping Use Vaping Use: Never used Substance Use Topics Alcohol use: Yes Comment: occasionally Drug use: Not Currently Types: Crystal Meth, Marijuana Comment: Last used meth Sep 2018 REVIEW OF SYSTEMS GENERAL: No weight loss, malaise or fevers/chills HEENT: Negative for frequent or significant headaches, No changes in hearing or vision. NECK: Negative for lumps, goiter, pain and significant neck swelling RESPIRATORY: Negative for cough, hemoptysis, wheezing, dyspnea or shortness of breath CARDIOVASCULAR: Negative for chest pain, leg swelling, orthopnea, or palpitations GI: No nausea, vomiting, or diarrhea/constipation. No hematochezia/melena. No heartburn or reflux symptoms. : No history of dysuria, frequency or incontinence MUSCULOSKELETAL: Negative for joint pain or swelling. SKIN: Negative for lesions, rash, and itching ENDOCRINE: Negative for cold or heat intolerance, polyuria, polydipsia and goiter NEURO: No history of headaches, syncope, paralysis, seizures or tremors MOOD: Negative for depression, anxiety, or suicidal ideation. EXAM: BP 90/66 Pulse 72 Resp 16 Wt 84.4 kg (186 lb) LMP 03/04/2023 (Exact Date) SpO2 96% No BMI 31.93 kg/m PHYSICAL EXAM: General Appearance: Well appearing, alert, in no acute distress, well-hydrated, well nourished. Skin: Skin color, texture, turgor normal, no suspicious rashes or lesions. Head: Normocephalic, no masses, lesions, tenderness or abnormalities. Eyes: Anicteric sclera. Extraocular movements are intact. Neck: Supple, no adenopathy; thyroid symmetric, normal size, no bruits. Lungs: Lungs clear to auscultation. No wheezing, rhonchi, rales. Heart: RRR without murmur, gallop, or rubs. No ectopy. Extremities: No deformities, edema, skin discoloration, clubbing or cyanosis. Good capillary refill. Peripheral Pulses: Normal, Capillary refill <2secs, strong peripheral pulses, Pulses palpable. Neurologic: Gait normal. Sensation grossly intact. ASSESSMENT/PLAN: 1. History of gestational diabetes - ICD9: V12.21, ICD10: Z86.32 (primary diagnosis) - Get labs completed - Instructed to check fasting glucose at home and keep a log. - Work on eating a low-carb diet, decrease any processed foods in the diet. Increase water intake. - HGB A1C 2. Fatigue, unspecified type - ICD9: 780.79, ICD10: R53.83 - COMP METABOLIC PANEL - CBC + DIFF - TSH BLD - IRON + TIBC Follow-up pending test results or sooner as needed. Discussed treatment plan and patient voices understanding. Patient's questions answered appropriately. Medications and potential side effects were discussed and patient voices understanding. Skylar Denise APRN.CNP This note was partially generated using [employer] voice recognition system. Note was reviewed for accuracy. There may be minor misspellings or grammar miscues with [employer] voice recognition. documented in this encounter [facility] 01-23-2023 Note HNO ID: [id number] Author: DUKE Willingham Service: Radiology Author Type: Technologist Type: Progress Notes Filed: 01/23/2023 1:43 PM Note Text: Radiology Service Progress Note PATIENT NAME: Julia Pisano DATE OF SERVICE: January 23, 2023 TIME: 1:43 PM PATIENT IDENTITY VERIFICATION COMPLETED USING TWO (2) IDENTIFIERS: Name and Date of confirmed by patient verbally. FALL SCREENING: Has the patient had 2 falls in the last year or 1 fall with injury or currently using an Ambulatory Assistive Device (Walker, Cane, Wheelchair, Crutches, etc.)? Yes, Patient High Risk for Falls What interventions were put in place to prevent falls during this visit? Offered Assistance with Transfers/Clothing and Increased Observations by Caregivers PATIENT GENDER DATA: Female. status: : No status: NO. PATIENT RELEVANT IMPLANT DATA REVIEWED: Not Applicable RADIOLOGY DEPARTMENT: General X-ray: Exam(s) Completed: Lower Extremity X-Ray(s): Toes, Left PERIPHERAL IV DATA: Not applicable SIGNED BY: DUKE Willingham January 23, 2023 1:43 PM [facility] 01-23-2023 History of Presen t illness Narrative Reason for Visit/Chief Complaint Julia Pisano is a 27 year old female who presents today for a new evaluation of following complaint: Patient presents with: Left Foot - New, Pain, Fracture History of Present Illness: PAIN EVALUATION 01/23/2023 1402 Pain Level: 0 Pain Location: Toe Description: Sore Duration Amount of Time: 1 Duration Units: Weeks Frequency: Intermittent HPI: Julia Pisano is a 27 year old female presenting today with left pinky toe fracture. Patient was well until about 2 weeks ago when patient stubbed toe. She is in a post op shoe and states she still has some discomfort. Pain history is noted as above. Denies calf pain, numbness, tingling, fever, chills or other constitutional symptoms. Previous Treatments: Ice: Yes Heat: No Brace: Yes, post op shoe NSAIDs: No Injections: No Surgeries: No Physical Therapy: No Review of Systems: Patient did not have, and does not currently have, any weight loss, malaise, fever, chills, headache, chest pain, chest pressure, palpitations, cough, shortness of breath, orthopnea, paroxsymal nocturnal dyspnea, nausea, vomiting, diarrhea, constipation, melena, hematochezia, urinary difficulties, prolonged bleeding, easily bruising, heat or cold intolerance, new onset joint pain or swelling, new onset extremity weakness or numbness, new onset auditory or visual disturbances, lightheadedness, dizziness, partial loss of consciousness or full loss of consciousness. Current Outpatient Medications on File Prior to Visit Medication Sig vit,melanie 74/iron/folic ( VITAMIN 1+1 ORAL) Take by mouth. (Patient not taking: Reported on 01/10/2023) Norethin Dhiraj-Eth Estrad-FE 1 mg-20 mcg (21)/75 mg (7) per tablet take 1 tablet by mouth once daily (Patient not taking: Reported on 08/30/2022) omeprazole (PRILOSEC) 40 mg capsule Take 1 capsule by mouth once daily. nicotine (NICODERM) 7 mg/24 hr Apply 1 Patch as directed every 24 hours. Use for 2 weeks, no smoking while on patches (Patient not taking: Reported on 04/04/2022 ) nicotine (NICODERM) 14 mg/24 hr Apply 1 Patch as directed every 24 hours. Use for 2 weeks, then proceed to the 7mg patches. No smoking with patch. (Patient not taking: Reported on 04/04/2022 ) nicotine (NICODERM) 21 mg/24 hr Apply 1 Patch as directed every 24 hours. Use for 6 weeks, then proceed to the 14 mg patches. No smoking while on patches (Patient not taking: Reported on 04/04/2022 ) guaiFENesin (MUCINEX) 600 mg 12 hr tablet Take 2 tablets by mouth twice daily. (Patient not taking: Reported on 04/04/2022 ) hydrOXYzine HCl (ATARAX) 25 mg tablet Take 1-2 tablets by mouth every 6 hours as needed for anxiety. (Patient not taking: Reported on 08/30/2022) fluticasone (FLONASE) 50 mcg/actuation nasal spray (Patient not taking: Reported on 03/16/2021 ) No current facility-administered medications on file prior to visit. ALLERGIES No Known Allergies Physical Exam: Vitals: LMP 06/13/2021 Psych: Pleasant, good affect and mood General Appearance: Well appearing, alert, in no acute distress, well-hydrated, well nourished.. Skin: Skin color, texture, turgor normal, no suspicious rashes or lesions. Peripheral Pulses: Normal. Neurologic: Gait normal. Reflexes normal and symmetric. Sensation grossly intact.. Lymph Nodes: No cervical lymphadenopathy, No supraclavicular lymphadenopathy, No axillary lymphadenopathy., and No inguinal lymphadenopathy.. Respiratory: No recent pulmonary infection, hemoptysis, chronic cough, or shortness of breath at rest Rheumatologic: Joint deformities: left pinky toe pain Right Ankle Exam Right ankle exam is normal. Tenderness The patient is experiencing no tenderness. Range of Motion The patient has normal right ankle ROM. Dorsiflexion: normal Plantar flexion: normal Eversion: normal Inversion: normal Muscle Strength Dorsiflexion: 5/5 Plantar flexion: 5/5 Anterior tibial: 5/5 Posterior tibial: 5/5 Gastrocsoleus: 5/5 Peroneal muscle: 5/5 Tests Anterior drawer: negative Varus tilt: negative Other Erythema: absent Sensation: normal Pulse: present Left Ankle Exam Tenderness Left ankle tenderness location: ttp fifth toe. Range of Motion The patient has normal left ankle ROM. Dorsiflexion: normal Plantar flexion: normal Eversion: normal Inversion: normal Muscle Strength Dorsiflexion: 5/5 Plantar flexion: 5/5 Anterior tibial: 5/5 Posterior tibial: 5/5 Gastrocsoleus: 5/5 Peroneal muscle: 5/5 Tests Anterior drawer: negative Varus tilt: negative Other Erythema: absent Sensation: normal Pulse: present Comments: Ttp 5th toe Imaging: Last XR Foot - Impression Only No resulted procedures found. Assessment and Plan: Impression: Encounter Diagnosis ICD-10-CM 1. Closed nondisplaced fracture of proximal phalanx of lesser toe of left foot, initial encounter S92.515A Plan: Today, in detail, through a thorough evaluation, we discussed possible etiologies of pain and our plans for further diagnostic and therapeutic interventions. We discussed strategies for decreasing pain and improving strength, stability and motion. Patient's questions were answered in detailed. Patient verbalizes understanding and agrees with the treatment plan as discussed. Come out of shoe at home Oscar tape to toe next to it Xrays show good alignment, nothing surgical at this time Patient aware and in agreement of plan. All questions answered. documented in this encounter [facility] 01-23-2023 History of Presen t illness Narrative Radiology Service Progress Note PATIENT NAME: Julia Pisano DATE OF SERVICE: January 23, 2023 TIME: 1:43 PM PATIENT IDENTITY VERIFICATION COMPLETED USING TWO (2) IDENTIFIERS: Name and Date of confirmed by patient verbally. FALL SCREENING: Has the patient had 2 falls in the last year or 1 fall with injury or currently using an Ambulatory Assistive Device (Walker, Cane, Wheelchair, Crutches, etc.)? Yes, Patient High Risk for Falls What interventions were put in place to prevent falls during this visit? Offered Assistance with Transfers/Clothing and Increased Observations by Caregivers PATIENT GENDER DATA: Female. status: : No status: NO. PATIENT RELEVANT IMPLANT DATA REVIEWED: Not Applicable RADIOLOGY DEPARTMENT: General X-ray: Exam(s) Completed: Lower Extremity X-Ray(s): Toes, Left PERIPHERAL IV DATA: Not applicable SIGNED BY: DUKE Willingham January 23, 2023 1:43 PM documented in this encounter [facility] 01-10-2023 History of Presen t illness Narrative Radiology Service Progress Note PATIENT NAME: Julia Pisano DATE OF SERVICE: January 10, 2023 TIME: 1:50 PM PATIENT IDENTITY VERIFICATION COMPLETED USING TWO (2) IDENTIFIERS: Name and Date of confirmed by patient verbally. FALL SCREENING: Has the patient had 2 falls in the last year or 1 fall with injury or currently using an Ambulatory Assistive Device (Walker, Cane, Wheelchair, Crutches, etc.)? No PATIENT GENDER DATA: Female. status: : No status: NO. PATIENT RELEVANT IMPLANT DATA REVIEWED: Not Applicable RADIOLOGY DEPARTMENT: General X-ray: Exam(s) Completed: Lower Extremity X-Ray(s): Toes, Left PERIPHERAL IV DATA: Not applicable SIGNED BY: RT Byron(R) January 10, 2023 1:50 PM documented in this encounter [facility] 01-10-2023 History of Presen t illness Narrative Images from the original note were not included. Subjective HPI HPI Julia Pisano is a 27 year old female who presents today for CC of left little toe fracture. This started 1 hour ago. Has tried nothing for relief. Symptoms are worsened by nothing. Denies history of surgery or injury to left little toe. Denies numbness and tingling of left little toe. .Patient presents with: Toe Injury: L foot fifth toe injury x1 hour PAST MEDICAL HISTORY Diagnosis Date Anxiety state History of drug use PAST SURGICAL HISTORY Procedure Laterality Date NONE ALLERGIES Patient has no known allergies. MEDICATIONS vit,melanie 74/iron/folic ( VITAMIN 1+1 ORAL) Take by mouth. (Patient not taking: Reported on 01/10/2023) Norethin Dhiraj-Eth Estrad-FE 1 mg-20 mcg (21)/75 mg (7) per tablet take 1 tablet by mouth once daily (Patient not taking: Reported on 08/30/2022) omeprazole (PRILOSEC) 40 mg capsule Take 1 capsule by mouth once daily. nicotine (NICODERM) 7 mg/24 hr Apply 1 Patch as directed every 24 hours. Use for 2 weeks, no smoking while on patches (Patient not taking: Reported on 04/04/2022 ) nicotine (NICODERM) 14 mg/24 hr Apply 1 Patch as directed every 24 hours. Use for 2 weeks, then proceed to the 7mg patches. No smoking with patch. (Patient not taking: Reported on 04/04/2022 ) nicotine (NICODERM) 21 mg/24 hr Apply 1 Patch as directed every 24 hours. Use for 6 weeks, then proceed to the 14 mg patches. No smoking while on patches (Patient not taking: Reported on 04/04/2022 ) guaiFENesin (MUCINEX) 600 mg 12 hr tablet Take 2 tablets by mouth twice daily. (Patient not taking: Reported on 04/04/2022 ) hydrOXYzine HCl (ATARAX) 25 mg tablet Take 1-2 tablets by mouth every 6 hours as needed for anxiety. (Patient not taking: Reported on 08/30/2022) fluticasone (FLONASE) 50 mcg/actuation nasal spray (Patient not taking: Reported on 03/16/2021 ) FAMILY HISTORY Problem Relation Age of Onset other (endometriosis) Mother had hysterectomy other (polyps) Father No Known Problems Sister Macular Degen Maternal Grandmother Kidney Disease Maternal Grandmother other (celft palate) Maternal Grandfather Diabetes Paternal Grandmother Parkinson s Disease Paternal Grandfather Depression Sister No Known Problems Daughter Social History Tobacco Use Smoking status: Every Day Packs/day: 0.50 Years: 10.00 Pack years: 5.00 Types: Cigarettes Smokeless tobacco: Never Vaping Use Vaping Use: Never used Substance Use Topics Alcohol use: Yes Comment: occasionally Drug use: Not Currently Types: Crystal Meth, Marijuana Comment: Last used meth Sep 2018 ROS Objective Blood pressure 104/66, pulse 103, temperature 36.7 C (98 F), resp. rate 18, weight 82.1 kg (181 lb), last menstrual period 06/13/2021, SpO2 98 %, unknown if currently . Physical Exam Constitutional: General: She is not in acute distress. Appearance: She is not toxic-appearing or diaphoretic. HENT: Head: Normocephalic and atraumatic. Pulmonary: Effort: Pulmonary effort is normal. No accessory muscle usage or respiratory distress. Musculoskeletal: Feet: Neurological: Mental Status: She is alert and oriented to person, place, and time. ASSESSMENT/PLAN: 1. Other physeal fracture of phalanx of unspecified toe, initial encounter for closed fracture - ICD9: 826.0, ICD10: S99.299A (primary diagnosis) Post op shoe provided Pain relief discussed Will schedule with podiatry - CONSULT TO PODIATRY 2. Toe injury, left, initial encounter - ICD9: 959.7, ICD10: S99.922A - XR TOE AP/LAT/OBL LEFT Impression IMPRESSION: Fracture proximal phalanx of the fifth toe. Dictated by : MD Tom BILLINGSLEY APRN.WINEMAKER documented in this encounter [facility] 12-10-2022 Hospital Discharg e instructions Patient Education 12/10/2022 17:10:30 7b- Depression and Blues (06/2020) (CUSTOM) [place] Depression and Blues All mothers are at risk of developing depression or the blues. These mood changes can occur right after giving , or they may occur many months after giving . blues or depression can be mild or severe. Additionally, depression can go away rather quickly, or it can be a long-term condition. CAUSES Raised hormone levels and the rapid drop in those levels are thought to be a main cause of depression and blues. A number of hormones change during and after . Estrogen and progesterone usually decrease right after delivery. The levels of thyroid hormone and various cortisol steroids also rapidly drop. Other factors that play a role in these mood changes include major life events and genetics. RISK FACTORS If you have any of the following risks for blues or depression, know what symptoms to watch out for during the period. Risk factors that may increase the likelihood of getting blues or depression include: Having a personal or family history of depression. Having depression while being . Having premenstrual mood issues or mood issues related to oral contraceptives. Having a lot of life stress. Having marital conflict. Lacking a social support network. Having health problems, such as diabetes. SIGNS AND SYMPTOMS Symptoms of blues include: Brief changes in mood, such as going from extreme happiness to sadness. Decreased concentration. Difficulty sleeping. Crying spells, tearfulness. Irritability. Anxiety. Symptoms of depression typically begin within the first month after giving . These symptoms include: Difficulty sleeping or excessive sleepiness. Marked weight loss. Agitation. Feelings of worthlessness. Lack of interest in activity or food. psychosis is a very serious condition and can be dangerous. Fortunately, it is rare. Displaying any of the following symptoms is cause for immediate medical attention. Symptoms of psychosis include: Hallucinations and delusions. Bizarre or disorganized behavior. Confusion or disorientation. DIAGNOSIS A diagnosis is made by an evaluation of your symptoms. There are no medical or lab tests that lead to a diagnosis, but there are various questionnaires that a health care provider may use to identify those with blues, depression, or psychosis. Often, a screening tool called the [place] Depression Scale is used to diagnose depression in the period. TREATMENT blues usually goes away on its own in 1 2 weeks. Social support is often all that is needed. You will be encouraged to get adequate sleep and rest. Occasionally, you may be given medicines to help you sleep. depression requires treatment because it can last several months or longer if it is not treated. Treatment may include individual or group therapy, medicine, or both to address any social, physiological, and psychological factors that may play a role in the depression. Regular exercise, a healthy diet, rest, and social support may also be strongly recommended. psychosis is more serious and needs treatment right away. Hospitalization is often needed. HOME CARE INSTRUCTIONS Get as much rest as you can. Exercise regularly. Some women find yoga and walking to be beneficial. Eat a balanced and nourishing diet. Do little things that you enjoy. Have a cup of tea, take a bubble bath, read your favorite magazine, or listen to your favorite music. Avoid alcohol. Ask for help with glove pairer, cooking, grocery shopping, or running errands as needed. Do not try to do everything. Talk to people close to you about how you are feeling. Get support from your partner, family members, and friends. Try to stay positive in how you think. Think about the things you are grateful for. Do not spend a lot of time alone. Only take bwaz-mqc-gaewnlo or prescription medicine as directed by your health care provider. Keep all your appointments. Let your health care provider know if you have any concerns. SEEK MEDICAL CARE IF: You are having a reaction to or problems with your medicine. SEEK IMMEDIATE MEDICAL CARE IF: You have suicidal feelings. You think you may harm yourself or someone else. MAKE SURE YOU: Understand these instructions. Will watch your condition. Will get help right away if you are not doing well or get worse. Resource: ExitCare Patient Information 2015 [employer]. This information is not intended to replace advice given to you by your health care provider. Make sure you discuss any questions you have with your health care provider. 12/10/2022 17:10:29 7- Section ( Care) (03/2017) (CUSTOM) Section ( Care) These discharge instructions provide you with general information on section (caesarean, cesarian, caesarian) and caring for yourself after you leave the hospital. Your caregiver may also give you specific instructions. Please read these instructions and refer to them in the next few weeks. If you have any problems after discharge, please call your doctor. If you are unable to reach your doctor, you should seek help at the nearest Emergency Department. ACTIVITY Rest as much as possible the first two weeks at home. When possible, have someone help you with your household activities for 2 to 3 weeks. Limit your housework and social activity. Increase your activity gradually as your strength returns. Do not climb stairs more than two or three times a day. Do not lift anything heavier than 10 pounds. Follow your doctor's instructions about driving a car. Limit wearing support panties or control-top hose, since relying on your own muscles helps strengthen them. Ask your doctor about exercises. NUTRITION You may return to your usual diet. Drink 6 to 8 glasses of fluid a day. Eat a well-balanced diet. Include portions of food from the meat/protein, milk, fruit, vegetable and bread groups. Keep taking your or multivitamins. ELIMINATION You should return to your usual bowel function. If constipation is a problem, you may take a mild laxative such as Milk of Magnesia with your caregiver s permission. Gradually add fruit, vegetables and bran to your diet. Make sure to increase your fluids. HYGIENE You may shower, wash your hair and take tub baths unless your doctor tells you otherwise. Continue clau-care until your vaginal bleeding and discharge stops. Do not douche or use tampons until your caregiver says it is OK. FEVER If you feel feverish or have shaking chills, take your temperature. If your temperature is 101 F (38.3 C), or is 100.4 F (38 C) two times in a four hour period, call your doctor. The fever may indicate infection. If you call early, infection can be treated with medicines that kill germs (antibiotics). Hospitalization may be avoided. PAIN CONTROL You may still have mild discomfort. Only take gmyp-hor-xquaueq or prescription medicine as directed by your caregiver. Do not take aspirin unless instructed by your physician; it can cause bleeding. If the pain is not relieved by your medicine or becomes worse, call your caregiver. INCISION CARE Clean your cut (incision) gently with soap and water. If your caregiver says it is okay, leave the incision without a dressing unless it is draining or irritated. If you have small adhesive strips across the incision and they do not fall off within 7 days, carefully peel them off. Check the incision daily for increased redness, drainage, swelling or separation of skin. Call your caregiver if any of these happen. VAGINAL CARE You may have a vaginal discharge or bleeding for up to 6 weeks. If the vaginal discharge becomes bright red, bad smelling, heavy in amount, has blood clots or if you have burning or frequency when urinating, call your caregiver. SEXUAL INTERCOURSE No sexual intercourse until seen by your physician. You can become before you have a period. If you decide to have sexual intercourse, you should use control if you do not want to become right away. HEALTH PRACTICES It is still important to have a yearly pelvic exam. Continue monthly self-breast exams and yearly physical exams with a Pap test. BREAST CARE If you are not and your breasts become tender, hard or leak milk, you may wear a firm fitting bra and apply ice to the breasts. If you are , wear a good support bra. Call your caregiver if you have breast pain, flu-like symptoms, fever or hardness and reddening of your breasts. BLUES You may commonly have a period of low spirits or blues. Discuss your feelings with your partner, family and friends. This may be caused by the changing hormone levels in your body. You may want to contact your caregiver if this is worrisome. SEEK MEDICAL CARE IF: You develop a temperature greater than 100.4 degrees Fahrenheit. There is swelling, redness or increasing pain in the wound area. Pus is coming from the wound. You notice a bad smell from the wound or surgical dressing. You have pain, redness and swelling from the intravenous site. The wound is breaking open (the edges are not staying together). You feel dizzy or feel like fainting. You develop pain or bleeding when you urinate. You develop diarrhea. You develop nausea and vomiting. You develop abnormal vaginal discharge. You develop a rash. You have any type of abnormal reaction or develop an allergy to your medication. You need stronger pain medication for your pain. SEEK IMMEDIATE MEDICAL CARE: You develop abdominal pain. You develop chest pain. You develop shortness of breath. You pass out. You develop pain, swelling or redness of your leg. You develop heavy vaginal bleeding with or without blood clots. Document Released: 05/25/2003 Document Re-Released: 06/30/2010 [employer] Patient Information 2011 [employer] Data. Follow Up Care 12/07/2022 05:41:18 With:EDUAR DEL ANGEL APRN-TYRONEM Address: [address] [place] [address], [address] Dr. Etienne Rojas, [place] [address]- [phone] When:01/18/2023 [facility] 12-10-2022 Note Date of Service 12/10/22 Chief Complaint Subjective 27 yo POD#2 from [facility] for arrest of descent. Patient doing well. . Tolerating regular diet. Pain well controlled w motrin and tylenol. Objective Vitals and Measurements T: 37.3 C (Oral) TMIN: 36.1 C (Temporal Artery) TMAX: 37.3 C (Oral) HR: 65(Monitored) RR: 16 BP: 103/70 SpO2: 99% Intake and Output 7AM Yesterday to 7AM Today Intake and Output (Last 24 hours) Intake Output Total Summary Total Intake 0.00 Total Output 0.00 Fluid Balance 0.00 Physical Exam General: well groomed, well developed female who appears stated age Neuro: alert and oriented CN II-XII grossly intact Psych: pleasant mood, normal affect HEENT: NC/AT EOMI, neck without thyromegaly. no cervical lymphadenopathy CV: S1/S2 No MRCG, RRR Chest: CTABL no WRR Abd: S/AT/ND, BS present, no HSM fundus firm 3 cm below umbilicus. incision c/d/i w steri strips Extremities: warm dry and intact, no clubbing, cyanosis or edema present. no rashes, varicosities, scars. Weight Dosing Weight: 92 kg (12/07/22) Medications Medications (34) Active Scheduled: (2) acetaminophen 325 mg Tablet 650 mg 2 tab(s), Oral, q6hr ferrous sulfate 325 mg Tablet 325 mg 1 tab(s), Oral, qDay Continuous: (4) bupivacaine-fentaNYL ANESTHESIA 100 mL 100 mL, Epidural, 11 mL/hr Lactated Ringers 1,000 mL 1,000 mL, Intravenous, 125 mL/hr Lactated Ringers 1,000 mL 1,000 mL, Intravenous, 125 mL/hr Oxytocin 20 units in Lactated Ringers 1000 mL 20 unit(s) [2 munit/min] + LR Premix Diluent 1,000 mL 1,000 mL, Intravenous, 6 mL/hr PRN: (28) acetaminophen-OXYcodone 325 mg-5 mg Tablet 2 tab(s), Oral, q4h acetaminophen-OXYcodone 325 mg-5 mg Tablet 1 tab(s), Oral, q4h benzocaine topical 20% Agra 1 spray(s), Perineum, q1h carboprost 250 mcg/ml 1mL ampule 250 mcg 1 mL, Intramuscular, Once citric acid-sodium citrate 334 mg-500 mg/5 mL (30 mL) Loretta UD 30 mL, Oral, AsDirected docusate sodium 100 mg Capsule 100 mg 1 cap(s), Oral, BID glycerin-witch satish topical 10%-50% Pad 1 schuyler, Topical, AsDirected hydrocortisone topical 25 mg rectal supp 25 mg 1 supp, Rectal, BID hydrocortisone-pramoxine topical 2.5%-1% Cream 4 gram(s) 1 schuyler, Perineum, q1h ibuprofen 600 mg tablet 600 mg 1 tab(s), Oral, q6h Lactated Ringers Injection 500 mL * Bolus * 500 mL, IV Bolus, AsDirected lanolin (purified) 7 gram(s) 1 EA, Topical, AsDirected lidocaine 1% (MPF) 2 mL vial pf 20 mg 2 mL, Perineum, AsDirected methylergonovine 0.2 mg/mL (1 mL) ampule 0.2 mg 1 mL, Intramuscular, Once misoprostol 200 mcg tablet 1,000 mcg 5 tab(s), Rectal, Once nalbuphine 10 mg/mL (1 mL) Solution 10 mg 1 mL, IV Push, q2h naloxone 0.4 mg/mL (1mL) vial 0.1 mg 0.25 mL, IV Push, AsDirected naloxone 0.4 mg/mL (1mL) vial 0.4 mg 1 mL, IV Push, AsDirected ondansetron 2 mg/ 1 mL 2 mL INJ 4 mg 2 mL, IV Push, q4h ondansetron 2 mg/ 1 mL 2 mL INJ 4 mg 2 mL, IV Push, q8h ondansetron 4 mg DIS tablet 4 mg 1 tab(s), Oral, q8h oxytocin 10 units/mL 1 mL vial 20 unit(s) 2 mL, Intramuscular, Once RHo (D) immune globulin 300 mcg/2 mL Soln 300 mcg 2 mL, Intramuscular, AsDirected simethicone 80 mg Chewable 80 mg 1 tab(s), Chewed, TID terbutaline 1 mg/ml vial 0.25 mg 0.25 mL, Subcutaneous, AsDirected terbutaline 1 mg/ml vial 0.25 mg 0.25 mL, Subcutaneous, AsDirected tranexamic acid PMX 1 gram(s) 100 mL, IV Piggyback, AsDirected zolpidem 5 mg tablet 5 mg 1 tab(s), Oral, qHS Lab Results 12/09 05:25 WBC: 15.7 H Hgb: 10.4 L Hct: 30.9 L Platelet: 149 Neutrophil %: 89.1 H EKG No qualifying data available. Assessment/Plan 1. 39 weeks gestation of DC home to follow up w primary obgyn in 2 weeks for incision check given precautions 2. Gestational diabetes 6 week 2 hour glucola test recc Orders: acetaminophen, Dose : 500 mg = 1 tab(s), Oral, q4h, X 14 day(s), # 30 tab(s), 1 Refill(s), 01/07/23 17:09:00 EDT, Pharmacy: [facility] #[id number], 162.6, cm, 12/07/22 5:52:00 EDT, Height ibuprofen, Dose : 800 mg = 1 tab(s), Oral, q8h, X 14 day(s), # 42 tab(s), 0 Refill(s), 12/24/22 17:09:00 EDT, Pharmacy: [facility] #[id number], 162.6, cm, 12/07/22 5:52:00 EDT, Height oxyCODONE, Dose : 5 mg = 1 tab(s), Oral, q6h, X 7 day(s), # 10 tab(s), 0 Refill(s), 12/17/22 17:09:00 EDT, Pharmacy: [facility] #[id number], Postoperative pain, 162.6, cm, 12/07/22 5:52:00 EDT, Height, 92 Time Spent <30 minutes Digitally Signed by JOSE FERRELL MD on 12/10/2022 05:21 PM [facility] 12-09-2022 Anesthesiology Consult note Patient: JULIA PISANO Age: 27 years Sex: Female : 1995 Associated Diagnoses: None Author: RENNY ALMAGUER APRN-GEOTECHNICAL ENGINEER Assessment Postanesthesia assessment Vitals: Vital signs from flowsheet : Vital Signs 12/09/2022 20:13 EDT Heart Rate Monitored 79 bpm Systolic Blood Pressure Non-Invasive 96 mmHg Diastolic Blood Pressure Non-Invasive 66 mmHg 12/09/2022 18:00 EDT Temperature Temporal Artery 36.1 DegC Heart Rate Monitored 75 bpm Respiratory Rate 16 br/min Systolic Blood Pressure Non-Invasive 89 mmHg LOW Diastolic Blood Pressure Non-Invasive 44 mmHg Blood Pressure Method Automatic Blood Pressure Location Left arm Blood Pressure Cuff Size Large 12/09/2022 15:55 EDT Temperature Temporal Artery 36.3 DegC Heart Rate Monitored 91 bpm Respiratory Rate 16 br/min Systolic Blood Pressure Non-Invasive 86 mmHg LOW Diastolic Blood Pressure Non-Invasive 67 mmHg Blood Pressure Method Automatic Blood Pressure Location Left arm Blood Pressure Cuff Size Large 12/09/2022 14:01 EDT Temperature Temporal Artery 36.5 DegC Heart Rate Monitored 92 bpm Respiratory Rate 16 br/min Systolic Blood Pressure Non-Invasive 111 mmHg Diastolic Blood Pressure Non-Invasive 64 mmHg Blood Pressure Method Automatic Blood Pressure Location Left arm Blood Pressure Cuff Size Large 12/09/2022 12:00 EDT Temperature Temporal Artery 36.4 DegC Heart Rate Monitored 91 bpm Respiratory Rate 16 br/min Systolic Blood Pressure Non-Invasive 100 mmHg Diastolic Blood Pressure Non-Invasive 68 mmHg Blood Pressure Method Automatic Blood Pressure Location Left arm Blood Pressure Cuff Size Large 12/09/2022 10:00 EDT Temperature Temporal Artery 36.5 DegC Heart Rate Monitored 96 bpm Respiratory Rate 16 br/min Systolic Blood Pressure Non-Invasive 114 mmHg Diastolic Blood Pressure Non-Invasive 72 mmHg Blood Pressure Method Automatic Blood Pressure Location Left arm Blood Pressure Cuff Size Large 12/09/2022 8:00 EDT Temperature Temporal Artery 36.6 DegC Heart Rate Monitored 88 bpm Respiratory Rate 18 br/min Systolic Blood Pressure Non-Invasive 95 mmHg Diastolic Blood Pressure Non-Invasive 57 mmHg LOW Blood Pressure Method Automatic Blood Pressure Location Right arm Blood Pressure Cuff Size Large 12/09/2022 7:02 EDT Heart Rate Monitored 80 bpm Systolic Blood Pressure Non-Invasive 95 mmHg Diastolic Blood Pressure Non-Invasive 47 mmHg 12/09/2022 6:01 EDT Heart Rate Monitored 80 bpm Systolic Blood Pressure Non-Invasive 105 mmHg Diastolic Blood Pressure Non-Invasive 54 mmHg LOW 12/09/2022 5:01 EDT Heart Rate Monitored 95 bpm Systolic Blood Pressure Non-Invasive 113 mmHg Diastolic Blood Pressure Non-Invasive 65 mmHg 12/09/2022 4:04 EDT Heart Rate Monitored 86 bpm Systolic Blood Pressure Non-Invasive 108 mmHg Diastolic Blood Pressure Non-Invasive 49 mmHg 12/09/2022 3:31 EDT Heart Rate Monitored 88 bpm Systolic Blood Pressure Non-Invasive 115 mmHg Diastolic Blood Pressure Non-Invasive 60 mmHg 12/09/2022 3:01 EDT Heart Rate Monitored 85 bpm Systolic Blood Pressure Non-Invasive 111 mmHg Diastolic Blood Pressure Non-Invasive 68 mmHg 12/09/2022 2:31 EDT Heart Rate Monitored 79 bpm Systolic Blood Pressure Non-Invasive 104 mmHg Diastolic Blood Pressure Non-Invasive 56 mmHg LOW 12/09/2022 2:01 EDT Heart Rate Monitored 83 bpm Systolic Blood Pressure Non-Invasive 91 mmHg Diastolic Blood Pressure Non-Invasive 45 mmHg 12/09/2022 1:31 EDT Heart Rate Monitored 83 bpm Systolic Blood Pressure Non-Invasive 104 mmHg Diastolic Blood Pressure Non-Invasive 61 mmHg 12/09/2022 1:01 EDT Heart Rate Monitored 92 bpm Systolic Blood Pressure Non-Invasive 97 mmHg Diastolic Blood Pressure Non-Invasive 74 mmHg 12/09/2022 0:31 EDT Heart Rate Monitored 77 bpm Systolic Blood Pressure Non-Invasive 115 mmHg Diastolic Blood Pressure Non-Invasive 65 mmHg 12/09/2022 0:01 EDT Heart Rate Monitored 79 bpm Systolic Blood Pressure Non-Invasive 101 mmHg Diastolic Blood Pressure Non-Invasive 47 mmHg 12/08/2022 23:46 EDT Heart Rate Monitored 81 bpm Systolic Blood Pressure Non-Invasive 100 mmHg Diastolic Blood Pressure Non-Invasive 41 mmHg 12/08/2022 23:31 EDT Heart Rate Monitored 87 bpm Systolic Blood Pressure Non-Invasive 102 mmHg Diastolic Blood Pressure Non-Invasive 39 mmHg 12/08/2022 23:16 EDT Temperature Temporal Artery 37.0 DegC Heart Rate Monitored 92 bpm Systolic Blood Pressure Non-Invasive 83 mmHg LOW Diastolic Blood Pressure Non-Invasive 37 mmHg 12/08/2022 22:55 EDT Respiratory Rate - Anes 0 br/min br/min 12/08/2022 22:50 EDT Heart Rate Monitored 85 bpm bpm Respiratory Rate - Anes 0 br/min br/min Systolic Blood Pressure Non-Invasive 113 mmHg mmHg Diastolic Blood Pressure Non-Invasive 44 mmHg mmHg 12/08/2022 22:45 EDT Temperature (Route Not Specified) 36 DegC DegC Heart Rate Monitored 85 bpm bpm Respiratory Rate - Anes 0 br/min br/min Systolic Blood Pressure Non-Invasive 178 mmHg mmHg Diastolic Blood Pressure Non-Invasive 155 mmHg mmHg 12/08/2022 22:41 EDT Systolic Blood Pressure Non-Invasive 188 mmHg mmHg Diastolic Blood Pressure Non-Invasive 163 mmHg mmHg 12/08/2022 22:40 EDT Heart Rate Monitored 89 bpm bpm Respiratory Rate - Anes 0 br/min br/min 12/08/2022 22:35 EDT Heart Rate Monitored 92 bpm bpm Respiratory Rate - Anes 0 br/min br/min Systolic Blood Pressure Non-Invasive 156 mmHg mmHg Diastolic Blood Pressure Non-Invasive 129 mmHg mmHg 12/08/2022 22:30 EDT Temperature (Route Not Specified) 36 DegC DegC Heart Rate Monitored 97 bpm bpm Respiratory Rate - Anes 0 br/min br/min 12/08/2022 22:25 EDT Heart Rate Monitored 107 bpm bpm Respiratory Rate - Anes 0 br/min br/min Systolic Blood Pressure Non-Invasive 176 mmHg mmHg Diastolic Blood Pressure Non-Invasive 163 mmHg mmHg 12/08/2022 22:20 EDT Heart Rate Monitored 104 bpm bpm Respiratory Rate - Anes 0 br/min br/min Systolic Blood Pressure Non-Invasive 161 mmHg mmHg Diastolic Blood Pressure Non-Invasive 139 mmHg mmHg 12/08/2022 22:15 EDT Respiratory Rate - Anes 0 br/min br/min Systolic Blood Pressure Non-Invasive 184 mmHg mmHg Diastolic Blood Pressure Non-Invasive 163 mmHg mmHg 12/08/2022 22:12 EDT Systolic Blood Pressure Non-Invasive 161 mmHg mmHg (Modified) Diastolic Blood Pressure Non-Invasive 140 mmHg mmHg 12/08/2022 22:02 EDT Heart Rate Monitored 86 bpm Systolic Blood Pressure Non-Invasive 113 mmHg Diastolic Blood Pressure Non-Invasive 67 mmHg 12/08/2022 21:47 EDT Heart Rate Monitored 88 bpm Systolic Blood Pressure Non-Invasive 113 mmHg Diastolic Blood Pressure Non-Invasive 64 mmHg 12/08/2022 21:32 EDT Heart Rate Monitored 92 bpm Systolic Blood Pressure Non-Invasive 119 mmHg Diastolic Blood Pressure Non-Invasive 87 mmHg 12/08/2022 21:17 EDT Heart Rate Monitored 106 bpm HI Systolic Blood Pressure Non-Invasive 120 mmHg Diastolic Blood Pressure Non-Invasive 45 mmHg 12/08/2022 21:15 EDT Heart Rate Monitored 96 bpm Systolic Blood Pressure Non-Invasive 106 mmHg Diastolic Blood Pressure Non-Invasive 53 mmHg LOW 12/08/2022 21:07 EDT Heart Rate Monitored 97 bpm Systolic Blood Pressure Non-Invasive 109 mmHg Diastolic Blood Pressure Non-Invasive 57 mmHg LOW 12/08/2022 21:04 EDT Heart Rate Monitored 99 bpm Systolic Blood Pressure Non-Invasive 99 mmHg Diastolic Blood Pressure Non-Invasive 45 mmHg 12/08/2022 21:01 EDT Heart Rate Monitored 98 bpm Systolic Blood Pressure Non-Invasive 59 mmHg LOW Diastolic Blood Pressure Non-Invasive 43 mmHg 12/08/2022 20:59 EDT Heart Rate Monitored 99 bpm Systolic Blood Pressure Non-Invasive 76 mmHg LOW Diastolic Blood Pressure Non-Invasive 57 mmHg LOW 12/08/2022 20:46 EDT Heart Rate Monitored 146 bpm HI Systolic Blood Pressure Non-Invasive 115 mmHg Diastolic Blood Pressure Non-Invasive 96 mmHg HI 12/08/2022 20:31 EDT Heart Rate Monitored 91 bpm Systolic Blood Pressure Non-Invasive 104 mmHg Diastolic Blood Pressure Non-Invasive 76 mmHg 12/08/2022 20:16 EDT Heart Rate Monitored 90 bpm Systolic Blood Pressure Non-Invasive 112 mmHg Diastolic Blood Pressure Non-Invasive 61 mmHg 12/08/2022 20:01 EDT Heart Rate Monitored 96 bpm Systolic Blood Pressure Non-Invasive 120 mmHg Diastolic Blood Pressure Non-Invasive 68 mmHg 12/08/2022 19:46 EDT Heart Rate Monitored 87 bpm Systolic Blood Pressure Non-Invasive 115 mmHg Diastolic Blood Pressure Non-Invasive 55 mmHg LOW 12/08/2022 19:31 EDT Systolic Blood Pressure Non-Invasive 122 mmHg Diastolic Blood Pressure Non-Invasive 103 mmHg >HHI 12/08/2022 19:15 EDT Heart Rate Monitored 98 bpm Respiratory Rate 16 br/min Systolic Blood Pressure Non-Invasive 107 mmHg Diastolic Blood Pressure Non-Invasive 75 mmHg Blood Pressure Method Automatic Blood Pressure Location Right arm Blood Pressure Cuff Size Large 12/08/2022 19:00 EDT Heart Rate Monitored 101 bpm HI Respiratory Rate 16 br/min Systolic Blood Pressure Non-Invasive 92 mmHg Diastolic Blood Pressure Non-Invasive 65 mmHg Blood Pressure Method Automatic Blood Pressure Location Right arm Blood Pressure Cuff Size Large 12/08/2022 18:45 EDT Temperature Temporal Artery 36.3 DegC Heart Rate Monitored 99 bpm Respiratory Rate 16 br/min Systolic Blood Pressure Non-Invasive 96 mmHg Diastolic Blood Pressure Non-Invasive 66 mmHg Blood Pressure Method Automatic Blood Pressure Location Right arm Blood Pressure Cuff Size Large 12/08/2022 18:30 EDT Heart Rate Monitored 75 bpm Respiratory Rate 16 br/min Systolic Blood Pressure Non-Invasive 90 mmHg Diastolic Blood Pressure Non-Invasive 48 mmHg Blood Pressure Method Automatic Blood Pressure Location Right arm Blood Pressure Cuff Size Large 12/08/2022 18:15 EDT Heart Rate Monitored 77 bpm Respiratory Rate 16 br/min Systolic Blood Pressure Non-Invasive 90 mmHg Diastolic Blood Pressure Non-Invasive 44 mmHg Blood Pressure Method Automatic Blood Pressure Location Right arm Blood Pressure Cuff Size Large 12/08/2022 18:10 EDT Heart Rate Monitored 81 bpm Respiratory Rate 16 br/min Systolic Blood Pressure Non-Invasive 90 mmHg Diastolic Blood Pressure Non-Invasive 49 mmHg Blood Pressure Method Automatic Blood Pressure Location Right arm Blood Pressure Cuff Size Large 12/08/2022 18:05 EDT Heart Rate Monitored 75 bpm Respiratory Rate 18 br/min Systolic Blood Pressure Non-Invasive 97 mmHg Diastolic Blood Pressure Non-Invasive 46 mmHg Blood Pressure Method Automatic Blood Pressure Location Right arm Blood Pressure Cuff Size Large 12/08/2022 18:00 EDT Temperature Temporal Artery 36.4 DegC Heart Rate Monitored 84 bpm Respiratory Rate 18 br/min Systolic Blood Pressure Non-Invasive 92 mmHg Diastolic Blood Pressure Non-Invasive 36 mmHg Blood Pressure Method Automatic Blood Pressure Location Right arm Blood Pressure Cuff Size Large 12/08/2022 17:55 EDT Heart Rate Monitored 83 bpm Respiratory Rate 20 br/min Systolic Blood Pressure Non-Invasive 94 mmHg Diastolic Blood Pressure Non-Invasive 63 mmHg Blood Pressure Method Automatic Blood Pressure Location Right arm Blood Pressure Cuff Size Medium 12/08/2022 17:50 EDT Heart Rate Monitored 70 bpm Respiratory Rate 20 br/min Systolic Blood Pressure Non-Invasive 94 mmHg Diastolic Blood Pressure Non-Invasive 63 mmHg Blood Pressure Method Automatic Blood Pressure Location Right arm Blood Pressure Cuff Size Medium 12/08/2022 17:45 EDT Heart Rate Monitored 69 bpm Respiratory Rate 20 br/min Systolic Blood Pressure Non-Invasive 91 mmHg Diastolic Blood Pressure Non-Invasive 58 mmHg LOW Blood Pressure Method Automatic Blood Pressure Location Right arm Blood Pressure Cuff Size Medium 12/08/2022 17:40 EDT Heart Rate Monitored 69 bpm Respiratory Rate 20 br/min Systolic Blood Pressure Non-Invasive 79 mmHg LOW Diastolic Blood Pressure Non-Invasive 45 mmHg Blood Pressure Method Automatic Blood Pressure Location Right arm Blood Pressure Cuff Size Medium 12/08/2022 17:35 EDT Heart Rate Monitored 93 bpm Respiratory Rate 20 br/min Systolic Blood Pressure Non-Invasive 111 mmHg Diastolic Blood Pressure Non-Invasive 70 mmHg Blood Pressure Method Automatic Blood Pressure Location Right arm Blood Pressure Cuff Size Medium 12/08/2022 17:30 EDT Heart Rate Monitored 91 bpm Respiratory Rate 20 br/min Systolic Blood Pressure Non-Invasive 129 mmHg Diastolic Blood Pressure Non-Invasive 73 mmHg Blood Pressure Method Automatic Blood Pressure Location Right arm Blood Pressure Cuff Size Medium 12/08/2022 17:25 EDT Heart Rate Monitored 98 bpm Respiratory Rate 20 br/min Systolic Blood Pressure Non-Invasive 108 mmHg Diastolic Blood Pressure Non-Invasive 83 mmHg Blood Pressure Method Automatic Blood Pressure Location Right arm Blood Pressure Cuff Size Medium 12/08/2022 17:20 EDT Heart Rate Monitored 88 bpm Respiratory Rate 22 br/min HI Systolic Blood Pressure Non-Invasive 108 mmHg Diastolic Blood Pressure Non-Invasive 83 mmHg Blood Pressure Method Automatic Blood Pressure Location Right arm Blood Pressure Cuff Size Medium 12/08/2022 17:15 EDT Heart Rate Monitored 91 bpm Respiratory Rate 20 br/min Systolic Blood Pressure Non-Invasive 112 mmHg Diastolic Blood Pressure Non-Invasive 92 mmHg HI Blood Pressure Method Automatic Blood Pressure Location Right arm Blood Pressure Cuff Size Medium 12/08/2022 17:00 EDT Temperature Temporal Artery 36.2 DegC Heart Rate Monitored 85 bpm Respiratory Rate 20 br/min Systolic Blood Pressure Non-Invasive 118 mmHg Diastolic Blood Pressure Non-Invasive 69 mmHg Blood Pressure Method Automatic Blood Pressure Location Right arm Blood Pressure Cuff Size Medium 12/08/2022 16:45 EDT Heart Rate Monitored 85 bpm Respiratory Rate 20 br/min Systolic Blood Pressure Non-Invasive 99 mmHg Diastolic Blood Pressure Non-Invasive 76 mmHg Blood Pressure Method Automatic Blood Pressure Location Right arm Blood Pressure Cuff Size Medium 12/08/2022 16:30 EDT Heart Rate Monitored 76 bpm Respiratory Rate 18 br/min Systolic Blood Pressure Non-Invasive 92 mmHg Diastolic Blood Pressure Non-Invasive 48 mmHg Blood Pressure Method Automatic Blood Pressure Location Right arm Blood Pressure Cuff Size Medium 12/08/2022 16:15 EDT Heart Rate Monitored 79 bpm Respiratory Rate 16 br/min Systolic Blood Pressure Non-Invasive 103 mmHg Diastolic Blood Pressure Non-Invasive 63 mmHg Blood Pressure Method Automatic Blood Pressure Location Right arm Blood Pressure Cuff Size Medium 12/08/2022 16:00 EDT Temperature Temporal Artery 36 DegC Heart Rate Monitored 75 bpm Respiratory Rate 16 br/min Systolic Blood Pressure Non-Invasive 96 mmHg Diastolic Blood Pressure Non-Invasive 55 mmHg LOW Blood Pressure Method Automatic Blood Pressure Location Right arm Blood Pressure Cuff Size Medium 12/08/2022 15:45 EDT Heart Rate Monitored 78 bpm Respiratory Rate 16 br/min Systolic Blood Pressure Non-Invasive 102 mmHg Diastolic Blood Pressure Non-Invasive 64 mmHg Blood Pressure Method Automatic Blood Pressure Location Right arm Blood Pressure Cuff Size Medium 12/08/2022 15:30 EDT Heart Rate Monitored 75 bpm Respiratory Rate 16 br/min Systolic Blood Pressure Non-Invasive 99 mmHg Diastolic Blood Pressure Non-Invasive 48 mmHg Blood Pressure Method Automatic Blood Pressure Location Right arm Blood Pressure Cuff Size Medium 12/08/2022 15:25 EDT Heart Rate Monitored 72 bpm Respiratory Rate 18 br/min Systolic Blood Pressure Non-Invasive 95 mmHg Diastolic Blood Pressure Non-Invasive 42 mmHg Blood Pressure Method Automatic Blood Pressure Location Right arm Blood Pressure Cuff Size Medium 12/08/2022 15:20 EDT Heart Rate Monitored 75 bpm Respiratory Rate 18 br/min Systolic Blood Pressure Non-Invasive 99 mmHg Diastolic Blood Pressure Non-Invasive 51 mmHg LOW Blood Pressure Method Automatic Blood Pressure Location Right arm Blood Pressure Cuff Size Medium 12/08/2022 15:15 EDT Heart Rate Monitored 80 bpm Respiratory Rate 18 br/min Systolic Blood Pressure Non-Invasive 97 mmHg Diastolic Blood Pressure Non-Invasive 50 mmHg Blood Pressure Method Automatic Blood Pressure Location Right arm Blood Pressure Cuff Size Medium 12/08/2022 15:10 EDT Heart Rate Monitored 71 bpm Respiratory Rate 16 br/min Systolic Blood Pressure Non-Invasive 100 mmHg Diastolic Blood Pressure Non-Invasive 38 mmHg Blood Pressure Method Automatic Blood Pressure Location Right arm Blood Pressure Cuff Size Medium 12/08/2022 15:05 EDT Heart Rate Monitored 80 bpm Respiratory Rate 16 br/min Systolic Blood Pressure Non-Invasive 97 mmHg Diastolic Blood Pressure Non-Invasive 48 mmHg Blood Pressure Method Automatic Blood Pressure Location Right arm Blood Pressure Cuff Size Medium 12/08/2022 15:04 EDT Heart Rate Monitored 85 bpm Respiratory Rate 16 br/min Systolic Blood Pressure Non-Invasive 90 mmHg Diastolic Blood Pressure Non-Invasive 48 mmHg Blood Pressure Method Automatic Blood Pressure Location Right arm Blood Pressure Cuff Size Medium 12/08/2022 15:00 EDT Temperature Temporal Artery 36.4 DegC Heart Rate Monitored 119 bpm HI Respiratory Rate 16 br/min Systolic Blood Pressure Non-Invasive 107 mmHg Diastolic Blood Pressure Non-Invasive 49 mmHg Blood Pressure Method Automatic Blood Pressure Location Right arm Blood Pressure Cuff Size Medium 12/08/2022 14:56 EDT Heart Rate Monitored 85 bpm Respiratory Rate 16 br/min Systolic Blood Pressure Non-Invasive 97 mmHg Diastolic Blood Pressure Non-Invasive 52 mmHg LOW Blood Pressure Method Automatic Blood Pressure Location Right arm Blood Pressure Cuff Size Medium 12/08/2022 14:54 EDT Heart Rate Monitored 81 bpm Respiratory Rate 16 br/min Systolic Blood Pressure Non-Invasive 79 mmHg LOW Diastolic Blood Pressure Non-Invasive 53 mmHg LOW Blood Pressure Method Automatic Blood Pressure Location Right arm Blood Pressure Cuff Size Medium 12/08/2022 14:52 EDT Heart Rate Monitored 81 bpm Respiratory Rate 16 br/min Systolic Blood Pressure Non-Invasive 84 mmHg LOW Diastolic Blood Pressure Non-Invasive 42 mmHg Blood Pressure Method Automatic Blood Pressure Location Right arm Blood Pressure Cuff Size Medium 12/08/2022 14:50 EDT Heart Rate Monitored 76 bpm Respiratory Rate 18 br/min Systolic Blood Pressure Non-Invasive 89 mmHg LOW Diastolic Blood Pressure Non-Invasive 47 mmHg Blood Pressure Method Automatic Blood Pressure Location Right arm Blood Pressure Cuff Size Medium 12/08/2022 14:48 EDT Heart Rate Monitored 87 bpm Respiratory Rate 18 br/min Systolic Blood Pressure Non-Invasive 106 mmHg Diastolic Blood Pressure Non-Invasive 57 mmHg LOW Blood Pressure Method Automatic Blood Pressure Location Right arm Blood Pressure Cuff Size Medium 12/08/2022 14:46 EDT Heart Rate Monitored 80 bpm Respiratory Rate 18 br/min Systolic Blood Pressure Non-Invasive 99 mmHg Diastolic Blood Pressure Non-Invasive 58 mmHg LOW Blood Pressure Method Automatic Blood Pressure Location Right arm Blood Pressure Cuff Size Medium 12/08/2022 14:44 EDT Heart Rate Monitored 79 bpm Respiratory Rate 18 br/min Systolic Blood Pressure Non-Invasive 104 mmHg Diastolic Blood Pressure Non-Invasive 58 mmHg LOW Blood Pressure Method Automatic Blood Pressure Location Right arm Blood Pressure Cuff Size Medium 12/08/2022 14:15 EDT Temperature Temporal Artery 36.4 DegC Heart Rate Monitored 77 bpm Respiratory Rate 18 br/min Systolic Blood Pressure Non-Invasive 109 mmHg Diastolic Blood Pressure Non-Invasive 74 mmHg Blood Pressure Method Automatic Blood Pressure Location Right arm Blood Pressure Cuff Size Medium 12/08/2022 13:30 EDT Temperature Temporal Artery 36.2 DegC Heart Rate Monitored 96 bpm Respiratory Rate 18 br/min Systolic Blood Pressure Non-Invasive 117 mmHg Diastolic Blood Pressure Non-Invasive 74 mmHg Blood Pressure Method Automatic Blood Pressure Location Right arm Blood Pressure Cuff Size Medium 12/08/2022 12:30 EDT Temperature Temporal Artery 36.2 DegC Heart Rate Monitored 88 bpm Respiratory Rate 18 br/min Systolic Blood Pressure Non-Invasive 112 mmHg Diastolic Blood Pressure Non-Invasive 77 mmHg Blood Pressure Method Automatic Blood Pressure Location Left arm Blood Pressure Cuff Size Medium 12/08/2022 11:30 EDT Temperature Temporal Artery 36.2 DegC Heart Rate Monitored 115 bpm HI Respiratory Rate 16 br/min Systolic Blood Pressure Non-Invasive 100 mmHg Diastolic Blood Pressure Non-Invasive 58 mmHg LOW Blood Pressure Method Automatic Blood Pressure Location Right arm Blood Pressure Cuff Size Medium 12/08/2022 10:30 EDT Temperature Temporal Artery 36 DegC Heart Rate Monitored 89 bpm Respiratory Rate 16 br/min Systolic Blood Pressure Non-Invasive 95 mmHg Diastolic Blood Pressure Non-Invasive 69 mmHg Blood Pressure Method Automatic Blood Pressure Location Right arm Blood Pressure Cuff Size Medium 12/08/2022 9:45 EDT Temperature Temporal Artery 36.2 DegC Heart Rate Monitored 101 bpm HI Respiratory Rate 18 br/min Systolic Blood Pressure Non-Invasive 110 mmHg Diastolic Blood Pressure Non-Invasive 62 mmHg Blood Pressure Method Automatic Blood Pressure Location Left arm Blood Pressure Cuff Size Medium 12/08/2022 9:00 EDT Temperature Temporal Artery 36.3 DegC Heart Rate Monitored 86 bpm Respiratory Rate 18 br/min Systolic Blood Pressure Non-Invasive 104 mmHg Diastolic Blood Pressure Non-Invasive 67 mmHg Blood Pressure Method Automatic Blood Pressure Location Left arm Blood Pressure Cuff Size Medium 12/08/2022 8:00 EDT Temperature Oral 36.9 DegC Heart Rate Monitored 76 bpm Respiratory Rate 18 br/min Systolic Blood Pressure Non-Invasive 100 mmHg Diastolic Blood Pressure Non-Invasive 47 mmHg Blood Pressure Method Automatic Blood Pressure Location Left arm Blood Pressure Cuff Size Medium 12/08/2022 2:12 EDT Temperature Temporal Artery 36.5 DegC Heart Rate Monitored 77 bpm Systolic Blood Pressure Non-Invasive 106 mmHg Diastolic Blood Pressure Non-Invasive 59 mmHg LOW 12/08/2022 0:04 EDT Temperature Temporal Artery 36.2 DegC Heart Rate Monitored 79 bpm Systolic Blood Pressure Non-Invasive 118 mmHg Diastolic Blood Pressure Non-Invasive 52 mmHg LOW , Measurements from flowsheet . Mental status: alert & oriented x 4. Respiratory function: respirations are non-labored. Respiratory support: none. CV function: Normal rate. Cardiovascular support: none. Pain. Nausea status: see nursing documentation of medications. Postoperative hydration status: within normal limits. Digitally Signed by RENNY ALMAGUER on 12/09/2022 08:58 PM [facility] 12-08-2022 Anesthesiology Consult note Patient: JULIA PISANO Age: 27 years Sex: Female : 1995 Associated Diagnoses: None Author: RENNY ALMAGUER Preoperative Information laboring Anesthesia history Patient's history: negative. Family's history: negative. Health Status Allergies: Allergic Reactions (Selected) NKA, Allergies (1) ActiveReaction NKANone Documented Current medications: (Selected) Inpatient Medications Ordered Bicitra: 30 mL, Oral, AsDirected, PRN: Gastric Upset Brethine: 0.25 mg, 0.25 mL, Subcutaneous, AsDirected, PRN: Control symptoms Brethine: 0.25 mg, 0.25 mL, Subcutaneous, AsDirected, PRN: Other (see order comments) Cytotec: 1,000 mcg, 5 tab(s), Rectal, Once, PRN: Other (see order comments) Hemabate: 250 mcg, 1 mL, Intramuscular, Once, PRN: Other (see order comments) LR 1,000 mL: 125 mL/hr, Intravenous LR 500 mL Bolus: 500 mL, IV Bolus, AsDirected, PRN: Other (see order comments) Methergine: 0.2 mg, 1 mL, Intramuscular, Once, PRN: Other (see order comments) Nubain: 10 mg, 1 mL, IV Push, q2h, PRN: Pain Oxytocin for IV (mL/hr) 20 unit(s) + LR Premix Diluent 1,000 mL: 999 mL/hr, Intravenous Oxytocin for IV (munit/min) 20 unit(s) [2 munit/min] + LR Premix Diluent 1,000 mL: 6 mL/hr, Intravenous Pitocin: 20 unit(s), 2 mL, Intramuscular, Once, PRN: Other (see order comments) Xylocaine HCl 1% injectable solution: 20 mg, 2 mL, Perineum, AsDirected, PRN: to perineal sutures Zofran: 4 mg, 2 mL, IV Push, q4h, PRN: Nausea tranexamic acid 1 g / 100 mL 0.7% NaCl PMX: 1 gram(s), 100 mL, 300 mL/hr, IV Piggyback, AsDirected, PRN: Other (see order comments) Documented Medications Documented AD oral tablet: 1 tab(s), Oral, qDay, 30 tab(s), 0 Refill(s), Medications (15) Active Scheduled: (0) Continuous: (3) Lactated Ringers 1,000 mL 1,000 mL, Intravenous, 125 mL/hr Oxytocin 20 units in Lactated Ringers 1000 mL 20 unit(s) + LR Premix Diluent 1,000 mL 1,000 mL, Intravenous, 999 mL/hr Oxytocin 20 units in Lactated Ringers 1000 mL 20 unit(s) [2 munit/min] + LR Premix Diluent 1,000 mL 1,000 mL, Intravenous, 6 mL/hr PRN: (12) carboprost 250 mcg/ml 1mL ampule 250 mcg 1 mL, Intramuscular, Once citric acid-sodium citrate 334 mg-500 mg/5 mL (30 mL) Loretta UD 30 mL, Oral, AsDirected Lactated Ringers Injection 500 mL * Bolus * 500 mL, IV Bolus, AsDirected lidocaine 1% (MPF) 2 mL vial pf 20 mg 2 mL, Perineum, AsDirected methylergonovine 0.2 mg/mL (1 mL) ampule 0.2 mg 1 mL, Intramuscular, Once misoprostol 200 mcg tablet 1,000 mcg 5 tab(s), Rectal, Once nalbuphine 10 mg/mL (1 mL) Solution 10 mg 1 mL, IV Push, q2h ondansetron 2 mg/ 1 mL 2 mL INJ 4 mg 2 mL, IV Push, q4h oxytocin 10 units/mL 1 mL vial 20 unit(s) 2 mL, Intramuscular, Once terbutaline 1 mg/ml vial 0.25 mg 0.25 mL, Subcutaneous, AsDirected terbutaline 1 mg/ml vial 0.25 mg 0.25 mL, Subcutaneous, AsDirected tranexamic acid PMX 1 gram(s) 100 mL, IV Piggyback, AsDirected Problem list: Medical Gestational diabetes mellitus, class A>2< / SNOMED CT 28554623 / Confirmed / SNOMED CT [id number] / Confirmed / SNOMED CT 512943832 / Confirmed, Active Problems (6) Anxiety, generalized Gestational diabetes Gestational diabetes mellitus, class A>2< Tobacco use Histories Past Medical History: Resolved ([id number]): Onset on 01/17/2019 at 23 years. Resolved on 10/24/2019 at 24 years. ([id number]): Onset on 05/17/2012 at 17 years. Resolved on 02/21/2013 at 17 years. Family History: Entire family history is negative. Procedure history: [place] tooth ([id number]) on 09/16/2020 at 25 Years. None ([id number]). Social History Social & Psychosocial Habits Alcohol 12/07/2022 Use: Past Substance Abuse 12/07/2022 Use: Past Type: Marijuana Tobacco 12/07/2022 Tobacco Use: 10 or more cigarettes (1/ Started at age: 13 Years Nutrition/Health 12/07/2022 Type of diet: Regular . Physical Examination Vital Signs 12/08/2022 14:15 EDT Temperature Temporal Artery 36.4 DegC Heart Rate Monitored 77 bpm Respiratory Rate 18 br/min Systolic Blood Pressure Non-Invasive 109 mmHg Diastolic Blood Pressure Non-Invasive 74 mmHg Blood Pressure Method Automatic Blood Pressure Location Right arm Blood Pressure Cuff Size Medium 12/08/2022 13:30 EDT Temperature Temporal Artery 36.2 DegC Heart Rate Monitored 96 bpm Respiratory Rate 18 br/min Systolic Blood Pressure Non-Invasive 117 mmHg Diastolic Blood Pressure Non-Invasive 74 mmHg Blood Pressure Method Automatic Blood Pressure Location Right arm Blood Pressure Cuff Size Medium 12/08/2022 12:30 EDT Temperature Temporal Artery 36.2 DegC Heart Rate Monitored 88 bpm Respiratory Rate 18 br/min Systolic Blood Pressure Non-Invasive 112 mmHg Diastolic Blood Pressure Non-Invasive 77 mmHg Blood Pressure Method Automatic Blood Pressure Location Left arm Blood Pressure Cuff Size Medium 12/08/2022 11:30 EDT Temperature Temporal Artery 36.2 DegC Heart Rate Monitored 115 bpm HI Respiratory Rate 16 br/min Systolic Blood Pressure Non-Invasive 100 mmHg Diastolic Blood Pressure Non-Invasive 58 mmHg LOW Blood Pressure Method Automatic Blood Pressure Location Right arm Blood Pressure Cuff Size Medium 12/08/2022 10:30 EDT Temperature Temporal Artery 36 DegC Heart Rate Monitored 89 bpm Respiratory Rate 16 br/min Systolic Blood Pressure Non-Invasive 95 mmHg Diastolic Blood Pressure Non-Invasive 69 mmHg Blood Pressure Method Automatic Blood Pressure Location Right arm Blood Pressure Cuff Size [facility] 12/08/2022 9:45 EDT Temperature Temporal Artery 36.2 DegC Heart Rate Monitored 101 bpm HI Respiratory Rate 18 br/min Systolic Blood Pressure Non-Invasive 110 mmHg Diastolic Blood Pressure Non-Invasive 62 mmHg Blood Pressure Method Automatic Blood Pressure Location Left arm Blood Pressure Cuff Size [facility] 12/08/2022 9:00 EDT Temperature Temporal Artery 36.3 DegC Heart Rate Monitored 86 bpm Respiratory Rate 18 br/min Systolic Blood Pressure Non-Invasive 104 mmHg Diastolic Blood Pressure Non-Invasive 67 mmHg Blood Pressure Method Automatic Blood Pressure Location Left arm Blood Pressure Cuff Size [facility] 12/08/2022 8:00 EDT Temperature Oral 36.9 DegC Heart Rate Monitored 76 bpm Respiratory Rate 18 br/min Systolic Blood Pressure Non-Invasive 100 mmHg Diastolic Blood Pressure Non-Invasive 47 mmHg Blood Pressure Method Automatic Blood Pressure Location Left arm Blood Pressure Cuff Size [facility] 12/08/2022 2:12 EDT Temperature Temporal Artery 36.5 DegC Heart Rate Monitored 77 bpm Systolic Blood Pressure Non-Invasive 106 mmHg Diastolic Blood Pressure Non-Invasive 59 mmHg LOW 12/08/2022 0:04 EDT Temperature Temporal Artery 36.2 DegC Heart Rate Monitored 79 bpm Systolic Blood Pressure Non-Invasive 118 mmHg Diastolic Blood Pressure Non-Invasive 52 mmHg LOW 12/07/2022 22:27 EDT Temperature Temporal Artery 36.8 DegC Heart Rate Monitored 79 bpm Systolic Blood Pressure Non-Invasive 100 mmHg Diastolic Blood Pressure Non-Invasive 58 mmHg LOW 12/07/2022 21:12 EDT Temperature Temporal Artery 36.8 DegC Heart Rate Monitored 91 bpm Systolic Blood Pressure Non-Invasive 109 mmHg Diastolic Blood Pressure Non-Invasive 55 mmHg LOW 12/07/2022 17:21 EDT Heart Rate Monitored 87 bpm Systolic Blood Pressure Non-Invasive 104 mmHg Diastolic Blood Pressure Non-Invasive 57 mmHg LOW 12/07/2022 15:32 EDT Temperature Temporal Artery 36.8 DegC Heart Rate Monitored 72 bpm Respiratory Rate 16 br/min Systolic Blood Pressure Non-Invasive 93 mmHg Diastolic Blood Pressure Non-Invasive 49 mmHg 12/07/2022 14:00 EDT Heart Rate Monitored 81 bpm Systolic Blood Pressure Non-Invasive 87 mmHg LOW Diastolic Blood Pressure Non-Invasive 48 mmHg 12/07/2022 12:00 EDT Temperature Oral 36.8 DegC Heart Rate Monitored 87 bpm Systolic Blood Pressure Non-Invasive 105 mmHg Diastolic Blood Pressure Non-Invasive 54 mmHg LOW 12/07/2022 10:04 EDT Heart Rate Monitored 87 bpm Systolic Blood Pressure Non-Invasive 111 mmHg Diastolic Blood Pressure Non-Invasive 89 mmHg 12/07/2022 9:00 EDT Heart Rate Monitored 87 bpm Respiratory Rate 16 br/min Systolic Blood Pressure Non-Invasive 105 mmHg Diastolic Blood Pressure Non-Invasive 68 mmHg 12/07/2022 6:56 EDT Heart Rate Monitored 83 bpm Respiratory Rate 18 br/min Systolic Blood Pressure Non-Invasive 109 mmHg Diastolic Blood Pressure Non-Invasive 59 mmHg LOW 12/07/2022 5:56 EDT Temperature Oral 36.7 DegC Heart Rate Monitored 102 bpm HI Respiratory Rate 18 br/min Systolic Blood Pressure Non-Invasive 103 mmHg Diastolic Blood Pressure Non-Invasive 58 mmHg LOW Vital Signs(last 24 hrs) Last Charted Temp Oral36.9 DegC (DEC 08 08:00) Heart Rate [id number] bpm (DEC 08 14:15) Resp Rate 18 br/min (DEC 08 14:15) [id number] mmHg (DEC 08 14:15) DBP74 mmHg (DEC 08 14:15) Measurements from flowsheet : Measurements 12/07/2022 5:52 EDT Height 162.6 cm Admission Weight 92 kg [place] Body Weight 54.74 kg BSA Admission 1.97 Body Mass Index 34.8 kg/m2 Pain assessment: Pain Assessment 12/08/2022 14:15 EDT Primary Pain Location Abdomen Abdominal Pain Location LLQ, RLQ Primary Pain Laterality Bilateral Primary Pain Intensity 7 Primary Pain Time Pattern intermittent Primary Pain Onset Gradual Primary Pain Duration INtermittent Primary Pain Quality Contraction Primary Pain Non-Pharma Intervention Repositioning Primary Pain Aggravating Factors None Primary Pain Alleviating Factors Repositioning Primary Pain Nonverbal Response Facial grimace Pain Associated Symptoms None Pain Scale Type 0-10 Pain scale 12/08/2022 13:30 EDT Primary Pain Location Abdomen Abdominal Pain Location LLQ, RLQ Primary Pain Laterality Bilateral Primary Pain Intensity 7 Primary Pain Time Pattern intermittent Primary Pain Onset Gradual Primary Pain Duration Intermittent Primary Pain Quality Contraction Primary Pain Non-Pharma Intervention Repositioning Primary Pain Aggravating Factors None Primary Pain Alleviating Factors Repositioning Primary Pain Nonverbal Response Facial grimace Pain Associated Symptoms None Pain Scale Type 0-10 Pain scale 12/08/2022 12:30 EDT Primary Pain Location Abdomen Abdominal Pain Location LLQ, RLQ Primary Pain Laterality Bilateral Primary Pain Intensity 5 Primary Pain Time Pattern intermittent Primary Pain Onset Gradual Primary Pain Duration Intermittent Primary Pain Quality Contraction Primary Pain Non-Pharma Intervention Repositioning Primary Pain Aggravating Factors None Primary Pain Alleviating Factors Repositioning Primary Pain Nonverbal Response Appears restful Pain Associated Symptoms None Pain Scale Type 0-10 Pain scale 12/08/2022 11:30 EDT Primary Pain Location Abdomen Abdominal Pain Location LLQ, RLQ Primary Pain Laterality Bilateral Primary Pain Intensity 4 Primary Pain Time Pattern intermittent Primary Pain Onset Gradual Primary Pain Duration Intermittent Primary Pain Quality Contraction Primary Pain Non-Pharma Intervention Repositioning Primary Pain Aggravating Factors None Primary Pain Alleviating Factors Repositioning Primary Pain Nonverbal Response Appears restful Pain Associated Symptoms None Pain Scale Type 0-10 Pain scale 12/08/2022 10:30 EDT Primary Pain Location Abdomen Abdominal Pain Location LLQ, RLQ Primary Pain Laterality Bilateral Primary Pain Intensity 4 Primary Pain Time Pattern intermittent Primary Pain Onset Gradual Primary Pain Duration Intermittent Primary Pain Quality Contraction Primary Pain Non-Pharma Intervention Repositioning Primary Pain Aggravating Factors None Primary Pain Alleviating Factors Repositioning Primary Pain Nonverbal Response Appears restful Pain Associated Symptoms None Pain Scale Type 0-10 Pain scale 12/08/2022 9:45 EDT Primary Pain Location Abdomen Abdominal Pain Location LLQ, RLQ Primary Pain Laterality Bilateral Primary Pain Intensity 4 Primary Pain Time Pattern intermittent Primary Pain Onset Gradual Primary Pain Duration Intermittent Primary Pain Quality Contraction Primary Pain Non-Pharma Intervention Repositioning Primary Pain Aggravating Factors None Primary Pain Alleviating Factors Repositioning Primary Pain Nonverbal Response Appears restful Pain Associated Symptoms None Pain Scale Type 0-10 Pain scale 12/08/2022 9:00 EDT Primary Pain Intensity 0 Pain Associated Symptoms None Pain Scale Type 0-10 Pain scale 12/08/2022 8:00 EDT Primary Pain Intensity 0 Pain Associated Symptoms None Pain Scale Type 0-10 Pain scale 12/08/2022 1:51 EDT Primary Pain Intensity 0 Pain Scale Type 0-10 Pain scale 12/08/2022 0:04 EDT Primary Pain Intensity 0 Primary Pain Nonverbal Response Appears restful Pain Scale Type 0-10 Pain scale 12/07/2022 19:49 EDT Primary Pain Intensity 0 Pain Scale Type 0-10 Pain scale 12/07/2022 19:11 EDT Primary Pain Intensity 0 Pain Scale Type 0-10 Pain scale 12/07/2022 19:01 EDT Primary Pain Intensity 0 Pain Scale Type 0-10 Pain scale 12/07/2022 18:27 EDT Primary Pain Intensity 0 Pain Scale Type 0-10 Pain scale 12/07/2022 18:00 EDT Primary Pain Intensity 0 Pain Scale Type 0-10 Pain scale 12/07/2022 16:30 EDT Primary Pain Intensity 0 Pain Scale Type 0-10 Pain scale 12/07/2022 16:00 EDT Primary Pain Intensity 0 Pain Scale Type 0-10 Pain scale 12/07/2022 15:32 EDT Primary Pain Intensity 0 Pain Scale Type 0-10 Pain scale 12/07/2022 14:54 EDT Primary Pain Intensity 0 Pain Scale Type 0-10 Pain scale 12/07/2022 14:00 EDT Primary Pain Intensity 0 Pain Scale Type 0-10 Pain scale 12/07/2022 13:31 EDT Primary Pain Intensity 0 Pain Scale Type 0-10 Pain scale 12/07/2022 12:54 EDT Primary Pain Intensity 0 Pain Scale Type 0-10 Pain scale 12/07/2022 12:32 EDT Primary Pain Intensity 0 Pain Scale Type 0-10 Pain scale 12/07/2022 12:00 EDT Primary Pain Intensity 0 Pain Scale Type 0-10 Pain scale 12/07/2022 11:00 EDT Primary Pain Intensity 0 Pain Scale Type 0-10 Pain scale 12/07/2022 9:59 EDT Primary Pain Intensity 0 Pain Scale Type 0-10 Pain scale 12/07/2022 9:33 EDT Primary Pain Intensity 0 Pain Scale Type 0-10 Pain scale 12/07/2022 9:00 EDT Primary Pain Intensity 0 Pain Scale Type 0-10 Pain scale 12/07/2022 8:30 EDT Primary Pain Intensity 0 Pain Scale Type 0-10 Pain scale 12/07/2022 8:00 EDT Primary Pain Intensity 0 Pain Scale Type 0-10 Pain scale 12/07/2022 7:30 EDT Primary Pain Intensity 0 Pain Scale Type 0-10 Pain scale 12/07/2022 5:52 EDT Primary Pain Intensity 0 Pain Scale Type 0-10 Pain scale . General: Alert and oriented. Airway: Normal temporomandibular joint mobility, Normal mouth, Normal neck range of motion. Mallampati classification: II (soft palate, fauces, uvula visible). Dentition Evaluation: Denies loose/chipped teeth. Respiratory: Respirations are non-labored. Cardiovascular: Normal rate. Neurologic: Alert, Oriented. Review / Management Results review: Labs (Last four charted values) WBC 9.7(DEC 07) Hgb 12.2(DEC 07) Hct L 35.8(DEC 07) Plt 174(DEC 07) , Lab results 12/08/2022 15:04 EDT Epidural Bolus, Anesthesia 12/08/2022 14:49 Epidural Care Patient Response Tolerated without difficulty 12/08/2022 15:00 EDT Lactated Ringers Injection Begin Bag 1,000 mL mL 12/08/2022 14:44 EDT Epidural Placed By RENNY ALMAGUER APRN-GEOTECHNICAL ENGINEER Epidural Test Dose Time 12/08/2022 14:44 12/08/2022 14:38 EDT Epidural Patient Position Side of bed, leaning forward with support 12/08/2022 14:36 EDT Lactated Ringers Injection Begin Bag 1,000 mL mL 12/08/2022 14:30 EDT Uterine Contraction Monitoring Method External toco Uterine Contraction Frequency Q 2-4 min Uterine Contraction Duration 50-90 sec Uterine Contraction Intensity, Ext Palp Moderate Uterine Resting Tone, External Soft Uterine Activity Regular contractions Baby A FHR Baseline: 125 bpm FHR Baseline Variability: Moderate variability FHR Accelerations: Present FHR Deceleration: Absent FHR Monitoring Method: External US transducer Activity Status ADL Ambulating in room, Awake 12/08/2022 14:25 EDT Monitoring Annotations Anesthesia notified of need for epidural 12/08/2022 14:15 EDT Temperature Temporal Artery 36.4 DegC Heart Rate Monitored 77 bpm Respiratory Rate 18 br/min Systolic Blood Pressure Non-Invasive 109 mmHg Diastolic Blood Pressure Non-Invasive 74 mmHg Blood Pressure Method Automatic Blood Pressure Location Right arm Blood Pressure Cuff Size Medium Primary Pain Location Abdomen Abdominal Pain Location LLQ, RLQ Primary Pain Laterality Bilateral Primary Pain Intensity 7 Primary Pain Time Pattern intermittent Primary Pain Onset Gradual Primary Pain Duration INtermittent Primary Pain Quality Contraction Primary Pain Non-Pharma Intervention Repositioning Primary Pain Aggravating Factors None Primary Pain Alleviating Factors Repositioning Primary Pain Nonverbal Response Facial grimace Pain Associated Symptoms None Pain Scale Type 0-10 Pain scale Heart Rhythm Regular Oxygen Therapy Room air Uterine Contraction Monitoring Method External toco Uterine Contraction Frequency Q 2-3 min Uterine Contraction Duration 60-70 sec Uterine Contraction Intensity, Ext Palp Moderate Uterine Resting Tone, External Soft Uterine Activity Regular contractions Baby A FHR Baseline: 125 bpm FHR Baseline Variability: Moderate variability FHR Accelerations: Present FHR Deceleration: Absent FHR Monitoring Method: External US transducer Wrist Left 12/07/2022 18 gauge Peripheral IV Activity: Assessed Peripheral IV Dressing Condition: Clean, Dry, Intact Peripheral IV Dressing Activity: Transparent dressing Peripheral IV Line Status/Patency: Continuous infusion Peripheral IV Site Condition: No complications Peripheral IV Equipment: Extension set, Stopcock, IV Pump, PRN Adaptor Activity Status ADL Ambulating in room, Awake Standard Safety Safety level maintained, Precautions maintained 12/08/2022 14:04 EDT Monitoring Annotations Tocotransducer adjusted 12/08/2022 14:00 EDT Uterine Contraction Monitoring Method External toco Uterine Contraction Frequency Q 3 min Uterine Contraction Duration 70-90 sec Uterine Contraction Intensity, Ext Palp Moderate Uterine Resting Tone, External Soft Uterine Activity Regular contractions Patient Position, OB Sitting Baby A FHR Baseline: 135 bpm FHR Baseline Variability: Moderate variability FHR Accelerations: Present FHR Deceleration: Absent FHR Monitoring Method: External US transducer Activity Status ADL Awake, Repositions self 12/08/2022 13:59 EDT Lactated Ringers Injection Begin Bag 1,000 mL mL 12/08/2022 13:45 EDT Monitoring Annotations Provider at bedside-Allen Ramos CNM 12/08/2022 13:45 EDT Cervix Dilation 5 cm Cervix Effacement 70 Station -2 Vaginal Exam Performed By DARION RAMOS 12/08/2022 13:30 EDT Temperature Temporal Artery 36.2 DegC Heart Rate Monitored 96 bpm Respiratory Rate 18 br/min Systolic Blood Pressure Non-Invasive 117 mmHg Diastolic Blood Pressure Non-Invasive 74 mmHg Blood Pressure Method Automatic Blood Pressure Location Right arm Blood Pressure Cuff Size Medium Primary Pain Location Abdomen Abdominal Pain Location LLQ, RLQ Primary Pain Laterality Bilateral Primary Pain Intensity 7 Primary Pain Time Pattern intermittent Primary Pain Onset Gradual Primary Pain Duration Intermittent Primary Pain Quality Contraction Primary Pain Non-Pharma Intervention Repositioning Primary Pain Aggravating Factors None Primary Pain Alleviating Factors Repositioning Primary Pain Nonverbal Response Facial grimace Pain Associated Symptoms None Pain Scale Type 0-10 Pain scale Heart Rhythm Regular Oxygen Therapy Room air Uterine Contraction Monitoring Method External toco Uterine Contraction Frequency Q 3 min Uterine Contraction Duration 70-90 sec Uterine Contraction Intensity, Ext Palp Moderate Uterine Resting Tone, External Soft Uterine Activity Regular contractions Patient Position, OB Birthing ball Baby A FHR Baseline: 145 bpm FHR Baseline Variability: Moderate variability FHR Accelerations: Present FHR Deceleration: Absent FHR Monitoring Method: External US transducer Wrist Left 12/07/2022 18 gauge Peripheral IV Activity: Assessed Peripheral IV Dressing Condition: Clean, Dry, Intact Peripheral IV Dressing Activity: Transparent dressing Peripheral IV Line Status/Patency: Continuous infusion Peripheral IV Site Condition: No complications Peripheral IV Equipment: Extension set, Stopcock, IV Pump, PRN Adaptor Activity Status ADL Awake Lunch Percent 50 % Standard Safety Safety level maintained, Precautions maintained 12/08/2022 13:15 EDT Monitoring Annotations Leaning over bed 12/08/2022 13:00 EDT Uterine Contraction Monitoring Method External toco Uterine Contraction Frequency Q 2-3 min Uterine Contraction Duration 70-90 sec Uterine Contraction Intensity, Ext Palp Moderate Uterine Resting Tone, External Soft Uterine Activity Regular contractions Patient Position, OB Birthing ball Baby A FHR Baseline: 145 bpm FHR Baseline Variability: Moderate variability FHR Accelerations: Present FHR Deceleration: Absent FHR Monitoring Method: External US transducer Activity Status ADL Awake 12/08/2022 12:35 EDT Uterine Contraction Monitoring Method External toco Uterine Contraction Frequency Q 2min Uterine Contraction Duration 80 sec Uterine Contraction Intensity, Ext Palp Moderate Uterine Resting Tone, External Soft Uterine Activity Regular contractions Baby A FHR Baseline: 145 bpm FHR Baseline Variability: Moderate variability FHR Accelerations: Present FHR Monitoring Method: External US transducer oxytocin 24 munit/min unit(s) LR Premix Diluent LR Premix Diluent mL 12/08/2022 12:30 EDT Temperature Temporal Artery 36.2 DegC Heart Rate Monitored 88 bpm Respiratory Rate 18 br/min Systolic Blood Pressure Non-Invasive 112 mmHg Diastolic Blood Pressure Non-Invasive 77 mmHg Blood Pressure Method Automatic Blood Pressure Location Left arm Blood Pressure Cuff Size Medium Primary Pain Location Abdomen Abdominal Pain Location LLQ, RLQ Primary Pain Laterality Bilateral Primary Pain Intensity 5 Primary Pain Time Pattern intermittent Primary Pain Onset Gradual Primary Pain Duration Intermittent Primary Pain Quality Contraction Primary Pain Non-Pharma Intervention Repositioning Primary Pain Aggravating Factors None Primary Pain Alleviating Factors Repositioning Primary Pain Nonverbal Response Appears restful Pain Associated Symptoms None Pain Scale Type 0-10 Pain scale Heart Rhythm Regular Oxygen Therapy Room air Uterine Contraction Monitoring Method External toco Uterine Contraction Frequency Q 2 min Uterine Contraction Duration 60-80 sec Uterine Contraction Intensity, Ext Palp Moderate Uterine Resting Tone, External Soft Uterine Activity Regular contractions Baby A FHR Baseline: 145 bpm FHR Baseline Variability: Moderate variability FHR Accelerations: Present FHR Deceleration: Absent FHR Monitoring Method: External US transducer Wrist Left 12/07/2022 18 gauge Peripheral IV Activity: Assessed Peripheral IV Dressing Condition: Clean, Dry, Intact Peripheral IV Dressing Activity: Transparent dressing Peripheral IV Line Status/Patency: Continuous infusion Peripheral IV Site Condition: No complications Peripheral IV Equipment: Extension set, Stopcock, IV Pump, PRN Adaptor Activity Status ADL Ambulating in room, Awake Standard Safety Safety level maintained, Precautions maintained 12/08/2022 12:24 EDT OB Progress Note Labor notes 12/08/2022 12:16 EDT Monitoring Annotations Tocotransducer adjusted 12/08/2022 12:15 EDT Cervix Dilation 4 cm Cervix Effacement 60 Station -2 Vaginal Exam Performed By DARION RAMOS Baby A Membrane Status: A.R.O.M. ROM Performed By: DARION RAMOS ROM Date, Time: 12/08/2022 12:15 Amniotic Fluid Amount: Moderate amount Amniotic Fluid Color/Descrip: Clear Amniotic Fluid Odor: None 12/08/2022 12:10 EDT Monitoring Annotations Provider at bedside--Joey Ramos CNM 12/08/2022 12:04 EDT Patient Position, OB Birthing ball 12/08/2022 12:00 EDT Uterine Contraction Monitoring Method External toco Uterine Contraction Frequency Q 2-4 min Uterine Contraction Duration 60-90 sec Uterine Contraction Intensity, Ext Palp Moderate Uterine Resting Tone, External Soft Uterine Activity Regular contractions Baby A FHR Baseline: 145 bpm FHR Baseline Variability: Moderate variability FHR Accelerations: Present FHR Deceleration: Absent FHR Monitoring Method: External US transducer Activity Status ADL Ambulating in room, Awake oxytocin 26 munit/min unit(s) LR Premix Diluent LR Premix Diluent mL 12/08/2022 11:45 EDT Uterine Contraction Monitoring Method External toco Uterine Contraction Frequency Q 2-3 min Uterine Contraction Duration 70-90 sec Uterine Contraction Intensity, Ext Palp Moderate Uterine Resting Tone, External Soft Uterine Activity Regular contractions Baby A FHR Baseline: 140 bpm FHR Baseline Variability: Moderate variability FHR Accelerations: Present FHR Deceleration: Absent FHR Monitoring Method: External US transducer Activity Status ADL Ambulating in room, Awake oxytocin 24 munit/min unit(s) LR Premix Diluent LR Premix Diluent mL 12/08/2022 11:30 EDT Temperature Temporal Artery 36.2 DegC Heart Rate Monitored 115 bpm HI Respiratory Rate 16 br/min Systolic Blood Pressure Non-Invasive 100 mmHg Diastolic Blood Pressure Non-Invasive 58 mmHg LOW Blood Pressure Method Automatic Blood Pressure Location Right arm Blood Pressure Cuff Size Medium Primary Pain Location Abdomen Abdominal Pain Location LLQ, RLQ Primary Pain Laterality Bilateral Primary Pain Intensity 4 Primary Pain Time Pattern intermittent Primary Pain Onset Gradual Primary Pain Duration Intermittent Primary Pain Quality Contraction Primary Pain Non-Pharma Intervention Repositioning Primary Pain Aggravating Factors None Primary Pain Alleviating Factors Repositioning Primary Pain Nonverbal Response Appears restful Pain Associated Symptoms None Pain Scale Type 0-10 Pain scale Heart Rhythm Regular Oxygen Therapy Room air Uterine Contraction Monitoring Method External toco Uterine Contraction Frequency Q 3-4 min Uterine Contraction Duration 60-90 sec Uterine Contraction Intensity, Ext Palp Moderate Uterine Resting Tone, External Soft Uterine Activity Regular contractions Baby A FHR Baseline: 145 bpm FHR Baseline Variability: Moderate variability FHR Accelerations: Present FHR Deceleration: Absent FHR Monitoring Method: External US transducer Wrist Left 12/07/2022 18 gauge Peripheral IV Activity: Assessed Peripheral IV Dressing Condition: Clean, Dry, Intact Peripheral IV Dressing Activity: Transparent dressing Peripheral IV Line Status/Patency: Continuous infusion Peripheral IV Site Condition: No complications Peripheral IV Equipment: Extension set, Stopcock, IV Pump, PRN Adaptor Activity Status ADL Ambulating in room, Awake Standard Safety Safety level maintained, Precautions maintained oxytocin 22 munit/min unit(s) LR Premix Diluent LR Premix Diluent mL 12/08/2022 11:15 EDT Uterine Contraction Monitoring Method External toco Uterine Contraction Frequency Q 3-4 min Uterine Contraction Duration 60-80 sec Uterine Contraction Intensity, Ext Palp Moderate Uterine Resting Tone, External Soft Uterine Activity Regular contractions Baby A FHR Baseline: 145 bpm FHR Baseline Variability: Moderate variability FHR Accelerations: Present FHR Deceleration: Absent FHR Monitoring Method: External US transducer oxytocin 20 munit/min unit(s) LR Premix Diluent LR Premix Diluent mL 12/08/2022 11:07 EDT Notify date/time 12/08/2022 10:55 Provider Notified DARION RAMOS Notification Method Phone Information Communicated Nurse communication Details Communicated Updated on pt status, pitocin level, pain level Notification Outcome Orders received Person Reporting Result(s) Oumar Peter Rn Results Read Back Yes 12/08/2022 11:00 EDT Uterine Contraction Monitoring Method External toco Uterine Contraction Frequency Q 3 min Uterine Contraction Duration 60-80 sec Uterine Contraction Intensity, Ext Palp Mild Uterine Resting Tone, External Soft Uterine Activity Regular contractions Baby A FHR Baseline: 145 bpm FHR Baseline Variability: Moderate variability FHR Accelerations: Present FHR Deceleration: Present FHR Deceleration Description: Variable FHR Deceleration Intervention: Other: Repositioning FHR Monitoring Method: External US transducer Activity Status ADL Awake oxytocin 18 munit/min unit(s) LR Premix Diluent LR Premix Diluent mL 12/08/2022 10:30 EDT Temperature Temporal Artery 36 DegC Heart Rate Monitored 89 bpm Respiratory Rate 16 br/min Systolic Blood Pressure Non-Invasive 95 mmHg Diastolic Blood Pressure Non-Invasive 69 mmHg Blood Pressure Method Automatic Blood Pressure Location Right arm Blood Pressure Cuff Size Medium Primary Pain Location Abdomen Abdominal Pain Location LLQ, RLQ Primary Pain Laterality Bilateral Primary Pain Intensity 4 Primary Pain Time Pattern intermittent Primary Pain Onset Gradual Primary Pain Duration Intermittent Primary Pain Quality Contraction Primary Pain Non-Pharma Intervention Repositioning Primary Pain Aggravating Factors None Primary Pain Alleviating Factors Repositioning Primary Pain Nonverbal Response Appears restful Pain Associated Symptoms None Pain Scale Type 0-10 Pain scale Heart Rhythm Regular Oxygen Therapy Room air Uterine Contraction Monitoring Method External toco Uterine Contraction Frequency Q 3-5 min Uterine Contraction Duration 70-90 sec Uterine Contraction Intensity, Ext Palp Mild Uterine Resting Tone, External Soft Uterine Activity Regular contractions Patient Position, OB Birthing ball Baby A FHR Baseline: 135 bpm FHR Baseline Variability: Moderate variability FHR Accelerations: Present FHR Deceleration: Absent FHR Monitoring Method: External US transducer Wrist Left 12/07/2022 18 gauge Peripheral IV Activity: Assessed Peripheral IV Dressing Condition: Clean, Dry, Intact Peripheral IV Dressing Activity: Transparent dressing Peripheral IV Line Status/Patency: Continuous infusion Peripheral IV Site Condition: No complications Peripheral IV Equipment: Extension set, Stopcock, IV Pump, PRN Adaptor Activity Status ADL Awake Standard Safety Safety level maintained, Precautions maintained oxytocin 16 munit/min unit(s) LR Premix Diluent LR Premix Diluent mL 12/08/2022 10:15 EDT Uterine Contraction Monitoring Method External toco Uterine Contraction Frequency Q 3-4 min Uterine Contraction Duration 70 sec Uterine Contraction Intensity, Ext Palp Mild Uterine Resting Tone, External Soft Uterine Activity Regular contractions Baby A FHR Baseline: 145 bpm FHR Baseline Variability: Moderate variability FHR Accelerations: Present FHR Deceleration: Absent FHR Monitoring Method: External US transducer oxytocin 14 munit/min unit(s) LR Premix Diluent LR Premix Diluent mL 12/08/2022 10:00 EDT Monitoring Annotations Pt out of shower 12/08/2022 10:00 EDT Uterine Contraction Monitoring Method External toco Uterine Contraction Frequency Q 3-4 min Uterine Contraction Duration 70-90 sec Uterine Contraction Intensity, Ext Palp Mild Uterine Resting Tone, External Soft Uterine Activity Regular contractions Baby A FHR Baseline: 135 bpm FHR Baseline Variability: Moderate variability FHR Accelerations: Present FHR Deceleration: Absent FHR Monitoring Method: External US transducer Activity Status ADL Awake Standard Safety Safety level maintained, Precautions maintained oxytocin 12 munit/min unit(s) LR Premix Diluent LR Premix Diluent mL 12/08/2022 9:50 EDT Monitoring Annotations Pt up to shower 12/08/2022 9:45 EDT Temperature Temporal Artery 36.2 DegC Heart Rate Monitored 101 bpm HI Respiratory Rate 18 br/min Systolic Blood Pressure Non-Invasive 110 mmHg Diastolic Blood Pressure Non-Invasive 62 mmHg Blood Pressure Method Automatic Blood Pressure Location Left arm Blood Pressure Cuff Size Medium Primary Pain Location Abdomen Abdominal Pain Location LLQ, RLQ Primary Pain Laterality Bilateral Primary Pain Intensity 4 Primary Pain Time Pattern intermittent Primary Pain Onset Gradual Primary Pain Duration Intermittent Primary Pain Quality Contraction Primary Pain Non-Pharma Intervention Repositioning Primary Pain Aggravating Factors None Primary Pain Alleviating Factors Repositioning Primary Pain Nonverbal Response Appears restful Pain Associated Symptoms None Pain Scale Type 0-10 Pain scale Heart Rhythm Regular Oxygen Therapy Room air Uterine Contraction Monitoring Method External toco Uterine Contraction Frequency Q 3-4 min Uterine Contraction Duration 70-90 sec Uterine Contraction Intensity, Ext Palp Mild Uterine Resting Tone, External Soft Uterine Activity Regular contractions Baby A FHR Baseline: 135 bpm FHR Baseline Variability: Moderate variability FHR Accelerations: Present FHR Deceleration: Absent FHR Monitoring Method: External US transducer Activity Status ADL Ambulating in room, Awake Standard Safety Safety level maintained, Precautions maintained oxytocin 10 munit/min unit(s) LR Premix Diluent LR Premix Diluent mL 12/08/2022 9:35 EDT Individuals Taught Patient Learning Readiness Willing to learn Barriers to Learning None evident Teaching Method Explanation, Printed materials Preferred Written Language Malaysian Family/Caregiver Prefer Written Language Malaysian Preferred Spoken Language Malaysian Family/Caregiver Prefer Spoken Language Malaysian Edu- Folder Verbalizes/Nonverbally indicates understanding Edu- Log: Stools/Voids Verbalizes/Nonverbally indicates understanding Edu-OB Booklet Verbalizes/Nonverbally indicates understanding 12/08/2022 9:34 EDT Breakfast Percent 100 % 12/08/2022 9:30 EDT Uterine Contraction Monitoring Method External toco Uterine Contraction Frequency Q 3-4 min Uterine Contraction Duration 70-90 sec Uterine Contraction Intensity, Ext Palp Mild Uterine Resting Tone, External Soft Uterine Activity Regular contractions Patient Position, OB Birthing ball Baby A FHR Baseline: 135 bpm FHR Baseline Variability: Moderate variability FHR Accelerations: Present FHR Deceleration: Absent FHR Monitoring Method: External US transducer Activity Status ADL Awake oxytocin 8 munit/min unit(s) LR Premix Diluent LR Premix Diluent mL 12/08/2022 9:23 EDT Monitoring Annotations Up to bathroom 12/08/2022 9:00 EDT Temperature Temporal Artery 36.3 DegC Heart Rate Monitored 86 bpm Respiratory Rate 18 br/min Systolic Blood Pressure Non-Invasive 104 mmHg Diastolic Blood Pressure Non-Invasive 67 mmHg Blood Pressure Method Automatic Blood Pressure Location Left arm Blood Pressure Cuff Size Medium Primary Pain Intensity 0 Pain Associated Symptoms None Pain Scale Type 0-10 Pain scale Heart Rhythm Regular Oxygen Therapy Room air Uterine Contraction Monitoring Method External toco Uterine Contraction Frequency Q 3-5 min Uterine Contraction Duration 60-80 sec Uterine Contraction Intensity, Ext Palp Mild Uterine Resting Tone, External Soft Uterine Activity Regular contractions Patient Position, OB Sitting Baby A FHR Baseline: 135 bpm FHR Baseline Variability: Moderate variability FHR Accelerations: Present FHR Deceleration: Absent FHR Monitoring Method: External US transducer Wrist Left 12/07/2022 18 gauge Peripheral IV Activity: Assessed Peripheral IV Dressing Condition: Clean, Dry, Intact Peripheral IV Dressing Activity: Transparent dressing Peripheral IV Line Status/Patency: Continuous infusion Peripheral IV Site Condition: No complications Peripheral IV Equipment: Extension set, Stopcock, IV Pump, PRN Adaptor Activity Status ADL Awake Standard Safety Safety level maintained, Precautions maintained oxytocin 6 munit/min unit(s) LR Premix Diluent LR Premix Diluent mL 12/08/2022 8:45 EDT Uterine Contraction Monitoring Method External toco Uterine Contraction Frequency Q 3-6 min Uterine Contraction Duration 80 sec Uterine Contraction Intensity, Ext Palp Mild Uterine Resting Tone, External Soft Uterine Activity Irregular contractions Patient Position, OB Sitting Baby A FHR Baseline: 135 bpm FHR Baseline Variability: Moderate variability FHR Accelerations: Present FHR Deceleration: Absent FHR Monitoring Method: External US transducer Activity Status ADL Awake oxytocin 4 munit/min unit(s) LR Premix Diluent LR Premix Diluent mL 12/08/2022 8:30 EDT Uterine Contraction Monitoring Method External toco Uterine Contraction Frequency Q 3-7 min Uterine Contraction Duration 60-80 sec Uterine Contraction Intensity, Ext Palp Mild Uterine Resting Tone, External Soft Uterine Activity Irregular contractions Patient Position, OB Sitting Baby A FHR Baseline: 135 bpm FHR Baseline Variability: Moderate variability FHR Accelerations: Present FHR Deceleration: Absent FHR Monitoring Method: External US transducer Activity Status ADL Awake 12/08/2022 8:28 EDT Ed-Plan of Care Verbalizes/Nonverbally indicates understanding Ed-Safety, Fall Verbalizes/Nonverbally indicates understanding Individuals Taught Patient Learning Readiness Willing to learn Barriers to Learning None evident Teaching Method Explanation Preferred Written Language Malaysian Family/Caregiver Prefer Written Language Malaysian Preferred Spoken Language Malaysian Family/Caregiver Prefer Spoken Language Malaysian Ed- Monitoring Verbalizes/Nonverbally indicates understanding Ed-Contractions Verbalizes/Nonverbally indicates understanding Ed-Discharge instructions Needs further teaching Ed-Complications of Labor/Delivery Verbalizes/Nonverbally indicates understanding Ed-LD Activity Verbalizes/Nonverbally indicates understanding Ed-LD Nutrition/Fluids Verbalizes/Nonverbally indicates understanding Ed-LD Safety Verbalizes/Nonverbally indicates understanding Ed-Patient/Caregiver about Hand Hygiene Verbalizes/Nonverbally indicates understanding 12/08/2022 8:27 EDT O-Remains Free From Injury Progressing towards goal Edu-Pain Management Verbalizes/Nonverbally indicates understanding Ed-Safety Verbalizes/Nonverbally indicates understanding Able To Drink Order Detail Yes Able To Sign Consents Order Detail Yes Code Status Order Detail Full code IV Order Detail Yes Dialysis Schedule Order Detail N/A Has Diabetes Order Detail Yes Isolation Precautions Order Detail None Nurse Collect Order Detail 0 Oxygen Order Detail No Order Detail Yes Prior Valve Replacement Order Detail No Transport Mode Order Detail Ambulatory Chief Load Dispatcher Details Form Chief Load Dispatcher Details Form 12/08/2022 8:22 EDT oxytocin Begin Bag 2 mL unit(s) LR Premix Diluent Begin Bag 1,000 mL mL 12/08/2022 8:10 EDT Lactated Ringers Injection Begin Bag 1,000 mL mL 12/08/2022 8:00 EDT Monitoring Annotations Provider at bedside--Dr Rojas 12/08/2022 8:00 EDT Temperature Oral 36.9 DegC Heart Rate Monitored 76 bpm Respiratory Rate 18 br/min Systolic Blood Pressure Non-Invasive 100 mmHg Diastolic Blood Pressure Non-Invasive 47 mmHg Blood Pressure Method Automatic Blood Pressure Location Left arm Blood Pressure Cuff Size Medium Primary Pain Intensity 0 Pain Associated Symptoms None Pain Scale Type 0-10 Pain scale Heart Rhythm Regular Murmur Auscultated No Dorsalis Pedis Pulse, Left 2+ Normal Dorsalis Pedis Pulse, Right 2+ Normal Pedal edema Bilateral Edema Ratin+ mild/4mm Respirations Unlabored Respiratory Pattern Regular Breath Sounds Auscultated Anterior and posterior All Lobes Breath Sounds Clear, Equal Oxygen Therapy Room air Abdomen Description Soft Bowel Continence Continent Swallowing Disorder None Bowel Sounds All Quadrants Present Tolerating Oral Intake Yes Urinary Elimination Voiding, no difficulties Bladder Distention Absent Cervix Dilation 2 cm Cervix Effacement 50 Station -2 Vaginal Exam Performed By ETIENNE ROJAS DO Uterine Contraction Monitoring Method External toco Uterine Contraction Frequency Q 4-7 min Uterine Contraction Duration 70-80 sec Uterine Contraction Intensity, Ext Palp Mild Uterine Resting Tone, External Soft Uterine Activity Irregular contractions Patient Position, OB Semi-Grider's Baby A FHR Baseline: 135 bpm FHR Baseline Variability: Moderate variability FHR Accelerations: Present FHR Deceleration: Absent FHR Interpretation Category: Category One FHR Monitoring Method: External US transducer Labor Onset, Date, Time: 12/08/2022 8:00 Breasts Soft Nipples Intact Support Person Present Support Person Involvement Supportive/involved Skin Temperature Warm Skin Description [place], Dry Skin Integrity Intact, Pressure points intact Sensory Perception Yaya No impairment Moisture Yaya Rarely moist Activity Yaya Walks occasionally Mobility Yaya No limitations Nutrition Yaya Adequate Friction and Shear Yaya No apparent problem Yaya Score 21 Hospital Acquired Pressure Injury Risk None/minimal risk (score 19-23) Wrist Left 12/07/2022 18 gauge Peripheral IV Activity: Assessed Peripheral IV Dressing Condition: Clean, Dry, Intact Peripheral IV Dressing Activity: Reinforced, Transparent dressing Peripheral IV Line Status/Patency: Flushes easily, 3ml normal saline flush, Continuous infusion Peripheral IV Site Condition: No complications Peripheral IV Equipment: Extension set, Stopcock, IV Pump, PRN Adaptor Neurological Symptoms Patient denies Level of Consciousness Alert Strength All Extremities Strong Tone All Extremities Normal Stein Screen Daily History of Fall in Last 3 Months Stein No Presence of Secondary Diagnosis Stein No Use of Ambulatory Aid Stein None, bedrest, wheelchair, nurse IV/PRN Adapter Fall Risk Stein Yes Gait Weak or Impaired Fall Risk Stein Normal, bedrest, immobile Mental Status Fall Risk Stein (more content not included)... [facility] 12-07-2022 Evaluation + Plan note Extrac man from: Title:Clinical Document Author:EDUAR DEL ANGEL COMMUNICATIONS PROFESSIONAL-CNM Date:12/07/22 [place] ADMISSION HISTORY AN D PHYSICIAL History and Physical/Admit Note: S: Patient is a 27 year old female at 39.0 wks GA with EDC of 12/14/2022 confirmed by second trimester ultrasound who present to [facility] for IOL. complications include: Diet controlled GDM History: NSVDx2, GDM with second Maternal medications include: PNV Bloodwork: Blood type: O positive; Rubella status: immune; HBsAG status: negative; HIV status: negative; GBS status: negative O: Vitals Signs(Last 24 hrs)__Last Charted Minimum Maximum Temp36.7(DEC 07 05:56)36.7(DEC 07:56)36.7(DEC 07:56) Heart Rate87(DEC 07 09:00)83(DEC 07:56)H 102(DEC 07:56) Resp Rate16(DEC 07 09:00)16(DEC 07:00)18(DEC 07:56) FRR685(DEC 07:)103(DEC 07:56)109(DEC 07:56) DBP68(DEC 07:00)L 58(DEC 07:56)68(DEC 07 09:00) Gen: alert, awake, in mild laboring distress Lungs: clear to auscultation bilaterally, equal breath sounds, no wheezes or crackles. Heart: RRR without murmur Abd: gravid uterus : cervical exam: /-3 with head well applied Membranes: Intact FHTs: Category 1 [place]: q 2-3 Ext: no edema 36hr Labs 12/07 0743 U TCA (AO)See Flowsheet U Gerber (AO)See Flowsheet U Methadone (AOSee Flowsheet U Cocaine (AO)See Flowsheet U PCP (AO)See Flowsheet U Ampheta (AO)See Flowsheet U Beth (AO)See Flowsheet U Cannab (AO)See Flowsheet Urine Opiates (See Flowsheet 12/07 0616 ABO/Rh InterpSee Flowsheet Antibody ScreenSee Flowsheet Hct35.8L Hgb12.2 MCH29.5 MCHC33.9 MCV87.1 MPV9.6 [id number] RBC4.12L RDW14.1 WBC9.7 Lymphocyte %16.6 Monocyte %6.2 Neutrophil %75.2 Eosinophil %1.7 Basophil %0.3 Neutrophil, Absolute7.3H Lymphocyte, Absolute1.6 Monocyte, Absolute0.6 Eosinophil, Absolute0.2 Basophil, Absolute0.0 12/07 0552 Blood Type, ExtSee Flowsheet Rubella, ExternSee Flowsheet HIV Antibodies,See Flowsheet Group B Strep,See Flowsheet Hepatitis B, ExSee Flowsheet Hepatitis B Date Performed1:[id number]:0.935262:0:0 RPR, ExternalSee Flowsheet Group B Strep Date Performed1:[id number]:0.238744:0:0 Medication List Active Medications Ordered carboprost: 250 mcg, 1 mL, Intramuscular, Once, PRN: Other (see order comments). citric acid-sodium citrate: 30 mL, Oral, AsDirected, PRN: Gastric Upset. Lactated Ringers Infusion: 500 mL, IV Bolus, AsDirected, PRN: Other (see order comments). Lactated Ringers Infusion 1,000 mL: 125 mL/hr, Intravenous. lidocaine: 20 mg, 2 mL, Perineum, AsDirected, PRN: to perineal sutures. methylergonovine: 0.2 mg, 1 mL, Intramuscular, Once, PRN: Other (see order comments). miSOPROStol: 1,000 mcg, 5 tab(s), Rectal, Once, PRN: Other (see order comments). nalbuphine: 10 mg, 1 mL, IV Push, q2h, PRN: Pain. ondansetron: 4 mg, 2 mL, IV Push, q4h, PRN: Nausea. oxytocin: 20 unit(s), 2 mL, Intramuscular, Once, PRN: Other (see order comments). oxytocin 20 unit(s) [2 munit/min] + LR Premix Diluent 1,000 mL: 6 mL/hr, Intravenous. oxytocin 20 unit(s) + LR Premix Diluent 1,000 mL: 999 mL/hr, Intravenous. terbutaline: 0.25 mg, 0.25 mL, Subcutaneous, AsDirected, PRN: Other (see order comments). terbutaline: 0.25 mg, 0.25 mL, Subcutaneous, AsDirected, PRN: Control symptoms. tranexamic acid: 1 gram(s), 100 mL, 300 mL/hr, IV Piggyback, AsDirected, PRN: Other (see order comments). Documented multivitamin, : 1 tab(s), Oral, qDay, 30 tab(s), 0 Refill(s). Medications Inactivated in the Last 72 Hours ethinyl estradiol-norgestimate: 1 tab(s), Oral, qDay. Lactated Ringers Infusion: Miscellaneous, Once. A: 1. 27 yo female at 39.0 wks GA 2. GBS negative 3. Diet controlled GDM P: 1. Admit to L&D 2. Cont external monitoring 3. IV placement/locked 4. IOL with Pitocin per protocol 5. Frequent position changes/labor support 6. Pain management per pt request [facility] 03-24-2023 Note Pt states she can feel her CTX a little but is breathing and talking through them. Does want an epidural at some point. CE: 1.5/50/-3, cephalic [place]: q 2-3 Membranes: Intact FHT: Category 1 Will try different positions to encourage decent, currently in [place] Digitally Signed by EDUAR DEL ANGEL on 12/07/2022 01:37 PM [facility]03-24-2023 Note [place] ADMISSION HISTORY AND PHYSICIAL History and Physical/Admit Note: S: Patient is a 27 year old female at 39.0 wks GA with EDC of 12/14/2022 confirmed by second trimester ultrasound who present to [facility] for IOL. complications include: Diet controlled GDM History: NSVDx2, GDM with second Maternal medications include: PNV Bloodwork: Blood type: O positive; Rubella status: immune; HBsAG status: negative; HIV status: negative; GBS status: negative O: Vitals Signs(Last 24 hrs)__Last Charted Minimum Maximum Temp36.7(DEC 07 05:56)36.7(DEC 07 05:56)36.7(DEC 07 05:56) Heart Rate87(DEC 07 09:00)83(DEC 07 06:56)H 102(DEC 07 05:56) Resp Rate16(DEC 07 09:00)16(DEC 07 09:00)18(DEC 07 05:56) GHF540(DEC 07 09:00)103(DEC 07 05:56)109(DEC 07 06:56) DBP68(DEC 07 09:00)L 58(DEC 07 05:56)68(DEC 07 09:00) Gen: alert, awake, in mild laboring distress Lungs: clear to auscultation bilaterally, equal breath sounds, no wheezes or crackles. Heart: RRR without murmur Abd: gravid uterus : cervical exam: /-3 with head well applied Membranes: Intact FHTs: Category 1 [place]: q 2-3 Ext: no edema 36hr Labs 12/07 0743 U TCA (AO)See Flowsheet U Gerber (AO)See Flowsheet U Methadone (AOSee Flowsheet U Cocaine (AO)See Flowsheet U PCP (AO)See Flowsheet U Ampheta (AO)See Flowsheet U Beth (AO)See Flowsheet U Cannab (AO)See Flowsheet Urine Opiates (See Flowsheet 12/07 0616 ABO/Rh InterpSee Flowsheet Antibody ScreenSee Flowsheet Hct35.8L Hgb12.2 MCH29.5 MCHC33.9 MCV87.1 MPV9.6 [id number] RBC4.12L RDW14.1 WBC9.7 Lymphocyte %16.6 Monocyte %6.2 Neutrophil %75.2 Eosinophil %1.7 Basophil %0.3 Neutrophil, Absolute7.3H Lymphocyte, Absolute1.6 Monocyte, Absolute0.6 Eosinophil, Absolute0.2 Basophil, Absolute0.0 12/07 0552 Blood Type, ExtSee Flowsheet Rubella, ExternSee Flowsheet HIV Antibodies,See Flowsheet Group B Strep,See Flowsheet Hepatitis B, ExSee Flowsheet Hepatitis B Date Performed1:[id number]:0.839887:0:0 RPR, ExternalSee Flowsheet Group B Strep Date Performed1:[id number]:0.024541:0:0 Medication List Active Medications Ordered carboprost: 250 mcg, 1 mL, Intramuscular, Once, PRN: Other (see order comments). citric acid-sodium citrate: 30 mL, Oral, AsDirected, PRN: Gastric Upset. Lactated Ringers Infusion: 500 mL, IV Bolus, AsDirected, PRN: Other (see order comments). Lactated Ringers Infusion 1,000 mL: 125 mL/hr, Intravenous. lidocaine: 20 mg, 2 mL, Perineum, AsDirected, PRN: to perineal sutures. methylergonovine: 0.2 mg, 1 mL, Intramuscular, Once, PRN: Other (see order comments). miSOPROStol: 1,000 mcg, 5 tab(s), Rectal, Once, PRN: Other (see order comments). nalbuphine: 10 mg, 1 mL, IV Push, q2h, PRN: Pain. ondansetron: 4 mg, 2 mL, IV Push, q4h, PRN: Nausea. oxytocin: 20 unit(s), 2 mL, Intramuscular, Once, PRN: Other (see order comments). oxytocin 20 unit(s) [2 munit/min] + LR Premix Diluent 1,000 mL: 6 mL/hr, Intravenous. oxytocin 20 unit(s) + LR Premix Diluent 1,000 mL: 999 mL/hr, Intravenous. terbutaline: 0.25 mg, 0.25 mL, Subcutaneous, AsDirected, PRN: Other (see order comments). terbutaline: 0.25 mg, 0.25 mL, Subcutaneous, AsDirected, PRN: Control symptoms. tranexamic acid: 1 gram(s), 100 mL, 300 mL/hr, IV Piggyback, AsDirected, PRN: Other (see order comments). Documented multivitamin, : 1 tab(s), Oral, qDay, 30 tab(s), 0 Refill(s). Medications Inactivated in the Last 72 Hours ethinyl estradiol-norgestimate: 1 tab(s), Oral, qDay. Lactated Ringers Infusion: Miscellaneous, Once. A: 1. 27 yo female at 39.0 wks [place] 2. GBS negative 3. Diet controlled GDM P: 1. Admit to L&D 2. Cont external monitoring 3. IV placement/locked 4. IOL with Pitocin per protocol 5. Frequent position changes/labor support 6. Pain management per pt request Digitally Signed by EDUAR DEL ANGEL on 12/07/2022 09:24 AM [facility]12-30-2022 History of Present illness Narrative * Levi Meyers APRN.WINEMAKER - 09/14/2022 7:42 PM EST Subjective HPI Nontoxic-appearing female presents urgent care chief complaint right ear pain and sore throat. Duration of symptoms today. Associated symptoms listed above. Patient states she is currently 27 weeks . Did have influenza 2 weeks ago. Has not used any OTC medication use today. Most prominent symptom today is right ear pain. Has not had ear pain/infection since childhood. Has not experienced any hearing difficulties or otorrhea. Denies any fever productive cough chest pain shortness of breath pleuritic pain hemoptysis nausea vomiting abdominal pain change in bowel or bladder habits. Denies any vaginal spotting discharge decreased movement or leaking of fluid. Past medical history p rescription medication use and allergies reviewed. .Patient presents with: Pain, Throat: Pt reported 27 week gestation, throat pain rated 6, (RT) ear pain, onset AM. PAST MEDICAL HISTORY Diagnosis Date Anxiety state History of drug use PAST SURGICAL HISTORY Procedure Laterality Date NONE ALLERGIES Patient has no known allergies. MEDICATIONS vit,melanie 74/iron/folic ( VITAMIN 1+1 ORAL) Take by mouth. Norethin Dhiraj-Eth Estrad-FE 1 mg-20 mcg (21)/75 mg (7) per tablet take 1 tablet by mouth once daily (Patient not taking: Reported on 08/30/2022) omeprazole (PRILOSEC) 40 mg capsule Take 1 capsule by mouth once daily. nicotine (NICODERM) 7 mg/24 hr Apply 1 Patch as directed every 24 hours. Use for 2 weeks, no smoking while on patches (Patient not taking: Reported on 04/04/2022 ) nicotine (NICODERM) 14 mg/24 hr Apply 1 Patch as directed every 24 hours. Use for 2 weeks, then proceed to the 7mg patches. No smoking with patch. (Patient not taking: Reported on 04/04/2022 ) nicotine (NICODERM) 21 mg/24 hr Apply 1 Patch as directed every 24 hours. Use for 6 weeks, then proceed to the 14 mg patches. No smoking while on patches (Patient not taking: Reported on 04/04/2022 ) guaiFENesin (MUCINEX) 600 mg 12 hr tablet Take 2 tablets by mouth twice daily. (Patient not taking:Reported on 04/04/2022 ) hydrOXYzine HCl (ATARAX) 25 mg tablet Take 1-2 tablets by mouth every 6 hours as needed for anxiety. (Patient not taking: Reported on 08/30/2022) fluticasone (FLONASE) 50 mcg/actuation nasal spray (Patient not taking: Reported on 03/16/2021 ) FAMILY HISTORY Problem Relation Age of Onset other (endometriosis) Mother had hysterectomy other (polyps) Father No Known Problems Sister Macular Degen Maternal Grandmother Kidney Disease Maternal Grandmother other (celft palate) Maternal Grandfather Diabetes Paternal Grandmother Parkinson s Disease Paternal Grandfather Depression Sister No Known Problems Daughter Social History Tobacco Use Smoking status: Every Day Packs/day: 0.50 Years: 10.00 Pack years: 5.00 Types: Cigarettes Smokeless tobacco: Never Vaping Use Vaping Use: Never used Substance Use Topics Alcohol use: Yes Comment: occasionally Drug use: Not Currently Types: Crystal Meth, Marijuana Comment: Last used meth Sep 2018 BP 122/78 Pulse 108 Temp 37.1 C (98.8 F) (Tympanic) Resp 18 Wt 96.1 kg (211 lb 12.8 oz) LMP 06/13/2021 SpO2 98% BMI 36.36 kg/m Hr 92 Review of Systems Constitutional: Negative for chills, fever and malaise/fatigue. HENT: Positive for congestion, ear pain and sore throat. Negative for ear discharge and sinus pain. Eyes: Negative for blurred vision, pain, discharge and redness. Respiratory: Negative for cough, hemoptysis, sputum production, shortness of breath, wheezing and stridor. Cardiovascular: Negative for chest pain. Gastrointestinal: Negative for abdominal pain, diarrhea, nausea and vomiting. Musculoskeletal: Negative for myalgias. Skin: Negative for itching and rash. Neurological: Negative for dizziness and headaches. Objective Physical Exam Constitutional: General: She is not in acute distress. Appearance: She is not diaphoretic. HENT: Head: Normocephalic. Jaw: No trismus or tenderness. Right Ear: Tympanic membrane, ear canal and external ear normal. Left Ear: Tympanic membrane, ear canal and external ear normal. Ears: Comments: Clear fluid noted behind bilateral TMs right greater than left. Nose: Congestion present. Mouth/Throat: Lips: [place]. Mouth: Mucous membranes are moist. Pharynx: Oropharynx is clear. Uvula midline. Posterior oropharyngeal erythema present. No pharyngeal swelling, oropharyngeal exudate or uvula swelling. Eyes: Conjunctiva/sclera: Conjunctivae normal. Pupils: Pupils are equal, round, and reactive to light. Cardiovascular: Rate and Rhythm: Normal rate and regular rhythm. Heart sounds: Normal heart sounds. Pulmonary: Effort: Pulmonary effort is normal. No tachypnea, accessory muscle usage or respiratory distress. Breath sounds: Normal breath sounds. No stridor. No wheezing, rhonchi or rales. Abdominal: General: There is no distension. Palpations: Abdomen is soft. Tenderness: There is no abdominal tenderness. There is no guarding or rebound. Musculoskeletal: Cervical back: Normal range of motion and neck supple. No rigidity or tenderness. Lymphadenopathy: Cervical: No cervical adenopathy. Skin: General: Skin is warm and dry. Neurological: Mental Status: She is alert and oriented to person, place, and time. ASSESSMENT/PLAN: 1. Throat pain - ICD9: 784.1, ICD10: R07.0 (primary diagnosis) - STREP A MOLECULAR (POC) 2. Eustachian tube dysfunction, bilateral - ICD9: 381.81, ICD10: H69.83 Patient diagnosed with eustachian tube dysfunction. Strep test was negative. We will continue supportive therapies as discussed. Follow-up with PCP as needed. Red flags for prompt reevaluation discussed. Will be seen in urgent care or ED for any new worsening or symptoms lasting longer than anticipated. Patient verbalized understand agrees with plan of care. Levi Meyers APRN.AMAURI [facility] Miscellaneous Notes* Telephone Encounter - Milka Alcocer Ma - 08/31/2022 10:43 AM EST Letter generated and attached to Fanium Milka Alcocer Ma * Telephone Encounter - Jossie Servin - 08/31/2022 10:17 AM EST Pt would like a letter for work stating she was seen and tested positive for Influenza a. It can beput in [place] for her to get there. * Telephone Encounter - Levi Meyers APRN.CNP - 08/31/2022 7:38 AM EST Positive influenza a test result noted. Patient contacted. Within therapeutic window of antiviral therapy. Tamiflu called in the pharmacy. Patient will reach out to STEREOPTICIAN's office today to inform them of positive test result and starting Tamiflu. Red flags for prompt reevaluation discussed. Patient verbalized understand agrees with plan of care. Levi Meyers APRN.CNP documented in this encounter[facility]12[facility]22 History of Present illness Narrative* Levi Meyers APRN.CNP - 08/30/2022 5:14 PM EST Subjective HPI Nontoxic-appearing 25-week female presents urgent care chief complaint flulike symptoms. Duration of symptom 1 day. Associated symptoms cough body aches chills fever headache sore throat nasal congestion. Patient states symptoms were abrupt. No known sick contacts. States she does work at a [employer]. No OTC medications. Worse symptom today is fatigue body aches. Denies any productive cough chest pain shortness of breath pleuritic pain hemoptysis nausea vomiting abdominal pain change in bowel or bladder habits. States good movement. No leakage of fluid. Past medical history prescription medication use and allergies reviewed. .Patient presents with: Cough: Pt reported 25 wk fetus + FM, nasal congestion x1 day. PAST MEDICAL HISTORY Diagnosis Date Anxiety state History of drug use PAST SURGICAL HISTORY Procedure Laterality Date NONE ALLERGIES Patient has no known allergies. MEDICATIONS vit,melanie 74/iron/folic ( VITAMIN 1+1 ORAL) Take by mouth. Norethin Dhiraj-Eth Estrad-FE 1 mg-20 mcg (21)/75 mg (7) per tablet take 1 tablet by mouth once daily (Patient not taking: Reported on 08/30/2022) omeprazole (PRILOSEC) 40 mg capsule Take 1 capsule by mouth once daily. nicotine (NICODERM) 7 mg/24 hr Apply 1 Patch as directed every 24 hours. Use for 2 weeks, no smoking while on patches (Patient not taking: Reported on 04/04/2022 ) nicotine (NICODERM) 14 mg/24 hr Apply 1 Patch as directed every 24 hours. Use for 2 weeks, then proceed to the 7mg patches. No smoking with patch. (Patient not taking: Reported on 04/04/2022 ) nicotine (NICODERM) 21 mg/24 hr Apply 1 Patch as directed every 24 hours. Use for 6 weeks, then proceed to the 14 mg patches. No smoking while on patches (Patient not taking: Reported on 04/04/2022 ) guaiFENesin (MUCINEX) 600 mg 12 hr tablet Take 2 tablets by mouth twice daily. (Patient not taking:Reported on 04/04/2022 ) hydrOXYzine HCl (ATARAX) 25 mg tablet Take 1-2 tablets by mouth every 6 hours as needed for anxiety. (Patient not taking: Reported on 08/30/2022) fluticasone (FLONASE) 50 mcg/actuation nasal spray (Patient not taking: Reported on 03/16/2021 ) FAMILY HISTORY Problem Relation Age of Onset other (endometriosis) Mother had hysterectomy other (polyps) Father No Known Problems Sister Macular Degen Maternal Grandmother Kidney Disease Maternal Grandmother other (celft palate) Maternal Grandfather Diabetes Paternal Grandmother Parkinson s Disease Paternal Grandfather Depression Sister No Known Problems Daughter Social History Tobacco Use Smoking status: Every Day Packs/day: 0.50 Years: 10.00 Pack years: 5.00 Types: Cigarettes Smokeless tobacco: Never Vaping Use Vaping Use: Never used Substance Use Topics Alcohol use: Yes Comment: occasionally Drug use: Not Currently Types: Crystal Meth, Marijuana Comment: Last used meth Sep 2018 BP 128/76 Pulse (!) 133 Temp 37.9 C (100.2 F) (Tympanic) Resp 18 Wt 94.5 kg (208 lb 6.4 oz) LMP 06/13/2021 SpO2 98% BMI 35.77 kg/m Hr 106 Review of Systems Constitutional: Positive for chills, fever and malaise/fatigue. HENT: Positive for congestion and sore throat. Negative for ear discharge, ear pain and sinus pain. Eyes: Negative for blurred vision, pain, discharge and redness. Respiratory: Positive for cough. Negative for hemoptysis, sputum production, shortness of breath, wheezing and stridor. Cardiovascular: Negative for chest pain. Gastrointestinal: Negative for abdominal pain, diarrhea, nausea and vomiting. Musculoskeletal: Positive for myalgias. Skin: Negative for itching and rash. Neurological: Positive for headaches. Negative for dizziness. Objective Physical Exam Constitutional: General: She is not in acute distress. Appearance: She is not diaphoretic. HENT: Head: Normocephalic. Nose: Congestion present. Mouth/Throat: Mouth: Mucous membranes are moist. Pharynx: Oropharynx is clear. No oropharyngeal exudate or posterior oropharyngeal erythema. Eyes: Conjunctiva/sclera: Conjunctivae normal. Pupils: Pupils are equal, round, and reactive to light. Cardiovascular: Rate and Rhythm: Normal rate and regular rhythm. Heart sounds: Normal heart sounds. Pulmonary: Effort: Pulmonary effort is normal. No tachypnea, accessory muscle usage or respiratory distress. Breath sounds: Normal breath sounds. No stridor. No wheezing, rhonchi or rales. Abdominal: General: There is no distension. Palpations: Abdomen is soft. Tenderness: There is no abdominal tenderness. There is no guarding or rebound. Musculoskeletal: Cervical back: Normal range of motion and neck supple. No rigidity or tenderness. Lymphadenopathy: Cervical: No cervical adenopathy. Skin: General: Skin is warm and dry. Neurological: Mental Status: She is alert and oriented to person, place, and time. ASSESSMENT/PLAN: 1. Viral illness - ICD9: 079.99, ICD10: B34.9 - Discussed viral etiology and rationale for treatment. - Symptomatic treatment with prn analgesia - Supportive care with fluids and rest - COVID WITH FLUA+B, ROUTINE Suspicious of influenza with patient's symptoms and current environment. Treat conservatively at this time. Red flags for prompt reevaluation discussed. Will start Tamiflu if positive for influenza due to high risk and . Patient was educated on supportive therapies. Patient will follow up with primary care provider as needed. Patient was instructed to immediately proceed to emergency room for any new, worsening, or symptoms lasting longer than anticipated. The patient's clinical presentation is otherwise unremarkable at this time. Based on exam and clinical finding, the patient is stable for discharge. Plan of care was discussed with patient. Patient verbalizes understanding and agrees to plan of care. This note was generated using [employer] software. It may contain errors in wording, punctuation, or spelling. Levi Meyers APRN.AMAURI documented in this encounterK[facility]07-20-[facility]22 History of Present illness Narrative* Jocelyn Boogie APRN.AMAURI - 04/04/2022 12:08 PM EDT Subjective HPI Julia Pisano is a 26 year old female who presents with 3 days of fever, body aches, chills, congestion. She was around her daughter 4 days ago and she tested positive for COVID and strep afterwards. Julia has not been taking any medication for her symptoms. She states the body aches are theworst symptom. Review of Systems Constitutional: Positive for fever. HENT: Positive for congestion, ear pain (right) and sore throat. Respiratory: Negative for cough and shortness of breath. Cardiovascular: Negative. Musculoskeletal: Positive for myalgias. Neurological: Positive for headaches. BP 118/72 Pulse 119 Temp 37.8 C (100 F) Resp 21 Wt 88 kg (194 lb) LMP 06/13/2021 SpO2 99% BMI 33.30 kg/m PAST MEDICAL HISTORY Diagnosis Date Anxiety state History of drug use PAST SURGICAL HISTORY Procedure Laterality Date NONE ALLERGIES Patient has no known allergies. MEDICATIONS Norethin Dhiraj-Eth Estrad-FE 1 mg-20 mcg (21)/75 mg (7) per tablet take 1 tablet by mouth once daily omeprazole (PRILOSEC) 40 mg capsule Take 1 capsule by mouth once daily. hydrOXYzine HCl (ATARAX) 25 mg tablet Take 1-2 tablets by mouth every 6 hours as needed for anxiety. amoxicillin (AMOXIL) 875 mg tablet Take 1 tablet by mouth twice daily for 7 days. nicotine (NICODERM) 7 mg/24 hr Apply 1 Patch as directed every 24 hours. Use for 2 weeks, no smoking while on patches nicotine (NICODERM) 14 mg/24 hr Apply 1 Patch as directed every 24 hours. Use for 2 weeks, then proceed to the 7mg patches. No smoking with patch. nicotine (NICODERM) 21 mg/24 hr Apply 1 Patch as directed every 24 hours. Use for 6 weeks, then proceed to the 14 mg patches. No smoking while on patches guaiFENesin (MUCINEX) 600 mg 12 hr tablet Take 2 tablets by mouth twice daily. fluticasone (FLONASE) 50 mcg/actuation nasal spray FAMILY HISTORY Problem Relation Age of Onset other (endometriosis) Mother had hysterectomy other (polyps) Father No Known Problems Sister Macular Degen Maternal Grandmother Kidney Disease Maternal Grandmother other (celft palate) Maternal Grandfather Diabetes Paternal Grandmother Parkinson s Disease Paternal Grandfather Depression Sister No Known Problems Daughter Social History Tobacco Use Smoking status: Current Every Day Smoker Packs/day: 0.50 Years: 10.00 Pack years: 5.00 Types: Cigarettes Smokeless tobacco: Never Used Vaping Use Vaping Use: Never used Substance Use Topics Alcohol use: Yes Comment: occasionally Drug use: Not Currently Types: Crystal Meth, Marijuana Comment: Last used meth Sep 2018 Objective Physical Exam Vitals and nursing note reviewed. Constitutional: Appearance: She is obese. HENT: Right Ear: Ear canal and external ear normal. Tympanic membrane is injected and bulging. Left Ear: Tympanic membrane, ear canal and external ear normal. Nose: Nose normal. Mouth/Throat: Mouth: Mucous membranes are moist. Pharynx: Oropharynx is clear. Uvula midline. No oropharyngeal exudate or posterior oropharyngeal erythema. Cardiovascular: Rate and Rhythm: Regular rhythm. Tachycardia present. Heart sounds: Normal heart sounds. Pulmonary: Effort: Pulmonary effort is normal. No respiratory distress. Breath sounds: Normal breath sounds. No wheezing or rales. Musculoskeletal: Cervical back: Neck supple. Lymphadenopathy: Cervical: No cervical adenopathy. Skin: General: Skin is warm and dry. Findings: No erythema or rash. Neurological: Mental Status: She is alert. ASSESSMENT/PLAN: 1. Exposure to COVID-19 virus - ICD9: V01.79, ICD10: Z20.822 (primary diagnosis) - COVID WITH FLUA+B, ROUTINE 2. Viral illness - ICD9: 079.99, ICD10: B34.9 - Discussed viral etiology and rationale for treatment. - Symptomatic treatment with prn analgesia - Supportive care with fluids and rest - COVID WITH FLUA+B, ROUTINE 3. Other acute nonsuppurative otitis media of right ear, recurrence not specified - ICD9: 381.00, ICD10: H65.191 - Will begin treatment with Amoxicillin for 7 days - Supportive care with plenty of fluids, rest, and analgesia prn. - AMOXICILLIN 875 MG TABLET - Follow-up with your PCP in 3-5 days if symptoms have not improved or sooner if symptoms worsen - Discussed red flags and need for immediate medical evaluation if any occur. - Discussed supportive care treatment with fluids, rest and analgesia. - Discussed expected course of illness Jocelyn Boogie APRN. documented in this encounterK[facility]07-20-2022 Instructions* Patient Instructions* Jocelyn Boogie APRN.AMAURI - 04/04/2022 12:07 PM EDT ASSESSMENT/PLAN: 1. Exposure to COVID-19 virus - ICD9: V01.79, ICD10: Z20.822 (primary diagnosis) - COVID WITH FLUA+B, ROUTINE 2. Viral illness - ICD9: 079.99, ICD10: B34.9 - Discussed viral etiology and rationale for treatment. - Symptomatic treatment with prn analgesia - Supportive care with fluids and rest - COVID WITH FLUA+B, ROUTINE 3. Other acute nonsuppurative otitis media of right ear, recurrence not specified - ICD9: 381.00, ICD10: H65.191 - Will begin treatment with Amoxicillin for 7 days - Supportive care with plenty of fluids, rest, and analgesia prn. - AMOXICILLIN 875 MG TABLET - Follow-up with your PCP in 3-5 days if symptoms have not improved or sooner if symptoms worsen - Discussed red flags and need for immediate medical evaluation if any occur. - Discussed supportive care treatment with fluids, rest and analgesia. - Discussed expected course of illness Jocelyn Boogie APRN.WINEMAKER Beginning Home Isolation Isolation is used to separate people infected with SARS-CoV-2, the virus that causes COVID-19, frompeople who are not infected. People who are in isolation should stay home until it s safe for them to be around others. In the home, anyone sick or infected should separate themselves from others by staying in a specific sick room or area and using a separate bathroom (if available). Isolation or Quarantine: What's the difference? Quarantine keeps someone who might have been exposed to the virus away from others. Isolation keeps someone who is infected with the virus away from others, even in their home. Who needs to isolate People who have COVID-19 People who have symptoms of COVID-19 and are able to recover at home People who have no symptoms (are asymptomatic) but have tested positive for infection with SARS-CoV-2 Steps to take Stay home except to get medical care Monitor your symptoms. Stay in a separate room from other household members, if possible Use a separate bathroom, if possible Avoid contact with other members of the household and pets Don t share personal household items, like cups, towels, and utensils Wear a mask when around other people, if you are able to When to seek emergency medical attention Look for emergency warning signs* for COVID-19. If someone is showing any of these signs, seek emergency medical care immediately: Trouble breathing Persistent pain or pressure in the chest New confusion Inability to wake or stay awake Bluish lips or face *This list is not all possible symptoms. Please call your medical provider for any other symptoms that are severe or concerning to you. Call 911 or call ahead to your local emergency facility: Notify the grapple skidder operator that you are seeking care for someone who has or may have COVID-19. Ending Home Isolation - When you can be around others after you had or likely had COVID-19 When you can be around others after you had or likely had COVID-19 If You Test Positive for COVID-19 (Isolation) Everyone, regardless of vaccination status: 1. Stay home for 5 days. Note: Day 0 is your first day of symptoms or the date of collection of a positive viral test if no symptoms. Day 1 is the first full day after symptoms developed or test specimen was collected. 2. If you have no symptoms or your symptoms are resolving after 5 days, you can leave your house. 3. Continue to wear a mask around others for 5 additional days. If you have a fever, continue to stay home until your fever resolves, even if it is longer than 5 days. If You Were Exposed to Someone with COVID-19 (Quarantine) If you: 1. Have been boosted OR 2. Completed the primary series of Pfizer or Moderna vaccine within the last 6 months OR 3. Completed the primary series of J&J vaccine within the last 2 months THEN: 1. Wear a mask around others for 10 days. 2. Test on day 5, if possible. If you develop symptoms get a test and stay home. If You Were Exposed to Someone with COVID-19 (Quarantine) If you: 1. Completed the primary series of Pfizer or Moderna vaccine over 6 months ago and are not boosted OR 2. Completed the primary series of J&J over 2 months ago and are not boosted OR 3. Are unvaccinated THEN: 1. Stay home for 5 days. After that continue to wear a mask around others for 5 additional days. 2. If you can't quarantine you must wear a mask for 10 days. 3. Test on day 5 if possible. If you develop symptoms get a test and stay home. I had COVID-19 or I tested positive for COVID-19 and I have a weakened immune system If you have a weakened immune system (immunocompromised) due to a health condition or medication, you might need to stay home and isolate longer than 10 days. Talk to your healthcare provider for more information. Your doctor may work with an infectious disease expert at your local health department to determinewhen you can be around others. How to Manage Common Symptoms Associated with COVID for Adults Fever- Fever is a temperature over 100.4 F and can occur when the body is fighting an infection. Tohelp treat a fever: Drink plenty of fluids and stay well hydrated. Eat small amounts of easy to digest food. Rest. Your body needs rest to recover, but getting up and moving around the house frequently is a good idea. You should try to continue doing your normal daily activities (bathing, toileting, grooming, cooking), though you will probably feel tired, and need to rest often. Avoid any heavy activity or exercise, as this will increase your body temperature. Dress in light clothing and stay covered in a light sheet. Keep the room temperature cool. Take a slightly warm (not cold or cool) bath, or apply damp washcloths to the forehead and wrists. Cough- Cough is a common symptom associated with COVID and can be bothersome. To help treat a cough: Stay well hydrated. Try warm water or tea with lemon and/or honey to help soothe the cough. Use a humidifier to add moisture to the air. Try a product with menthol, like a cough drop or a rub for your chest such as Vicks, which can helpreduce cough. Try cough drops. Avoid smoking and other strong odors or perfumes. Try breathing exercises to keep your lungs open and clear. Take a big deep breath through your noseand hold for 5 seconds before slowly releasing. Repeat frequently, while you are awake. Congestion- Runny nose or nasal congestion can occur with COVID. Treatment can help relieve symptoms: Try OTC nasal saline spray, or nasal saline rinse to relieve mucus congestion. Nasal strips can help keep nasal passages open, to increase airflow. Elevating your head with an extra pillow in bed can help reduce congestion. Using a humidifier can increase moisture in the air, and make breathing easier. Sore Throat- Another common symptom with COVID, can be managed at home by: Stay well hydrated. Gargle with salt water mix teaspoon salt with 1 cup of warm water and gargle. This helps to loosen mucus in the back of the throat and may reduce discomfort. Try ice chips, popsicles or lozenges to soothe the throat. Nausea/Vomiting/Diarrhea- These are common symptoms, and staying hydrated is most important. If you are nauseous or vomiting, start with small sips of water every 10-15 minutes and increase astolerated. You can try sucking an ice cube too. If tolerating, you can try pedialyte or Gatorade, or flat sprite or tiffanie-isai. Start slowly and increase as you are able to. Instead of meals, try smaller, more frequent snacks. Try eating bland foods like crackers, toast, rice, and applesauce. Avoid spicy, greasy or fried foods and dairy containing foods. Even if you aren't feeling hungry due to lack of smell or taste, it is important to try to take in some food when you are able. After drinking and eating, rest in an upright position for up to two hours as needed to help decrease nauseous feelings. Try closing your eyes, avoid moving and watching TV. Avoid strong odors that can make you feel more nauseated. When to seek emergency medical attention Look for emergency warning signs for COVID-19. If having any of these symptoms, seek emergency medical care immediately: Trouble breathing Persistent pain or pressure in the chest New confusion Inability to wake or stay awake Bluish lips or face *This list is not all possible symptoms. Please call your medical provider for any other symptoms that are severe or concerning to you. documented in this encounterK[facility]05-12-2022 Miscellaneous Notes* Telephone Encounter - Ame Carvajal RN - 01/25/2022 9:58 AM EDT Last annual with [facility] 06/29/21. Pending Prescriptions Disp Refills NORETHINDRONE 1 MG-ETHINYL ESTRADIOL 20 MCG (21)-IRON 75 MG (7) TABLET 112 tablet 1 Sig: take 1 tablet by mouth once daily RAJWINDER: Yes RX INSTRUCTIONS: Pharmacy initiated this request. No need to notify patient. Ame Carvajal RN documented in this encounterK[facility]07-29-2021 History of Present illness Narrative* Oneida Turner RT(R) - 04/13/2021 5:30 PM EDT Radiology Service Progress Note PATIENT NAME: Julia Pisano DATE OF SERVICE: April 13, 2021 TIME: 5:50 PM PATIENT IDENTITY VERIFICATION COMPLETED USING TWO (2) IDENTIFIERS: Name and Date of confirmedby patient verbally. FALL SCREENING: Has the patient had 2 falls in the last year or 1 fall with injury or currently using an Ambulatory Assistive Device (Walker, Cane, Wheelchair, Crutches, etc.)? No PATIENT GENDER DATA: Female. status: : No status: NO. PATIENT RELEVANT IMPLANT DATA REVIEWED: Not Applicable RADIOLOGY DEPARTMENT: General X-ray: Exam(s) Completed: Rib X-Ray: Left PERIPHERAL IV DATA: Not applicable SIGNED BY: RT Byron(R) April 13, 2021 5:50 PM documented in this encounterK[facility]11-14-2019 History of Past illness Narrative* Problem Noted Date Resolved Date Abnormal glucose complicating 07/30/20 19 08/10/2019 Date of last menstrual period (LMP) unknown 10/201808/10/2019 Overview: 03/17/2019 Unknown LMP. Measuring 8w5d at [facility]. NT ordered. Declines carrier screen. SW Nausea/vomiting in 03/17/2019 Overview: 03/17/2019 Nausea w/o vomiting. Vitamin B6 sent to pharmacy. SW documented as of this encounter (statuses as of 01/25/2022) [facility] of Past illness Narrative* Problem Noted Date Resolved Date Abnormal glucose complicating 07/30/2008/10/2019 Date of last menstrual period (LMP) unknown 10/201808/10/2019 Overview: 03/17/2019 Unknown LMP. Measuring 8w5d at [facility]. NT ordered. Declines carrier screen. SW Nausea/vomiting in 03/17/2019 Overview: 03/17/2019 Nausea w/o vomiting. Vitamin B6 sent to pharmacy. SW documented as of this encounter (statuses as of 04/04/2022) [facility] of Past illness Narrative* Problem Noted Date Resolved Date Abnormal glucose complicating 07/30/2008/10/2019 Date of last menstrual period (LMP) unknown 10/201808/10/2019 Overview: 03/17/2019 Unknown LMP. Measuring 8w5d at [facility]. NT ordered. Declines carrier screen. SW Nausea/vomiting in 03/17/2019 Overview: 03/17/2019 Nausea w/o vomiting. Vitamin B6 sent to pharmacy. SW documented as of this encounter (statuses as of 08/30/2022) [facility] of Past illness Narrative* Problem Noted Date Resolved Date Abnormal glucose complicating 07/30/2008/10/2019 Date of last menstrual period (LMP) unknown 10/201808/10/2019 Overview: 03/17/2019 Unknown LMP. Measuring 8w5d at [facility]. NT ordered. Declines carrier screen. SW Nausea/vomiting in 03/17/2019 Overview: 03/17/2019 Nausea w/o vomiting. Vitamin B6 sent to pharmacy. SW documented as of this encounter (statuses as of 08/31/2022) [facility] of Past illness Narrative* Problem Noted Date Resolved Date Abnormal glucose complicating 07/30/20 19 08/10/2019 Date of last menstrual period (LMP) unknown 10/201808/10/2019 Overview: 03/17/2019 Unknown LMP. Measuring 8w5d at [facility]. NT ordered. Declines carrier screen. SW Nausea/vomiting in 03/17/2019 Overview: 03/17/2019 Nausea w/o vomiting. Vitamin B6 sent to pharmacy. SW documented as of this encounter (statuses as of 09/20/2022) [facility] of Past illness Narrative* Problem Noted Date Resolved Date Abnormal glucose complicating 07/30/20 19 08/10/2019 Date of last menstrual period (LMP) unknown 10/201808/10/2019 Overview: 03/17/2019 Unknown LMP. Measuring 8w5d at [facility]. NT ordered. Declines carrier screen. SW Nausea/vomiting in 03/17/2019 Overview: 03/17/2019 Nausea w/o vomiting. Vitamin B6 sent to pharmacy. SW documented as of this encounter (statuses as of 01/10/2023) [facility] of Past illness Narrative* Problem Noted Date Resolved Date Abnormal glucose complicating 07/30/20 19 08/10/2019 Date of last menstrual period (LMP) unknown 07/0 10/201808/10/2019 Overview: 03/17/2019 Unknown LMP. Measuring 8w5d at [facility]. NT ordered. Declines carrier screen. SW Nausea/vomiting in 03/17/2019 Overview: 03/17/2019 Nausea w/o vomiting. Vitamin B6 sent to pharmacy. SW documented as of this encounter (statuses as of 01/23/2023) [facility] of Past illness Narrative* Problem Noted Date Resolved Date Abnormal glucose complicating 07/30/20 19 08/10/2019 Date of last menstrual period (LMP) unknown 10/201808/10/2019 Overview: 03/17/2019 Unknown LMP. Measuring 8w5d at [facility]. NT ordered. Declines carrier screen. SW Nausea/vomiting in 03/17/2019 Overview: 03/17/2019 Nausea w/o vomiting. Vitamin B6 sent to pharmacy. SW documented as of this encounter (statuses as of 02/19/2023) [facility]2019 History of Past illness Narrative* Problem Noted Date Resolved Date Abnormal glucose complicating 07/30/20 19 08/10/2019 Date of last menstrual period (LMP) unknown 10/201808/10/2019 Overview: 03/17/2019 Unknown LMP. Measuring 8w5d at [facility]. NT ordered. Declines carrier screen. SW Nausea/vomiting in 03/17/2019 Overview: 03/17/2019 Nausea w/o vomiting. Vitamin B6 sent to pharmacy. SW documented as of this encounter (statuses as of 03/06/2023) [facility]-14[facility]2019 History of Past illness Narrative* Problem Noted Date Resolved Date Abnormal glucose complicating 07/30/20 19 08/10/2019 Date of last menstrual period (LMP) unknown 10/201808/10/2019 Overview: 03/17/2019 Unknown LMP. Measuring 8w5d at [facility]. NT ordered. Declines carrier screen. SW Nausea/vomiting in 03/17/2019 Overview: 03/17/2019 Nausea w/o vomiting. Vitamin B6 sent to pharmacy. SW documented as of this encounter (statuses as of 03/08/2023) [facility]2019 History of Past illness Narrative* Problem Noted Date Diagnosed Date Resolved Date Abnormal glucose complicating 07/30/2019 08/10/2019 Date of last menstrual period (LMP) unknown 03/17/2019 08/10/2019 Overview: 03/17/2019 Unknown LMP. Measuring 8w5d at [facility]. NT ordered. Declines carrier screen. SW Nausea/vomiting in 03/17/2019 08/10/2019 Overview: 03/17/2019 Nausea w/o vomiting. Vitamin B6 sent to pharmacy. SW documented as of this encounter (statuses as of 04/02/2023) [facility]14[facility]2019 History of Past illness Narrative* Problem Noted Date Diagnosed Date Resolved Date Abnormal glucose complicating 07/30/2019 08/10/2019 Date of last menstrual period (LMP) unknown 03/17/2019 08/10/2019 Overview: 03/17/2019 Unknown LMP. Measuring 8w5d at [facility]. NT ordered. Declines carrier screen. SW Nausea/vomiting in 03/17/2019 08/10/2019 Overview: 03/17/2019 Nausea w/o vomiting. Vitamin B6 sent to pharmacy. SW documented as of this encounter (statuses as of 05/15/2023) [facility]2019 History of Past illness Narrative* Problem Noted Date Diagnosed Date Resolved Date Abnormal glucose complicating 07/30/2019 08/10/2019 Date of last menstrual period (LMP) unknown 03/17/2019 08/10/2019 Overview: 03/17/2019 Unknown LMP. Measuring 8w5d at [facility]. NT ordered. Declines carrier screen. SW Nausea/vomiting in 03/17/2019 08/10/2019 Overview: 03/17/2019 Nausea w/o vomiting. Vitamin B6 sent to pharmacy. SW documented as of this encounter (statuses as of 05/31/2023) [facility]2019 History of Past illness Narrative* Problem Noted Date Diagnosed Date Resolved Date Abnormal glucose complicating 07/30/2019 08/10/2019 Date of last menstrual period (LMP) unknown 03/17/2019 08/10/2019 Overview: 03/17/2019 Unknown LMP. Measuring 8w5d at [facility]. NT ordered. Declines carrier screen. SW Nausea/vomiting in 03/17/2019 08/10/2019 Overview: 03/17/2019 Nausea w/o vomiting. Vitamin B6 sent to pharmacy. SW documented as of this encounter (statuses as of 06/28/2023) [facility]14[facility]2019 History of Past illness Narrative* Problem Noted Date Diagnosed Date Resolved Date Abnormal glucose complicating 07/30/2019 08/10/2019 Date of last menstrual period (LMP) unknown 03/17/2019 08/10/2019 Overview: 03/17/2019 Unknown LMP. Measuring 8w5d at [facility]. NT ordered. Declines carrier screen. SW Nausea/vomiting in 03/17/2019 08/10/2019 Overview: 03/17/2019 Nausea w/o vomiting. Vitamin B6 sent to pharmacy. SW documented as of this encounter (statuses as of 07/23/2023) [facility]2019 History of Past illness Narrative* Problem Noted Date Diagnosed Date Resolved Date Abnormal glucose complicating 07/30/2019 08/10/2019 Date of last menstrual period (LMP) unknown 03/17/2019 08/10/2019 Overview: 03/17/2019 Unknown LMP. Measuring 8w5d at [facility]. NT ordered. Declines carrier screen. SW Nausea/vomiting in 03/17/2019 08/10/2019 Overview: 03/17/2019 Nausea w/o vomiting. Vitamin B6 sent to pharmacy. SW documented as of this encounter (statuses as of 07/23/2023) [facility]2019 History of Past illness Narrative* Problem Noted Date Diagnosed Date Resolved Date Abnormal glucose complicating 07/30/2019 08/10/2019 Date of last menstrual period (LMP) unknown 03/17/2019 08/10/2019 Overview: 03/17/2019 Unknown LMP. Measuring 8w5d at [facility]. NT ordered. Declines carrier screen. SW Nausea/vomiting in 03/17/2019 08/10/2019 Overview: 03/17/2019 Nausea w/o vomiting. Vitamin B6 sent to pharmacy. SW documented as of this encounter (statuses as of 08/31/2023) [facility]2019 History of Past illness Narrative* Problem Noted Date Diagnosed Date Resolved Date Abnormal glucose complicating 07/30/2019 08/10/2019 Date of last menstrual period (LMP) unknown 03/17/2019 08/10/2019 Overview: 03/17/2019 Unknown LMP. Measuring 8w5d at [facility]. NT ordered. Declines carrier screen. SW Nausea/vomiting in 03/17/2019 08/10/2019 Overview: 03/17/2019 Nausea w/o vomiting. Vitamin B6 sent to pharmacy. SW documented as of this encounter (statuses as of 11/18/2023) [facility] RENNY ALMAGUER: PERFORM, SIGN, VERIFY Event Display: Anesthesiology Consultation Authored Date: Patient: JULIA PISANO Age: 27 years Sex: Female : 1995 Associated Diagnoses: None Author: RENNY ALMAGUER Assessment Postanesthesia assessment Vitals: Vital signs from flowsheet : Vital Signs 12/09/2022 20:13 EDT Heart Rate Monitored 79 bpm Systolic Blood Pressure Non-Invasive 96 mmHg Diastolic Blood Pressure Non-Invasive 66 mmHg 12/09/2022 18:00 EDT Temperature Temporal Artery 36.1 DegC Heart Rate Monitored 75 bpm Respiratory Rate 16 br/min Systolic Blood Pressure Non-Invasive 89 mmHg LOW Diastolic Blood Pressure Non-Invasive 44 mmHg <LLOW Blood Pressure Method Automatic Blood Pressure Location Left arm Blood Pressure Cuff Size Large 12/09/2022 15:55 EDT Temperature Temporal Artery 36.3 DegC Heart Rate Monitored 91 bpm Respiratory Rate 16 br/min Systolic Blood Pressure Non-Invasive 86 mmHg LOW Diastolic Blood Pressure Non-Invasive 67 mmHg Blood Pressure Method Automatic Blood Pressure Location Left arm Blood Pressure Cuff Size Large 12/09/2022 14:01 EDT Temperature Temporal Artery 36.5 DegC Heart Rate Monitored 92 bpm Respiratory Rate 16 br/min Systolic Blood Pressure Non-Invasive 111 mmHg Diastolic Blood Pressure Non-Invasive 64 mmHg Blood Pressure Method Automatic Blood Pressure Location Left arm Blood Pressure Cuff Size Large 12/09/2022 12:00 EDT Temperature Temporal Artery 36.4 DegC Heart Rate Monitored 91 bpm Respiratory Rate 16 br/min Systolic Blood Pressure Non-Invasive 100 mmHg Diastolic Blood Pressure Non-Invasive 68 mmHg Blood Pressure Method Automatic Blood Pressure Location Left arm Blood Pressure Cuff Size Large 12/09/2022 10:00 EDT Temperature Temporal Artery 36.5 DegC Heart Rate Monitored 96 bpm Respiratory Rate 16 br/min Systolic Blood Pressure Non-Invasive 114 mmHg Diastolic Blood Pressure Non-Invasive 72 mmHg Blood Pressure Method Automatic Blood Pressure Location Left arm Blood Pressure Cuff Size Large 12/09/2022 8:00 EDT Temperature Temporal Artery 36.6 DegC Heart Rate Monitored 88 bpm Respiratory Rate 18 br/min Systolic Blood Pressure Non-Invasive 95 mmHg Diastolic Blood Pressure Non-Invasive 57 mmHg LOW Blood Pressure Method Automatic Blood Pressure Location Right arm Blood Pressure Cuff Size Large 12/09/2022 7:02 EDT Heart Rate Monitored 80 bpm Systolic Blood Pressure Non-Invasive 95 mmHg Diastolic Blood Pressure Non-Invasive 47 mmHg <LLOW 12/09/2022 6:01 EDT Heart Rate Monitored 80 bpm Systolic Blood Pressure Non-Invasive 105 mmHg Diastolic Blood Pressure Non-Invasive 54 mmHg LOW 12/09/2022 5:01 EDT Heart Rate Monitored 95 bpm Systolic Blood Pressure Non-Invasive 113 mmHg Diastolic Blood Pressure Non-Invasive 65 mmHg 12/09/2022 4:04 EDT Heart Rate Monitored 86 bpm Systolic Blood Pressure Non-Invasive 108 mmHg Diastolic Blood Pressure Non-Invasive 49 mmHg <LLOW 12/09/2022 3:31 EDT Heart Rate Monitored 88 bpm Systolic Blood Pressure Non-Invasive 115 mmHg Diastolic Blood Pressure Non-Invasive 60 mmHg 12/09/2022 3:01 EDT Heart Rate Monitored 85 bpm Systolic Blood Pressure Non-Invasive 111 mmHg Diastolic Blood Pressure Non-Invasive 68 mmHg 12/09/2022 2:31 EDT Heart Rate Monitored 79 bpm Systolic Blood Pressure Non-Invasive 104 mmHg Diastolic Blood Pressure Non-Invasive 56 mmHg LOW 12/09/2022 2:01 EDT Heart Rate Monitored 83 bpm Systolic Blood Pressure Non-Invasive 91 mmHg Diastolic Blood Pressure Non-Invasive 45 mmHg <LLOW 12/09/2022 1:31 EDT Heart Rate Monitored 83 bpm Systolic Blood Pressure Non-Invasive 104 mmHg Diastolic Blood Pressure Non-Invasive 61 mmHg 12/09/2022 1:01 EDT Heart Rate Monitored 92 bpm Systolic Blood Pressure Non-Invasive 97 mmHg Diastolic Blood Pressure Non-Invasive 74 mmHg 12/09/2022 0:31 EDT Heart Rate Monitored 77 bpm Systolic Blood Pressure Non-Invasive 115 mmHg Diastolic Blood Pressure Non-Invasive 65 mmHg 12/09/2022 0:01 EDT Heart Rate Monitored 79 bpm Systolic Blood Pressure Non-Invasive 101 mmHg Diastolic Blood Pressure Non-Invasive 47 mmHg <LLOW 12/08/2022 23:46 EDT Heart Rate Monitored 81 bpm Systolic Blood Pressure Non-Invasive 100 mmHg Diastolic Blood Pressure Non-Invasive 41 mmHg <LLOW 12/08/2022 23:31 EDT Heart Rate Monitored 87 bpm Systolic Blood Pressure Non-Invasive 102 mmHg Diastolic Blood Pressure Non-Invasive 39 mmHg <LLOW 12/08/2022 23:16 EDT Temperature Temporal Artery 37.0 DegC Heart Rate Monitored 92 bpm Systolic Blood Pressure Non-Invasive 83 mmHg LOW Diastolic Blood Pressure Non-Invasive 37 mmHg <LLOW 12/08/2022 22:55 EDT Respiratory Rate - Anes 0 br/min br/min 12/08/2022 22:50 EDT Heart Rate Monitored 85 bpm bpm Respiratory Rate - Anes 0 br/min br/min Systolic Blood Pressure Non-Invasive 113 mmHg mmHg Diastolic Blood Pressure Non-Invasive 44 mmHg mmHg 12/08/2022 22:45 EDT Temperature (Route Not Specified) 36 DegC DegC Heart Rate Monitored 85 bpm bpm Respiratory Rate - Anes 0 br/min br/min Systolic Blood Pressure Non-Invasive 178 mmHg mmHg Diastolic Blood Pressure Non-Invasive 155 mmHg mmHg 12/08/2022 22:41 EDT Systolic Blood Pressure Non-Invasive 188 mmHg mmHg Diastolic Blood Pressure Non-Invasive 163 mmHg mmHg 12/08/2022 22:40 EDT Heart Rate Monitored 89 bpm bpm Respiratory Rate - Anes 0 br/min br/min 12/08/2022 22:35 EDT Heart Rate Monitored 92 bpm bpm Respiratory Rate - Anes 0 br/min br/min Systolic Blood Pressure Non-Invasive 156 mmHg mmHg Diastolic Blood Pressure Non-Invasive 129 mmHg mmHg 12/08/2022 22:30 EDT Temperature (Route Not Specified) 36 DegC DegC Heart Rate Monitored 97 bpm bpm Respiratory Rate - Anes 0 br/min br/min 12/08/2022 22:25 EDT Heart Rate Monitored 107 bpm bpm Respiratory Rate - Anes 0 br/min br/min Systolic Blood Pressure Non-Invasive 176 mmHg mmHg Diastolic Blood Pressure Non-Invasive 163 mmHg mmHg 12/08/2022 22:20 EDT Heart Rate Monitored 104 bpm bpm Respiratory Rate - Anes 0 br/min br/min Systolic Blood Pressure Non-Invasive 161 mmHg mmHg Diastolic Blood Pressure Non-Invasive 139 mmHg mmHg 12/08/2022 22:15 EDT Respiratory Rate - Anes 0 br/min br/min Systolic Blood Pressure Non-Invasive 184 mmHg mmHg Diastolic Blood Pressure Non-Invasive 163 mmHg mmHg 12/08/2022 22:12 EDT Systolic Blood Pressure Non-Invasive 161 mmHg mmHg (Modified) Diastolic Blood Pressure Non-Invasive 140 mmHg mmHg 12/08/2022 22:02 EDT Heart Rate Monitored 86 bpm Systolic Blood Pressure Non-Invasive 113 mmHg Diastolic Blood Pressure Non-Invasive 67 mmHg 12/08/2022 21:47 EDT Heart Rate Monitored 88 bpm Systolic Blood Pressure Non-Invasive 113 mmHg Diastolic Blood Pressure Non-Invasive 64 mmHg 12/08/2022 21:32 EDT Heart Rate Monitored 92 bpm Systolic Blood Pressure Non-Invasive 119 mmHg Diastolic Blood Pressure Non-Invasive 87 mmHg 12/08/2022 21:17 EDT Heart Rate Monitored 106 bpm HI Systolic Blood Pressure Non-Invasive 120 mmHg Diastolic Blood Pressure Non-Invasive 45 mmHg <LLOW 12/08/2022 21:15 EDT Heart Rate Monitored 96 bpm Systolic Blood Pressure Non-Invasive 106 mmHg Diastolic Blood Pressure Non-Invasive 53 mmHg LOW 12/08/2022 21:07 EDT Heart Rate Monitored 97 bpm Systolic Blood Pressure Non-Invasive 109 mmHg Diastolic Blood Pressure Non-Invasive 57 mmHg LOW 12/08/2022 21:04 EDT Heart Rate Monitored 99 bpm Systolic Blood Pressure Non-Invasive 99 mmHg Diastolic Blood Pressure Non-Invasive 45 mmHg <LLOW 12/08/2022 21:01 EDT Heart Rate Monitored 98 bpm Systolic Blood Pressure Non-Invasive 59 mmHg LOW Diastolic Blood Pressure Non-Invasive 43 mmHg <LLOW 12/08/2022 20:59 EDT Heart Rate Monitored 99 bpm Systolic Blood Pressure Non-Invasive 76 mmHg LOW Diastolic Blood Pressure Non-Invasive 57 mmHg LOW 12/08/2022 20:46 EDT Heart Rate Monitored 146 bpm HI Systolic Blood Pressure Non-Invasive 115 mmHg Diastolic Blood Pressure Non-Invasive 96 mmHg HI 12/08/2022 20:31 EDT Heart Rate Monitored 91 bpm Systolic Blood Pressure Non-Invasive 104 mmHg Diastolic Blood Pressure Non-Invasive 76 mmHg 12/08/2022 20:16 EDT Heart Rate Monitored 90 bpm Systolic Blood Pressure Non-Invasive 112 mmHg Diastolic Blood Pressure Non-Invasive 61 mmHg 12/08/2022 20:01 EDT Heart Rate Monitored 96 bpm Systolic Blood Pressure Non-Invasive 120 mmHg Diastolic Blood Pressure Non-Invasive 68 mmHg 12/08/2022 19:46 EDT Heart Rate Monitored 87 bpm Systolic Blood Pressure Non-Invasive 115 mmHg Diastolic Blood Pressure Non-Invasive 55 mmHg LOW 12/08/2022 19:31 EDT Systolic Blood Pressure Non-Invasive 122 mmHg Diastolic Blood Pressure Non-Invasive 103 mmHg >HHI 12/08/2022 19:15 EDT Heart Rate Monitored 98 bpm Respiratory Rate 16 br/min Systolic Blood Pressure Non-Invasive 107 mmHg Diastolic Blood Pressure Non-Invasive 75 mmHg Blood Pressure Method Automatic Blood Pressure Location Right arm Blood Pressure Cuff Size Large 12/08/2022 19:00 EDT Heart Rate Monitored 101 bpm HI Respiratory Rate 16 br/min Systolic Blood Pressure Non-Invasive 92 mmHg Diastolic Blood Pressure Non-Invasive 65 mmHg Blood Pressure Method Automatic Blood Pressure Location Right arm Blood Pressure Cuff Size Large 12/08/2022 18:45 EDT Temperature Temporal Artery 36.3 DegC Heart Rate Monitored 99 bpm Respiratory Rate 16 br/min Systolic Blood Pressure Non-Invasive 96 mmHg Diastolic Blood Pressure Non-Invasive 66 mmHg Blood Pressure Method Automatic Blood Pressure Location Right arm Blood Pressure Cuff Size Large 12/08/2022 18:30 EDT Heart Rate Monitored 75 bpm Respiratory Rate 16 br/min Systolic Blood Pressure Non-Invasive 90 mmHg Diastolic Blood Pressure Non-Invasive 48 mmHg <LLOW Blood Pressure Method Automatic Blood Pressure Location Right arm Blood Pressure Cuff Size Large 12/08/2022 18:15 EDT Heart Rate Monitored 77 bpm Respiratory Rate 16 br/min Systolic Blood Pressure Non-Invasive 90 mmHg Diastolic Blood Pressure Non-Invasive 44 mmHg <LLOW Blood Pressure Method Automatic Blood Pressure Location Right arm Blood Pressure Cuff Size Large 12/08/2022 18:10 EDT Heart Rate Monitored 81 bpm Respiratory Rate 16 br/min Systolic Blood Pressure Non-Invasive 90 mmHg Diastolic Blood Pressure Non-Invasive 49 mmHg <LLOW Blood Pressure Method Automatic Blood Pressure Location Right arm Blood Pressure Cuff Size Large 12/08/2022 18:05 EDT Heart Rate Monitored 75 bpm Respiratory Rate 18 br/min Systolic Blood Pressure Non-Invasive 97 mmHg Diastolic Blood Pressure Non-Invasive 46 mmHg <LLOW Blood Pressure Method Automatic Blood Pressure Location Right arm Blood Pressure Cuff Size Large 12/08/2022 18:00 EDT Temperature Temporal Artery 36.4 DegC Heart Rate Monitored 84 bpm Respiratory Rate 18 br/min Systolic Blood Pressure Non-Invasive 92 mmHg Diastolic Blood Pressure Non-Invasive 36 mmHg <LLOW Blood Pressure Method Automatic Blood Pressure Location Right arm Blood Pressure Cuff Size Large 12/08/2022 17:55 EDT Heart Rate Monitored 83 bpm Respiratory Rate 20 br/min Systolic Blood Pressure Non-Invasive 94 mmHg Diastolic Blood Pressure Non-Invasive 63 mmHg Blood Pressure Method Automatic Blood Pressure Location Right arm Blood Pressure Cuff Size Medium 12/08/2022 17:50 EDT Heart Rate Monitored 70 bpm Respiratory Rate 20 br/min Systolic Blood Pressure Non-Invasive 94 mmHg Diastolic Blood Pressure Non-Invasive 63 mmHg Blood Pressure Method Automatic Blood Pressure Location Right arm Blood Pressure Cuff Size Medium 12/08/2022 17:45 EDT Heart Rate Monitored 69 bpm Respiratory Rate 20 br/min Systolic Blood Pressure Non-Invasive 91 mmHg Diastolic Blood Pressure Non-Invasive 58 mmHg LOW Blood Pressure Method Automatic Blood Pressure Location Right arm Blood Pressure Cuff Size Medium 12/08/2022 17:40 EDT Heart Rate Monitored 69 bpm Respiratory Rate 20 br/min Systolic Blood Pressure Non-Invasive 79 mmHg LOW Diastolic Blood Pressure Non-Invasive 45 mmHg <LLOW Blood Pressure Method Automatic Blood Pressure Location Right arm Blood Pressure Cuff Size Medium 12/08/2022 17:35 EDT Heart Rate Monitored 93 bpm Respiratory Rate 20 br/min Systolic Blood Pressure Non-Invasive 111 mmHg Diastolic Blood Pressure Non-Invasive 70 mmHg Blood Pressure Method Automatic Blood Pressure Location Right arm Blood Pressure Cuff Size Medium 12/08/2022 17:30 EDT Heart Rate Monitored 91 bpm Respiratory Rate 20 br/min Systolic Blood Pressure Non-Invasive 129 mmHg Diastolic Blood Pressure Non-Invasive 73 mmHg Blood Pressure Method Automatic Blood Pressure Location Right arm Blood Pressure Cuff Size Medium 12/08/2022 17:25 EDT Heart Rate Monitored 98 bpm Respiratory Rate 20 br/min Systolic Blood Pressure Non-Invasive 108 mmHg Diastolic Blood Pressure Non-Invasive 83 mmHg Blood Pressure Method Automatic Blood Pressure Location Right arm Blood Pressure Cuff Size Medium 12/08/2022 17:20 EDT Heart Rate Monitored 88 bpm Respiratory Rate 22 br/min HI Systolic Blood Pressure Non-Invasive 108 mmHg Diastolic Blood Pressure Non-Invasive 83 mmHg Blood Pressure Method Automatic Blood Pressure Location Right arm Blood Pressure Cuff Size Medium 12/08/2022 17:15 EDT Heart Rate Monitored 91 bpm Respiratory Rate 20 br/min Systolic Blood Pressure Non-Invasive 112 mmHg Diastolic Blood Pressure Non-Invasive 92 mmHg HI Blood Pressure Method Automatic Blood Pressure Location Right arm Blood Pressure Cuff Size Medium 12/08/2022 17:00 EDT Temperature Temporal Artery 36.2 DegC Heart Rate Monitored 85 bpm Respiratory Rate 20 br/min Systolic Blood Pressure Non-Invasive 118 mmHg Diastolic Blood Pressure Non-Invasive 69 mmHg Blood Pressure Method Automatic Blood Pressure Location Right arm Blood Pressure Cuff Size [facility] 12/08/2022 16:45 EDT Heart Rate Monitored 85 bpm Respiratory Rate 20 br/min Systolic Blood Pressure Non-Invasive 99 mmHg Diastolic Blood Pressure Non-Invasive 76 mmHg Blood Pressure Method Automatic Blood Pressure Location Right arm Blood Pressure Cuff Size Medium 12/08/2022 16:30 EDT Heart Rate Monitored 76 bpm Respiratory Rate 18 br/min Systolic Blood Pressure Non-Invasive 92 mmHg Diastolic Blood Pressure Non-Invasive 48 mmHg <LLOW Blood Pressure Method Automatic Blood Pressure Location Right arm Blood Pressure Cuff Size [facility] 12/08/2022 16:15 EDT Heart Rate Monitored 79 bpm Respiratory Rate 16 br/min Systolic Blood Pressure Non-Invasive 103 mmHg Diastolic Blood Pressure Non-Invasive 63 mmHg Blood Pressure Method Automatic Blood Pressure Location Right arm Blood Pressure Cuff Size [facility] 12/08/2022 16:00 EDT Temperature Temporal Artery 36 DegC Heart Rate Monitored 75 bpm Respiratory Rate 16 br/min Systolic Blood Pressure Non-Invasive 96 mmHg Diastolic Blood Pressure Non-Invasive 55 mmHg LOW Blood Pressure Method Automatic Blood Pressure Location Right arm Blood Pressure Cuff Size Medium 12/08/2022 15:45 EDT Heart Rate Monitored 78 bpm Respiratory Rate 16 br/min Systolic Blood Pressure Non-Invasive 102 mmHg Diastolic Blood Pressure Non-Invasive 64 mmHg Blood Pressure Method Automatic Blood Pressure Location Right arm Blood Pressure Cuff Size Medium 12/08/2022 15:30 EDT Heart Rate Monitored 75 bpm Respiratory Rate 16 br/min Systolic Blood Pressure Non-Invasive 99 mmHg Diastolic Blood Pressure Non-Invasive 48 mmHg <LLOW Blood Pressure Method Automatic Blood Pressure Location Right arm Blood Pressure Cuff Size Medium 12/08/2022 15:25 EDT Heart Rate Monitored 72 bpm Respiratory Rate 18 br/min Systolic Blood Pressure Non-Invasive 95 mmHg Diastolic Blood Pressure Non-Invasive 42 mmHg <LLOW Blood Pressure Method Automatic Blood Pressure Location Right arm Blood Pressure Cuff Size Medium 12/08/2022 15:20 EDT Heart Rate Monitored 75 bpm Respiratory Rate 18 br/min Systolic Blood Pressure Non-Invasive 99 mmHg Diastolic Blood Pressure Non-Invasive 51 mmHg LOW Blood Pressure Method Automatic Blood Pressure Location Right arm Blood Pressure Cuff Size Medium 12/08/2022 15:15 EDT Heart Rate Monitored 80 bpm Respiratory Rate 18 br/min Systolic Blood Pressure Non-Invasive 97 mmHg Diastolic Blood Pressure Non-Invasive 50 mmHg <LLOW Blood Pressure Method Automatic Blood Pressure Location Right arm Blood Pressure Cuff Size Medium 12/08/2022 15:10 EDT Heart Rate Monitored 71 bpm Respiratory Rate 16 br/min Systolic Blood Pressure Non-Invasive 100 mmHg Diastolic Blood Pressure Non-Invasive 38 mmHg <LLOW Blood Pressure Method Automatic Blood Pressure Location Right arm Blood Pressure Cuff Size Medium 12/08/2022 15:05 EDT Heart Rate Monitored 80 bpm Respiratory Rate 16 br/min Systolic Blood Pressure Non-Invasive 97 mmHg Diastolic Blood Pressure Non-Invasive 48 mmHg <LLOW Blood Pressure Method Automatic Blood Pressure Location Right arm Blood Pressure Cuff Size Medium 12/08/2022 15:04 EDT Heart Rate Monitored 85 bpm Respiratory Rate 16 br/min Systolic Blood Pressure Non-Invasive 90 mmHg Diastolic Blood Pressure Non-Invasive 48 mmHg <LLOW Blood Pressure Method Automatic Blood Pressure Location Right arm Blood Pressure Cuff Size Medium 12/08/2022 15:00 EDT Temperature Temporal Artery 36.4 DegC Heart Rate Monitored 119 bpm HI Respiratory Rate 16 br/min Systolic Blood Pressure Non-Invasive 107 mmHg Diastolic Blood Pressure Non-Invasive 49 mmHg <LLOW Blood Pressure Method Automatic Blood Pressure Location Right arm Blood Pressure Cuff Size Medium 12/08/2022 14:56 EDT Heart Rate Monitored 85 bpm Respiratory Rate 16 br/min Systolic Blood Pressure Non-Invasive 97 mmHg Diastolic Blood Pressure Non-Invasive 52 mmHg LOW Blood Pressure Method Automatic Blood Pressure Location Right arm Blood Pressure Cuff Size Medium 12/08/2022 14:54 EDT Heart Rate Monitored 81 bpm Respiratory Rate 16 br/min Systolic Blood Pressure Non-Invasive 79 mmHg LOW Diastolic Blood Pressure Non-Invasive 53 mmHg LOW Blood Pressure Method Automatic Blood Pressure Location Right arm Blood Pressure Cuff Size Medium 12/08/2022 14:52 EDT Heart Rate Monitored 81 bpm Respiratory Rate 16 br/min Systolic Blood Pressure Non-Invasive 84 mmHg LOW Diastolic Blood Pressure Non-Invasive 42 mmHg <LLOW Blood Pressure Method Automatic Blood Pressure Location Right arm Blood Pressure Cuff Size Medium 12/08/2022 14:50 EDT Heart Rate Monitored 76 bpm Respiratory Rate 18 br/min Systolic Blood Pressure Non-Invasive 89 mmHg LOW Diastolic Blood Pressure Non-Invasive 47 mmHg <LLOW Blood Pressure Method Automatic Blood Pressure Location Right arm Blood Pressure Cuff Size Medium 12/08/2022 14:48 EDT Heart Rate Monitored 87 bpm Respiratory Rate 18 br/min Systolic Blood Pressure Non-Invasive 106 mmHg Diastolic Blood Pressure Non-Invasive 57 mmHg LOW Blood Pressure Method Automatic Blood Pressure Location Right arm Blood Pressure Cuff Size Medium 12/08/2022 14:46 EDT Heart Rate Monitored 80 bpm Respiratory Rate 18 br/min Systolic Blood Pressure Non-Invasive 99 mmHg Diastolic Blood Pressure Non-Invasive 58 mmHg LOW Blood Pressure Method Automatic Blood Pressure Location Right arm Blood Pressure Cuff Size Medium 12/08/2022 14:44 EDT Heart Rate Monitored 79 bpm Respiratory Rate 18 br/min Systolic Blood Pressure Non-Invasive 104 mmHg Diastolic Blood Pressure Non-Invasive 58 mmHg LOW Blood Pressure Method Automatic Blood Pressure Location Right arm Blood Pressure Cuff Size Medium 12/08/2022 14:15 EDT Temperature Temporal Artery 36.4 DegC Heart Rate Monitored 77 bpm Respiratory Rate 18 br/min Systolic Blood Pressure Non-Invasive 109 mmHg Diastolic Blood Pressure Non-Invasive 74 mmHg Blood Pressure Method Automatic Blood Pressure Location Right arm Blood Pressure Cuff Size Medium 12/08/2022 13:30 EDT Temperature Temporal Artery 36.2 DegC Heart Rate Monitored 96 bpm Respiratory Rate 18 br/min Systolic Blood Pressure Non-Invasive 117 mmHg Diastolic Blood Pressure Non-Invasive 74 mmHg Blood Pressure Method Automatic Blood Pressure Location Right arm Blood Pressure Cuff Size Medium 12/08/2022 12:30 EDT Temperature Temporal Artery 36.2 DegC Heart Rate Monitored 88 bpm Respiratory Rate 18 br/min Systolic Blood Pressure Non-Invasive 112 mmHg Diastolic Blood Pressure Non-Invasive 77 mmHg Blood Pressure Method Automatic Blood Pressure Location Left arm Blood Pressure Cuff Size Medium 12/08/2022 11:30 EDT Temperature Temporal Artery 36.2 DegC Heart Rate Monitored 115 bpm HI Respiratory Rate 16 br/min Systolic Blood Pressure Non-Invasive 100 mmHg Diastolic Blood Pressure Non-Invasive 58 mmHg LOW Blood Pressure Method Automatic Blood Pressure Location Right arm Blood Pressure Cuff Size Medium 12/08/2022 10:30 EDT Temperature Temporal Artery 36 DegC Heart Rate Monitored 89 bpm Respiratory Rate 16 br/min Systolic Blood Pressure Non-Invasive 95 mmHg Diastolic Blood Pressure Non-Invasive 69 mmHg Blood Pressure Method Automatic Blood Pressure Location Right arm Blood Pressure Cuff Size Medium 12/08/2022 9:45 EDT Temperature Temporal Artery 36.2 DegC Heart Rate Monitored 101 bpm HI Respiratory Rate 18 br/min Systolic Blood Pressure Non-Invasive 110 mmHg Diastolic Blood Pressure Non-Invasive 62 mmHg Blood Pressure Method Automatic Blood Pressure Location Left arm Blood Pressure Cuff Size Medium 12/08/2022 9:00 EDT Temperature Temporal Artery 36.3 DegC Heart Rate Monitored 86 bpm Respiratory Rate 18 br/min Systolic Blood Pressure Non-Invasive 104 mmHg Diastolic Blood Pressure Non-Invasive 67 mmHg Blood Pressure Method Automatic Blood Pressure Location Left arm Blood Pressure Cuff Size Medium 12/08/2022 8:00 EDT Temperature Oral 36.9 DegC Heart Rate Monitored 76 bpm Respiratory Rate 18 br/min Systolic Blood Pressure Non-Invasive 100 mmHg Diastolic Blood Pressure Non-Invasive 47 mmHg <LLOW Blood Pressure Method Automatic Blood Pressure Location Left arm Blood Pressure Cuff Size Medium 12/08/2022 2:12 EDT Temperature Temporal Artery 36.5 DegC Heart Rate Monitored 77 bpm Systolic Blood Pressure Non-Invasive 106 mmHg Diastolic Blood Pressure Non-Invasive 59 mmHg LOW 12/08/2022 0:04 EDT Temperature Temporal Artery 36.2 DegC Heart Rate Monitored 79 bpm Systolic Blood Pressure Non-Invasive 118 mmHg Diastolic Blood Pressure Non-Invasive 52 mmHg LOW , Measurements from flowsheet . Mental status: alert & oriented x 4. Respiratory function: respirations are non-labored. Respiratory support: none. CV function: Normal rate. Cardiovascular support: none. Pain. Nausea status: see nursing documentation of medications. Postoperative hydration status: within normal limits. Digitally Signed by TRIPPRENNY SPARKS on 12/09/2022 08:58 PM * RENNY ALMAGUER: PERFORM, SIGN, VERIFY Event Display: Anesthesiology Consultation Authored Date: Patient: JULIA PISANO Age: 27 years Sex: Female : 1995 Associated Diagnoses: None Author: RENNY ALMAGUER Preoperative Information laboring Anesthesia history Patient's history: negative. Family's history: negative. Health Status Allergies: Allergic Reactions (Selected) NKA, Allergies (1) ActiveReaction NKANone Documented Current medications: (Selected) Inpatient Medications Ordered Bicitra: 30 mL, Oral, AsDirected, PRN: Gastric Upset Brethine: 0.25 mg, 0.25 mL, Subcutaneous, AsDirected, PRN: Control symptoms Brethine: 0.25 mg, 0.25 mL, Subcutaneous, AsDirected, PRN: Other (see order comments) Cytotec: 1,000 mcg, 5 tab(s), Rectal, Once, PRN: Other (see order comments) Hemabate: 250 mcg, 1 mL, Intramuscular, Once, PRN: Other (see order comments) LR 1,000 mL: 125 mL/hr, Intravenous LR 500 mL Bolus: 500 mL, IV Bolus, AsDirected, PRN: Other (see order comments) Methergine: 0.2 mg, 1 mL, Intramuscular, Once, PRN: Other (see order comments) Nubain: 10 mg, 1 mL, IV Push, q2h, PRN: Pain Oxytocin for IV (mL/hr) 20 unit(s) + LR Premix Diluent 1,000 mL: 999 mL/hr, Intravenous Oxytocin for IV (munit/min) 20 unit(s) [2 munit/min] + LR Premix Diluent 1,000 mL: 6 mL/hr, Intravenous Pitocin: 20 unit(s), 2 mL, Intramuscular, Once, PRN: Other (see order comments) Xylocaine HCl 1% injectable solution: 20 mg, 2 mL, Perineum, AsDirected, PRN: to perineal sutures Zofran: 4 mg, 2 mL, IV Push, q4h, PRN: Nausea tranexamic acid 1 g / 100 mL 0.7% NaCl PMX: 1 gram(s), 100 mL, 300 mL/hr, IV Piggyback, AsDirected,PRN: Other (see order comments) Documented Medications Documented AD oral tablet: 1 tab(s), Oral, qDay, 30 tab(s), 0 Refill(s), Medications (15) Active Scheduled: (0) Continuous: (3) Lactated Ringers 1,000 mL 1,000 mL, Intravenous, 125 mL/hr Oxytocin 20 units in Lactated Ringers 1000 mL 20 unit(s) + LR Premix Diluent 1,000 mL 1,000 mL, Intravenous, 999 mL/hr Oxytocin 20 units in Lactated Ringers 1000 mL 20 unit(s) [2 munit/min] + LR Premix Diluent 1,000 mL1,000 mL, Intravenous, 6 mL/hr PRN: (12) carboprost 250 mcg/ml 1mL ampule 250 mcg 1 mL, Intramuscular, Once citric acid-sodium citrate 334 mg-500 mg/5 mL (30 mL) Loretta UD 30 mL, Oral, AsDirected Lactated Ringers Injection 500 mL * Bolus * 500 mL, IV Bolus, AsDirected lidocaine 1% (MPF) 2 mL vial pf 20 mg 2 mL, Perineum, AsDirected methylergonovine 0.2 mg/mL (1 mL) ampule 0.2 mg 1 mL, Intramuscular, Once misoprostol 200 mcg tablet 1,000 mcg 5 tab(s), Rectal, Once nalbuphine 10 mg/mL (1 mL) Solution 10 mg 1 mL, IV Push, q2h ondansetron 2 mg/ 1 mL 2 mL INJ 4 mg 2 mL, IV Push, q4h oxytocin 10 units/mL 1 mL vial 20 unit(s) 2 mL, Intramuscular, Once terbutaline 1 mg/ml vial 0.25 mg 0.25 mL, Subcutaneous, AsDirected terbutaline 1 mg/ml vial 0.25 mg 0.25 mL, Subcutaneous, AsDirected tranexamic acid PMX 1 gram(s) 100 mL, IV Piggyback, AsDirected Problem list: Medical Gestational diabetes mellitus, class A>2< / SNOMED CT 08673226 / Confirmed / SNOMED CT [id number] / Confirmed / SNOMED CT [id number] / Confirmed, Active Problems (6) Anxiety, generalized Gestational diabetes Gestational diabetes mellitus, class A>2< Tobacco use Histories Past Medical History: Resolved ([id number]): Onset on 01/17/2019 at 23 years. Resolved on 10/24/2019 at 24 years. ([id number]): Onset on 05/17/2012 at 17 years. Resolved on 02/21/2013 at 17 years. Family History: Entire family history is negative. Procedure history: [place] tooth ([id number]) on 09/16/2020 at 25 Years. None ([id number]). Social History Social & Psychosocial Habits Alcohol 12/07/2022 Use: Past Substance Abuse 12/07/2022 Use: Past Type: Marijuana Tobacco 12/07/2022 Tobacco Use: 10 or more cigarettes (1/ Started at age: 13 Years Nutrition/Health 12/07/2022 Type of diet: Regular . Physical Examination Vital Signs 12/08/2022 14:15 EDT Temperature Temporal Artery 36.4 DegC Heart Rate Monitored 77 bpm Respiratory Rate 18 br/min Systolic Blood Pressure Non-Invasive 109 mmHg Diastolic Blood Pressure Non-Invasive 74 mmHg Blood Pressure Method Automatic Blood Pressure Location Right arm Blood Pressure Cuff Size Medium 12/08/2022 13:30 EDT Temperature Temporal Artery 36.2 DegC Heart Rate Monitored 96 bpm Respiratory Rate 18 br/min Systolic Blood Pressure Non-Invasive 117 mmHg Diastolic Blood Pressure Non-Invasive 74 mmHg Blood Pressure Method Automatic Blood Pressure Location Right arm Blood Pressure Cuff Size Medium 12/08/2022 12:30 EDT Temperature Temporal Artery 36.2 DegC Heart Rate Monitored 88 bpm Respiratory Rate 18 br/min Systolic Blood Pressure Non-Invasive 112 mmHg Diastolic Blood Pressure Non-Invasive 77 mmHg Blood Pressure Method Automatic Blood Pressure Location Left arm Blood Pressure Cuff Size Medium 12/08/2022 11:30 EDT Temperature Temporal Artery 36.2 DegC Heart Rate Monitored 115 bpm HI Respiratory Rate 16 br/min Systolic Blood Pressure Non-Invasive 100 mmHg Diastolic Blood Pressure Non-Invasive 58 mmHg LOW Blood Pressure Method Automatic Blood Pressure Location Right arm Blood Pressure Cuff Size Medium 12/08/2022 10:30 EDT Temperature Temporal Artery 36 DegC Heart Rate Monitored 89 bpm Respiratory Rate 16 br/min Systolic Blood Pressure Non-Invasive 95 mmHg Diastolic Blood Pressure Non-Invasive 69 mmHg Blood Pressure Method Automatic Blood Pressure Location Right arm Blood Pressure Cuff Size Medium 12/08/2022 9:45 EDT Temperature Temporal Artery 36.2 DegC Heart Rate Monitored 101 bpm HI Respiratory Rate 18 br/min Systolic Blood Pressure Non-Invasive 110 mmHg Diastolic Blood Pressure Non-Invasive 62 mmHg Blood Pressure Method Automatic Blood Pressure Location Left arm Blood Pressure Cuff Size Medium 12/08/2022 9:00 EDT Temperature Temporal Artery 36.3 DegC Heart Rate Monitored 86 bpm Respiratory Rate 18 br/min Systolic Blood Pressure Non-Invasive 104 mmHg Diastolic Blood Pressure Non-Invasive 67 mmHg Blood Pressure Method Automatic Blood Pressure Location Left arm Blood Pressure Cuff Size Medium 12/08/2022 8:00 EDT Temperature Oral 36.9 DegC Heart Rate Monitored 76 bpm Respiratory Rate 18 br/min Systolic Blood Pressure Non-Invasive 100 mmHg Diastolic Blood Pressure Non-Invasive 47 mmHg <LLOW Blood Pressure Method Automatic Blood Pressure Location Left arm Blood Pressure Cuff Size [facility] 12/08/2022 2:12 EDT Temperature Temporal Artery 36.5 DegC Heart Rate Monitored 77 bpm Systolic Blood Pressure Non-Invasive 106 mmHg Diastolic Blood Pressure Non-Invasive 59 mmHg LOW 12/08/2022 0:04 EDT Temperature Temporal Artery 36.2 DegC Heart Rate Monitored 79 bpm Systolic Blood Pressure Non-Invasive 118 mmHg Diastolic Blood Pressure Non-Invasive 52 mmHg LOW 12/07/2022 22:27 EDT Temperature Temporal Artery 36.8 DegC Heart Rate Monitored 79 bpm Systolic Blood Pressure Non-Invasive 100 mmHg Diastolic Blood Pressure Non-Invasive 58 mmHg LOW 12/07/2022 21:12 EDT Temperature Temporal Artery 36.8 DegC Heart Rate Monitored 91 bpm Systolic Blood Pressure Non-Invasive 109 mmHg Diastolic Blood Pressure Non-Invasive 55 mmHg LOW 12/07/2022 17:21 EDT Heart Rate Monitored 87 bpm Systolic Blood Pressure Non-Invasive 104 mmHg Diastolic Blood Pressure Non-Invasive 57 mmHg LOW 12/07/2022 15:32 EDT Temperature Temporal Artery 36.8 DegC Heart Rate Monitored 72 bpm Respiratory Rate 16 br/min Systolic Blood Pressure Non-Invasive 93 mmHg Diastolic Blood Pressure Non-Invasive 49 mmHg <LLOW 12/07/2022 14:00 EDT Heart Rate Monitored 81 bpm Systolic Blood Pressure Non-Invasive 87 mmHg LOW Diastolic Blood Pressure Non-Invasive 48 mmHg <LLOW 12/07/2022 12:00 EDT Temperature Oral 36.8 DegC Heart Rate Monitored 87 bpm Systolic Blood Pressure Non-Invasive 105 mmHg Diastolic Blood Pressure Non-Invasive 54 mmHg LOW 12/07/2022 10:04 EDT Heart Rate Monitored 87 bpm Systolic Blood Pressure Non-Invasive 111 mmHg Diastolic Blood Pressure Non-Invasive 89 mmHg 12/07/2022 9:00 EDT Heart Rate Monitored 87 bpm Respiratory Rate 16 br/min Systolic Blood Pressure Non-Invasive 105 mmHg Diastolic Blood Pressure Non-Invasive 68 mmHg 12/07/2022 6:56 EDT Heart Rate Monitored 83 bpm Respiratory Rate 18 br/min Systolic Blood Pressure Non-Invasive 109 mmHg Diastolic Blood Pressure Non-Invasive 59 mmHg LOW 12/07/2022 5:56 EDT Temperature Oral 36.7 DegC Heart Rate Monitored 102 bpm HI Respiratory Rate 18 br/min Systolic Blood Pressure Non-Invasive 103 mmHg Diastolic Blood Pressure Non-Invasive 58 mmHg LOW Vital Signs(last 24 hrs) Last Charted Temp Oral36.9 DegC (DEC 08 08:00) Heart Rate [id number] bpm (DEC 08 14:15) Resp Rate 18 br/min (DEC 08 14:15) HOF510 mmHg (DEC 08 14:15) DBP74 mmHg (DEC 08 14:15) Measurements from flowsheet : Measurements 12/07/2022 5:52 EDT Height 162.6 cm Admission Weight 92 kg [place] Body Weight 54.74 kg BSA Admission 1.97 Body Mass Index 34.8 kg/m2 Pain assessment: Pain Assessment 12/08/2022 14:15 EDT Primary Pain Location Abdomen Abdominal Pain Location LLQ, RLQ Primary Pain Laterality Bilateral Primary Pain Intensity 7 Primary Pain Time Pattern intermittent Primary Pain Onset Gradual Primary Pain Duration INtermittent Primary Pain Quality Contraction Primary Pain Non-Pharma Intervention Repositioning Primary Pain Aggravating Factors None Primary Pain Alleviating Factors Repositioning Primary Pain Nonverbal Response Facial grimace Pain Associated Symptoms None Pain Scale Type 0-10 Pain scale 12/08/2022 13:30 EDT Primary Pain Location Abdomen Abdominal Pain Location LLQ, RLQ Primary Pain Laterality Bilateral Primary Pain Intensity 7 Primary Pain Time Pattern intermittent Primary Pain Onset Gradual Primary Pain Duration Intermittent Primary Pain Quality Contraction Primary Pain Non-Pharma Intervention Repositioning Primary Pain Aggravating Factors None Primary Pain Alleviating Factors Repositioning Primary Pain Nonverbal Response Facial grimace Pain Associated Symptoms None Pain Scale Type 0-10 Pain scale 12/08/2022 12:30 EDT Primary Pain Location Abdomen Abdominal Pain Location LLQ, RLQ Primary Pain Laterality Bilateral Primary Pain Intensity 5 Primary Pain Time Pattern intermittent Primary Pain Onset Gradual Primary Pain Duration Intermittent Primary Pain Quality Contraction Primary Pain Non-Pharma Intervention Repositioning Primary Pain Aggravating Factors None Primary Pain Alleviating Factors Repositioning Primary Pain Nonverbal Response Appears restful Pain Associated Symptoms None Pain Scale Type 0-10 Pain scale 12/08/2022 11:30 EDT Primary Pain Location Abdomen Abdominal Pain Location LLQ, RLQ Primary Pain Laterality Bilateral Primary Pain Intensity 4 Primary Pain Time Pattern intermittent Primary Pain Onset Gradual Primary Pain Duration Intermittent Primary Pain Quality Contraction Primary Pain Non-Pharma Intervention Repositioning Primary Pain Aggravating Factors None Primary Pain Alleviating Factors Repositioning Primary Pain Nonverbal Response Appears restful Pain Associated Symptoms None Pain Scale Type 0-10 Pain scale 12/08/2022 10:30 EDT Primary Pain Location Abdomen Abdominal Pain Location LLQ, RLQ Primary Pain Laterality Bilateral Primary Pain Intensity 4 Primary Pain Time Pattern intermittent Primary Pain Onset Gradual Primary Pain Duration Intermittent Primary Pain Quality Contraction Primary Pain Non-Pharma Intervention Repositioning Primary Pain Aggravating Factors None Primary Pain Alleviating Factors Repositioning Primary Pain Nonverbal Response Appears restful Pain Associated Symptoms None Pain Scale Type 0-10 Pain scale 12/08/2022 9:45 EDT Primary Pain Location Abdomen Abdominal Pain Location LLQ, RLQ Primary Pain Laterality Bilateral Primary Pain Intensity 4 Primary Pain Time Pattern intermittent Primary Pain Onset Gradual Primary Pain Duration Intermittent Primary Pain Quality Contraction Primary Pain Non-Pharma Intervention Repositioning Primary Pain Aggravating Factors None Primary Pain Alleviating Factors Repositioning Primary Pain Nonverbal Response Appears restful Pain Associated Symptoms None Pain Scale Type 0-10 Pain scale 12/08/2022 9:00 EDT Primary Pain Intensity 0 Pain Associated Symptoms None Pain Scale Type 0-10 Pain scale 12/08/2022 8:00 EDT Primary Pain Intensity 0 Pain Associated Symptoms None Pain Scale Type 0-10 Pain scale 12/08/2022 1:51 EDT Primary Pain Intensity 0 Pain Scale Type 0-10 Pain scale 12/08/2022 0:04 EDT Primary Pain Intensity 0 Primary Pain Nonverbal Response Appears restful Pain Scale Type 0-10 Pain scale 12/07/2022 19:49 EDT Primary Pain Intensity 0 Pain Scale Type 0-10 Pain scale 12/07/2022 19:11 EDT Primary Pain Intensity 0 Pain Scale Type 0-10 Pain scale 12/07/2022 19:01 EDT Primary Pain Intensity 0 Pain Scale Type 0-10 Pain scale 12/07/2022 18:27 EDT Primary Pain Intensity 0 Pain Scale Type 0-10 Pain scale 12/07/2022 18:00 EDT Primary Pain Intensity 0 Pain Scale Type 0-10 Pain scale 12/07/2022 16:30 EDT Primary Pain Intensity 0 Pain Scale Type 0-10 Pain scale 12/07/2022 16:00 EDT Primary Pain Intensity 0 Pain Scale Type 0-10 Pain scale 12/07/2022 15:32 EDT Primary Pain Intensity 0 Pain Scale Type 0-10 Pain scale 12/07/2022 14:54 EDT Primary Pain Intensity 0 Pain Scale Type 0-10 Pain scale 12/07/2022 14:00 EDT Primary Pain Intensity 0 Pain Scale Type 0-10 Pain scale 12/07/2022 13:31 EDT Primary Pain Intensity 0 Pain Scale Type 0-10 Pain scale 12/07/2022 12:54 EDT Primary Pain Intensity 0 Pain Scale Type 0-10 Pain scale 12/07/2022 12:32 EDT Primary Pain Intensity 0 Pain Scale Type 0-10 Pain scale 12/07/2022 12:00 EDT Primary Pain Intensity 0 Pain Scale Type 0-10 Pain scale 12/07/2022 11:00 EDT Primary Pain Intensity 0 Pain Scale Type 0-10 Pain scale 12/07/2022 9:59 EDT Primary Pain Intensity 0 Pain Scale Type 0-10 Pain scale 12/07/2022 9:33 EDT Primary Pain Intensity 0 Pain Scale Type 0-10 Pain scale 12/07/2022 9:00 EDT Primary Pain Intensity 0 Pain Scale Type 0-10 Pain scale 12/07/2022 8:30 EDT Primary Pain Intensity 0 Pain Scale Type 0-10 Pain scale 12/07/2022 8:00 EDT Primary Pain Intensity 0 Pain Scale Type 0-10 Pain scale 12/07/2022 7:30 EDT Primary Pain Intensity 0 Pain Scale Type 0-10 Pain scale 12/07/2022 5:52 EDT Primary Pain Intensity 0 Pain Scale Type 0-10 Pain scale . General: Alert and oriented. Airway: Normal temporomandibular joint mobility, Normal mouth, Normal neck range of motion. Mallampati classification: II (soft palate, fauces, uvula visible). Dentition Evaluation: Denies loose/chipped teeth. Respiratory: Respirations are non-labored. Cardiovascular: Normal rate. Neurologic: Alert, Oriented. Review / Management Results review: Labs (Last four charted values) WBC 9.7(DEC 07) Hgb 12.2(DEC 07) Hct L 35.8(DEC 07) Plt 174(DEC 07) , Lab results 12/08/2022 15:04 EDT Epidural Bolus, Anesthesia 12/08/2022 14:49 Epidural Care Patient Response Tolerated without difficulty 12/08/2022 15:00 EDT Lactated Ringers Injection Begin Bag 1,000 mL mL 12/08/2022 14:44 EDT Epidural Placed By RENNY ALMAGUER APRN-GEOTECHNICAL ENGINEER Epidural Test Dose Time 12/08/2022 14:44 12/08/2022 14:38 EDT Epidural Patient Position Side of bed, leaning forward with support 12/08/2022 14:36 EDT Lactated Ringers Injection Begin Bag 1,000 mL mL 12/08/2022 14:30 EDT Uterine Contraction Monitoring Method External toco Uterine Contraction Frequency Q 2-4 min Uterine Contraction Duration 50-90 sec Uterine Contraction Intensity, Ext Palp Moderate Uterine Resting Tone, External Soft Uterine Activity Regular contractions Baby A FHR Baseline: 125 bpm FHR Baseline Variability: Moderate variability FHR Accelerations: Present FHR Deceleration: Absent FHR Monitoring Method: External US transducer Activity Status ADL Ambulating in room, Awake 12/08/2022 14:25 EDT Monitoring Annotations Anesthesia notified of need for epidural 12/08/2022 14:15 EDT Temperature Temporal Artery 36.4 DegC Heart Rate Monitored 77 bpm Respiratory Rate 18 br/min Systolic Blood Pressure Non-Invasive 109 mmHg Diastolic Blood Pressure Non-Invasive 74 mmHg Blood Pressure Method Automatic Blood Pressure Location Right arm Blood Pressure Cuff Size Medium Primary Pain Location Abdomen Abdominal Pain Location LLQ, RLQ Primary Pain Laterality Bilateral Primary Pain Intensity 7 Primary Pain Time Pattern intermittent Primary Pain Onset Gradual Primary Pain Duration INtermittent Primary Pain Quality Contraction Primary Pain Non-Pharma Intervention Repositioning Primary Pain Aggravating Factors None Primary Pain Alleviating Factors Repositioning Primary Pain Nonverbal Response Facial grimace Pain Associated Symptoms None Pain Scale Type 0-10 Pain scale Heart Rhythm Regular Oxygen Therapy Room air Uterine Contraction Monitoring Method External toco Uterine Contraction Frequency Q 2-3 min Uterine Contraction Duration 60-70 sec Uterine Contraction Intensity, Ext Palp Moderate Uterine Resting Tone, External Soft Uterine Activity Regular contractions Baby A FHR Baseline: 125 bpm FHR Baseline Variability: Moderate variability FHR Accelerations: Present FHR Deceleration: Absent FHR Monitoring Method: External US transducer Wrist Left 12/07/2022 18 gauge Peripheral IV Activity: Assessed Peripheral IV Dressing Condition: Clean, Dry, Intact Peripheral IV Dressing Activity: Transparent dressing Peripheral IV Line Status/Patency: Continuous infusion Peripheral IV Site Condition: No complications Peripheral IV Equipment: Extension set, Stopcock, IV Pump, PRN Adaptor Activity Status ADL Ambulating in room, Awake Standard Safety Safety level maintained, Precautions maintained 12/08/2022 14:04 EDT Monitoring Annotations Tocotransducer adjusted 12/08/2022 14:00 EDT Uterine Contraction Monitoring Method External toco Uterine Contraction Frequency Q 3 min Uterine Contraction Duration 70-90 sec Uterine Contraction Intensity, Ext Palp Moderate Uterine Resting Tone, External Soft Uterine Activity Regular contractions Patient Position, OB Sitting Baby A FHR Baseline: 135 bpm FHR Baseline Variability: Moderate variability FHR Accelerations: Present FHR Deceleration: Absent FHR Monitoring Method: External US transducer Activity Status ADL Awake, Repositions self 12/08/2022 13:59 EDT Lactated Ringers Injection Begin Bag 1,000 mL mL 12/08/2022 13:45 EDT Monitoring Annotations Provider at bedside--Joey Ramos CNM 12/08/2022 13:45 EDT Cervix Dilation 5 cm Cervix Effacement 70 Station -2 Vaginal Exam Performed By DARION RAMOS 12/08/2022 13:30 EDT Temperature Temporal Artery 36.2 DegC Heart Rate Monitored 96 bpm Respiratory Rate 18 br/min Systolic Blood Pressure Non-Invasive 117 mmHg Diastolic Blood Pressure Non-Invasive 74 mmHg Blood Pressure Method Automatic Blood Pressure Location Right arm Blood Pressure Cuff Size Medium Primary Pain Location Abdomen Abdominal Pain Location LLQ, RLQ Primary Pain Laterality Bilateral Primary Pain Intensity 7 Primary Pain Time Pattern intermittent Primary Pain Onset Gradual Primary Pain Duration Intermittent Primary Pain Quality Contraction Primary Pain Non-Pharma Intervention Repositioning Primary Pain Aggravating Factors None Primary Pain Alleviating Factors Repositioning Primary Pain Nonverbal Response Facial grimace Pain Associated Symptoms None Pain Scale Type 0-10 Pain scale Heart Rhythm Regular Oxygen Therapy Room air Uterine Contraction Monitoring Method External toco Uterine Contraction Frequency Q 3 min Uterine Contraction Duration 70-90 sec Uterine Contraction Intensity, Ext Palp Moderate Uterine Resting Tone, External Soft Uterine Activity Regular contractions Patient Position, OB Birthing ball Baby A FHR Baseline: 145 bpm FHR Baseline Variability: Moderate variability FHR Accelerations: Present FHR Deceleration: Absent FHR Monitoring Method: External US transducer Wrist Left 12/07/2022 18 gauge Peripheral IV Activity: Assessed Peripheral IV Dressing Condition: Clean, Dry, Intact Peripheral IV Dressing Activity: Transparent dressing Peripheral IV Line Status/Patency: Continuous infusion Peripheral IV Site Condition: No complications Peripheral IV Equipment: Extension set, Stopcock, IV Pump, PRN Adaptor Activity Status ADL Awake Lunch Percent 50 % Standard Safety Safety level maintained, Precautions maintained 12/08/2022 13:15 EDT Monitoring Annotations Leaning over bed 12/08/2022 13:00 EDT Uterine Contraction Monitoring Method External toco Uterine Contraction Frequency Q 2-3 min Uterine Contraction Duration 70-90 sec Uterine Contraction Intensity, Ext Palp Moderate Uterine Resting Tone, External Soft Uterine Activity Regular contractions Patient Position, OB Birthing ball Baby A FHR Baseline: 145 bpm FHR Baseline Variability: Moderate variability FHR Accelerations: Present FHR Deceleration: Absent FHR Monitoring Method: External US transducer Activity Status ADL Awake 12/08/2022 12:35 EDT Uterine Contraction Monitoring Method External toco Uterine Contraction Frequency Q 2min Uterine Contraction Duration 80 sec Uterine Contraction Intensity, Ext Palp Moderate Uterine Resting Tone, External Soft Uterine Activity Regular contractions Baby A FHR Baseline: 145 bpm FHR Baseline Variability: Moderate variability FHR Accelerations: Present FHR Monitoring Method: External US transducer oxytocin 24 munit/min unit(s) LR Premix Diluent LR Premix Diluent mL 12/08/2022 12:30 EDT Temperature Temporal Artery 36.2 DegC Heart Rate Monitored 88 bpm Respiratory Rate 18 br/min Systolic Blood Pressure Non-Invasive 112 mmHg Diastolic Blood Pressure Non-Invasive 77 mmHg Blood Pressure Method Automatic Blood Pressure Location Left arm Blood Pressure Cuff Size Medium Primary Pain Location Abdomen Abdominal Pain Location LLQ, RLQ Primary Pain Laterality Bilateral Primary Pain Intensity 5 Primary Pain Time Pattern intermittent Primary Pain Onset Gradual Primary Pain Duration Intermittent Primary Pain Quality Contraction Primary Pain Non-Pharma Intervention Repositioning Primary Pain Aggravating Factors None Primary Pain Alleviating Factors Repositioning Primary Pain Nonverbal Response Appears restful Pain Associated Symptoms None Pain Scale Type 0-10 Pain scale Heart Rhythm Regular Oxygen Therapy Room air Uterine Contraction Monitoring Method External toco Uterine Contraction Frequency Q 2 min Uterine Contraction Duration 60-80 sec Uterine Contraction Intensity, Ext Palp Moderate Uterine Resting Tone, External Soft Uterine Activity Regular contractions Baby A FHR Baseline: 145 bpm FHR Baseline Variability: Moderate variability FHR Accelerations: Present FHR Deceleration: Absent FHR Monitoring Method: External US transducer Wrist Left 12/07/2022 18 gauge Peripheral IV Activity: Assessed Peripheral IV Dressing Condition: Clean, Dry, Intact Peripheral IV Dressing Activity: Transparent dressing Peripheral IV Line Status/Patency: Continuous infusion Peripheral IV Site Condition: No complications Peripheral IV Equipment: Extension set, Stopcock, IV Pump, PRN Adaptor Activity Status ADL Ambulating in room, Awake Standard Safety Safety level maintained, Precautions maintained 12/08/2022 12:24 EDT OB Progress Note Labor notes 12/08/2022 12:16 EDT Monitoring Annotations Tocotransducer adjusted 12/08/2022 12:15 EDT Cervix Dilation 4 cm Cervix Effacement 60 Station -2 Vaginal Exam Performed By DARION RAMOS Baby A Membrane Status: A.R.O.M. ROM Performed By: DARION RAMOS ROM Date, Time: 12/08/2022 12:15 Amniotic Fluid Amount: Moderate amount Amniotic Fluid Color/Descrip: Clear Amniotic Fluid Odor: None 12/08/2022 12:10 EDT Monitoring Annotations Provider at bedside--Joey Ramos CNM 12/08/2022 12:04 EDT Patient Position, OB Birthing ball 12/08/2022 12:00 EDT Uterine Contraction Monitoring Method External toco Uterine Contraction Frequency Q 2-4 min Uterine Contraction Duration 60-90 sec Uterine Contraction Intensity, Ext Palp Moderate Uterine Resting Tone, External Soft Uterine Activity Regular contractions Baby A FHR Baseline: 145 bpm FHR Baseline Variability: Moderate variability FHR Accelerations: Present FHR Deceleration: Absent FHR Monitoring Method: External US transducer Activity Status ADL Ambulating in room, Awake oxytocin 26 munit/min unit(s) LR Premix Diluent LR Premix Diluent mL 12/08/2022 11:45 EDT Uterine Contraction Monitoring Method External toco Uterine Contraction Frequency Q 2-3 min Uterine Contraction Duration 70-90 sec Uterine Contraction Intensity, Ext Palp Moderate Uterine Resting Tone, External Soft Uterine Activity Regular contractions Baby A FHR Baseline: 140 bpm FHR Baseline Variability: Moderate variability FHR Accelerations: Present FHR Deceleration: Absent FHR Monitoring Method: External US transducer Activity Status ADL Ambulating in room, Awake oxytocin 24 munit/min unit(s) LR Premix Diluent LR Premix Diluent mL 12/08/2022 11:30 EDT Temperature Temporal Artery 36.2 DegC Heart Rate Monitored 115 bpm HI Respiratory Rate 16 br/min Systolic Blood Pressure Non-Invasive 100 mmHg Diastolic Blood Pressure Non-Invasive 58 mmHg LOW Blood Pressure Method Automatic Blood Pressure Location Right arm Blood Pressure Cuff Size Medium Primary Pain Location Abdomen Abdominal Pain Location LLQ, RLQ Primary Pain Laterality Bilateral Primary Pain Intensity 4 Primary Pain Time Pattern intermittent Primary Pain Onset Gradual Primary Pain Duration Intermittent Primary Pain Quality Contraction Primary Pain Non-Pharma Intervention Repositioning Primary Pain Aggravating Factors None Primary Pain Alleviating Factors Repositioning Primary Pain Nonverbal Response Appears restful Pain Associated Symptoms None Pain Scale Type 0-10 Pain scale Heart Rhythm Regular Oxygen Therapy Room air Uterine Contraction Monitoring Method External toco Uterine Contraction Frequency Q 3-4 min Uterine Contraction Duration 60-90 sec Uterine Contraction Intensity, Ext Palp Moderate Uterine Resting Tone, External Soft Uterine Activity Regular contractions Baby A FHR Baseline: 145 bpm FHR Baseline Variability: Moderate variability FHR Accelerations: Present FHR Deceleration: Absent FHR Monitoring Method: External US transducer Wrist Left 12/07/2022 18 gauge Peripheral IV Activity: Assessed Peripheral IV Dressing Condition: Clean, Dry, Intact Peripheral IV Dressing Activity: Transparent dressing Peripheral IV Line Status/Patency: Continuous infusion Peripheral IV Site Condition: No complications Peripheral IV Equipment: Extension set, Stopcock, IV Pump, PRN Adaptor Activity Status ADL Ambulating in room, Awake Standard Safety Safety level maintained, Precautions maintained oxytocin 22 munit/min unit(s) LR Premix Diluent LR Premix Diluent mL 12/08/2022 11:15 EDT Uterine Contraction Monitoring Method External toco Uterine Contraction Frequency Q 3-4 min Uterine Contraction Duration 60-80 sec Uterine Contraction Intensity, Ext Palp Moderate Uterine Resting Tone, External Soft Uterine Activity Regular contractions Baby A FHR Baseline: 145 bpm FHR Baseline Variability: Moderate variability FHR Accelerations: Present FHR Deceleration: Absent FHR Monitoring Method: External US transducer oxytocin 20 munit/min unit(s) LR Premix Diluent LR Premix Diluent mL 12/08/2022 11:07 EDT Notify date/time 12/08/2022 10:55 Provider Notified DARION RAMOS APRN-TYRONEM Notification Method Phone Information Communicated Nurse communication Details Communicated Updated on pt status, pitocin level, pain level Notification Outcome Orders received Person Reporting Result(s) Oumar Peter Rn Results Read Back Yes 12/08/2022 11:00 EDT Uterine Contraction Monitoring Method External toco Uterine Contraction Frequency Q 3 min Uterine Contraction Duration 60-80 sec Uterine Contraction Intensity, Ext Palp Mild Uterine Resting Tone, External Soft Uterine Activity Regular contractions Baby A FHR Baseline: 145 bpm FHR Baseline Variability: Moderate variability FHR Accelerations: Present FHR Deceleration: Present FHR Deceleration Description: Variable FHR Deceleration Intervention: Other: Repositioning FHR Monitoring Method: External US transducer Activity Status ADL Awake oxytocin 18 munit/min unit(s) LR Premix Diluent LR Premix Diluent mL 12/08/2022 10:30 EDT Temperature Temporal Artery 36 DegC Heart Rate Monitored 89 bpm Respiratory Rate 16 br/min Systolic Blood Pressure Non-Invasive 95 mmHg Diastolic Blood Pressure Non-Invasive 69 mmHg Blood Pressure Method Automatic Blood Pressure Location Right arm Blood Pressure Cuff Size Medium Primary Pain Location Abdomen Abdominal Pain Location LLQ, RLQ Primary Pain Laterality Bilateral Primary Pain Intensity 4 Primary Pain Time Pattern intermittent Primary Pain Onset Gradual Primary Pain Duration Intermittent Primary Pain Quality Contraction Primary Pain Non-Pharma Intervention Repositioning Primary Pain Aggravating Factors None Primary Pain Alleviating Factors Repositioning Primary Pain Nonverbal Response Appears restful Pain Associated Symptoms None Pain Scale Type 0-10 Pain scale Heart Rhythm Regular Oxygen Therapy Room air Uterine Contraction Monitoring Method External toco Uterine Contraction Frequency Q 3-5 min Uterine Contraction Duration 70-90 sec Uterine Contraction Intensity, Ext Palp Mild Uterine Resting Tone, External Soft Uterine Activity Regular contractions Patient Position, OB Birthing ball Baby A FHR Baseline: 135 bpm FHR Baseline Variability: Moderate variability FHR Accelerations: Present FHR Deceleration: Absent FHR Monitoring Method: External US transducer Wrist Left 12/07/2022 18 gauge Peripheral IV Activity: Assessed Peripheral IV Dressing Condition: Clean, Dry, Intact Peripheral IV Dressing Activity: Transparent dressing Peripheral IV Line Status/Patency: Continuous infusion Peripheral IV Site Condition: No complications Peripheral IV Equipment: Extension set, Stopcock, IV Pump, PRN Adaptor Activity Status ADL Awake Standard Safety Safety level maintained, Precautions maintained oxytocin 16 munit/min unit(s) LR Premix Diluent LR Premix Diluent mL 12/08/2022 10:15 EDT Uterine Contraction Monitoring Method External toco Uterine Contraction Frequency Q 3-4 min Uterine Contraction Duration 70 sec Uterine Contraction Intensity, Ext Palp Mild Uterine Resting Tone, External Soft Uterine Activity Regular contractions Baby A FHR Baseline: 145 bpm FHR Baseline Variability: Moderate variability FHR Accelerations: Present FHR Deceleration: Absent FHR Monitoring Method: External US transducer oxytocin 14 munit/min unit(s) LR Premix Diluent LR Premix Diluent mL 12/08/2022 10:00 EDT Monitoring Annotations Pt out of shower 12/08/2022 10:00 EDT Uterine Contraction Monitoring Method External toco Uterine Contraction Frequency Q 3-4 min Uterine Contraction Duration 70-90 sec Uterine Contraction Intensity, Ext Palp Mild Uterine Resting Tone, External Soft Uterine Activity Regular contractions Baby A FHR Baseline: 135 bpm FHR Baseline Variability: Moderate variability FHR Accelerations: Present FHR Deceleration: Absent FHR Monitoring Method: External US transducer Activity Status ADL Awake Standard Safety Safety level maintained, Precautions maintained oxytocin 12 munit/min unit(s) LR Premix Diluent LR Premix Diluent mL 12/08/2022 9:50 EDT Monitoring Annotations Pt up to shower 12/08/2022 9:45 EDT Temperature Temporal Artery 36.2 DegC Heart Rate Monitored 101 bpm HI Respiratory Rate 18 br/min Systolic Blood Pressure Non-Invasive 110 mmHg Diastolic Blood Pressure Non-Invasive 62 mmHg Blood Pressure Method Automatic Blood Pressure Location Left arm Blood Pressure Cuff Size Medium Primary Pain Location Abdomen Abdominal Pain Location LLQ, RLQ Primary Pain Laterality Bilateral Primary Pain Intensity 4 Primary Pain Time Pattern intermittent Primary Pain Onset Gradual Primary Pain Duration Intermittent Primary Pain Quality Contraction Primary Pain Non-Pharma Intervention Repositioning Primary Pain Aggravating Factors None Primary Pain Alleviating Factors Repositioning Primary Pain Nonverbal Response Appears restful Pain Associated Symptoms None Pain Scale Type 0-10 Pain scale Heart Rhythm Regular Oxygen Therapy Room air Uterine Contraction Monitoring Method External toco Uterine Contraction Frequency Q 3-4 min Uterine Contraction Duration 70-90 sec Uterine Contraction Intensity, Ext Palp Mild Uterine Resting Tone, External Soft Uterine Activity Regular contractions Baby A FHR Baseline: 135 bpm FHR Baseline Variability: Moderate variability FHR Accelerations: Present FHR Deceleration: Absent FHR Monitoring Method: External US transducer Activity Status ADL Ambulating in room, Awake Standard Safety Safety level maintained, Precautions maintained oxytocin 10 munit/min unit(s) LR Premix Diluent LR Premix Diluent mL 12/08/2022 9:35 EDT Individuals Taught Patient Learning Readiness Willing to learn Barriers to Learning None evident Teaching Method Explanation, Printed materials Preferred Written Language Malaysian Family/Caregiver Prefer Written Language Malaysian Preferred Spoken Language Malaysian Family/Caregiver Prefer Spoken Language Malaysian Edu- Folder Verbalizes/Nonverbally indicates understanding Edu- Log: Stools/Voids Verbalizes/Nonverbally indicates understanding Edu-OB Booklet Verbalizes/Nonverbally indicates understanding 12/08/2022 9:34 EDT Breakfast Percent 100 % 12/08/2022 9:30 EDT Uterine Contraction Monitoring Method External toco Uterine Contraction Frequency Q 3-4 min Uterine Contraction Duration 70-90 sec Uterine Contraction Intensity, Ext Palp Mild Uterine Resting Tone, External Soft Uterine Activity Regular contractions Patient Position, OB Birthing ball Baby A FHR Baseline: 135 bpm FHR Baseline Variability: Moderate variability FHR Accelerations: Present FHR Deceleration: Absent FHR Monitoring Method: External US transducer Activity Status ADL Awake oxytocin 8 munit/min unit(s) LR Premix Diluent LR Premix Diluent mL 12/08/2022 9:23 EDT Monitoring Annotations Up to bathroom 12/08/2022 9:00 EDT Temperature Temporal Artery 36.3 DegC Heart Rate Monitored 86 bpm Respiratory Rate 18 br/min Systolic Blood Pressure Non-Invasive 104 mmHg Diastolic Blood Pressure Non-Invasive 67 mmHg Blood Pressure Method Automatic Blood Pressure Location Left arm Blood Pressure Cuff Size Medium Primary Pain Intensity 0 Pain Associated Symptoms None Pain Scale Type 0-10 Pain scale Heart Rhythm Regular Oxygen Therapy Room air Uterine Contraction Monitoring Method External toco Uterine Contraction Frequency Q 3-5 min Uterine Contraction Duration 60-80 sec Uterine Contraction Intensity, Ext Palp Mild Uterine Resting Tone, External Soft Uterine Activity Regular contractions Patient Position, OB Sitting Baby A FHR Baseline: 135 bpm FHR Baseline Variability: Moderate variability FHR Accelerations: Present FHR Deceleration: Absent FHR Monitoring Method: External US transducer Wrist Left 12/07/2022 18 gauge Peripheral IV Activity: Assessed Peripheral IV Dressing Condition: Clean, Dry, Intact Peripheral IV Dressing Activity: Transparent dressing Peripheral IV Line Status/Patency: Continuous infusion Peripheral IV Site Condition: No complications Peripheral IV Equipment: Extension set, Stopcock, IV Pump, PRN Adaptor Activity Status ADL Awake Standard Safety Safety level maintained, Precautions maintained oxytocin 6 munit/min unit(s) LR Premix Diluent LR Premix Diluent mL 12/08/2022 8:45 EDT Uterine Contraction Monitoring Method External toco Uterine Contraction Frequency Q 3-6 min Uterine Contraction Duration 80 sec Uterine Contraction Intensity, Ext Palp Mild Uterine Resting Tone, External Soft Uterine Activity Irregular contractions Patient Position, OB Sitting Baby A FHR Baseline: 135 bpm FHR Baseline Variability: Moderate variability FHR Accelerations: Present FHR Deceleration: Absent FHR Monitoring Method: External US transducer Activity Status ADL Awake oxytocin 4 munit/min unit(s) LR Premix Diluent LR Premix Diluent mL 12/08/2022 8:30 EDT Uterine Contraction Monitoring Method External toco Uterine Contraction Frequency Q 3-7 min Uterine Contraction Duration 60-80 sec Uterine Contraction Intensity, Ext Palp Mild Uterine Resting Tone, External Soft Uterine Activity Irregular contractions Patient Position, OB Sitting Baby A FHR Baseline: 135 bpm FHR Baseline Variability: Moderate variability FHR Accelerations: Present FHR Deceleration: Absent FHR Monitoring Method: External US transducer Activity Status ADL Awake 12/08/2022 8:28 EDT Ed-Plan of Care Verbalizes/Nonverbally indicates understanding Ed-Safety, Fall Verbalizes/Nonverbally indicates understanding Individuals Taught Patient Learning Readiness Willing to learn Barriers to Learning None evident Teaching Method Explanation Preferred Written Language Malaysian Family/Caregiver Prefer Written Language Malaysian Preferred Spoken Language Malaysian Family/Caregiver Prefer Spoken Language Malaysian Ed- Monitoring Verbalizes/Nonverbally indicates understanding Ed-Contractions Verbalizes/Nonverbally indicates understanding Ed-Discharge instructions Needs further teaching Ed-Complications of Labor/Delivery Verbalizes/Nonverbally indicates understanding Ed-LD Activity Verbalizes/Nonverbally indicates understanding Ed-LD Nutrition/Fluids Verbalizes/Nonverbally indicates understanding Ed-LD Safety Verbalizes/Nonverbally indicates understanding Ed-Patient/Caregiver about Hand Hygiene Verbalizes/Nonverbally indicates understanding 12/08/2022 8:27 EDT O-Remains Free From Injury Progressing towards goal Edu-Pain Management Verbalizes/Nonverbally indicates understanding Ed-Safety Verbalizes/Nonverbally indicates understanding Able To Drink Order Detail Yes Able To Sign Consents Order Detail Yes Code Status Order Detail Full code IV Order Detail Yes Dialysis Schedule Order Detail N/A Has Diabetes Order Detail Yes Isolation Precautions Order Detail None Nurse Collect Order Detail 0 Oxygen Order Detail No Order Detail Yes Prior Valve Replacement Order Detail No Transport Mode Order Detail Ambulatory Chief Load Dispatcher Details Form Chief Load Dispatcher Details Form 12/08/2022 8:22 EDT oxytocin Begin Bag 2 mL unit(s) LR Premix Diluent Begin Bag 1,000 mL mL 12/08/2022 8:10 EDT Lactated Ringers Injection Begin Bag 1,000 mL mL 12/08/2022 8:00 EDT Monitoring Annotations Provider at bedside--Dr Rojas 12/08/2022 8:00 EDT Temperature Oral 36.9 DegC Heart Rate Monitored 76 bpm Respiratory Rate 18 br/min Systolic Blood Pressure Non-Invasive 100 mmHg Diastolic Blood Pressure Non-Invasive 47 mmHg <LLOW Blood Pressure Method Automatic Blood Pressure Location Left arm Blood Pressure Cuff Size Medium Primary Pain Intensity 0 Pain Associated Symptoms None Pain Scale Type 0-10 Pain scale Heart Rhythm Regular Murmur Auscultated No Dorsalis Pedis Pulse, Left 2+ Normal Dorsalis Pedis Pulse, Right 2+ Normal Pedal edema Bilateral Edema Ratin+ mild/4mm Respirations Unlabored Respiratory Pattern Regular Breath Sounds Auscultated Anterior and posterior All Lobes Breath Sounds Clear, Equal Oxygen Therapy Room air Abdomen Description Soft Bowel Continence Continent Swallowing Disorder None Bowel Sounds All Quadrants Present Tolerating Oral Intake Yes Urinary Elimination Voiding, no difficulties Bladder Distention Absent Cervix Dilation 2 cm Cervix Effacement 50 Station -2 Vaginal Exam Performed By ETIENNE ROJAS DO Uterine Contraction Monitoring Method External toco Uterine Contraction Frequency Q 4-7 min Uterine Contraction Duration 70-80 sec Uterine Contraction Intensity, Ext Palp Mild Uterine Resting Tone, External Soft Uterine Activity Irregular contractions Patient Position, OB Semi-Grider's Baby A FHR Baseline: 135 bpm FHR Baseline Variability: Moderate variability FHR Accelerations: Present FHR Deceleration: Absent FHR Interpretation Category: Category One FHR Monitoring Method: External US transducer Labor Onset, Date, Time: 12/08/2022 8:00 Breasts Soft Nipples Intact Support Person Present Support Person Involvement Supportive/involved Skin Temperature Warm Skin Description [place], Dry Skin Integrity Intact, Pressure points intact Sensory Perception Yaya No impairment Moisture Yaya Rarely moist Activity Yaya Walks occasionally Mobility Yaya No limitations Nutrition Yaya Adequate Friction and Shear Yaya No apparent problem Yaya Score 21 Hospital Acquired Pressure Injury Risk None/minimal risk (score 19-23) Wrist Left 12/07/2022 18 gauge Peripheral IV Activity: Assessed Peripheral IV Dressing Condition: Clean, Dry, Intact Peripheral IV Dressing Activity: Reinforced, Transparent dressing Peripheral IV Line Status/Patency: Flushes easily, 3ml normal saline flush, Continuous infusion Peripheral IV Site Condition: No complications Peripheral IV Equipment: Extension set, Stopcock, IV Pump, PRN Adaptor Neurological Symptoms Patient denies Level of Consciousness Alert Strength All Extremities Strong Tone All Extremities Normal Stein Screen Daily History of Fall in Last 3 Months Stein No Presence of Secondary Diagnosis Stein No Use of Ambulatory Aid Stein None, bedrest, wheelchair, nurse IV/PRN Adapter Fall Risk Stein Yes Gait Weak or Impaired Fall Risk Stein Normal, bedrest, immobile Mental Status Fall Risk Stein Oriented to own ability Stein Fall Risk Score 20 Violence Risk Confused No Violence Risk Irritable No Violence Risk Boisterous No Violence Risk Verbal Threats No Violence Risk Physical Threats No Violence Risk Attacking Objects No Violence Risk Predictor Score 0 Violence Risk Intervention None Violence Risk Current Interventions None Affect/Behavior Appropriate, Calm, Cooperative Appearance Clean Orientation Oriented x 4 Ambulation Repositions self Orientation Assessment Oriented x 4 Memory Recall Ability Current season, Location of own room, Staff names and faces Activity Status ADL Awake Activity Assistance Independent Assistive Device None Hair Care Independent Oral Care Independent Clau Care Independent Standard Safety ID band on, Call device within reach, Bed in low position, Wheels locked, Upper/Half-Length side-rails up, Phone within reach, personal items within reach, Visitor at bedside, Safety level maintained, Non-Slip footwear, Precautions maintained Demonstrates Correct Call Light Use Yes RN Coordination of Care Other: 7:45a-3p Adaptive Feeding Equipment None Appetite Good 12/08/2022 7:49 EDT Monitoring Annotations Up to bathrom 12/08/2022 7:45 EDT Nurse Receiving Report Oumar Peter Rn Date/Time Nurse Received Report 12/08/2022 7:45 12/08/2022 7:30 EDT Uterine Contraction Monitoring Method External toco Uterine Contraction Frequency 2.5-5.5 Uterine Contraction Duration 60-70 Uterine Contraction Intensity, Ext Palp Mild Uterine Resting Tone, External Soft Baby A FHR Baseline: 130 bpm FHR Baseline Variability: Moderate variability FHR Accelerations: Present FHR Deceleration: Absent FHR Monitoring Method: External US transducer 12/08/2022 7:00 EDT Uterine Contraction Monitoring Method External toco Uterine Contraction Frequency 5-6 Uterine Contraction Duration 60-70 Uterine Contraction Intensity, Ext Palp Mild Uterine Resting Tone, External Soft Baby A FHR Baseline: 120 bpm FHR Baseline Variability: Moderate variability FHR Accelerations: Present FHR Deceleration: Absent FHR Monitoring Method: External US transducer 12/08/2022 6:57 EDT Monitoring Annotations Primary nurse at bedside; Ultrasound transducer adjusted; Tocotransducer adjusted 12/08/2022 6:40 EDT Uterine Contraction Monitoring Method External toco Uterine Contraction Frequency 4-6 Uterine Contraction Duration 50 Uterine Contraction Intensity, Ext Palp Mild Uterine Resting Tone, External Soft Baby A FHR Baseline: 130 bpm FHR Baseline Variability: Moderate variability FHR Accelerations: Present FHR Deceleration: Absent FHR Monitoring Method: External US transducer Activity Status ADL Resting Standard Safety Safety level maintained 12/08/2022 6:00 EDT Uterine Contraction Monitoring Method External toco Uterine Contraction Frequency 4-4.5 (Modified) Uterine Contraction Duration 40-80 Uterine Contraction Intensity, Ext Palp Mild Uterine Resting Tone, External Soft Baby A FHR Baseline: 130 bpm FHR Baseline Variability: Moderate variability FHR Accelerations: Present FHR Deceleration: Absent FHR Monitoring Method: External US transducer 12/08/2022 5:30 EDT Uterine Contraction Monitoring Method External toco Uterine Contraction Frequency 2-4 Uterine Contraction Duration 60-70 Uterine Contraction Intensity, Ext Palp Mild Uterine Resting Tone, External Soft Baby A FHR Baseline: 120 bpm FHR Baseline Variability: Moderate variability FHR Accelerations: Present FHR Deceleration: Absent FHR Monitoring Method: External US transducer Activity Status ADL Sleeping quietly with easy respirations Standard Safety Safety level maintained 12/08/2022 5:00 EDT Uterine Contraction Monitoring Method External toco Uterine Contraction Frequency 4-5 Uterine Contraction Duration 50 Uterine Contraction Intensity, Ext Palp Mild Uterine Resting Tone, External Soft Baby A FHR Baseline: 135 bpm FHR Baseline Variability: Moderate variability FHR Accelerations: Present FHR Deceleration: Absent FHR Monitoring Method: External US transducer misoprostol Not Done: Physician Order (Not Done) 12/08/2022 4:33 EDT Monitoring Annotations Primary nurse at bedside; Ultrasound transducer adjusted; Tocotransducer adjusted 12/08/2022 4:30 EDT Activity Status ADL Up to bathroom Standard Safety Safety level maintained 12/08/2022 4:29 EDT Monitoring Annotations patient up to the bathroom 12/08/2022 4:00 EDT Uterine Contraction Monitoring Method External toco Uterine Contraction Frequency 3-5 Uterine Contraction Duration 40-60 Uterine Contraction Intensity, Ext Palp Mild Uterine Resting Tone, External Soft Baby A FHR Baseline: 125 bpm FHR Baseline Variability: Moderate variability FHR Accelerations: Present FHR Deceleration: Absent FHR Monitoring Method: External US transducer 12/08/2022 2:45 EDT Uterine Contraction Monitoring Method External toco Uterine Contraction Frequency 2.5-3 Uterine Contraction Duration 60-80 Uterine Contraction Intensity, Ext Palp Mild Uterine Resting Tone, External Soft Baby A FHR Baseline: 135 bpm FHR Baseline Variability: Moderate variability FHR Accelerations: Present FHR Deceleration: Absent FHR Monitoring Method: External US transducer 12/08/2022 2:40 EDT misoprostol 25 mcg mcg 12/08/2022 2:30 EDT Cervix Dilation 2 cm Cervix Effacement 60 Station -2 Cervical Consistency Soft Cervical Position Mid Vaginal Exam Performed By JAMEE Banegas R Activity Status ADL Awake, Resting Standard Safety Safety level maintained 12/08/2022 2:19 EDT Monitoring Annotations Vaginal exam performed 12/08/2022 2:12 EDT Temperature Temporal Artery 36.5 DegC Heart Rate Monitored 77 bpm Systolic Blood Pressure Non-Invasive 106 mmHg Diastolic Blood Pressure Non-Invasive 59 mmHg LOW Oxygen Therapy Room air 12/08/2022 1:51 EDT Primary Pain Intensity 0 Pain Scale Type 0-10 Pain scale Uterine Contraction Monitoring Method External toco Uterine Contraction Frequency 8-11 Uterine Contraction Duration 80 Uterine Contraction Intensity, Ext Palp Mild Uterine Resting Tone, External Soft Uterine Activity Irregular contractions Baby A FHR Baseline: 120 bpm FHR Baseline Variability: Moderate variability FHR Accelerations: Present FHR Deceleration: Absent FHR Interpretation Category: Category One FHR Monitoring Method: External US transducer Activity Status ADL Sleeping quietly with easy respirations 12/08/2022 1:00 EDT Uterine Contraction Monitoring Method External toco Uterine Contraction Frequency 8-10 Uterine Contraction Duration 60 Uterine Contraction Intensity, Ext Palp Mild Uterine Resting Tone, External Soft Uterine Activity Irregular contractions Baby A FHR Baseline: 130 bpm FHR Baseline Variability: Moderate variability FHR Accelerations: Present FHR Deceleration: Absent FHR Interpretation Category: Category One FHR Monitoring Method: External US transducer Activity Status ADL Sleeping quietly with easy respirations 12/08/2022 0:30 EDT Uterine Contraction Monitoring Method External toco Uterine Contraction Frequency 7 Uterine Contraction Intensity, Ext Palp Mild Uterine Resting Tone, External Soft Uterine Activity Irregular contractions Baby A FHR Baseline: 120 bpm FHR Baseline Variability: Minimal variability FHR Accelerations: Present FHR Deceleration: Absent FHR Monitoring Method: External US transducer Activity Status ADL Sleeping quietly with easy respirations 12/08/2022 0:19 EDT Activity Status ADL Returned to bed 12/08/2022 0:15 EDT Monitoring Annotations Ultrasound transducer adjusted; Tocotransducer adjusted; Primary nurse at bedside 12/08/2022 0:04 EDT Monitoring Annotations patient up to the bathroom, Primary nurse at bedside 12/08/2022 0:04 EDT Temperature Temporal Artery 36.2 DegC Heart Rate Monitored 79 bpm Systolic Blood Pressure Non-Invasive 118 mmHg Diastolic Blood Pressure Non-Invasive 52 mmHg LOW Primary Pain Intensity 0 Primary Pain Nonverbal Response Appears restful Pain Scale Type 0-10 Pain scale Oxygen Therapy Room air Uterine Contraction Monitoring Method External toco Uterine Contraction Intensity, Ext Palp Mild Uterine Resting Tone, External Soft Uterine Activity Irregular contractions Baby A FHR Baseline: 140 bpm FHR Baseline Variability: Moderate variability FHR Accelerations: Present FHR Deceleration: Absent FHR Interpretation Category: Category One FHR Monitoring Method: External US transducer Activity Status ADL Awake, Up to bathroom Standard Safety Safety level maintained 12/07/2022 23:00 EDT Uterine Contraction Monitoring Method External toco Uterine Contraction Frequency 4-5 Uterine Contraction Duration 40-60 Uterine Contraction Intensity, Ext Palp Mild Uterine Resting Tone, External Soft Uterine Activity Irregular contractions Baby A FHR Baseline: 125 bpm FHR Baseline Variability: Moderate variability FHR Accelerations: Present FHR Deceleration: Absent FHR Interpretation Category: Category One FHR Monitoring Method: External US transducer 12/07/2022 22:27 EDT Temperature Temporal Artery 36.8 DegC Heart Rate Monitored 79 bpm Systolic Blood Pressure Non-Invasive 100 mmHg Diastolic Blood Pressure Non-Invasive 58 mmHg LOW Oxygen Therapy Room air Standard Safety Safety level maintained 12/07/2022 22:17 EDT misoprostol 25 mcg mcg zolpidem 5 mg mg 12/07/2022 22:15 EDT Cervix Dilation 1 cm Cervix Effacement 50 Station -2 Cervical Consistency Soft Cervical Position Mid Presenting Part Vertex Vaginal Exam Performed By JAMEE Banegas Shah's Score 6 Baby A Membrane Status: Intact 12/07/2022 22:10 EDT Uterine Contraction Monitoring Method External toco Uterine Contraction Frequency 3.5-4 Uterine Contraction Duration 70-90 Uterine Contraction Intensity, Ext Palp Mild Uterine Resting Tone, External Soft Uterine Activity Irregular contractions Baby A FHR Baseline: 130 bpm FHR Baseline Variability: Moderate variability FHR Accelerations: Present FHR Deceleration: Absent FHR Interpretation Category: Category One FHR Monitoring Method: External US transducer 12/07/2022 21:46 EDT Monitoring Annotations Patient up to the bathroom. Primary nurse at bedside 12/07/2022 21:29 EDT Notify date/time 12/07/2022 21:29 Provider Notified DARION RAMOS Notification Method Phone Information Communicated Nurse communication Details Communicated transfer phone to patient for next plan. Notification Outcome Orders received Person Reporting Result(s) jordan banegas Details of Results Received start cytotec 25mcg q4h, and 5mg ambien at bedtime Results Read Back Yes Uterine Contraction Monitoring Method External toco Uterine Contraction Frequency 3.5-5 Uterine Contraction Duration 80-100 Uterine Contraction Intensity, Ext Palp Mild Uterine Resting Tone, External Soft Uterine Activity Regular contractions Baby A FHR Baseline: 130 bpm FHR Baseline Variability: Moderate variability FHR Accelerations: Present FHR Deceleration: Absent FHR Interpretation Category: Category One FHR Monitoring Method: External US transducer 12/07/2022 21:12 EDT Temperature Temporal Artery 36.8 DegC Heart Rate Monitored 91 bpm Systolic Blood Pressure Non-Invasive 109 mmHg Diastolic Blood Pressure Non-Invasive 55 mmHg LOW Oxygen Therapy Room air Standard Safety Safety level maintained 12/07/2022 21:09 EDT Monitoring Annotations Primary nurse at bedside; Ultrasound transducer adjusted; Tocotransducer adjusted - switched back to hardwire monitors 12/07/2022 20:20 EDT Uterine Contraction Monitoring Method External toco Uterine Contraction Frequency 2.5-3 Uterine Contraction Duration 70-120 Uterine Contraction Intensity, Ext Palp Mild Uterine Resting Tone, External Soft Uterine Activity Regular contractions Baby A FHR Baseline: 130 bpm FHR Baseline Variability: Moderate variability FHR Accelerations: Present FHR Deceleration: Absent FHR Interpretation Category: Category One FHR Monitoring Method: External US transducer 12/07/2022 19:49 EDT Primary Pain Intensity 0 Pain Scale Type 0-10 Pain scale Uterine Contraction Monitoring Method External toco Uterine Contraction Frequency 2 Uterine Contraction Duration 60-90 Uterine Contraction Intensity, Ext Palp Moderate Uterine Resting Tone, External Soft Uterine Activity Regular contractions Baby A FHR Baseline: 125 bpm FHR Baseline Variability: Moderate variability FHR Accelerations: Present FHR Deceleration: Absent FHR Interpretation Category: Category One FHR Monitoring Method: monitoring explained, External US transducer Wrist Left 12/07/2022 18 gauge Peripheral IV Activity: Assessed Peripheral IV Dressing Condition: Clean, Dry, Intact Peripheral IV Dressing Activity: Transparent dressing Peripheral IV Site Condition: No complications Peripheral IV Equipment: PRN Adaptor Activity Status ADL Ambulating in pena, Awake Standard Safety ID band on, Call device within reach, Bed in low position, Wheels locked, Upper/Half-Length side-rails up, Phone within reach, personal items within reach, Visitor at bedside, Safety level maintained, Non-Slip footwear 12/07/2022 19:45 EDT oxytocin munit/min unit(s) LR Premix Diluent LR Premix Diluent mL 12/07/2022 19:15 EDT Notify date/time 12/07/2022 19:15 Provider Notified DARION RAMOS APRN-NALLELY Notification Method Phone Information Communicated Nurse communication Details Communicated updated on VE, ctx pattern, pitocin level. Details of Results Received stop pit, let patient eat. 12/07/2022 19:11 EDT Primary Pain Intensity 0 Pain Scale Type 0-10 Pain scale Uterine Contraction Monitoring Method External toco Uterine Contraction Frequency 2 Uterine Contraction Duration 60-80 Uterine Contraction Intensity, Ext Palp Moderate Uterine Resting Tone, External Soft Uterine Activity Regular contractions Patient Position, OB Left tilt, Semi-Grider's Baby A FHR Baseline: 125 bpm FHR Baseline Variability: Moderate variability FHR Accelerations: Present FHR Deceleration: Absent FHR Interpretation Category: Category One FHR Monitoring Method: External US transducer 12/07/2022 19:01 EDT Primary Pain Intensity 0 Pain Scale Type 0-10 Pain scale Uterine Contraction Monitoring Method External toco Uterine Contraction Frequency 2 Uterine Contraction Duration 60-80 Uterine Contraction Intensity, Ext Palp Moderate Uterine Resting Tone, External Soft Uterine Activity Regular contractions Baby A FHR Baseline: 125 bpm FHR Baseline Variability: Moderate variability FHR Accelerations: Present FHR Deceleration: Absent FHR Interpretation Category: Category One FHR Monitoring Method: External US transducer 12/07/2022 18:47 EDT Cervix Dilation 1 cm Cervix Effacement 50 Cervical Position Posterior Vaginal Exam Performed By JAMEE Sims Patient Position, OB Walcher's oxytocin 22 munit/min unit(s) LR Premix Diluent LR Premix Diluent mL 12/07/2022 18:27 EDT Primary Pain Intensity 0 Pain Scale Type 0-10 Pain scale Uterine Contraction Monitoring Method External toco Uterine Contraction Frequency 2-3 Uterine Contraction Duration 60-80 Uterine Contraction Intensity, Ext Palp Moderate Uterine Resting Tone, External Soft Uterine Activity Regular contractions Baby A FHR Baseline: 125 bpm FHR Baseline Variability: Moderate variability FHR Accelerations: Present FHR Deceleration: Absent FHR Interpretation Category: Category One FHR Monitoring Method: External US transducer 12/07/2022 18:00 EDT Patient Information Note pt denies any needs at this time. Primary Pain Intensity 0 Pain Scale Type 0-10 Pain scale Uterine Contraction Monitoring Method External toco Uterine Contraction Frequency 2 Uterine Contraction Duration 60-80 Uterine Contraction Intensity, Ext Palp Moderate Uterine Resting Tone, External Soft Uterine Activity Regular contractions Patient Position, OB Sitting, Birthing ball Baby A FHR Baseline: 125 bpm FHR Baseline Variability: Moderate variability FHR Accelerations: Present FHR Deceleration: Absent FHR Interpretation Category: Category One FHR Monitoring Method: External US transducer 12/07/2022 17:21 EDT Heart Rate Monitored 87 bpm Systolic Blood Pressure Non-Invasive 104 mmHg Diastolic Blood Pressure Non-Invasive 57 mmHg LOW Uterine Contraction Monitoring Method External toco Uterine Contraction Frequency 2 Uterine Contraction Duration 60-80 Uterine Contraction Intensity, Ext Palp Moderate Uterine Resting Tone, External Soft Uterine Activity Regular contractions Patient Position, OB Sitting, Birthing ball Baby A FHR Baseline: 125 bpm FHR Baseline Variability: Moderate variability FHR Accelerations: Present FHR Deceleration: Absent FHR Interpretation Category: Category One FHR Monitoring Method: External US transducer Pt./Caregiver Remote Cont.Visual Monitor Verbalizes/Nonverbally indicates understanding Standard Safety Precautions maintained Demonstrates Correct Call Light Use Yes 12/07/2022 17:00 EDT Baby A FHR Baseline: 125 bpm FHR Baseline Variability: Moderate variability FHR Accelerations: Present FHR Deceleration: Absent FHR Interpretation Category: Category One 12/07/2022 16:30 EDT Patient Information Note pt out of shower on brthing ball. Primary Pain Intensity 0 Pain Scale Type 0-10 Pain scale Uterine Contraction Monitoring Method External toco Uterine Contraction Frequency 2 Uterine Contraction Duration 60-80 Uterine Contraction Intensity, Ext Palp Moderate Uterine Resting Tone, External Soft Uterine Activity Regular contractions Patient Position, OB Birthing ball Baby A FHR Baseline: 125 bpm FHR Baseline Variability: Moderate variability FHR Accelerations: Present FHR Deceleration: Absent FHR Interpretation Category: Category One FHR Monitoring Method: External US transducer 12/07/2022 16:02 EDT Monitoring Annotations pt in shower 12/07/2022 16:00 EDT Patient Information Note pt up to shower, continues to state contractions are just mild and not all are felt Primary Pain Intensity 0 Pain Scale Type 0-10 Pain scale Uterine Contraction Monitoring Method External toco Uterine Contraction Frequency 2 Uterine Contraction Duration 60-80 Uterine Contraction Intensity, Ext Palp Moderate Uterine Resting Tone, External Soft Uterine Activity Regular contractions Baby A FHR Baseline: 125 bpm FHR Baseline Variability: Moderate variability FHR Accelerations: Present FHR Deceleration: Absent FHR Interpretation Category: Category One FHR Monitoring Method: External US transducer 12/07/2022 15:32 EDT Temperature Temporal Artery 36.8 DegC Heart Rate Monitored 72 bpm Respiratory Rate 16 br/min Systolic Blood Pressure Non-Invasive 93 mmHg Diastolic Blood Pressure Non-Invasive 49 mmHg <LLOW Primary Pain Intensity 0 Pain Scale Type 0-10 Pain scale Uterine Contraction Monitoring Method External toco Uterine Contraction Frequency 2-4 Uterine Contraction Duration 60 Uterine Contraction Intensity, Ext Palp Mild Uterine Resting Tone, External Soft Uterine Activity Regular contractions Patient Position, OB Left lateral, Peanut ball Baby A FHR Baseline: 130 bpm FHR Baseline Variability: Moderate variability FHR Accelerations: Present FHR Deceleration: Absent FHR Interpretation Category: Category One FHR Monitoring Method: External US transducer oxytocin 20 munit/min unit(s) LR Premix Diluent LR Premix Diluent mL 12/07/2022 14:54 EDT Patient Information Note pt repositioned, resting. Denies any needs at this time Primary Pain Intensity 0 Pain Scale Type 0-10 Pain scale Uterine Contraction Monitoring Method External toco Uterine Contraction Frequency 3-4 Uterine Contraction Duration 60 Uterine Contraction Intensity, Ext Palp Moderate Uterine Resting Tone, External Soft Uterine Activity Regular contractions Patient Position, OB Left lateral, Peanut ball Baby A FHR Baseline: 125 bpm FHR Baseline Variability: Moderate variability FHR Accelerations: Present FHR Deceleration: Absent FHR Interpretation Category: Category One FHR Monitoring Method: External US transducer oxytocin 18 munit/min unit(s) LR Premix Diluent LR Premix Diluent mL 12/07/2022 14:30 EDT Uterine Contraction Monitoring Method External toco Uterine Contraction Frequency 2-2.5 Uterine Contraction Duration 60-80 Baby A FHR Baseline: 125 bpm FHR Baseline Variability: Moderate variability FHR Accelerations: Present FHR Deceleration: Absent FHR Interpretation Category: Category One FHR Monitoring Method: External US transducer 12/07/2022 14:00 EDT Heart Rate Monitored 81 bpm Systolic Blood Pressure Non-Invasive 87 mmHg LOW Diastolic Blood Pressure Non-Invasive 48 mmHg <LLOW Primary Pain Intensity 0 Pain Scale Type 0-10 Pain scale Uterine Contraction Monitoring Method External toco Uterine Contraction Frequency 2-2.5 Patient Position, OB Right lateral, Peanut ball Baby A FHR Baseline: 125 bpm FHR Baseline Variability: Moderate variability FHR Accelerations: Present FHR Deceleration: Absent FHR Interpretation Category: Category One FHR Monitoring Method: External US transducer Wrist Left 12/07/2022 18 gauge Peripheral IV Activity: Assessed Peripheral IV Dressing Condition: Clean, Dry, Intact Peripheral IV Site Condition: No complications oxytocin 16 munit/min unit(s) LR Premix Diluent LR Premix Diluent mL 12/07/2022 13:34 EDT [facility] Progress Note 12/07/2022 13:31 EDT Patient Information Note O NALLELY Del Angel VE with permission, discussed plan of careith pt Primary Pain Intensity 0 Pain Scale Type 0-10 Pain scale Cervix Dilation 1 cm Cervix Effacement 50 Cervical Position Posterior Vaginal Exam Performed By EDUAR DEL ANGEL APRN-NALLELY Uterine Contraction Monitoring Method External toco Uterine Contraction Frequency 2-2.5 Uterine Contraction Duration 60-80 Uterine Contraction Intensity, Ext Palp Moderate Uterine Resting Tone, External Soft Uterine Activity Regular contractions Patient Position, OB Walcher's Baby A FHR Baseline: 135 bpm FHR Baseline Variability: Moderate variability FHR Accelerations: Present FHR Deceleration: Absent FHR Interpretation Category: Category One FHR Monitoring Method: External US transducer 12/07/2022 12:54 EDT Primary Pain Intensity 0 Pain Scale Type 0-10 Pain scale Uterine Contraction Monitoring Method External toco Uterine Contraction Frequency 2-2.5 Uterine Contraction Duration 60-80 Uterine Contraction Intensity, Ext Palp Moderate Uterine Resting Tone, External Soft Uterine Activity Regular contractions Patient Position, OB Birthing ball Baby A FHR Baseline: 130 bpm FHR Baseline Variability: Moderate variability FHR Accelerations: Present FHR Deceleration: Absent FHR Interpretation Category: Category One FHR Monitoring Method: External US transducer 12/07/2022 12:32 EDT Primary Pain Intensity 0 Pain Scale Type 0-10 Pain scale Uterine Contraction Monitoring Method External toco Uterine Contraction Frequency 2 Uterine Contraction Duration 60-80 Uterine Contraction Intensity, Ext Palp Moderate Uterine Resting Tone, External Soft Uterine Activity Regular contractions Patient Position, OB Birthing ball Baby A FHR Baseline: 130 bpm FHR Baseline Variability: Moderate variability FHR Accelerations: Present FHR Deceleration: Absent FHR Interpretation Category: Category One FHR Monitoring Method: External US transducer Standard Safety Precautions maintained 12/07/2022 12:00 EDT Temperature Oral 36.8 DegC Heart Rate Monitored 87 bpm Systolic Blood Pressure Non-Invasive 105 mmHg Diastolic Blood Pressure Non-Invasive 54 mmHg LOW Primary Pain Intensity 0 Pain Scale Type 0-10 Pain scale Uterine Contraction Monitoring Method External toco Uterine Contraction Frequency 2-3 Uterine Contraction Duration 60-80 Uterine Contraction Intensity, Ext Palp Moderate Uterine Resting Tone, External Soft Uterine Activity Regular contractions Patient Position, OB Birthing ball Baby A FHR Baseline: 130 bpm FHR Baseline Variability: Moderate variability FHR Accelerations: Present FHR Deceleration: Absent FHR Interpretation Category: Category One FHR Monitoring Method: External US transducer 12/07/2022 11:30 EDT Patient Position, OB Birthing ball Baby A FHR Baseline: 125 bpm FHR Baseline Variability: Moderate variability FHR Accelerations: Present FHR Deceleration: Absent FHR Interpretation Category: Category One FHR Monitoring Method: External US transducer 12/07/2022 11:00 EDT Patient Information Note pt still on birthing ball, denies feeling regular contractions. Primary Pain Intensity 0 Pain Scale Type 0-10 Pain scale Uterine Contraction Monitoring Method External toco Uterine Contraction Frequency 2-3 Uterine Contraction Duration 60-80 Uterine Contraction Intensity, Ext Palp Moderate Uterine Resting Tone, External Soft Uterine Activity Regular contractions Patient Position, OB Birthing ball Baby A FHR Baseline: 125 bpm FHR Baseline Variability: Moderate variability FHR Accelerations: Present FHR Deceleration: Absent FHR Interpretation Category: Category One FHR Monitoring Method: External US transducer oxytocin 14 munit/min unit(s) LR Premix Diluent LR Premix Diluent mL 12/07/2022 10:30 EDT Patient Position, OB Birthing ball Baby A FHR Baseline: 125 bpm FHR Baseline Variability: Moderate variability FHR Accelerations: Present FHR Deceleration: Absent FHR Interpretation Category: Category One FHR Monitoring Method: External US transducer 12/07/2022 10:04 EDT Heart Rate Monitored 87 bpm Systolic Blood Pressure Non-Invasive 111 mmHg Diastolic Blood Pressure Non-Invasive 89 mmHg 12/07/2022 9:59 EDT Patient Information Note pt on birthing ball, states only felt a few contractions, denies any needs at this time. Primary Pain Intensity 0 Pain Scale Type 0-10 Pain scale Uterine Contraction Monitoring Method External toco Uterine Contraction Frequency 2-3 Uterine Contraction Duration 60-80 Uterine Contraction Intensity, Ext Palp Moderate Uterine Resting Tone, External Soft Uterine Activity Regular contractions Patient Position, OB Birthing ball Baby A FHR Baseline: 125 bpm FHR Baseline Variability: Moderate variability FHR Accelerations: Present FHR Deceleration: Absent FHR Interpretation Category: Category One FHR Monitoring Method: External US transducer 12/07/2022 9:33 EDT Primary Pain Intensity 0 Pain Scale Type 0-10 Pain scale Uterine Contraction Monitoring Method External toco Uterine Contraction Frequency 2-3 Uterine Contraction Duration 60-80 Uterine Contraction Intensity, Ext Palp Mild Uterine Resting Tone, External Soft Uterine Activity Regular contractions Patient Position, OB Birthing ball Baby A FHR Baseline: 125 bpm FHR Baseline Variability: Moderate variability FHR Accelerations: Present FHR Deceleration: Absent FHR Interpretation Category: Category One FHR Monitoring Method: External US transducer Pt./Caregiver Remote Cont.Visual Monitor Verbalizes/Nonverbally indicates understanding Standard Safety Precautions maintained Demonstrates Correct Call Light Use Yes oxytocin 12 munit/min unit(s) LR Premix Diluent LR Premix Diluent mL 12/07/2022 9:14 EDT [facility] History and Physical 12/07/2022 9:00 EDT Patient Information Note pt up to BR to void and ambulate in room. Using birthing ball. Heart Rate Monitored 87 bpm Respiratory Rate 16 br/min Systolic Blood Pressure Non-Invasive 105 mmHg Diastolic Blood Pressure Non-Invasive 68 mmHg Primary Pain Intensity 0 Pain Scale Type 0-10 Pain scale Uterine Contraction Monitoring Method External toco Patient Position, OB Sitting Baby A FHR Baseline: 130 bpm FHR Baseline Variability: Moderate variability FHR Accelerations: Present FHR Deceleration: Absent FHR Interpretation Category: Category One FHR Monitoring Method: External US transducer oxytocin 10 munit/min unit(s) LR Premix Diluent LR Premix Diluent mL 12/07/2022 8:30 EDT Primary Pain Intensity 0 Pain Scale Type 0-10 Pain scale Uterine Contraction Monitoring Method External toco Uterine Contraction Frequency 3-4 Uterine Contraction Duration 60-80 Uterine Contraction Intensity, Ext Palp Mild Uterine Resting Tone, External Soft Uterine Activity Irregular contractions Patient Position, OB Sitting Baby A FHR Baseline: 125 bpm FHR Baseline Variability: Moderate variability FHR Accelerations: Present FHR Deceleration: Absent FHR Interpretation Category: Category One FHR Monitoring Method: External US transducer oxytocin 8 munit/min unit(s) LR Premix Diluent LR Premix Diluent mL 12/07/2022 8:00 EDT Primary Pain Intensity 0 Pain Scale Type 0-10 Pain scale Cervical Position Posterior Presenting Part Vertex Vaginal Exam Performed By EDUAR DEL ANGEL Uterine Contraction Monitoring Method External toco Uterine Contraction Frequency 2-4 Uterine Contraction Duration 60-80 Uterine Contraction Intensity, Ext Palp Mild Uterine Resting Tone, External Soft Uterine Activity Irregular contractions Patient Position, OB Sitting Baby A FHR Baseline: 140 bpm FHR Baseline Variability: Moderate variability FHR Accelerations: Present FHR Deceleration: Absent FHR Interpretation Category: Category One FHR Monitoring Method: External US transducer Edu-Pain Management Verbalizes/Nonverbally indicates understanding Ed-Plan of Care Verbalizes/Nonverbally indicates understanding Ed-Safety, Fall Verbalizes/Nonverbally indicates understanding Individuals Taught Patient, Parent Learning Readiness Willing to learn Barriers to Learning None evident Teaching Method Explanation Preferred Written Language Malaysian Family/Caregiver Prefer Written Language Malaysian Preferred Spoken Language Malaysian Family/Caregiver Prefer Spoken Language Malaysian Ed- Monitoring Verbalizes/Nonverbally indicates understanding Ed-Contractions Verbalizes/Nonverbally indicates understanding Ed-LD Activity Verbalizes/Nonverbally indicates understanding Ed-LD Nutrition/Fluids Verbalizes/Nonverbally indicates understanding Ed-LD Comfort Measures Verbalizes/Nonverbally indicates understanding Ed-Anesthesia Plans Verbalizes/Nonverbally indicates understanding Ed-Induction Process Verbalizes/Nonverbally indicates understanding Ed-LD Safety Verbalizes/Nonverbally indicates understanding Ed-Medication Dosage, Route, Scheduling Verbalizes/Nonverbally indicates understanding Edu-Med Generic/Brand Name,Purpose,Action Verbalizes/Nonverbally indicates understanding oxytocin 6 munit/min unit(s) LR Premix Diluent LR Premix Diluent mL 12/07/2022 7:43 EDT U TCA (AO) Negative U Cannab (AO) Negative U Beth (AO) Negative U Methadone (AO) Negative U Gerber (AO) Negative U Ampheta (AO) Negative Negative Urine Opiates (AO) Negative U PCP (AO) Negative 12/07/2022 7:30 EDT Patient Information Note support at bedside. Discussing plan of care with patient. Pt denies any needs at this time. Primary Pain Intensity 0 Pain Scale Type 0-10 Pain scale Uterine Contraction Monitoring Method External toco Uterine Contraction Frequency 5-10 Uterine Contraction Duration 60 Uterine Contraction Intensity, Ext Palp Mild Uterine Resting Tone, External Soft Uterine Activity Irregular contractions Patient Position, OB Sitting Baby A FHR Baseline: 125 bpm FHR Baseline Variability: Moderate variability FHR Accelerations: Present FHR Deceleration: Absent FHR Interpretation Category: Category One FHR Monitoring Method: External US transducer Pt./Caregiver Remote Cont.Visual Monitor Verbalizes/Nonverbally indicates understanding Standard Safety ID band on, Call device within reach, Bed in low position, Wheels locked, Upper/Half-Length side-rails up, Phone within reach Demonstrates Correct Call Light Use Yes oxytocin 4 munit/min unit(s) LR Premix Diluent LR Premix Diluent mL 12/07/2022 6:56 EDT Heart Rate Monitored 83 bpm Respiratory Rate 18 br/min Systolic Blood Pressure Non-Invasive 109 mmHg Diastolic Blood Pressure Non-Invasive 59 mmHg LOW 12/07/2022 6:54 EDT Lactated Ringers Injection Begin Bag 1,000 mL mL 12/07/2022 6:53 EDT oxytocin Begin Bag 2 mL unit(s) LR Premix Diluent Begin Bag 1,000 mL mL 12/07/2022 6:29 EDT Cervix Dilation 1 cm Cervix Effacement 60 Cervical Position Posterior Vaginal Exam Performed By Fatuma Ramirez RN 12/07/2022 6:24 EDT OBHx 3 OBHx Para 2 OBHx Para Full Term 2 OBHx Living Children 2 12/07/2022 6:24 EDT OBHx 2 (Modified) OBHx Para 1 OBHx Abortions 0 OBHx Ectopic Pregnancies 0 OBHx Para Full Term 1 OBHx Induced Abortions 0 OBHx Living Children 1 OBHx Multiple Births 0 OBHx Spontaneous Abortions 0 OBHx Births 0 12/07/2022 6:18 EDT Wrist Left 12/07/2022 18 gauge Peripheral IV Activity: Insert new site Peripheral IV Dressing Condition: Clean, Dry, Intact Peripheral IV Dressing Activity: Applied, Transparent dressing Peripheral IV Line Status/Patency: Flushes easily, 10ml normal saline flush, Good blood return Peripheral IV Site Condition: No complications Peripheral IV Equipment: PRN Adaptor Peripheral IV Number of Attempts: 1 Activity Status ADL Awake Standard Safety ID band on, Call device within reach, Bed in low position, Wheels locked, Upper/Half-Length side-rails up, Phone within reach, personal items within reach, Visitor at bedside 12/07/2022 6:16 EDT WBC 9.7 10^3/mcL RBC 4.12 10^6/mcL LOW Hgb 12.2 G/dL Hct 35.8 % LOW MCV 87.1 fL MCH 29.5 pg MCHC 33.9 G/dL RDW 14.1 % Platelet 174 10^3/mcL MPV 9.6 fL Neutrophil % 75.2 % Lymphocyte % 16.6 % Monocyte % 6.2 % Eosinophil % 1.7 % Basophil % 0.3 % Neutrophil, Absolute 7.3 10^3/mcL HI Lymphocyte, Absolute 1.6 10^3/mcL Monocyte, Absolute 0.6 10^3/mcL Eosinophil, Absolute 0.2 10^3/mcL Basophil, Absolute 0.0 10^3/mcL RPR Non-Reactive ABO/Rh Interp O POS Antibody Screen Gel Negative ABSC 12/07/2022 6:10 EDT Uterine Contraction Monitoring Method External toco Uterine Resting Tone, External Soft Uterine Activity Occasional contractions Baby A FHR Baseline: 128 bpm FHR Baseline Variability: Minimal variability FHR Accelerations: Present FHR Deceleration: Absent FHR Interpretation Category: Category One FHR Monitoring Method: External US transducer 12/07/2022 5:56 EDT Temperature Oral 36.7 DegC Heart Rate Monitored 102 bpm HI Respiratory Rate 18 br/min Systolic Blood Pressure Non-Invasive 103 mmHg Diastolic Blood Pressure Non-Invasive 58 mmHg LOW Patient Position, OB Left tilt 12/07/2022 5:52 EDT Blood Type, External O positive Rubella, External Immune HIV Antibodies, External Negative Group B Strep, External Negative Group B Strep Date Performed 11/14/2022 Hepatitis B, External Negative Hepatitis B Date Performed 06/22/2022 RPR, External Nonreactive Designated Person #1 We May Share SUSAN Pisano = mother Designated Person #1 Relationship Mother Privacy Restrictions Requested None Height 162.6 cm Admission Weight 92 kg [place] Body Weight 54.74 kg BSA Admission 1.97 Body Mass Index 34.8 kg/m2 Primary Pain Intensity 0 Pain Scale Type 0-10 Pain scale Expected Outcome Live Patient Type Inpatient Thrombosis Risk Factors (1) or post- less than 1 month Thrombosis Risk Factor Add'l Assessment NA Thrombosis Risk Score 1 Status Yes Risk Factors, Antepartum Current Preg Diabetes, gestational, non-insulin dependent Movement Present Uterine Contraction Monitoring Method External toco Uterine Resting Tone, External Soft Vaginal bleeding No Baby A FHR Monitoring Method: monitoring explained, External US transducer Heart Tone: 132 PPH Risk Low risk for hemorrhage PPH Low Risk Factors Gomez , Less than 4 previous deliveries, Unscarred uterus, Absence of hemorrhage history Feeding Breast milk Anesthesia/Pain Medication During Labor Epidural/Spinal Circumcision Yes Baby For Adoption No Surrogate No Tubal Sterilization Planned No Discharge [facility] Karen lagos Written Plan No [facility] Participant Yes Safe Sleep Environment for Baby Yes Safe Sleep Environment Outside Home Yes Maternal Transport No Thoughts of Harming Others - History No Thoughts of Suicide - History No Coping Effective Emotional Abuse History Denies Physical Abuse History Denies Sexual Abuse Denies Cultural/Spiritual Practices none Hospital Clergy to Visit Patient Verbalizes No Spiritual Needs Financial Concerns Re: Hospital/Disch No Living Situation Home independently Current Home Treatments Blood Glucose monitoring Professional Skilled Services None Special Services and Community Resources WIC Advanced Directives No - refuses information Infectious Disease Symptoms Patient states no symptoms Infectious Disease Recent Exposure No Alcohol and Drug Use No Employee of Institutional Living No Health Care Employee No History of Exposure to TB No History of Positive Chest X-Ray for TB No History of Positive TB Skin Test No Homeless No Known Immunosuppression No Recent Immigrant No Resident of Institutional Living No Bloody Sputum No Fatigue No Fever No Loss of Appetite No Night Sweats No Persistent Cough > 3 Weeks No Weight Loss No Safety Brochure Information Reviewed Yes [place] [facility] [facility] View[facility] No Teaching Evaluation Verbalizes/Nonverbally indicates understanding Preferred Written Language Malaysian Preferred Spoken Language Malaysian Chief Complaint IOL Mode of Arrival Ambulatory Accompanied by Family member Information Given by Patient Patient's Current Physicians Bettie Del Angel CNM Emergency Contact Number Emergency Contact Number Belongings At Bedside Cell phone, Marketing Operations Coordinator, Laptop computer, Purse, Wallet Personal Home Medications Received No home medications were brought in Belongings Sent Home None Belongings Sent To Security None Discharge To, Anticipated Home independently Other Anticipated Needs After Discharge No Anticoagulants Taken In Past 6 Wks. No Prev Test Positive/Diagnosis w/COVID-19 Yes Previous COVID-19 Positive Date 03/2022 Current Quarantine/Isolated any Illness No Any Contact with Sick Animals/Birds No Traveled Anywhere in Last 30 Days No Influenza Vaccine Need Previously immunized this season (Jun-November) No Able To Drink Order Detail Yes Able To Sign Consents Order Detail Yes Code Status Order Detail Full code IV Order Detail Yes Dialysis Schedule Order Detail N/A Has Diabetes Order Detail Yes Isolation Precautions Order Detail None Nurse Collect Order Detail 1 Oxygen Order Detail No Order Detail Yes Prior Valve Replacement Order Detail No Transport Mode Order Detail Ambulatory Anesthesia/Transfusions Prior anesthesia Admission Note-Nursing Patient History OB . Assessment and Plan [place] [employer] (ASA) physical status classification: Class II. Anesthetic Preoperative Plan Anesthetic technique: Epidural. Informed consent: signed by patient. Digitally Signed by RENNY ALMAGUER on 12/08/2022 03:05 PM [facility] Evaluation + Plan note No data available for this section [facility] Evaluation note* Diagnosis Encounter for initial prescription of contraceptive pills General counseling for prescription of oral contraceptives [facility] Diagnosis Exposure to COVID-19 virus- Primary Viral illness Unspecified viral infection, in conditions classified elsewhere and of unspecified site Other acute nonsuppurative otitis media of right ear, recurrence not specified [facility]* Diagnosis Viral illness- Primary Unspecified viral infection, in conditions classified elsewhere and of unspecified site [facility]* Diagnosis Throat pain- Primary Eustachian tube dysfunction, bilateral [facility]* Diagnosis Other physeal fracture of phalanx of unspecified toe, initial encounter for closed fracture- Primary Toe injury, left, initial encounter documented in this encounter [facility] note* Diagnosis Closed nondisplaced fracture of proximal phalanx of lesser toe of left foot, initial encounter- Primary documented in this encounter [facility] note* Diagnosis Closed nondisplaced fracture of proximal phalanx of lesser toe of left foot, initial encounter- Primary documented in this encounter [facility] note* Diagnosis History of gestational diabetes- Primary Personal history of gestational diabetes Fatigue, unspecified type documented in this encounter [facility] note* Diagnosis Labial lesion Other specified noninflammatory disorder of vulva and perineum documented in this encounter [facility] note* Diagnosis Closed nondisplaced fracture of proximal phalanx of lesser toe of left foot, initial encounter- Primary documented in this encounter [facility] note* Diagnosis Closed nondisplaced fracture of proximal phalanx of lesser toe of left foot, initial encounter- Primary documented in this encounter [facility] note* Diagnosis Pelvic cramping- Primary Unspecified symptom associated with female genital organs Other specified dyspareunia Vaginal irritation Unspecified noninflammatory disorder of vagina Vaginal discharge Leukorrhea, not specified as infective Breakthrough bleeding on control pills Metrorrhagia Screening for STD (sexually transmitted disease) Screening examination for venereal disease documented in this encounter [facility] note* Diagnosis Pain in female genitalia on intercourse Dyspareunia documented in this encounter [facility] note* Diagnosis Ovarian cyst, right- Primary Other and unspecified ovarian cyst [facility]* Diagnosis URI with cough and congestion- Primary [facility]* Diagnosis Anxiety with depression- Primary Palpitations [facility]* Diagnosis URI, acute- Primary Acute upper respiratory infections of unspecified site [facility]* Diagnosis Gastroenteritis- Primary Other and unspecified noninfectious gastroenteritis and colitis Right upper quadrant abdominal pain Abdominal pain, right upper quadrant [facility]* Diagnosis Right upper quadrant abdominal pain Abdominal pain, right upper quadrant [facility]* Diagnosis Right upper quadrant abdominal pain- Primary Abdominal pain, right upper quadrant Gastroenteritis Other and unspecified noninfectious gastroenteritis and colitis documented in this encounter [facility] note* Diagnosis Acute otitis media, right- Primary Unspecified otitis media URI, acute Acute upper respiratory infections of unspecified site documented in this encounter [facility] note* Diagnosis Anxiety with depression Palpitations documented in this encounter [facility] note* Diagnosis Anxiety with depression Palpitations documented in this encounter [facility] note* Diagnosis Pain in toe of left foot Pain in limb documented in this encounter [facility] note* Diagnosis Chest pain varying with breathing- Primary Screening for depression Chest pain varying with breathing documented in this encounter [facility] note* Diagnosis Chest pain varying with breathing documented in this encounter [facility] note* Diagnosis Tachycardia- Primary Tachycardia, unspecified documented in this encounter [facility] note* Diagnosis Anxiety with depression- Primary Bacterial pneumonia Bacterial pneumonia, unspecified documented in this encounter [facility] note* Diagnosis Left lower quadrant abdominal pain- Primary Generalized abdominal pain Abdominal pain, generalized LLQ pain Abdominal pain, left lower quadrant documented in this encounter [facility] note* Diagnosis Class 2 obesity with body mass index (BMI) of 39.0 to 39.9 in adult, unspecified obesity type, unspecified whether serious comorbidity present- Primary documented in this encounter [facility] note* Diagnosis Vaginal odor- Primary Unspecified symptom associated with female genital organs Vaginal irritation Unspecified noninflammatory disorder of vagina Vulvar irritation Other specified noninflammatory disorder of vulva and perineum documented in this encounter [facility] note* Diagnosis Anxiety with depression [facility]* Diagnosis Bacterial pneumonia Bacterial pneumonia, unspecified [facility]* Diagnosis Class 2 obesity with body mass index (BMI) of 39.0 to 39.9 in adult, unspecified obesity type, unspecified whether serious comorbidity present [facility]* Diagnosis Dermatitis Contact dermatitis and other eczema, due to unspecified cause [facility]* Diagnosis Anxiety with depression- Primary Alcohol use documented in this encounter [facility] note* Diagnosis Encounter for gynecological examination with abnormal finding- Primary Routine gynecological examination Irregular menses Irregular menstrual cycle Encounter for repeat prescription of oral contraceptives General counseling for prescription of oral contraceptives Recurrent HSV (herpes simplex virus) Herpes simplex without mention of complication Screen for STD (sexually transmitted disease) Screening examination for venereal disease Screening for cervical cancer Screening for malignant neoplasm of the cervix Encounter for screening for human papillomavirus (HPV) Special screening examination for human papillomavirus (HPV) [facility] Diagnosis Acute otitis media, right- Primary Unspecified otitis media URI, acute Acute upper respiratory infections of unspecified site [facility] No data available for this section [facility] Progress note No data available for this section [facility] Reason for referral (narrative)* Diagnostic Procedure Only (Routine) - Pending Review Specialty Diagnoses / Procedures Referred By Contac t Referred To Contact XR IMAGING Diagnoses Closed nondisplaced fracture of proximal phalanx of lesser toe of left foot, initial encounter Procedures XR TOE AP/LAT/OBL LEFT RADEX TOE MINIMUM 2 VIEWS Randa Mckinney DO [address] [place] [address] Xr Imaging Referral ID Status Reason Start Date Expiration Date Visits Requested Visits Authorized [id number] Pending Review Auto-Generat ed Referral 02/19/2023 03/20/2024 1 1 [facility] for referral (narrative)* Diagnostic Procedure Only (Routine) - Pending Review Specialty Diagnoses / Procedures Referred By Contac t Referred To Contact XR IMAGING Diagnoses Closed nondisplaced fracture of proximal phalanx of lesser toe of left foot, initial encounter Procedures XR TOE AP/LAT/OBL LEFT RADEX TOE MINIMUM 2 VIEWS Randa Mckinney DO [address] [place] [address] [place] [address] Referral ID Status Reason Start Date Expiration Date Visits Requested Visits Authorized [id number] Pending Review Auto-Generat ed Referral 05/14/2023 06/12/2024 1 1 [facility] for referral (narrative)* Diagnostic Procedure Only (Routine) - Authorized Specialty Diagnoses / Procedures Referred By Contac t Referred To Contact US IMAGING Diagnoses Ovarian cyst, right Procedures US FEMALE PELVIS TRANSVAG US TRANSVAGINAL Syklar Denise APRN.WINEMAKER [address] [place] [address] [place] [address] Referral ID Status Reason Start Date Expiration Date Visits Requested Visits Authorized [id number] Authorized Auto-Generat ed Referral 07/22/2023 08/20/2024 1 1 * Diagnostic Procedure Only (Routine) - Authorized Specialty Diagnoses / Procedures Referred By Contac t Referred To Contact US IMAGING Diagnoses Ovarian cyst, right Procedures US FEMALE PELVIS TRANSABD LTD US PELVIC NONOBSTETRIC IMAGE DCMTN LIMITED/F/U Skylar Denise APRN.WINEMAKER [address] [place] [address] [place] [address] Referral ID Status Reason Start Date Expiration Date Visits Requested Visits Authorized [id number] Authorized Auto-Generat ed Referral 07/22/2023 08/20/2024 1 1 [facility] for referral (narrative)* Diagnostic Procedure Only (Routine) - Authorized Specialty Diagnoses / Procedures Referred By Contac t Referred To Contact US IMAGING Diagnoses Right upper quadrant abdominal pain Procedures US ABD RIGHT UPPER QUADRANT US ABDOMINAL REAL TIME W/IMAGE LIMITED Skylar Denise APRN.WINEMAKER [address] [place] [address] [place] [address] Referral ID Status Reason Start Date Expiration Date Visits Requested Visits Authorized [id number] Authorized Auto-Generat ed Referral 02/13/2024 03/14/2025 1 1 [facility] for referral (narrative)* Diagnostic Procedure Only (Routine) - Closed Specialty Diagnoses / Procedures Referred By Contac t Referred To Contact US IMAGING Diagnoses Right upper quadrant abdominal pain Procedures US ABD RIGHT UPPER QUADRANT US ABDOMINAL REAL TIME W/IMAGE LIMITED Skylar Denise APRN.CNP [address] [place] [address] [place] [address] Referral ID Status Reason Start Date Expiration Date V isits Requested Visits Authorized [id number] Closed Auto-Generate d Referral 02/13/2024 03/14/2025 1 1 [facility] for referral (narrative)* Diagnostic Procedure Only (Routine) - Closed Specialty Diagnoses / Procedures Referred By Contac t Referred To Contact XR IMAGING Diagnoses Pain in toe of left foot Procedures XR TOE AP/LAT/OBL LEFT RADEX TOE MINIMUM 2 VIEWS Alesha Pereira PA-C [address] [place] [address] [place] [address] Referral ID Status Reason Start Date Expiration Date V isits Requested Visits Authorized [id number] Closed Auto-Generate d Referral 01/18/2023 02/17/2024 1 1 [facility] for visit Narrative* Diagnostic Procedure Only (Routine) - Closed Specialty Diagnoses / Procedures Referred By Contac t Referred To Contact XR IMAGING Diagnoses Pain in toe of left foot Procedures XR TOE AP/LAT/OBL LEFT RADEX TOE MINIMUM 2 VIEWS Alesha Pereira PA-C [address] [place] [address] [place] [address] Referral ID Status Reason Start Date Expiration Date V isits Requested Visits Authorized [id number] Closed Auto-Generate d Referral 01/18/2023 02/17/2024 1 1 [facility] for visit Narrative* Diagnostic Procedure Only (Urgent) - Closed Specialty Diagnoses / Procedures Referred By Contac t Referred To Contact XR IMAGING Diagnoses Toe injury, left, initial encounter Procedures XR TOE AP/LAT/OBL LEFT RADEX TOE MINIMUM 2 VIEWS King Tom, COMMUNICATIONS PROFESSIONAL.WINEMAKER [address] [place] [address] [place] [address] Referral ID Status Reason Start Date Expiration Date V isits Requested Visits Authorized [id number] Closed Auto-Generate d Referral 01/10/2023 02/09/2024 [facility] Diagnostic Procedure Only (Urgent) - Closed Specialty Diagnoses / Procedures Referred By Contac t Referred To Contact XR IMAGING Diagnoses Rib pain on left side Procedures XR RIBS/CHEST 3V AP RIB/OBLS/CXR LT X-RAY RIBS, CHEST 3+ VW Yayo Verduzco, COMMUNICATIONS PROFESSIONAL.WINEMAKER [address] [place] [address] [place] [address] Referral ID Status Reason Start Date Expiration Date V isits Requested Visits Authorized [id number] Closed Auto-Generate d Referral 04/13/2021 05/13/2022 1 1 [facility] Concerns Infection Onset Date Last Indicated Resolved Time COVID-19 Rule-Out 04/04/2022 04/04/2022 Infection Onset Date Last Indicated Resolved Time COVID-19 Rule-Out 08/30/2022 08/30/2022 Infection Onset Date Last Indicated Resolved Time COVID-19 Rule-Out 08/30/2022 08/30/2022 08/31/2022 5:48 AM EST Infection Onset Date Last Indicated Resolved Time COVID-19 Rule-Out 08/30/2023 08/30/2023 08/31/2023 12:45 AM EST Summary Purpose Family History No Family History Records FoundNo Family History Records FoundNo Family History Records FoundNo Family History Records FoundNo Family History Records FoundNo Family History Records Found Advance Directives No Advanced Directives Records FoundNo Advanced Directives Records FoundNo Advanced Directives Records FoundNo Advanced Directives Records FoundNo Advanced Directives Records FoundNo Advanced Directives Records Found Reason for Referral Specialty Diagnoses / Procedures Referred By Contac t Referred To Contact CT IMAGING Diagnoses Left lower quadrant abdominal pain Procedures CT ABD/PEL W IVCON CT ABD & PELVIS W/CONTRAST Ping Byrd, COMMUNICATIONS PROFESSIONAL.WINEMAKER [address] [place] [address] [place] [address] Referral ID Status Reason Start Date Expiration Date V isits Requested Visits Authorized [id number] Closed Patient Cleared - Admin/Chairm an/Director advise to proceed or did not respond 08/28/2024 10/27/2024 2 2 Specialty Diagnoses / Procedures Referred By Contac t Referred To Contact Podiatry Diagnoses Other physeal fracture of phalanx of unspecified toe, initial encounter for closed fracture Procedures CONSULT TO PODIATRY OFFICE/OUTPATIENT [facility] 60-74 MINUTES Tom Maharaj, COMMUNICATIONS PROFESSIONAL.WINEMAKER [address] [place] [address] Referral ID Status Reason Start Date Expiration Date Visits Requested Visits Authorized [id number] Authorized PCP Requested Referral 01/10/2023 01/10/2024 1 1 Specialty Diagnoses / Procedures Referred By Contac t Referred To Contact XR IMAGING Diagnoses Toe injury, left, initial encounter Procedures XR TOE AP/LAT/OBL LEFT RADEX TOE MINIMUM 2 VIEWS Tom Maharaj APRN.WINEMAKER [address] [place] [address] Xr Imaging Referral ID Status Reason Start Date Expiration Date V isits Requested Visits Authorized [id number] Closed Auto-Generate d Referral 01/10/2023 02/09/2024 1 1 Additional Source Comments Source Comments (unrecognize d section and content) In the event this informatio n is protected by the Federal Confidentiality of Alcohol and Drug Abuse Patient Records regulations: The Federal rules restrict any use of the information to criminally investigate or prosecute any alcohol or drug abuse patient.[facility] HealthIn the event this information is protected by the Federal Confidentiality of Alcohol and Drug Abuse Patient Records regulations: The Federal rules restrict any use of the information to criminally investigate or prosecute any alcohol or drug abuse patient.[facility] HealthIn the event this information is protected by the Federal Confidentiality of Alcohol and Drug Abuse Patient Records regulations: The Federal rules restrict any use of the information to criminally investigate or prosecute any alcohol or drug abuse patient.[facility] HealthIn the event this information is protected by the Federal Confidentiality of Alcohol and Drug Abuse Patient Records regulations: The Federal rules restrict any use of the information to criminally investigate or prosecute any alcohol or drug abuse patient.[facility] HealthIn the event this information is protected by the Federal Confidentiality of Alcohol and Drug Abuse Patient Records regulations: The Federal rules restrict any use of the information to criminally investigate or prosecute any alcohol or drug abuse patient.[facility] HealthIn the event this information is protected by the Federal Confidentiality of Alcohol and Drug Abuse Patient Records regulations: The Federal rules restrict any use of the information to criminally investigate or prosecute any alcohol or drug abuse patient.[facility] HealthIn the event this information is protected by the Federal Confidentiality of Alcohol and Drug Abuse Patient Records regulations: The Federal rules restrict any use of the information to criminally investigate or prosecute any alcohol or drug abuse patient.[facility] HealthIn the event this information is protected by the Federal Confidentiality of Alcohol and Drug Abuse Patient Records regulations: The Federal rules restrict any use of the information to criminally investigate or prosecute any alcohol or drug abuse patient.[facility] HealthIn the event this information is protected by the Federal Confidentiality of Alcohol and Drug Abuse Patient Records regulations: The Federal rules restrict any use of the information to criminally investigate or prosecute any alcohol or drug abuse patient.[facility] HealthIn the event this information is protected by the Federal Confidentiality of Alcohol and Drug Abuse Patient Records regulations: The Federal rules restrict any use of the information to criminally investigate or prosecute any alcohol or drug abuse patient.[facility] HealthIn the event this information is protected by the Federal Confidentiality of Alcohol and Drug Abuse Patient Records regulations: The Federal rules restrict any use of the information to criminally investigate or prosecute any alcohol or drug abuse patient.[facility] HealthIn the event this information is protected by the Federal Confidentiality of Alcohol and Drug Abuse Patient Records regulations: The Federal rules restrict any use of the information to criminally investigate or prosecute any alcohol or drug abuse patient.[facility] HealthIn the event this information is protected by the Federal Confidentiality of Alcohol and Drug Abuse Patient Records regulations: The Federal rules restrict any use of the information to criminally investigate or prosecute any alcohol or drug abuse patient.[facility] HealthIn the event this information is protected by the Federal Confidentiality of Alcohol and Drug Abuse Patient Records regulations: The Federal rules restrict any use of the information to criminally investigate or prosecute any alcohol or drug abuse patient.[facility] HealthIn the event this information is protected by the Federal Confidentiality of Alcohol and Drug Abuse Patient Records regulations: The Federal rules restrict any use of the information to criminally investigate or prosecute any alcohol or drug abuse patient.[facility] HealthIn the event this information is protected by the Federal Confidentiality of Alcohol and Drug Abuse Patient Records regulations: The Federal rules restrict any use of the information to criminally investigate or prosecute any alcohol or drug abuse patient.[facility] HealthIn the event this information is protected by the Federal Confidentiality of Alcohol and Drug Abuse Patient Records regulations: The Federal rules restrict any use of the information to criminally investigate or prosecute any alcohol or drug abuse patient.[facility] HealthIn the event this information is protected by the Federal Confidentiality of Alcohol and Drug Abuse Patient Records regulations: The Federal rules restrict any use of the information to criminally investigate or prosecute any alcohol or drug abuse patient.[facility] HealthIn the event this information is protected by the Federal Confidentiality of Alcohol and Drug Abuse Patient Records regulations: The Federal rules restrict any use of the information to criminally investigate or prosecute any alcohol or drug abuse patient.[facility] HealthIn the event this information is protected by the Federal Confidentiality of Alcohol and Drug Abuse Patient Records regulations: The Federal rules restrict any use of the information to criminally investigate or prosecute any alcohol or drug abuse patient.[facility] HealthIn the event this information is protected by the Federal Confidentiality of Alcohol and Drug Abuse Patient Records regulations: The Federal rules restrict any use of the information to criminally investigate or prosecute any alcohol or drug abuse patient.[facility] HealthIn the event this information is protected by the Federal Confidentiality of Alcohol and Drug Abuse Patient Records regulations: The Federal rules restrict any use of the information to criminally investigate or prosecute any alcohol or drug abuse patient.[facility] HealthIn the event this information is protected by the Federal Confidentiality of Alcohol and Drug Abuse Patient Records regulations: The Federal rules restrict any use of the information to criminally investigate or prosecute any alcohol or drug abuse patient.[facility] HealthIn the event this information is protected by the Federal Confidentiality of Alcohol and Drug Abuse Patient Records regulations: The Federal rules restrict any use of the information to criminally investigate or prosecute any alcohol or drug abuse patient.[facility] HealthIn the event this information is protected by the Federal Confidentiality of Alcohol and Drug Abuse Patient Records regulations: The Federal rules restrict any use of the information to criminally investigate or prosecute any alcohol or drug abuse patient.[facility] HealthIn the event this information is protected by the Federal Confidentiality of Alcohol and Drug Abuse Patient Records regulations: The Federal rules restrict any use of the information to criminally investigate or prosecute any alcohol or drug abuse patient.[facility] HealthIn the event this information is protected by the Federal Confidentiality of Alcohol and Drug Abuse Patient Records regulations: The Federal rules restrict any use of the information to criminally investigate or prosecute any alcohol or drug abuse patient.[facility] HealthIn the event this information is protected by the Federal Confidentiality of Alcohol and Drug Abuse Patient Records regulations: The Federal rules restrict any use of the information to criminally investigate or prosecute any alcohol or drug abuse patient.[facility] HealthIn the event this information is protected by the Federal Confidentiality of Alcohol and Drug Abuse Patient Records regulations: The Federal rules restrict any use of the information to criminally investigate or prosecute any alcohol or drug abuse patient.[facility] HealthIn the event this information is protected by the Federal Confidentiality of Alcohol and Drug Abuse Patient Records regulations: The Federal rules restrict any use of the information to criminally investigate or prosecute any alcohol or drug abuse patient.[facility] HealthIn the event this information is protected by the Federal Confidentiality of Alcohol and Drug Abuse Patient Records regulations: The Federal rules restrict any use of the information to criminally investigate or prosecute any alcohol or drug abuse patient.[facility] HealthIn the event this information is protected by the Federal Confidentiality of Alcohol and Drug Abuse Patient Records regulations: The Federal rules restrict any use of the information to criminally investigate or prosecute any alcohol or drug abuse patient.[facility] HealthIn the event this information is protected by the Federal Confidentiality of Alcohol and Drug Abuse Patient Records regulations: The Federal rules restrict any use of the information to criminally investigate or prosecute any alcohol or drug abuse patient.[facility] HealthIn the event this information is protected by the Federal Confidentiality of Alcohol and Drug Abuse Patient Records regulations: The Federal rules restrict any use of the information to criminally investigate or prosecute any alcohol or drug abuse patient.[facility] HealthIn the event this information is protected by the Federal Confidentiality of Alcohol and Drug Abuse Patient Records regulations: The Federal rules restrict any use of the information to criminally investigate or prosecute any alcohol or drug abuse patient.[facility] HealthIn the event this information is protected by the Federal Confidentiality of Alcohol and Drug Abuse Patient Records regulations: The Federal rules restrict any use of the information to criminally investigate or prosecute any alcohol or drug abuse patient.[facility] HealthIn the event this information is protected by the Federal Confidentiality of Alcohol and Drug Abuse Patient Records regulations: The Federal rules restrict any use of the information to criminally investigate or prosecute any alcohol or drug abuse patient.[facility] HealthIn the event this information is protected by the Federal Confidentiality of Alcohol and Drug Abuse Patient Records regulations: The Federal rules restrict any use of the information to criminally investigate or prosecute any alcohol or drug abuse patient.[facility] HealthIn the event this information is protected by the Federal Confidentiality of Alcohol and Drug Abuse Patient Records regulations: The Federal rules restrict any use of the information to criminally investigate or prosecute any alcohol or drug abuse patient.[facility] HealthIn the event this information is protected by the Federal Confidentiality of Alcohol and Drug Abuse Patient Records regulations: The Federal rules restrict any use of the information to criminally investigate or prosecute any alcohol or drug abuse patient.[facility] HealthIn the event this information is protected by the Federal Confidentiality of Alcohol and Drug Abuse Patient Records regulations: The Federal rules restrict any use of the information to criminally investigate or prosecute any alcohol or drug abuse patient.[facility] HealthIn the event this information is protected by the Federal Confidentiality of Alcohol and Drug Abuse Patient Records regulations: The Federal rules restrict any use of the information to criminally investigate or prosecute any alcohol or drug abuse patient.[facility] HealthIn the event this information is protected by the Federal Confidentiality of Alcohol and Drug Abuse Patient Records regulations: The Federal rules restrict any use of the information to criminally investigate or prosecute any alcohol or drug abuse patient.[facility] HealthIn the event this information is protected by the Federal Confidentiality of Alcohol and Drug Abuse Patient Records regulations: The Federal rules restrict any use of the information to criminally investigate or prosecute any alcohol or drug abuse patient.[facility] HealthIn the event this information is protected by the Federal Confidentiality of Alcohol and Drug Abuse Patient Records regulations: The Federal rules restrict any use of the information to criminally investigate or prosecute any alcohol or drug abuse patient.[facility] HealthIn the event this information is protected by the Federal Confidentiality of Alcohol and Drug Abuse Patient Records regulations: The Federal rules restrict any use of the information to criminally investigate or prosecute any alcohol or drug abuse patient.[facility] HealthIn the event this information is protected by the Federal Confidentiality of Alcohol and Drug Abuse Patient Records regulations: The Federal rules restrict any use of the information to criminally investigate or prosecute any alcohol or drug abuse patient.[facility] HealthIn the event this information is protected by the Federal Confidentiality of Alcohol and Drug Abuse Patient Records regulations: The Federal rules restrict any use of the information to criminally investigate or prosecute any alcohol or drug abuse patient.[facility] HealthIn the event this information is protected by the Federal Confidentiality of Alcohol and Drug Abuse Patient Records regulations: The Federal rules restrict any use of the information to criminally investigate or prosecute any alcohol or drug abuse patient.[facility] HealthIn the event this information is protected by the Federal Confidentiality of Alcohol and Drug Abuse Patient Records regulations: The Federal rules restrict any use of the information to criminally investigate or prosecute any alcohol or drug abuse patient.[facility] HealthIn the event this information is protected by the Federal Confidentiality of Alcohol and Drug Abuse Patient Records regulations: The Federal rules restrict any use of the information to criminally investigate or prosecute any alcohol or drug abuse patient.[facility] HealthIn the event this information is protected by the Federal Confidentiality of Alcohol and Drug Abuse Patient Records regulations: The Federal rules restrict any use of the information to criminally investigate or prosecute any alcohol or drug abuse patient.[facility] HealthIn the event this information is protected by the Federal Confidentiality of Alcohol and Drug Abuse Patient Records regulations: The Federal rules restrict any use of the information to criminally investigate or prosecute any alcohol or drug abuse patient.[facility] HealthIn the event this information is protected by the Federal Confidentiality of Alcohol and Drug Abuse Patient Records regulations: The Federal rules restrict any use of the information to criminally investigate or prosecute any alcohol or drug abuse patient.[facility] HealthIn the event this information is protected by the Federal Confidentiality of Alcohol and Drug Abuse Patient Records regulations: The Federal rules restrict any use of the information to criminally investigate or prosecute any alcohol or drug abuse patient.[facility] Reason for Visit (unrecogniz ed section and content) Reason Comments Refill Request Reason Comments Head Congestion fever, chills, body aches x 3 days Reason Comments Cough Pt reported 25 wk fe tus + FM, nasal congestion x1 day. Reason Comments Results Patient Question Reason Comments Pain, Throat Pt reported 27 week gestation, throat pain rated 6, (RT) ear pain, onset AM. Reason Comments Toe Injury L foot fifth toe inj ury x1 hour Reason Comments New Pain Fracture Reason Comments Acute Visit Concerns for diabete s Reason Comments Results Labs Reason Comments Vaginal Problem Having a herpes outb reak. Reason Comments Follow Up Fracture Reason Comments pain with intercourse Reason Comments Radiology US Specialty Diagnoses / Procedures Referred By Contac t Referred To Contact US IMAGING Diagnoses Pain in female genitalia on intercourse Procedures US FEMALE PELVIS TRANSVAG US TRANSVAGINAL Skylar Denise, COMMUNICATIONS PROFESSIONAL.WINEMAKER [address] [place] [address] [place] [address] Referral ID Status Reason Start Date Expiration Date V isits Requested Visits Authorized [id number] Closed Auto-Generate d Referral 07/17/2023 08/15/2024 1 1 Reason Comments Results Urine/US Orders Reason Comments Cough Chest congestion x4 days Reason Comments Follow Up 1 month med follow u p Reason Comments Cough Cough, runny nose, s inus and RUSSO x 4 days Reason Comments Acute Visit stomach and mid back Reason Comments Radiology US Specialty Diagnoses / Procedures Referred By Contac t Referred To Contact US IMAGING Diagnoses Right upper quadrant abdominal pain Procedures US ABD RIGHT UPPER QUADRANT US ABDOMINAL REAL TIME W/IMAGE LIMITED Skylar Denise, COMMUNICATIONS PROFESSIONAL.WINEMAKER [address] [place] [address] [place] [address] Referral ID Status Reason Start Date Expiration Date V isits Requested Visits Authorized [id number] Closed Auto-Generate d Referral 02/13/2024 03/14/2025 1 1 Reason Comments Results RUQ US Reason Comments Ear Problem Right ear pain, body aches, RUSSO, chills x 3 days Reason Onset Date Comments Refill Request 05/04/2024 Reason Onset Date Comments Refill Request 06/01/2024 Reason Comments Results Labs/ Chest Xray Reason Comments Acute Visit Back pain Reason Comments Cough bodyaches, chills, f ever x 1 day Reason Comments Anxiety Pneumonia follow up Reason Comments Acute Visit Abdominal pain that started yesterday in L lower quad Reason Comments Results Specialty Diagnoses / Procedures Referred By Sonia t Referred To Contact CT IMAGING Diagnoses Left lower quadrant abdominal pain Procedures CT ABD/PEL W IVCON CT ABD & PELVIS W/CONTRAST Ping Byrd APRN.AMAURI [address] [place] [address] [place] [address] Referral ID Status Reason Start Date Expiration Date V isits Requested Visits Authorized [id number] Closed Patient Cleared - Admin/Chairm an/Director advise to proceed or did not respond 08/28/2024 10/27/2024 2 2 Reason Comments Results Patient Update Reason Comments Weight Problem Weight loss options Reason Onset Date Comments Results 01/04/2025 Reason Comments Problem Visit Reason Comments Recheck Medication review/re fill Reason Comments F/U 3 Month Specialty Diagnoses / Procedures Referred By Sonia t Referred To Contact [facility] Diagnoses Anything Medically Necessary Procedures Anything Medically Necessary [place] [facility] [address] Referral ID Status Reason Start Date Expiration Date Visits Requested Visits Authorized [id number] Authorized Financial Clearance Required - Self Pay Patient Cleared - Qualified HCAP/FA 01/18/2025 04/18/2025 99 99 Reason Comments Vaginal Problem Vaginal rash started in December and has not gone away Reason Onset Date Comments Results 01/05/2025 Reason Comments Alcohol Problem Reason Comments Ear Pain right x this am Care Teams (unrecognized sec tion and content) Music Producer Relationship Specialty Start Date End Date Marcial Velazquez MD [address] [place], [place] [id number] PCP - General Family Practice 06/22/20 Music Producer Relationship Specialty Start Date End Date Marcial Velazquez MD [address] [place] [address] PCP - General Family Practice 06/22/20 Music Producer Relationship Specialty Start Date End Date Marcial Velazquez MD [address] [place] [address] PCP - General Family Medicine 06/22/20 Music Producer Relationship Specialty Start Date End Date Marcial Velazquez MD [address] [place] [address] PCP - General Family Medicine 06/22/20 Music Producer Relationship Specialty Start Date End Date Marcial Velazquez MD [address] [place] [address] PCP - General Family Medicine 06/22/20 Music Producer Relationship Specialty Start Date End Date Marcial Velazquez MD [address] [place] [address] PCP - General Family Medicine 06/22/20 Music Producer Relationship Specialty Start Date End Date Marcial Velazquez MD [address] [place] [address] PCP - General Family Medicine 06/22/20 Music Producer Relationship Specialty Start Date End Date Marcial Velazquez MD [address] [place] [address] PCP - General Family Medicine 06/22/20 Music Producer Relationship Specialty Start Date End Date Marcial Velazquez MD [address] [place] [address] PCP - General Family Medicine 06/22/20 Music Producer Relationship Specialty Start Date End Date Marcial Velazquez MD [address] [place] [address] PCP - General Family Medicine 06/22/20 Music Producer Relationship Specialty Start Date End Date Marcial Velazquez MD [address] [place] [address] PCP - General Family Medicine 06/22/20 Music Producer Relationship Specialty Start Date End Date Marcial Velazquez MD [address] [place] [address] PCP - General Family Medicine 06/22/20 Music Producer Relationship Specialty Start Date End Date Marcial Velazquez MD [address] [place] [address] PCP - General Family Medicine 06/22/20 Music Producer Relationship Specialty Start Date End Date Marcial Velazquez MD [address] [place] [address] PCP - General Family Medicine 06/22/20 Music Producer Relationship Specialty Start Date End Date Marcial Velazquez MD [address] [place] [address] PCP - General Family Medicine 06/22/20 Music Producer Relationship Specialty Start Date End Date Marcial Velazquez MD [address] [place] [address] PCP - General Family Medicine 06/22/20 Music Producer Relationship Specialty Start Date End Date Marcial Velazquez MD [address] [place] [address] PCP - General Family Medicine 06/22/20 Music Producer Relationship Specialty Start Date End Date Marcial Velazquez MD [address] [place] [address] PCP - General Family Medicine 06/22/20 Music Producer Relationship Specialty Start Date End Date Marcial Velazquez MD [address] [place] [address] PCP - General Family Medicine 06/22/20 Music Producer Relationship Specialty Start Date End Date Marcial Velazquez MD [address] [place] [address] PCP - General Family Medicine 06/22/20 Music Producer Relationship Specialty Start Date End Date Marcial Velazquez MD [address] [place] [address] PCP - General Family Medicine 06/22/20 Music Producer Relationship Specialty Start Date End Date Marcial Velazquez MD [address] [place] [address] PCP - General Family Medicine 06/22/20 Music Producer Relationship Specialty Start Date End Date Marcial Velazquez MD [address] [place] [address] PCP - General Family Medicine 06/22/20 Music Producer Relationship Specialty Start Date End Date Marcial Velazquez MD [address] [facility] [place] [address] PCP - General Family Medicine 06/22/20 Music Producer Relationship Specialty Start Date End Date Marcial Velazquez MD [address] [place] [address] PCP - General Family Medicine 06/22/20 Music Producer Relationship Specialty Start Date End Date Marcial Velazquez MD [address] [place] [address] PCP - General Family Medicine 06/22/20 Music Producer Relationship Specialty Start Date End Date Marcial Velazquez MD [address] [facility] [place] [address] PCP - General Family Medicine 06/22/20 Music Producer Relationship Specialty Start Date End Date Marcial Velazquez MD [address] [place] [address] PCP - General Family Medicine 06/22/20 Music Producer Relationship Specialty Start Date End Date Marcial Velazquez MD [address] [place] [address] PCP - General Family Medicine 06/22/20 Music Producer Relationship Specialty Start Date End Date Marcial Velazquez MD [address] [place] [address] PCP - General Family Medicine 06/22/20 Skylar Denise APRN.WINEMAKER [address] [place] [address] [employer] Family Medicine 08/23/24 Music Producer Relationship Specialty Start Date End Date Marcial Velazquez MD [address] [place] [address] PCP - General Family Medicine 06/22/20 Skylar Denise APRN.WINEMAKER [address] [place] [address] [employer] Family Medicine 08/23/24 Music Producer Relationship Specialty Start Date End Date Marcial Velazquez MD [address] [place] [address] PCP - General Family Medicine 06/22/20 Skylar Denise APRN.WINEMAKER [address] [place] [address] [employer] Family Medicine 08/23/24 Music Producer Relationship Specialty Start Date End Date Marcial Velazquez MD [address] [place] [address] PCP - General Family Medicine 06/22/20 Skylar Denise APRN.WINEMAKER [address] [place] [address] [employer] Family [facility] 08/23/24 Music Producer Relationship Specialty Start Date End Date Marcial Velazquez MD [address] [place] [address] PCP - General Family Medicine 06/22/20 Skylar Denise APRN.WINEMAKER [address] [place] [address] [employer] Family Medicine 08/23/24 Juan A Marcus APRN.WINEMAKER [address] [place] [address] [employer]cher [employer] [facility] 09/01/24 Music Producer Relationship Specialty Start Date End Date Marcial Velazquez MD [address] [place] [address] PCP - General Family Medicine 06/22/20 Skylar Denise APRN.WINEMAKER [address] [place] [address] [employer] Family [facility] 08/23/24 Juan A Marcus APRN.WINEMAKER [address] [place] [address] [employer] [facility] 09/01/24 Music Producer Relationship Specialty Start Date End Date Marcial Velazquez MD [address] [place] [address] PCP - General Family Medicine 06/22/20 Skylar Denise APRN.WINEMAKER [address] [place] [address] [employer] Family Medicine 08/23/24 Juan A Marcus APRN.WINEMAKER [address] [place] [address] [employer] Family [facility] 09/01/24 Music Producer Relationship Specialty Start Date End Date Marcial Velazquez MD [address] [place] [address] PCP - General Family Medicine 06/22/20 Skylar Denise APRN.WINEMAKER [address] [place] [address] [employer] Family Medicine 08/23/24 Juan A Marcus APRN.WINEMAKER [address] [place] [address] [employer] Family Medicine 09/01/24 Music Producer Relationship Specialty Start Date End Date Marcial Velazquez MD [address] [place] [address] PCP - General Family Medicine 06/22/20 Skylar Denise APRN.WINEMAKER [address] [place] [address] [employer] Family [facility] 08/23/24 Juan A Marcus APRN.WINEMAKER [address] [place] [address] [employer] [facility] 09/01/24 Music Producer Relationship Specialty Start Date End Date Marcial Velazquez MD [address] [place] [address] PCP - General Family Medicine 06/22/20 Skylar Denise APRN.WINEMAKER [address] [place] [address] [employer] Family Medicine 08/23/24 Juan A Marcus APRN.WINEMAKER [address] [place] [address] [facility] Music Producer Relationship Specialty Start Date End Date Marcial Velazquez MD [address] [place] [address] PCP - General Family Medicine 06/22/20 Juan A Marcus APRN.WINEMAKER [address] [place] [address] [facility] Music Producer Relationship Specialty Start Date End Date Marcial Velazquez MD [address] [place] [address] PCP - General Family Medicine 06/22/20 Juan A Marcus APRN.WINEMAKER [address] [place] [address] [employer]cher [employer] Family [facility] 09/01/24 Music Producer Relationship Specialty Start Date End Date Marcial Velazquez MD [address] [place] [address] PCP - General Family Medicine 06/22/20 Skylar Denise APRN.WINEMAKER [address] [place] [address] [employer] Family [facility] 08/23/24 01/27/25 Juan A Marcus APRN.WINEMAKER [address] [place], [place] [address] St[employer]cher [employer] Machine [facility] 09/01/24 Music Producer Relationship Specialty Start Date End Date Marcial Velazquez MD [address] [place], [place] [address] [phone] PCP - General Family Medicine 06/22/20 Juan A Marcus APRN.WINEMAKER [address] [place] [address] [facility] Music Producer Relationship Specialty Start Date End Date Marcial Velazquez MD [address] [place] [address] PCP - General Family Medicine 06/22/20 Juan A Marcus APRN.WINEMAKER [address] [place], [place] [address] [facility] 09/[facility]/24 Music Producer Relationship Specialty Start Date End Date Marcial Velazquez MD [address] [place], [place] [address] [phone] PCP - General Family Medicine 06/22/20 Juan A Marcus APRN.WINEMAKER [address] [place] [address] [facility]ly [facility] 09/01/24 Care Team (unrecognized sect ion and content) Care Team Personnel Name: KUSHAL REYNOLDS DO Position: P4 Physician - Primary Care Med Service: Active Provider Member Role: Primary Care Physician Address: Address: [address] [place] [id number] [place] Care Team Related Persons Name: NIKO PISANO Name: NIKO PISANO Name: NIKO PISANO Name: LUCIO PISANOY Care Team Personnel Name: KUSHAL REYNOLDS Position: P4 Physician - Primary Care Member Role: Primary Care Physician Address: Address: [address] [place] [id number] [place] Care Team Related Persons Name: NIKO PISANO Name: NIKO PISANO Name: NIKO PISANO Name: NIKO PISANO INFORMATION SOURCE (unrecogn ized section and content) DATE CREATED AUTHOR 12/14/2022 [facility] [place] DATE CREATED AUTHOR AUTHOR'S ORGANIZ ATION 01/24/2023 [facility] DATE CREATED AUTHOR AUTHOR'S ORGANIZ ATION 07/25/2024 [facility] DATE CREATED AUTHOR AUTHOR'S ORGANIZ ATION 08/31/2024 [facility] DATE CREATED AUTHOR AUTHOR'S ORGANIZ ATION 06/20/2025 [facility] DATE CREATED AUTHOR AUTHOR'S ORGANIZ ATION 07/22/2025 [facility] FOR RECORDS PERTAINING TO PATIENTS WHO ARE OR HAVE BEEN ENROLLED IN A CHEMICAL DEPENDENCY/SUBSTANCEABUSE PROGRAM, SOME INFORMATION MAY BE OMITTED. This clinical summary was aggregated from multiple sources. Caution should be exercised in using it in the provision of clinical care. This summary normalizes information from multiple sources, and as a consequence, information in this document may materially change the coding, format and clinical context of patient data. In addition, data may be omitted in some cases. CLINICAL DECISIONS SHOULD BE BASED ON THE PRIMARY CLINICAL RECORDS. [employer] [facility]. provides no warranty or guarantee of the accuracy or completeness of information in this document.
[2025-09-05 13:08] LABS: Hematocrit 41.3 % (37-47); Hemoglobin 13.5 g/dL (12.0-15.0); Immature Granulocytes Count 0.030 X10^3/uL (0.0-0.0); Mean Corp Hgb Conc 32.7 g/dL (32-36); Mean Corpuscular Volume 93.7 fL (81-99); Mean Platelet Vol. 10.3 fl (6.2-12.0); NRBC Flagged by Analyzer 0 % (0-5); Platelet Count 253 K/mm3 (150-450); RBC Distribution Width CV 13.7 % (11.6-14.6); RBC Distribution Width SD 47.7 fl (35.1-43.9); Red Blood Count 4.41 M/mm3 (4.2-5.4); White Blood Count 7.6 K/mm3 (4.4-11.0)
[2025-09-05 13:10] LABS: Mucous, Urine 0 SEEN /hpf (<or=2+); Squamous Epithelial Cells - UA 0 SEEN /hpf (5-10)
[2025-09-05 13:11] LABS: Color, Urine Yellow (Yellow); Glucose, Dipstick Normal (Normal); Ketone-Dipstick Negative (Negative); Leukocyte Esterase-Dipstick Negative /ul (Negative); Nitrite-Dipstick Negative (Negative); Occult Blood-Urine 150 /ul (Negative); Protein-Dipstick 15 mg/dl (Negative); Specific Gravity, Urine 1.010 (1.002-1.030); Urine Bilirubin Dipstick Negative (Negative)
[2025-09-05 13:19] LABS: Red Blood Cells-Urine 5-10 SEEN /hpf (0-5)
[2025-09-05 13:42] LABS: AST(SGOT) 15 U/L (<=31); Alanine Aminotransfer ALT/SGPT 15 U/L (<=34); Albumin, Serum 4.4 g/dL (3.5-5.0); Alkaline Phosphatase 69 U/L (35-104); Anion Gap 12 (5-15); BUN 10 mg/dL (4-19); BUN/Creat Ratio 13.4 RATIO (10-20); Calcium,Total 9.5 mg/dL (7.6-11.0); Carbon Dioxide 22.4 mmol/L (21.0-32.0); Chloride 104 mmol/L (98-108); Estimated Creatinine Clearance 122.88 ml/min (50-250); Globulin 2.6 g/dL (2.2-4.2); Glucose 143 mg/dL (70-99); Potassium 3.7 mmol/L (3.3-5.1)
--- NOTE | 2025-09-05 13:43 | CM.ED ---
Social Work Date of referral: 09/05/25 Reason for referral: No Primary Care Physician (PCP) on file. Referred by: Social Work Identification. Patient provided consent to social work visit. Patient confirmed lack of PCP. Fisheries Inspector offered a written handout to the [facility] which patient accepted and expressed appreciation for. Fisheries Inspector provided education about the importance of being established with a PCP which patient verbalized an understanding for. Jossie Castañeda, ATM TECHNICIAN, [employer]
[2025-09-05 13:48] LABS: hCG Titer Quant., Serum < 1 mIU/mL (<9 non-preg)
[2025-09-05 14:22] VITALS: BP 129/77; PULSE 86; RESP 14; TEMP 36.6; O2SAT 100
== END 2025-09-05 14:32 | disposition home or self-care (01) ==
PROVIDERS: Emergency Provider Student in an Organized Health Care Education/Training Program; Visit Provider Student in an Organized Health Care Education/Training Program
DX: N93.8 Other specified abnormal uterine and vaginal bleeding (principal); F17.210 Nicotine dependence, cigarettes, uncomplicated
CPT/HCPCS: 80053; 81001; 84702; 85025; 86900; 86901; 99283; A4216